=== PATIENT | female | born 1990 | race Caucasian/White ===

== ENCOUNTER 2020-12-14 08:45 | Outpatient (RCR) | payer OTHER, SELFPAY ==
--- NOTE | 2020-11-30 13:14 | PC.NURSE ---
Left 2 messages for patient to call me back as she missed her 1245 Telehealth Nursing Assessment appointment.
--- NOTE | 2020-11-30 17:03 | HO.PS.ADMBH ---
HPI Chief Complaint: depression Sources of Information: patient interviewed, chart reviewed and crisis/core team assessment reviewed HPI Narrative: 29 yo female, hx of alcohol use disorder, depression, anxiety, trauma. She reports I have been through the ringer. Reports life has never really worked for her, thought process does not work, jobs don't work out, I race around and never get anything done. States she has a modern prescriber but hopes to begin to address some of the issues that interfere with life not working for her. She believes she had ADHD, wants to be treated, but not with anything that is addictive or would place her sobriety at risk. Reports sobriety since May 2020, recently transitioning to her own room in transitional housing and attempting to manage depressive sx with more healthy coping skills, self care and reaching out to others for feed back and assistance. Denies hx of claudia or hypomania, OCD. Reports hx of eating issues, current sleep latency sx and worry about pending surgery on 12/12 for abnormal cervical cells post Leap. Reports current med regime to be working as she is not as intensely suicidal as she had been and she is able to get out of bed and be productive daily. Past Psychiatric History: IP: One for SI, alcohol use OP: Jose Melendez-psychotherapy; Dr. Christensen-psychopharm [facility] Medical History (Updated 12/01/20 @ 08:45 by Patt Lozano APRN) Alcohol use disorder, severe, dependence Headache History of traumatic brain injury Migraine PTSD (post-traumatic stress disorder) TMJ (temporomandibular joint syndrome) Family History: Anxiety, Depression. Father's - ?Accidential OD or suicide Social History: Lives in residential housing. Currently not working. 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 Substance History: Alcohol since seventh grade has been an issue Trauma History: yes Meds/Allergies Meds Narrative: Lexapro 40 mg daily Buspirone 15 mg bid Clonidine 0.1 mg bid prn Hydroxyzine 25 mg tid prn Trazodone 25 mg hs Gabapentin 100 mg HS Folate Vitamin D Trials: Seroquel-adverse response-increase anxiety; Remeron, Prazosin. Allergies Allergies Allergy/AdvReac Type Severity Reaction Status Date / Time No Known Allergies Allergy Verified 11/30/20 08:16 Mental Status Exam Mental Status Exam Patient Appearance: Appropriate Patient Orientation: Person, Place, Time and Situation Level of Consciousness: Awake and Alert Patient Behavior: Appropriate Mood Description: Anxious Affect Description: Flat Patient Cognition Impaired: No Ability to Follow Directions: Good Speech Pattern: Spontaneous Speech Memory Description: Intact Hallucinations: None Delusions: Not Present Thought Process: Intact Thought Content: positive for Intact Depressive Symptoms: Increased Anxiety, Insomnia, Diff. Making Decisions, Difficulty Sleeping, Hopelessness, Unhappiness, Low Self Esteem and Difficulty Concentrating Judgement: Good Assessment & Plan Assessment & Plan (1) PTSD (post-traumatic stress disorder): Status: Acute Code(s): F43.10 - Post-traumatic stress disorder, unspecified Assessment and Plan: -Continue current regime -Discussed with pt her concerns about ADHD. Referred her to Dr. Pierce Campbell's work to review. -For sleep, will trial an increase of Clonidine to 0.2 mg hs (2) Alcohol use disorder, severe, dependence: Status: Acute Code(s): F10.20 - Alcohol dependence, uncomplicated Certification I certify that partial hospital treatment is medically necessary due to the symptoms and problems resulting from the patient's mental illness and the failure to treat the patient at the partial hospital level of care would likely result in the patient requiring inpatient psychiatric care which could not be prevented at a less intensive level of care. Telehealth Telehealth Location of provider rendering services: practice address Location of patient: address on file Patient Identification confirmed using: Name, : Yes Telehealth method: video Patient verbally consented to treatment: Yes Patient verbally consented to billing insurance company: Yes Patient informed of any privacy concerns related to visit: Yes Time spent with patient (mins): 30
[2020-12-01 08:23] VITALS: BMI 24.0
--- NOTE | 2020-12-01 09:31 | PC.NURSE ---
Patient is a 29 year old female who was referred by [address] [place] [address] d/t patient's depressive symptoms, anxiety, and PTSD sxs. Patient recently moved into transitional housing last week and this is the first time patient is living on her own. She is living in her own room with other residents who reside there. Patient has a long hx of substance use with multiple detox and rehab admissions. Her father at age 55 from substance use complications when Rajwinder was 23 years old. 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 Patient presents with depressed mood and affect. Denied current SI or Hi. She gave verbal permission to email her a copy of her safety plan and has the crisis number if needed. She reports significant hx of heavy ETOH use including hx of detox seizure. Reports last drink on May 04, 2020. She stated she is here for relapse prevention support and that she has anxiety, depression, and PTSD. Medications reconciled with medication list from [address] [place] [address] and with patient. Patient reports taking medications as prescribed. Patient states she has a hx of TBI in 2008 from a snow boarding accident and suffers from Headaches, Migraines, and STM issues as a result. Stated she has not been to a neurologist and would like staff assistance with making a referral. Patient also reports suffering from TMJ and her PCP suggested she see a dentist. Patient reports that she has not seen a dentist in 20 years and is afraid to go. I suggested she call [facility] as they may take her insurance. Patient also reports hx of cervical leep procedure. She has additional cervical surgery scheduled for December 12, 2020 at 0730.
--- NOTE | 2020-12-06 09:38 | PC.NURSE ---
Patient reports hx of snowboarding accident in 2008 and stated she suffered a TBI as a result. Reports she did not receive f/u treatment afterwards however it was recommended that she f/u with a neurologist. She reports some short term memory issues, migraine and headaches. Spoke to nurse Clayton from PCP Dr Whitney office who stated she reviewed the information with Dr Whitney and patient has a f/u appointment in a few weeks and will discuss the need for a referral at that time.
--- NOTE | 2020-12-07 11:24 | PC.NURSE ---
Patient was scheduled to see the prescriber Oliva Bentley NP on 12/07/20 however patient did not show up to the program, she told staff that she felt tired as she did not sleep well last night.
--- NOTE | 2020-12-07 15:23 | PC.NURSE ---
When client did not attend the community meeting I called and woke her up. She states that she had difficulty sleeping last night and will be in tomorrow
--- NOTE | 2020-12-08 10:45 | PC.NURSE ---
Patient complained of TMJ pain and her PCP suggested that she see a dentist. Patient asked for assistance finding a dentist who takes her insurance. Notified patient that I found a dentist in [place] that takes her insurance called [facility] located on [address] [place] [address] in [place] and gave patient the number to call #[phone]. Patient was thankful and stated she would call them.
--- NOTE | 2020-12-11 10:58 | PC.NURSE ---
the client did not come in and did not call. I called her and she reports that she overslept and is not feeling well. She will be out tomorrow for a minor procedure and will be back Friday. She is safe.
--- NOTE | 2020-12-13 14:10 | PC.NURSE ---
I called client to talk about her discharge plans and last scheduled day of treatment. I left a message and requested she return my call.
--- NOTE | 2020-12-13 14:19 | PC.NURSE ---
I spoke with the client about discharge. Her last day will be Dec 19 and she would like a referral for a substance IOP program which I will make for her.
--- NOTE | 2020-12-13 16:18 | HO.PHPPROGNO ---
Subjective Subjective Date of Service: 12/13/20 Reason For Visit: depression Interim History: 29 yo with hx of PTSD, alcohol use disorder, depression, anxiety, ?ADD Pt reports she is experiencing anxiety, sleep disturbance, poor concentration and memory and worries about this when returning to work. Her goal is to function and have less worry about relapse. Reports increase in triggering and is still testing the safety of PHP. Reports no change in sleep, no latency sx, but restless quality at times. Appetite is unchanged, pt prefers to eat at night. SI/SIBS-denies SI plan or intent. Discussed increase of clonidine in our last meeting however pt has not made that change yet. Reports previous gabapentin increases have not worked. Looking to trial a stimulant. Discussed this being done with OP team as extended time would be needed to evaluate. Medication Compliance: Yes Side effects from medications: No Attending Groups: Yes Review of Systems Psychiatric: Reports anxiety and Reports depression Mental Status Exam Mental Status Exam Patient Appearance: Appropriate Patient Orientation: Person, Place, Time and Situation Level of Consciousness: Awake and Alert Patient Behavior: Appropriate Mood Description: Anxious Affect Description: Flat Patient Cognition Impaired: No Ability to Follow Directions: Good Speech Pattern: Spontaneous Speech Memory Description: Intact Hallucinations: None Delusions: Not Present Thought Process: Intact Thought Content: positive for Intact Depressive Symptoms: Increased Anxiety, Diff. Making Decisions, Thoughts of /Suicide (Denies SI plan or intent) and Difficulty Concentrating Judgement: Good Diagnostics Vital Signs (24Hr): Body Mass Index 24.0 Assessment & Plan Assessment & Plan (1) PTSD (post-traumatic stress disorder): Status: Acute Code(s): F43.10 - Post-traumatic stress disorder, unspecified Assessment and Plan: -Continue current regime (2) Alcohol use disorder, severe, dependence: Status: Acute Code(s): F10.20 - Alcohol dependence, uncomplicated Certification I certify that partial hospital treatment is medically necessary due to the symptoms and problems resulting from the patient's mental illness and the failure to treat the patient at the partial hospital level of care would likely result in the patient requiring inpatient psychiatric care which could not be prevented at a less intensive level of care. Greater than 50% of the session was spent on counseling and/or coordination of care Discharge Plan Discharge Attending provider: Luisito Guzman Medications: No Action clonidine HCl 0.1 mg Tablet 0.1 mg PO BEDTIME RF: 0 clonidine HCl 0.1 mg Tablet See Rx Instructions .ROUTE .COMPLEX RF: 0 citalopram 40 mg tablet 1 tab PO DAILY RF: 0 trazodone 50 mg Tablet 25 mg PO BEDTIME RF: 0 ibuprofen [Advil Liqui-Gel] 200 mg Capsule 200 mg PO Q4-6H PRN (Reason: Pain) RF: 0 thiamine HCl (vitamin B1) 100 mg Tablet 100 mg PO DAILY RF: 0 melatonin 3 mg Tablet 3 mg PO BEDTIME PRN (Reason: Insomnia) RF: 0 folic acid 1 mg Tablet 1 mg PO DAILY RF: 0 hydroxyzine HCl 25 mg Tablet 25 mg PO TID PRN (Reason: Anxiety) RF: 0 buspirone 15 mg tablet 1 tab PO BID RF: 0 topiramate 50 mg Tablet 50 mg PO BEDTIME RF: 0 gabapentin 100 mg Tablet 100 mg PO BEDTIME RF: 0 diclofenac sodium 1 % gel See Rx Instructions .ROUTE .COMPLEX RF: 0 Telehealth Telehealth Location of provider rendering services: practice address Location of patient: address on file Patient Identification confirmed using: Name, : Yes Telehealth method: video Patient verbally consented to treatment: Yes Patient verbally consented to billing insurance company: Yes Patient informed of any privacy concerns related to visit: Yes Time spent with patient (mins): 20
--- NOTE | 2020-12-15 09:27 | PC.NURSE ---
When the client did not come in this morning I phoned her and we discussed her needs. She states that she would prefer a program that was addiction recovery focused. She has appointments with her therapist and prescriber. I told her that I will call [facility] and make a referral for their IOP. She will be discharged from [facility] today.
--- NOTE | 2020-12-15 09:54 | PC.NURSE ---
I made an intake appointment for the client at [facility] for dec 25 @ 2:30 pm. I called client and infoemed her of the appointment.
== END 2020-12-14 23:55 | disposition home or self-care (01) ==
LOC: HO.PHPA 08:45
PROVIDERS: Visit Provider Psychiatry & Neurology Psychiatry
DX: F43.10 Post-traumatic stress disorder, unspecified (principal); F10.20 Alcohol dependence, uncomplicated; Z79.899 Other long term (current) drug therapy
CPT/HCPCS: 90791; 90853

== ENCOUNTER 2024-02-07 06:50 | Inpatient (IN) | payer OTHER, SELFPAY ==
[2024-02-07 07:21] VITALS: BP 115/77; PULSE 75; RESP 16; TEMP 37.4; O2SAT 100
[2024-02-07 07:22] VITALS: BMI 44.4
--- NOTE | 2024-02-07 07:25 | PC.NURSE ---
Rajwinder was admitted to unit at 0700 via stretcher from [facility], CV signed, skin check done by 2 female staff. Has healing scratches to right hand fingers from punching wall. She reported HX of SIB a long time ago. (years), skin otherwise is intact. Nicotine Vape pen taken from [facility] and placed with belongings along with her jewelry and 2 cell phones. She was shown her room. Denies SI/AVH, feels safe on the unit. Rajwinder is A/O x 3, ambulatory with steady gait.
[2024-02-07] MEDS: hydrOXYzine HCL 25 MG TABLET PO (09:10)
--- NOTE | 2024-02-07 10:49 | PC.NURSE ---
Pt already recieved immunization for the Flu this season.
--- NOTE | 2024-02-07 11:34 | HO.PSYADMNOT ---
HPI Date of Service: 02/07/24 Chief Complaint: Bipolar disorder: Alcohol, opiate use disorder Sources of Information: patient interviewed and chart reviewed HPI Subjective Notes: Conditional Voluntary Narrative: Patient presents as a direct admission from [facility]. Reports that she was a in a very unsafe living situation, needs help and does not have resources. Was very tearful when mentioning same and also stated she did not feel in the space ready to talk about things. Validated same and patient agreed to talk about past treatment except aura and may discuss living situation more tomorrow or with primary team after the weekend. Did endorse feeling depressed, hopeless, understand she will likely return to her prior situation and with that depression potential suicidal thoughts. No hallucinations. Does endorse disturbed sleep. No claudia hypomania. Reports sometimes having what might be considered paranoid thoughts, but also reports that it is hard to know if these are more related to complex PTSD versus delusions. Again reluctant to go into detail. 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 Current treatment includes doxepin 75 mg at bedtime, gabapentin 400 mg twice daily, clonidine 0.1 mg 3 times per day, Sublocade monthly injection 300 mg, suboxone 4mg prn altdays/daily for cravings, next due on 02/13/2024, melatonin 10 mg, senna and Colace. He is gets medications through [facility] in [place] for the last 2 years. Has been sober from all substances for 2 years, which includes heroin and alcohol. Has a therapist through [facility]. Was also seen by addiction medicine services today. Past Psychiatric History: Complex PTSD diagnosis. Opioid use disorder alcohol use disorder, sober for the last 2 years. Meds through [facility]: doxepin 75 mg at bedtime, gabapentin 400 mg twice daily, clonidine 0.1 mg 3 times per day, Sublocade monthly injection 300 mg, suboxone 4mg prn altdays/daily for cravings, next due on 02/13/2024, melatonin 10 mg, senna and Colace. Therapits with [facility]. Last inpatient episode was around 2-3 years ago which was actually a rehab setting and before that may have had inpatient episode. Last suicide attempt was around 3 years ago. Reports a number of suicide attempts and they usually involve drinking and taking excess medications. Reports being on many medications in the years past including lithium, mood stabilizers and multiple antipsychotics and them never being affective or having side effects. Medical Evaluation Reviewed: Hospitalist Pamelaal Pending [facility] Medical History (Updated 02/07/24 @ 16:13 by Celestino Horan MD) Alcohol use disorder, severe, dependence PTSD (post-traumatic stress disorder) TMJ (temporomandibular joint syndrome) History of traumatic brain injury Headache Migraine Family History: Anxiety, Depression. Father's - ?Accidential OD or suicide Social History: Patient reports an unsafe living situation but very reluctant to elaborate. Single. No children. No legal issues. 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 Trauma History: yes Diagnostics Vital Signs (24Hr): Vital Signs - 24 hr 02/07/24 07:21 Temperature 99.4 F Pulse Rate 75 Respiratory Rate 16 Blood Pressure 115/77 Pulse Oximetry 100 Oxygen Delivery Method Room Air BMI result Body Mass Index 44.4 Meds/Allergies Meds Home Medications ?Medication ?Instructions ?Recorded ?Confirmed ?Type buspirone 15 mg tablet 1 tab PO BID 11/30/20 11/30/20 History citalopram 40 mg tablet 1 tab PO DAILY 11/30/20 11/30/20 History clonidine HCl 0.1 mg tablet 0.1 mg PO BEDTIME 11/30/20 11/30/20 History clonidine HCl 0.1 mg tablet See Rx Instructions .Route .COMPLEX 11/30/20 11/30/20 History diclofenac sodium 1 % topical gel See Rx Instructions .Route .COMPLEX 11/30/20 11/30/20 History folic acid 1 mg tablet 1 mg PO DAILY 11/30/20 11/30/20 History gabapentin 100 mg tablet 100 mg PO BEDTIME 11/30/20 11/30/20 History hydroxyzine HCl 25 mg tablet 25 mg PO TID PRN Anxiety 11/30/20 11/30/20 History ibuprofen 200 mg capsule (Advil 200 mg PO Q4-6H PRN Pain 11/30/20 11/30/20 History Liqui-Gel) melatonin 3 mg tablet 3 mg PO BEDTIME PRN Insomnia 11/30/20 11/30/20 History thiamine HCl (vitamin B1) 100 mg 100 mg PO DAILY 11/30/20 11/30/20 History tablet topiramate 50 mg tablet 50 mg PO BEDTIME 11/30/20 11/30/20 History trazodone 50 mg tablet 25 mg PO BEDTIME 11/30/20 11/30/20 History Allergies Allergies Allergy/AdvReac Type Severity Reaction Status Date / Time No Known Allergies Allergy Verified 11/30/20 08:16 Mental Status Exam Mental Status Exam Narrative: Pleasant. Engaged. Organized. Depressed and anxious. Denies current SI. No HI. No agitation or psychosis. Insight and judgment fair Assessment & Plan Assessment & Plan (1) PTSD (post-traumatic stress disorder): Status: Acute Code(s): F43.10 - Post-traumatic stress disorder, unspecified (2) Opioid use disorder, severe, in sustained remission: Status: Acute Code(s): F11.21 - Opioid dependence, in remission (3) Alcohol use disorder, severe, in sustained remission: Status: Acute Code(s): F10.21 - Alcohol dependence, in remission Plan Presents with history of complex PTSD, alcohol and opioid use disorder, with sobriety for at least 2 years, currently engaged in outpatient services. Patient describes unsafe living situation, needing help and resources, but also reluctant to discuss details currently. Maintain current treatment includes doxepin 75 mg at bedtime, gabapentin 400 mg twice daily, clonidine 0.1 mg 3 times per day, Sublocade monthly injection 300 mg and suboxone 4mg prn /daily for cravings, next due on 02/13/2024, melatonin 10 mg (will be 9mg), senna and Colace. Also seen by addiction medicine services today. Patient educated on: diagnosis and medication risk/benefits Informed Consent: understands Reason for continued inpatient stay Substantial Risk for: harm to self Statement Statement: I have reviewed the history and physical and performed a pertinent examination on my patient. No changes have occurred unless specified. If the History and Physical was not performed prior to admission, the Hospitalist's service will be consulted for completing the admission physical. Time Spent With Patient Time: Total time managing care of this patient today ____ minutes.
--- NOTE | 2024-02-07 13:56 | HO.PM.IMCN ---
History of Present Illness Data of Consult Service Date: 02/07/24 Primary Care Provider: Unknown Physician HPI Reason for consult: Admission H&P Pt is a 33-year-old female with a PMH significant for?polysubstance use on Suboxone, anxiety, and depression who is admitted to M3 psychiatry unit for increased anxiety and paranoid behavior. Patient apparently believes one of her neighbors is stalking her, though increasingly has worried her perceptions are not accurate. Neighbor's report hearing screaming, yelling, and talking to herself while she is alone in her apartment. Medical consult for admission H&P. ?Patient is seen and approached at bed where she is resting comfortably. Pt declines interview and examination at this time, saying she would like to be left alone to rest. Denies any acute medical complaints at this time. Review of Systems Review of Systems: Denies any acute medical complaints at this time [facility] Medical History Alcohol use disorder, severe, dependence PTSD (post-traumatic stress disorder) TMJ (temporomandibular joint syndrome) History of traumatic brain injury Headache Migraine Social History Household Members: None Household Members Other:: residents Housing: Apartment Housing Other:: sober living Do you presently have visiting nurse or other home services: No Patient Tobacco Use Status: Current everyday Tobacco user Smoked in Last 30 Days: Yes e-Cigarette/Vaping Use: Currently Using Frequency of e-Cigarette/Vaping Use: througout the day Patient Interested in Nicotine Replacement: Yes Patient Given Instructions on How to Stop Smoking: Yes Date Education Initiated: 02/07/24 Second Hand Smoke Exposure: No Use of substances other than those prescribed or required for medical reasons: No Currently Displaying Signs/Symptoms of Drug Intoxication Withdrawal: No Have you been hit, kicked, punched, or otherwise hurt by someone within the past year? If so, by whom?: No Do you feel safe in your current relationship?: No Current Relationship Is there a partner from a previous relationship who is making you feel unsafe now?: No Are you made to feel afraid or neglected: No Advance Directives: No Advance Directives Information Provided: Yes Do you have thoughts of harming others: None Do you have a plan to hurt others: No Plan Recently lost weight without trying: Yes How much weight loss: 2-13 pounds Eating poorly because of decreased appetite: No Nutrition screen score: 3 Nutrition Risks: No Nutritional Risk Patient : No : No Poor oral hygiene: No Meds Allergies Allergy/AdvReac Type Severity Reaction Status Date / Time No Known Allergies Allergy Verified 11/30/20 08:16 Active Medications: Current Medications Acetaminophen (Acetaminophen 325 Mg Tablet) 650 mg PO Q6H PRN PRN Reason: Headache/Pain Mild Scale (1-3) Al Hydroxide/Mg Hydroxide (Magnesium Hydrox/Alum Hydrox 30 Ml Oral.Susp) 30 ml PO Q6H PRN PRN Reason: Heartburn/Nausea Hydroxyzine HCl (Hydroxyzine Hcl 25 Mg Tablet) 25 mg PO Q6H PRN PRN Reason: Anxiety Last Admin: 02/07/24 09:10 Dose: 25 mg Magnesium Hydroxide (Milk Of Magnesia 30 Ml Oral.Susp) 30 ml PO DAILY PRN PRN Reason: Constipation Nicotine Polacrilex (Nicotine Polacrilex 2 Mg Gum) 2 mg BUCCAL Q2H PRN PRN Reason: Nicotine Cravings Trazodone HCl (Trazodone Hcl 50 Mg Tablet) 50 mg PO BEDTIME MRX1 PRN PRN Reason: Insomnia Home Medications ?Medication ?Instructions ?Recorded ?Confirmed ?Last Taken ?Type buspirone 15 mg tablet 1 tab PO BID 11/30/20 11/30/20 11/30/20 09:30 History citalopram 40 mg tablet 1 tab PO DAILY 11/30/20 11/30/20 11/30/20 09:30 History clonidine HCl 0.1 mg tablet 0.1 mg PO BEDTIME 11/30/20 11/30/20 11/29/20 21:00 History clonidine HCl 0.1 mg tablet See Rx Instructions .Route .COMPLEX 11/30/20 02/07/24 11/30/20 09:30 History diclofenac sodium 1 % topical gel See Rx Instructions .Route .COMPLEX 11/30/20 11/30/20 Unknown History folic acid 1 mg tablet 1 mg PO DAILY 11/30/20 11/30/20 Unknown History gabapentin 100 mg tablet 100 mg PO BEDTIME 11/30/20 02/07/24 11/29/20 21:00 History hydroxyzine HCl 25 mg tablet 25 mg PO TID PRN Anxiety 11/30/20 02/07/24 11/29/20 21:00 History ibuprofen 200 mg capsule (Advil 200 mg PO Q4-6H PRN Pain 11/30/20 11/30/20 Unknown History Liqui-Gel) melatonin 3 mg tablet 3 mg PO BEDTIME PRN Insomnia 11/30/20 11/30/20 11/29/20 21:00 History thiamine HCl (vitamin B1) 100 mg 100 mg PO DAILY 11/30/20 11/30/20 11/30/20 09:30 History tablet topiramate 50 mg tablet 50 mg PO BEDTIME 11/30/20 11/30/20 11/29/20 21:00 History trazodone 50 mg tablet 25 mg PO BEDTIME 11/30/20 11/30/20 11/29/20 21:00 History Physical Exam Vital Signs and Narrative: Vital Signs: Last Vital Signs Temp 99.4 F 02/07/24 07:21 Pulse 75 02/07/24 07:21 Resp 16 02/07/24 07:21 BP 115/77 02/07/24 07:21 Pulse Ox 100 02/07/24 07:21 O2 Del Method Room Air 02/07/24 07:21 BMI result Body Mass Index 44.4 Patient declines physical examination Assessment and Plan (1) Medical clearance for psychiatric admission: Status: Acute Plan Pt is a 33-year-old female with a PMH significant for?polysubstance use on Suboxone, anxiety, and depression who is admitted to M3 psychiatry unit for increased anxiety and paranoid behavior. Patient apparently believes one of her neighbors is stalking her, though increasingly has worried her perceptions are not accurate. Neighbor's report hearing screaming, yelling, and talking to herself while she is alone in her apartment. Medical consult for admission H&P. ?Patient is seen and approached at bed where she is resting comfortably. Pt declines interview and examination at this time. Mood disorder Plan as per Psychiatry Polysubstance use disorder Continue Suboxone Plan as per Psychiatry Thank you for allowing us to participate in the care of this patient. Signing off at this time. Please re-consult if any acute complaints or issues arise.
--- NOTE | 2024-02-07 14:13 | MHC.RECOVRN ---
Met with pt in 323-3 after consult placed to Addiction Medicine for Suboxone consult.? Chart review completed and received report from floor nurse Jordyn. Pt was transferred from [facility] [place] inpt. Psych treatment.? She had just arrived at 7AM so although chart review was completed, information was minimal.? [facility] was contacted due to pt. reporting she is on a ?suboxone taper? and staff requesting further guidance re:? this.? Upon assessment pt is in common area awake and alert eating breakfast.? Pt reports she has been sober for 3 years from heroin and that she has been getting sublocade and suboxone for several months.? Upon review of HVAC CONTROLS TECHNICIAN pt is receiving sublocade 300mg Q 28 days and suboxone 8-2mg -1/2 strip QD PRN.? Last fill for suboxone 8-2mg was on 01/14 x 18 days and sublocade 300mg was on 12/31.? Pt reports she is due for her next injection of sublocade this coming Fri.? ?? Pt is requesting an order for her PO suboxone for W/D, cravings.? She reports she has been slowly tapering off the PO form since on injection and HVAC CONTROLS TECHNICIAN reflects this.? T/W consulted with Flakita Roche NP and recommendations made to ordering provider Dr. Horan for suboxone 4-1mg BID PRN for breakthrough W/D or cravings.? Pt will be due for sublocade per her report this Fri.? Unable to verify this with current clinic [facility] in [place] as they are closed today.? Pt also with h/o AUD and t/w will f/u with her re:? POC r/t this at next visit. [facility] will follow pt. while admitted and provide any further support/assistance needed. Report to [facility] team and pt?s nurse Cobb.
[2024-02-07] MEDS: Nicotine Polacrilex 2 MG GUM BUCCAL ×3 (14:27→21:31)
--- NOTE | 2024-02-07 14:40 | PC.ADMIT ---
Rajwinder is a 33 year old female admitted to M3 at 0700 from [facility] and signed a CV upon entering the unit. Pt self presented to the ER d/t increased anxiety and paranoia. Dx of Bipolar 1, CHILO, Alcohol use d/o in remission and Opioid use d/o in remission. Pt is A&O x4. Pt was calm, pleasant and cooperative with admission process. Mood is anxious. Affect is variable. She denied AH or VH. Pt denied SI or VH at this time. Pt reported hx of past suicide attempt and SI. No overt psychosis or expressed delusions at this time. Pt was compliant with the skin check. Pt is on a suboxone taper and was seen by the clinical research specialist this AM. She reported lack of sleep for and taking extra prescribed meds to help her. Pt reported a 10lb unintentional weight loss in the past month. Pt reported I have been under a lot of stress and could no longer deal with it. She reported not feeling safe in her apartment and I feel like I was in fight or flight mode , pt smashed her laptop and punched wall before calling respite. Pt reports that before presenting to the ER I was trying to get a bed with respite and they had no room so they referred me to the ER. Pt tox screen was negative. Pt COVID test was negative. Pt had a TBI at 18 y/o. High fall risk d/t 2 episodes of fainting last week. Pt was placed on 15 minute safety checks.
[2024-02-07] MEDS: Gabapentin 400 MG CAPSULE PO ×2 (15:33→20:34)
[2024-02-07 15:35] VITALS: BP 109/67; PULSE 79; O2SAT 98
[2024-02-07] MEDS: cloNIDine HCL 0.1 MG TABLET PO ×2 (15:39→20:34)
[2024-02-07] MEDS: Doxepin HCl 25 MG CAPSULE 75 MG PO (20:34)
[2024-02-07] MEDS: Docusate Sodium 100 MG CAPSULE PO (20:34)
[2024-02-07] MEDS: Buprenorphine/Naloxone 4/1 mg FILM 1 FILM SUBLINGUAL (20:37)
[2024-02-07 20:40] VITALS: BP 106/69; PULSE 80; RESP 16; TEMP 36.3; O2SAT 97
[2024-02-07] MEDS: Melatonin 3 MG TABLET 9 MG PO (21:31)
[2024-02-08 08:10] VITALS: BP 87/52; PULSE 62; RESP 14; TEMP 37.3; O2SAT 96
[2024-02-08] MEDS: Docusate Sodium 100 MG CAPSULE PO ×2 (09:05→21:06)
[2024-02-08] MEDS: Gabapentin 400 MG CAPSULE PO ×2 (09:05→21:06)
[2024-02-08] MEDS: cloNIDine HCL 0.1 MG TABLET PO ×3 (09:37→21:06)
[2024-02-08] MEDS: hydrOXYzine HCL 25 MG TABLET PO (09:37)
[2024-02-08] MEDS: Nicotine Polacrilex 2 MG GUM BUCCAL ×4 (09:41→21:17)
--- NOTE | 2024-02-08 11:34 | MHC.RECOVRN ---
Met with pt in 323-3 to follow up and provide support.? Pt sleeping at time of visit. Nurse reports that pt. was up for a good portion of the night due to disruption from room mate therefore I did not awaken pt. Pt's nurse Jordyn, pt did receive PRN suboxone order and accessed it last evening with good effects. I requested staff initiate COWS assessment prior to administering suboxone strips (going forward). Jordyn denies other concerns with pt. at this time.? T/w available as needed.
--- NOTE | 2024-02-08 12:07 | P.PNPSI_ITS ---
Subjective Subjective Date of Service: 02/08/24 Reason For Visit: Bipolar disorder: Alcohol, opiate use disorder Subjective Notes: Conditional Voluntary Interim History: met with patient. Discussed with Nursing. Patient Discussed trying be used to the environment, trauma history and difficulty with trust. Sleep was poor last night in the context of roommate being awake and disturbing. Describes clear PTSD symptoms, with fear, hyper vigilance etc. We did separate that out from paranoia. We discussed diagnosis of PTSD and treatments and would like to discuss medication options with her primary team tomorrow such as antipsychotics. Also wants to explore applying for [facility] services. Medication Compliance: Yes Side effects from medications: No Attending Groups: No Review of Systems Acute medical concerns: No Review of Systems Review of Systems Yes all other systems are reviewed and are negative Mental Status Exam Mental Status Exam Narrative: Pleasant. Engaged. Organized. Depressed and anxious. Denies current SI. No HI. No agitation or psychosis. Insight and judgment fair Diagnostics Vital Signs (24Hr): Vital Signs - 24 hr 02/07/24 15:35 02/07/24 20:40 02/08/24 08:10 Temperature 97.4 F 99.1 F Pulse Rate 79 80 62 Respiratory Rate 16 14 Blood Pressure 109/67 106/69 87/52 L Pulse Oximetry 98 97 96 Oxygen Delivery Method Room Air Room Air Room Air BMI result Body Mass Index 44.4 Medications Medications Current Medications Acetaminophen (Acetaminophen 325 Mg Tablet) 650 mg PO Q6H PRN PRN Reason: Headache/Pain Mild Scale (1-3) Al Hydroxide/Mg Hydroxide (Magnesium Hydrox/Alum Hydrox 30 Ml Oral.Susp) 30 ml PO Q6H PRN PRN Reason: Heartburn/Nausea Buprenorphine/Naloxone (Buprenorphine/Naloxone 4/1 Mg Film) 1 film SUBLINGUAL DAILY PRN PRN Reason: opioid cravings Clonidine HCl (Clonidine Hcl 0.1 Mg Tablet) 0.1 mg PO TID [facility]; Protocol Last Admin: 02/08/24 09:37 Dose: 0.1 mg Docusate Sodium (Docusate Sodium 100 Mg Capsule) 100 mg PO BID [facility] Last Admin: 02/08/24 09:05 Dose: 100 mg Doxepin HCl (Doxepin Hcl 25 Mg Capsule) 75 mg PO BEDTIME [facility] Last Admin: 02/07/24 20:34 Dose: 75 mg Gabapentin (Gabapentin 400 Mg Capsule) 400 mg PO BID [facility] Last Admin: 02/08/24 09:05 Dose: 400 mg Hydroxyzine HCl (Hydroxyzine Hcl 25 Mg Tablet) 25 mg PO Q6H PRN PRN Reason: Anxiety Last Admin: 02/08/24 09:37 Dose: 25 mg Magnesium Hydroxide (Milk Of Magnesia 30 Ml Oral.Susp) 30 ml PO DAILY PRN PRN Reason: Constipation Melatonin (Melatonin 3 Mg Tablet) 9 mg PO BEDTIME ARNEL Last Admin: 02/07/24 21:31 Dose: 9 mg Nicotine Polacrilex (Nicotine Polacrilex 2 Mg Gum) 2 mg BUCCAL Q2H PRN PRN Reason: Nicotine Cravings Last Admin: 02/08/24 09:41 Dose: 2 mg Non-Formulary Medication (Sublocade) 300 mg SUBCUT ONCE ONE Stop: 02/13/24 08:01 Senna (Senna [place] Extract Oral Syrup 15 Ml Syrup) 15 ml PO BEDTIME PRN PRN Reason: Constipation Trazodone HCl (Trazodone Hcl 50 Mg Tablet) 50 mg PO BEDTIME MRX1 PRN PRN Reason: Insomnia Allergies Allergies Allergy/AdvReac Type Severity Reaction Status Date / Time No Known Allergies Allergy Verified 11/30/20 08:16 Assessment & Plan Assessment & Plan (1) PTSD (post-traumatic stress disorder): Status: Acute Code(s): F43.10 - Post-traumatic stress disorder, unspecified (2) Opioid use disorder, severe, in sustained remission: Status: Acute Code(s): F11.21 - Opioid dependence, in remission (3) Alcohol use disorder, severe, in sustained remission: Status: Acute Code(s): F10.21 - Alcohol dependence, in remission Plan Presents with history of complex PTSD, alcohol and opioid use disorder, with sobriety for at least 2 years, currently engaged in outpatient services. Patient describes unsafe living situation, needing help and resources, but also reluctant to discuss details currently. Maintain current treatment includes doxepin 75 mg at bedtime, gabapentin 400 mg twice daily, clonidine 0.1 mg 3 times per day, Sublocade monthly injection 300 mg (next due on 02/13/2024) and suboxone 4mg prn /daily for cravings, melatonin 10 mg (will be 9mg), senna and Colace. Also seen by addiction medicine services today. 02/07: discussed diagnosis of PTSD and treatments and would like to discuss medication options with her primary team tomorrow such as antipsychotics. Also wants to explore applying for DM services. Reason for continued inpatient stay Substantial Risk for: inability to function and rapid decompensation Time Spent With Patient Time: Total time managing care of this patient today ____ minutes.
[2024-02-08 15:00] VITALS: BP 114/75; PULSE 82
[2024-02-08] MEDS: Gabapentin 100 MG CAPSULE PO (15:20)
[2024-02-08 18:00] VITALS: BP 92/55; PULSE 72; RESP 18; TEMP 37.3; O2SAT 98
[2024-02-08] MEDS: Melatonin 3 MG TABLET 9 MG PO (21:06)
[2024-02-08] MEDS: Doxepin HCl 25 MG CAPSULE 75 MG PO (21:06)
[2024-02-09 06:00] VITALS: BP 81/47; PULSE 68; RESP 12; TEMP 37; O2SAT 96
--- NOTE | 2024-02-09 09:01 | P.PNPSI_ITS ---
Subjective Subjective Date of Service: 02/09/24 Reason For Visit: Bipolar disorder: Alcohol, opiate use disorder Subjective Notes: Conditional Voluntary Interim History: Reviewed with Dr. Guzman. Active on unit, keeping to self. pt reports feeling anxious and depressed today; Pt stated, I don't feel safe in my current living situation. This georgina who lives in the sober living building with me is always making comments about me and lingers around my door. [facility] . Pt reports she plans [facility] today to determine if she can move to a different location or utilizing her [employer] voucher. Pt reports suicidal ideation when she thinks about going back to the same sitation and knowing that georgina is there . pt denies HI/VH/AH. Discussed starting on mood stabilizer; reviewed risks/benefits of lamictal; pt agreed to trial. Start: lamictal 25mg PO daily Medication Compliance: Yes Side effects from medications: No Attending Groups: Yes Review of Systems Constitutional: Reports as per HPI Eyes: Reports as per HPI Reports as per HPI Cardiovascular: Reports as per HPI Respiratory: Reports as per HPI Gastrointestinal: Reports as per HPI Genitourinary: Reports as per HPI Musculoskeletal: Reports as per HPI Skin/Breast: Reports as per HPI Reports as per HPI Psychiatric: Reports as per HPI Endocrine: Reports as per HPI Hematologic/Lymphatic: Reports as per HPI Allergic/Immunologic: Reports as per HPI Mental Status Exam Mental Status Exam Narrative: Pt is alert and oriented; behavior is cooperative and calm; dressed in casual attire; mood is described as anxious and depressed ; eye contact appropriate; Speech is normal rate, volume and prosody and not pressured; thought process is organized and goal directed; Thought content is on tx; denies HI/VH/AH. Pt reports suicidal ideation d/t fear of returning to current apartment. Diagnostics Vital Signs (24Hr): Vital Signs - 24 hr 02/08/24 15:00 02/08/24 18:00 02/09/24 06:00 Temperature 99.1 F 98.6 F Pulse Rate 82 72 68 Respiratory Rate 18 12 Blood Pressure 114/75 92/55 L 81/47 L Pulse Oximetry 98 96 Oxygen Delivery Method Room Air Room Air BMI result Body Mass Index 44.4 Medications Medications Current Medications Acetaminophen (Acetaminophen 325 Mg Tablet) 650 mg PO Q6H PRN PRN Reason: Headache/Pain Mild Scale (1-3) Al Hydroxide/Mg Hydroxide (Magnesium Hydrox/Alum Hydrox 30 Ml Oral.Susp) 30 ml PO Q6H PRN PRN Reason: Heartburn/Nausea Buprenorphine/Naloxone (Buprenorphine/Naloxone 4/1 Mg Film) 1 film SUBLINGUAL DAILY PRN PRN Reason: opioid cravings Clonidine HCl (Clonidine Hcl 0.1 Mg Tablet) 0.1 mg PO TID [facility]; Protocol Last Admin: 02/08/24 21:06 Dose: 0.1 mg Docusate Sodium (Docusate Sodium 100 Mg Capsule) 100 mg PO BID [facility] Last Admin: 02/08/24 21:06 Dose: 100 mg Doxepin HCl (Doxepin Hcl 25 Mg Capsule) 75 mg PO BEDTIME [facility] Last Admin: 02/08/24 21:06 Dose: 75 mg Gabapentin (Gabapentin 400 Mg Capsule) 400 mg PO BID [facility] Last Admin: 02/08/24 21:06 Dose: 400 mg Gabapentin (Gabapentin 100 Mg Capsule) 100 mg PO TID PRN PRN Reason: anxiety not relieved by hydroxyzine Last Admin: 02/08/24 15:20 Dose: 100 mg Hydroxyzine HCl (Hydroxyzine Hcl 25 Mg Tablet) 25 mg PO Q6H PRN PRN Reason: Anxiety Last Admin: 02/08/24 09:37 Dose: 25 mg Magnesium Hydroxide (Milk Of Magnesia 30 Ml Oral.Susp) 30 ml PO DAILY PRN PRN Reason: Constipation Melatonin (Melatonin 3 Mg Tablet) 9 mg PO BEDTIME [facility] Last Admin: 02/08/24 21:06 Dose: 9 mg Nicotine Polacrilex (Nicotine Polacrilex 2 Mg Gum) 2 mg BUCCAL Q2H PRN PRN Reason: Nicotine Cravings Last Admin: 02/08/24 21:17 Dose: 2 mg Non-Formulary Medication (Sublocade) 300 mg SUBCUT ONCE ONE Stop: 02/13/24 08:01 Senna (Senna [place] Extract Oral Syrup 15 Ml Syrup) 15 ml PO BEDTIME PRN PRN Reason: Constipation Trazodone HCl (Trazodone Hcl 50 Mg Tablet) 50 mg PO BEDTIME MRX1 PRN PRN Reason: Insomnia Allergies Allergies Allergy/AdvReac Type Severity Reaction Status Date / Time No Known Allergies Allergy Verified 11/30/20 08:16 Assessment & Plan Assessment & Plan (1) PTSD (post-traumatic stress disorder): Status: Acute Code(s): F43.10 - Post-traumatic stress disorder, unspecified (2) Opioid use disorder, severe, in sustained remission: Status: Acute Code(s): F11.21 - Opioid dependence, in remission (3) Alcohol use disorder, severe, in sustained remission: Status: Acute Code(s): F10.21 - Alcohol dependence, in remission Plan Presents with history of complex PTSD, alcohol and opioid use disorder, with sobriety for at least 2 years, currently engaged in outpatient services. Patient describes unsafe living situation, needing help and resources, but also reluctant to discuss details currently. Maintain current treatment includes doxepin 75 mg at bedtime, gabapentin 400 mg twice daily, clonidine 0.1 mg 3 times per day, Sublocade monthly injection 300 mg (next due on 02/13/2024) and suboxone 4mg prn alt/daily for cravings, melatonin 10 mg (will be 9mg), senna and Colace. Also seen by addiction medicine services today. 02/07: discussed diagnosis of PTSD and treatments and would like to discuss medication options with her primary team tomorrow such as antipsychotics. Also wants to explore applying for [facility] services. 02/08: Active on unit, keeping to self. pt reports feeling anxious and depressed today; Pt stated, I don't feel safe in my current living situation. This georgina who lives in the sober living building with me is always making comments about me and lingers around my door. [facility] . Pt reports she plans on contacting the [facility] today to determine if she can move to a different location or utilizing her [employer] 8 voucher. Pt reports suicidal ideation when she thinks about going back to the same sitation and knowing that georgina is there . pt denies HI/VH/AH. Discussed starting on mood stabilizer; reviewed risks/benefits of lamictal; pt agreed to trial. Start: lamictal 25mg PO daily Patient educated on: diagnosis, medication risk/benefits and therapeutic strategies Informed Consent: understands Reason for continued inpatient stay Substantial Risk for: harm to self and med/psych decompensation Time Spent With Patient Time: Total time managing care of this patient today _20___ minutes.
[2024-02-09 09:20] VITALS: BP 97/59; PULSE 73
[2024-02-09] MEDS: Gabapentin 400 MG CAPSULE PO ×2 (09:22→22:15)
[2024-02-09] MEDS: Docusate Sodium 100 MG CAPSULE PO ×2 (09:22→22:14)
[2024-02-09] MEDS: cloNIDine HCL 0.1 MG TABLET PO ×2 (09:23→22:14)
[2024-02-09] MEDS: Nicotine Polacrilex 2 MG GUM BUCCAL ×4 (09:27→23:03)
[2024-02-09] MEDS: lamoTRIgine 25 MG TABLET PO (11:07)
--- NOTE | 2024-02-09 12:29 | MHC.CLN ---
NUTRITION CONSULT FOR PATIENT REPORTED 10# WEIGHT LOSS X ONE MONTH. WEIGHT LOSS NOT SIGNIFICANT. EMR REVIEWED. WEIGHT LOSS SECONDARY TO STRESS. ANTICIPATE IMPROVED INTAKE IN CONTROLLED ENVIRONMENT. DIET=REGULAR. NO NEW NUTRITION INTERVENTIONS AT THIS TIME.
[2024-02-09 20:05] VITALS: BP 114/61; PULSE 76; RESP 16; TEMP 37.8; O2SAT 100
[2024-02-09] MEDS: Acetaminophen 325 MG TABLET 650 MG PO (20:48)
[2024-02-09 22:00] VITALS: PULSE 65
[2024-02-09 22:10] VITALS: BP 112/75; PULSE 65; RESP 18; TEMP 37.3; O2SAT 100
[2024-02-09] MEDS: Buprenorphine/Naloxone 4/1 mg FILM 1 FILM SUBLINGUAL (22:14)
[2024-02-09] MEDS: Doxepin HCl 25 MG CAPSULE 75 MG PO (22:15)
[2024-02-09] MEDS: Melatonin 3 MG TABLET 9 MG PO (22:15)
[2024-02-09 22:25] LABS: Influenza A PCR NEGATIVE (Negative); Influenza B PCR NEGATIVE (Negative); Resp Syncy Virus RNA Qual PCR NEGATIVE (Negative); SARS COV2 PCR INHOUSE NEGATIVE (Negative)
[2024-02-10 06:00] VITALS: BP 94/54; PULSE 58; RESP 14; TEMP 36.9; O2SAT 99
--- NOTE | 2024-02-10 06:53 | PC.NURSE ---
Rajwinder c/o feeling really gross temp. 100.1 covid, RSV and flu panel obtained all swabs negative. PRN Suboxone for COWs given at 2215. positive effect
--- NOTE | 2024-02-10 09:17 | HO.PSYCHPN ---
Subjective Subjective Date of Service: 02/10/24 Reason For Visit: Bipolar disorder: Alcohol, opiate use disorder Subjective Notes: Conditional Voluntary Interim History: Reviewed with Dr. Guzman. social with peers. pt reports feeling alright today; pt stated, I called my electrician helper powerhouse. I just have to apply for housing. If I go home and don't feel safe while I'm waiting for the voucher then I'll just go to respite . Pt denies SI/HI/VH/AH. Medication Compliance: Yes Side effects from medications: No Attending Groups: Yes Review of Systems Constitutional: Reports as per HPI Eyes: Reports as per HPI Reports as per HPI Cardiovascular: Reports as per HPI Respiratory: Reports as per HPI Gastrointestinal: Reports as per HPI Genitourinary: Reports as per HPI Musculoskeletal: Reports as per HPI Skin/Breast: Reports as per HPI Reports as per HPI Psychiatric: Reports as per HPI Endocrine: Reports as per HPI Hematologic/Lymphatic: Reports as per HPI Allergic/Immunologic: Reports as per HPI Mental Status Exam Mental Status Exam Narrative: Pt is alert and oriented; behavior is cooperative and calm; dressed in casual attire; mood is described as okay ; eye contact appropriate; Speech is normal rate, volume and prosody and not pressured; thought process is organized and goal directed; Thought content is on discharge; denies SI/HI/VH/AH. Diagnostics Vital Signs (24Hr): Vital Signs - 24 hr 02/09/24 09:20 02/09/24 20:05 02/09/24 22:10 Temperature 100.1 F 99.1 F Pulse Rate 73 76 65 Respiratory Rate 16 18 Blood Pressure 97/59 L 114/61 112/75 Pulse Oximetry 100 100 Oxygen Delivery Method Room Air Room Air 02/10/24 06:00 Temperature 98.4 F Pulse Rate 58 Respiratory Rate 14 Blood Pressure 94/54 L Pulse Oximetry 99 Oxygen Delivery Method Room Air BMI result Body Mass Index 44.4 Labs Labs: Laboratory Results - last 48 hr 02/09/24 21:40 Influenza Type A (PCR) NEGATIVE Influenza Type B (PCR) NEGATIVE RSV RNA Qual (PCR) NEGATIVE SARS-CoV-2 RNA (RT-PCR) NEGATIVE Medications Medications Current Medications Acetaminophen (Acetaminophen 325 Mg Tablet) 650 mg PO Q6H PRN PRN Reason: Headache/Pain Mild Scale (1-3) Last Admin: 02/09/24 20:48 Dose: 650 mg Al Hydroxide/Mg Hydroxide (Magnesium Hydrox/Alum Hydrox 30 Ml Oral.Susp) 30 ml PO Q6H PRN PRN Reason: Heartburn/Nausea Buprenorphine/Naloxone (Buprenorphine/Naloxone 4/1 Mg Film) 1 film SUBLINGUAL DAILY PRN PRN Reason: opioid cravings Last Admin: 02/09/24 22:14 Dose: 1 film Clonidine HCl (Clonidine Hcl 0.1 Mg Tablet) 0.1 mg PO TID [facility]; Protocol Last Admin: 02/09/24 22:14 Dose: 0.1 mg Docusate Sodium (Docusate Sodium 100 Mg Capsule) 100 mg PO BID [facility] Last Admin: 02/09/24 22:14 Dose: 100 mg Doxepin HCl (Doxepin Hcl 25 Mg Capsule) 75 mg PO BEDTIME [facility] Last Admin: 02/09/24 22:15 Dose: 75 mg Gabapentin (Gabapentin 400 Mg Capsule) 400 mg PO BID [facility] Last Admin: 02/09/24 22:15 Dose: 400 mg Gabapentin (Gabapentin 100 Mg Capsule) 100 mg PO TID PRN PRN Reason: anxiety not relieved by hydroxyzine Last Admin: 02/08/24 15:20 Dose: 100 mg Hydroxyzine HCl (Hydroxyzine Hcl 25 Mg Tablet) 25 mg PO Q6H PRN PRN Reason: Anxiety Last Admin: 02/08/24 09:37 Dose: 25 mg Lamotrigine (Lamotrigine 25 Mg Tablet) 25 mg PO DAILY [facility] Last Admin: 02/09/24 11:07 Dose: 25 mg Magnesium Hydroxide (Milk Of Magnesia 30 Ml Oral.Susp) 30 ml PO DAILY PRN PRN Reason: Constipation Melatonin (Melatonin 3 Mg Tablet) 9 mg PO BEDTIME [facility] Last Admin: 02/09/24 22:15 Dose: 9 mg Nicotine Polacrilex (Nicotine Polacrilex 2 Mg Gum) 2 mg BUCCAL Q2H PRN PRN Reason: Nicotine Cravings Last Admin: 02/09/24 23:03 Dose: 2 mg Non-Formulary Medication (Sublocade) 300 mg SUBCUT ONCE ONE Stop: 02/13/24 08:01 Senna (Senna [place] Extract Oral Syrup 15 Ml Syrup) 15 ml PO BEDTIME PRN PRN Reason: Constipation Trazodone HCl (Trazodone Hcl 50 Mg Tablet) 50 mg PO BEDTIME MRX1 PRN PRN Reason: Insomnia Allergies Allergies Allergy/AdvReac Type Severity Reaction Status Date / Time No Known Allergies Allergy Verified 11/30/20 08:16 Assessment & Plan Assessment & Plan (1) PTSD (post-traumatic stress disorder): Status: Acute Code(s): F43.10 - Post-traumatic stress disorder, unspecified (2) Opioid use disorder, severe, in sustained remission: Status: Acute Code(s): F11.21 - Opioid dependence, in remission (3) Alcohol use disorder, severe, in sustained remission: Status: Acute Code(s): F10.21 - Alcohol dependence, in remission Plan Presents with history of complex PTSD, alcohol and opioid use disorder, with sobriety for at least 2 years, currently engaged in outpatient services. Patient describes unsafe living situation, needing help and resources, but also reluctant to discuss details currently. Maintain current treatment includes doxepin 75 mg at bedtime, gabapentin 400 mg twice daily, clonidine 0.1 mg 3 times per day, Sublocade monthly injection 300 mg (next due on 02/13/2024) and suboxone 4mg prn altdays/daily for cravings, melatonin 10 mg (will be 9mg), senna and Colace. Also seen by addiction medicine services today. 02/07: discussed diagnosis of PTSD and treatments and would like to discuss medication options with her primary team tomorrow such as antipsychotics. Also wants to explore applying for [facility] services. 02/08: Active on unit, keeping to self. pt reports feeling anxious and depressed today; Pt stated, I don't feel safe in my current living situation. This georgina who lives in the sober living building with me is always making comments about me and lingers around my door. I've told the electrician helper powerhouse about it . Pt reports she plans on contacting the electrician helper powerhouse today to determine if she can move to a different location or utilizing her Section 8 voucher. Pt reports suicidal ideation when she thinks about going back to the same sitation and knowing that georgina is there . pt denies HI/VH/AH. Discussed starting on mood stabilizer; reviewed risks/benefits of lamictal; pt agreed to trial. Start: lamictal 25mg PO daily 02/09: social with peers. pt reports feeling alright today; pt stated, I called my electrician helper powerhouse. I just have to apply for housing. If I go home and don't feel safe while I'm waiting for the voucher then I'll just go to respite . Pt denies SI/HI/VH/AH. continue current tx plan. pt denies any side effects from starting lamictal. Patient educated on: diagnosis, medication risk/benefits and therapeutic strategies Informed Consent: understands Reason for continued inpatient stay Substantial Risk for: med/psych decompensation Time Spent With Patient Time: Total time managing care of this patient today _20___ minutes.
[2024-02-10] MEDS: Docusate Sodium 100 MG CAPSULE PO ×2 (10:19→21:38)
[2024-02-10] MEDS: lamoTRIgine 25 MG TABLET PO (10:19)
[2024-02-10] MEDS: Gabapentin 400 MG CAPSULE PO ×2 (10:19→21:38)
[2024-02-10 10:21] VITALS: BP 114/75; PULSE 77
[2024-02-10] MEDS: cloNIDine HCL 0.1 MG TABLET PO ×3 (10:21→21:39)
[2024-02-10] MEDS: Nicotine Polacrilex 2 MG GUM BUCCAL ×4 (10:24→21:41)
[2024-02-10 15:18] VITALS: BP 107/55; PULSE 67
[2024-02-10 21:30] VITALS: BP 101/62; PULSE 70; RESP 16; TEMP 36.9; O2SAT 97
[2024-02-10] MEDS: Melatonin 3 MG TABLET 9 MG PO (21:38)
[2024-02-10] MEDS: Doxepin HCl 25 MG CAPSULE 75 MG PO (21:39)
--- NOTE | 2024-02-11 07:54 | HO.PSYCHPN ---
Subjective Subjective Date of Service: 02/11/24 Reason For Visit: Bipolar disorder: Alcohol, opiate use disorder Subjective Notes: Conditional Voluntary Interim History: Reviewed with Dr. Guzman. pt reports feeling okay today; pt reports feeling some stress about her housing situation. Focused on discharge. Pt denies SI/HI/VH/AH. Medication Compliance: Yes Side effects from medications: No Attending Groups: Yes Review of Systems Constitutional: Reports as per HPI Eyes: Reports as per HPI Reports as per HPI Cardiovascular: Reports as per HPI Respiratory: Reports as per HPI Gastrointestinal: Reports as per HPI Musculoskeletal: Reports as per HPI Skin/Breast: Reports as per HPI Reports as per HPI Psychiatric: Reports as per HPI Endocrine: Reports as per HPI Hematologic/Lymphatic: Reports as per HPI Allergic/Immunologic: Reports as per HPI Mental Status Exam Mental Status Exam Narrative: Pt is alert and oriented; behavior is cooperative and calm; dressed in casual attire; mood is described as okay ; eye contact appropriate; Speech is normal rate, volume and prosody and not pressured; thought process is organized and goal directed; Thought content is on discharge; denies SI/HI/VH/AH. Diagnostics Vital Signs (24Hr): Vital Signs - 24 hr 02/10/24 10:21 02/10/24 15:18 02/10/24 21:30 Temperature 98.4 F Pulse Rate 77 67 70 Respiratory Rate 16 Blood Pressure 114/75 107/55 L 101/62 Pulse Oximetry 97 Oxygen Delivery Method Room Air BMI result Body Mass Index 44.4 Labs Labs: Laboratory Results - last 48 hr 02/09/24 21:40 Influenza Type A (PCR) NEGATIVE Influenza Type B (PCR) NEGATIVE RSV RNA Qual (PCR) NEGATIVE SARS-CoV-2 RNA (RT-PCR) NEGATIVE Medications Medications Current Medications Acetaminophen (Acetaminophen 325 Mg Tablet) 650 mg PO Q6H PRN PRN Reason: Headache/Pain Mild Scale (1-3) Last Admin: 02/09/24 20:48 Dose: 650 mg Al Hydroxide/Mg Hydroxide (Magnesium Hydrox/Alum Hydrox 30 Ml Oral.Susp) 30 ml PO Q6H PRN PRN Reason: Heartburn/Nausea Buprenorphine/Naloxone (Buprenorphine/Naloxone 4/1 Mg Film) 1 film SUBLINGUAL DAILY PRN PRN Reason: opioid cravings Last Admin: 02/09/24 22:14 Dose: 1 film Clonidine HCl (Clonidine Hcl 0.1 Mg Tablet) 0.1 mg PO TID [facility]; Protocol Last Admin: 02/10/24 21:39 Dose: 0.1 mg Docusate Sodium (Docusate Sodium 100 Mg Capsule) 100 mg PO BID [facility] Last Admin: 02/10/24 21:38 Dose: 100 mg Doxepin HCl (Doxepin Hcl 25 Mg Capsule) 75 mg PO BEDTIME [facility] Last Admin: 02/10/24 21:39 Dose: 75 mg Gabapentin (Gabapentin 400 Mg Capsule) 400 mg PO BID [facility] Last Admin: 02/10/24 21:38 Dose: 400 mg Gabapentin (Gabapentin 100 Mg Capsule) 100 mg PO TID PRN PRN Reason: anxiety not relieved by hydroxyzine Last Admin: 02/08/24 15:20 Dose: 100 mg Hydroxyzine HCl (Hydroxyzine Hcl 25 Mg Tablet) 25 mg PO Q6H PRN PRN Reason: Anxiety Last Admin: 02/08/24 09:37 Dose: 25 mg Lamotrigine (Lamotrigine 25 Mg Tablet) 25 mg PO DAILY [facility] Last Admin: 02/10/24 10:19 Dose: 25 mg Magnesium Hydroxide (Milk Of Magnesia 30 Ml Oral.Susp) 30 ml PO DAILY PRN PRN Reason: Constipation Melatonin (Melatonin 3 Mg Tablet) 9 mg PO BEDTIME [facility] Last Admin: 02/10/24 21:38 Dose: 9 mg Nicotine Polacrilex (Nicotine Polacrilex 2 Mg Gum) 2 mg BUCCAL Q2H PRN PRN Reason: Nicotine Cravings Last Admin: 02/10/24 21:41 Dose: 2 mg Senna (Senna [place] Extract Oral Syrup 15 Ml Syrup) 15 ml PO BEDTIME PRN PRN Reason: Constipation Trazodone HCl (Trazodone Hcl 50 Mg Tablet) 50 mg PO BEDTIME MRX1 PRN PRN Reason: Insomnia Allergies Allergies Allergy/AdvReac Type Severity Reaction Status Date / Time No Known Allergies Allergy Verified 11/30/20 08:16 Assessment & Plan Assessment & Plan (1) PTSD (post-traumatic stress disorder): Status: Acute Code(s): F43.10 - Post-traumatic stress disorder, unspecified (2) Opioid use disorder, severe, in sustained remission: Status: Acute Code(s): F11.21 - Opioid dependence, in remission (3) Alcohol use disorder, severe, in sustained remission: Status: Acute Code(s): F10.21 - Alcohol dependence, in remission Plan Presents with history of complex PTSD, alcohol and opioid use disorder, with sobriety for at least 2 years, currently engaged in outpatient services. Patient describes unsafe living situation, needing help and resources, but also reluctant to discuss details currently. Maintain current treatment includes doxepin 75 mg at bedtime, gabapentin 400 mg twice daily, clonidine 0.1 mg 3 times per day, Sublocade monthly injection 300 mg (next due on 02/13/2024) and suboxone 4mg prn alt/daily for cravings, melatonin 10 mg (will be 9mg), senna and Colace. Also seen by addiction medicine services today. 02/07: discussed diagnosis of PTSD and treatments and would like to discuss medication options with her primary team tomorrow such as antipsychotics. Also wants to explore applying for [facility] services. 02/08: Active on unit, keeping to self. pt reports feeling anxious and depressed today; Pt stated, I don't feel safe in my current living situation. This georgina who lives in the sober living building with me is always making comments about me and lingers around my door. I've told the house steward/stewardess about it . Pt reports she plans on contacting the house steward/stewardess today to determine if she can move to a different location or utilizing her [employer] 8 voucher. Pt reports suicidal ideation when she thinks about going back to the same sitation and knowing that georgina is there . pt denies HI/VH/AH. Discussed starting on mood stabilizer; reviewed risks/benefits of lamictal; pt agreed to trial. Start: lamictal 25mg PO daily 02/09: social with peers. pt reports feeling alright today; pt stated, I called my house steward/stewardess. I just have to apply for housing. If I go home and don't feel safe while I'm waiting for the voucher then I'll just go to respite . Pt denies SI/HI/VH/AH. continue current tx plan. pt denies any side effects from starting lamictal. 02/10: pt reports feeling okay today; pt reports feeling some stress about her housing situation. Focused on discharge. Pt denies SI/HI/VH/AH continue current tx plan. Patient educated on: diagnosis, medication risk/benefits and therapeutic strategies Informed Consent: understands Reason for continued inpatient stay Substantial Risk for: med/psych decompensation Time Spent With Patient Time: Total time managing care of this patient today _20___ minutes.
[2024-02-11] MEDS: Nicotine Polacrilex 2 MG GUM BUCCAL ×5 (09:22→22:09)
[2024-02-11] MEDS: Gabapentin 400 MG CAPSULE PO ×2 (09:22→21:12)
[2024-02-11] MEDS: lamoTRIgine 25 MG TABLET PO (09:22)
[2024-02-11] MEDS: Docusate Sodium 100 MG CAPSULE PO ×2 (09:22→21:12)
[2024-02-11] MEDS: hydrOXYzine HCL 25 MG TABLET PO ×2 (12:08→21:12)
[2024-02-11 14:26] VITALS: BP 110/62; PULSE 82; O2SAT 97
[2024-02-11] MEDS: Gabapentin 100 MG CAPSULE PO (14:29)
[2024-02-11] MEDS: cloNIDine HCL 0.1 MG TABLET PO ×2 (14:29→21:12)
[2024-02-11] MEDS: Acetaminophen 325 MG TABLET 650 MG PO (17:34)
[2024-02-11] MEDS: Doxepin HCl 25 MG CAPSULE 75 MG PO (21:12)
[2024-02-11] MEDS: Melatonin 3 MG TABLET 9 MG PO (21:12)
[2024-02-11] MEDS: Buprenorphine/Naloxone 4/1 mg FILM 1 FILM SUBLINGUAL (21:15)
[2024-02-11 22:38] VITALS: BP 97/61; PULSE 74; RESP 16; TEMP 37.2; O2SAT 96
[2024-02-12 08:41] VITALS: BP 97/56; PULSE 81; RESP 16; TEMP 36.8; O2SAT 96
[2024-02-12] MEDS: Gabapentin 400 MG CAPSULE PO ×2 (09:07→22:29)
[2024-02-12] MEDS: Docusate Sodium 100 MG CAPSULE PO ×2 (09:07→22:27)
[2024-02-12] MEDS: cloNIDine HCL 0.1 MG TABLET PO ×3 (09:07→22:26)
[2024-02-12] MEDS: Nicotine Polacrilex 2 MG GUM BUCCAL ×2 (09:32→12:42)
--- NOTE | 2024-02-12 09:32 | P.PNPSI_ITS ---
Subjective Subjective Date of Service: 02/12/24 Reason For Visit: Bipolar disorder: Alcohol, opiate use disorder Subjective Notes: Conditional Voluntary Interim History: Reviewed with Dr. Guzman. pt reports feeling anxious today; pt stated, I feel ready to go home. I'm just perla anxious about it . Pt reports she plans on following up with her outpatient providers. Pt denies SI/HI/VH/AH. Medication Compliance: Yes Side effects from medications: No Attending Groups: Yes Review of Systems Constitutional: Reports as per HPI Eyes: Reports as per HPI Reports as per HPI Cardiovascular: Reports as per HPI Respiratory: Reports as per HPI Gastrointestinal: Reports as per HPI Genitourinary: Reports as per HPI Musculoskeletal: Reports as per HPI Skin/Breast: Reports as per HPI Reports as per HPI Psychiatric: Reports as per HPI Endocrine: Reports as per HPI Hematologic/Lymphatic: Reports as per HPI Allergic/Immunologic: Reports as per HPI Mental Status Exam Mental Status Exam Narrative: Pt is alert and oriented; behavior is cooperative and calm; dressed in casual attire; mood is described as okay ; eye contact appropriate; Speech is normal rate, volume and prosody and not pressured; thought process is organized and goal directed; Thought content is on discharge; denies SI/HI/VH/AH. Diagnostics Vital Signs (24Hr): Vital Signs - 24 hr 02/11/24 14:26 02/11/24 22:38 02/12/24 08:41 Temperature 98.9 F 98.3 F Pulse Rate 82 74 81 Respiratory Rate 16 16 Blood Pressure 110/62 97/61 97/56 L Pulse Oximetry 97 96 96 Oxygen Delivery Method Room Air Room Air Room Air BMI result Body Mass Index 44.4 Medications Medications Current Medications Acetaminophen (Acetaminophen 325 Mg Tablet) 650 mg PO Q6H PRN PRN Reason: Headache/Pain Mild Scale (1-3) Last Admin: 02/11/24 17:34 Dose: 650 mg Al Hydroxide/Mg Hydroxide (Magnesium Hydrox/Alum Hydrox 30 Ml Oral.Susp) 30 ml PO Q6H PRN PRN Reason: Heartburn/Nausea Buprenorphine/Naloxone (Buprenorphine/Naloxone 4/1 Mg Film) 1 film SUBLINGUAL DAILY PRN PRN Reason: opioid cravings Last Admin: 02/11/24 21:15 Dose: 1 film Clonidine HCl (Clonidine Hcl 0.1 Mg Tablet) 0.1 mg PO TID [facility]; Protocol Last Admin: 02/12/24 09:07 Dose: 0.1 mg Docusate Sodium (Docusate Sodium 100 Mg Capsule) 100 mg PO BID [facility] Last Admin: 02/12/24 09:07 Dose: 100 mg Doxepin HCl (Doxepin Hcl 25 Mg Capsule) 75 mg PO BEDTIME [facility] Last Admin: 02/11/24 21:12 Dose: 75 mg Gabapentin (Gabapentin 400 Mg Capsule) 400 mg PO BID [facility] Last Admin: 02/12/24 09:07 Dose: 400 mg Gabapentin (Gabapentin 100 Mg Capsule) 100 mg PO TID PRN PRN Reason: anxiety not relieved by hydroxyzine Last Admin: 02/11/24 14:29 Dose: 100 mg Hydroxyzine HCl (Hydroxyzine Hcl 25 Mg Tablet) 25 mg PO Q6H PRN PRN Reason: Anxiety Last Admin: 02/11/24 21:12 Dose: 25 mg Lamotrigine (Lamotrigine 25 Mg Tablet) 25 mg PO DAILY [facility] Last Admin: 02/11/24 09:22 Dose: 25 mg Magnesium Hydroxide (Milk Of Magnesia 30 Ml Oral.Susp) 30 ml PO DAILY PRN PRN Reason: Constipation Melatonin (Melatonin 3 Mg Tablet) 9 mg PO BEDTIME [facility] Last Admin: 02/11/24 21:12 Dose: 9 mg Nicotine Polacrilex (Nicotine Polacrilex 2 Mg Gum) 2 mg BUCCAL Q2H PRN PRN Reason: Nicotine Cravings Last Admin: 02/11/24 22:09 Dose: 2 mg Senna (Senna [place] Extract Oral Syrup 15 Ml Syrup) 15 ml PO BEDTIME PRN PRN Reason: Constipation Trazodone HCl (Trazodone Hcl 50 Mg Tablet) 50 mg PO BEDTIME MRX1 PRN PRN Reason: Insomnia Allergies Allergies Allergy/AdvReac Type Severity Reaction Status Date / Time No Known Allergies Allergy Verified 11/30/20 08:16 Assessment & Plan Assessment & Plan (1) PTSD (post-traumatic stress disorder): Status: Acute Code(s): F43.10 - Post-traumatic stress disorder, unspecified (2) Opioid use disorder, severe, in sustained remission: Status: Acute Code(s): F11.21 - Opioid dependence, in remission (3) Alcohol use disorder, severe, in sustained remission: Status: Acute Code(s): F10.21 - Alcohol dependence, in remission Plan Presents with history of complex PTSD, alcohol and opioid use disorder, with sobriety for at least 2 years, currently engaged in outpatient services. Patient describes unsafe living situation, needing help and resources, but also reluctant to discuss details currently. Maintain current treatment includes doxepin 75 mg at bedtime, gabapentin 400 mg twice daily, clonidine 0.1 mg 3 times per day, Sublocade monthly injection 300 mg (next due on 02/13/2024) and suboxone 4mg prn alt/daily for cravings, melatonin 10 mg (will be 9mg), senna and Colace. Also seen by addiction medicine services today. 02/07: discussed diagnosis of PTSD and treatments and would like to discuss medication options with her primary team tomorrow such as antipsychotics. Also wants to explore applying for [facility] services. 02/08: Active on unit, keeping to self. pt reports feeling anxious and depressed today; Pt stated, I don't feel safe in my current living situation. This georgina who lives in the sober living building with me is always making comments about me and lingers around my door. I've told the salesperson household appliances about it . Pt reports she plans on contacting the salesperson household appliances today to determine if she can move to a different location or utilizing her [employer] 8 voucher. Pt reports suicidal ideation when she thinks about going back to the same sitation and knowing that georgina is there . pt denies HI/VH/AH. Discussed starting on mood stabilizer; reviewed risks/benefits of lamictal; pt agreed to trial. Start: lamictal 25mg PO daily 02/09: social with peers. pt reports feeling alright today; pt stated, I called my salesperson household appliances. I just have to apply for housing. If I go home and don't feel safe while I'm waiting for the voucher then I'll just go to respite . Pt denies SI/HI/VH/AH. continue current tx plan. pt denies any side effects from starting lamictal. 02/10: pt reports feeling okay today; pt reports feeling some stress about her housing situation. Focused on discharge. Pt denies SI/HI/VH/AH continue current tx plan. 02/11: pt reports feeling anxious today; pt stated, I feel ready to go home. I'm just perla anxious about it . Pt reports she plans on following up with her outpatient providers. Pt denies SI/HI/VH/AH. pt to be discharged home tomorrow. Patient educated on: diagnosis, medication risk/benefits, substance abuse and therapeutic strategies Informed Consent: understands Reason for continued inpatient stay Substantial Risk for: stable for discharge Time Spent With Patient Time: Total time managing care of this patient today _20___ minutes.
[2024-02-12] MEDS: lamoTRIgine 25 MG TABLET PO (10:34)
[2024-02-12] MEDS: hydrOXYzine HCL 25 MG TABLET PO ×2 (12:42→22:31)
[2024-02-12 14:31] VITALS: BP 98/57; PULSE 80; TEMP 37; O2SAT 97
[2024-02-12] MEDS: Gabapentin 100 MG CAPSULE PO (14:33)
[2024-02-12] MEDS: Nicotine Polacrilex 2 MG GUM 4 MG BUCCAL ×2 (18:28→22:33)
[2024-02-12 22:25] VITALS: BP 108/66; PULSE 87; RESP 16; TEMP 37.3; O2SAT 97
[2024-02-12] MEDS: Melatonin 3 MG TABLET 9 MG PO (22:27)
[2024-02-12] MEDS: Doxepin HCl 25 MG CAPSULE 75 MG PO (22:28)
--- NOTE | 2024-02-12 22:35 | PC.NURSE ---
Shona was given Atarax PO prn for anxiety 03/12 and Nicotine gum Po prn for cravings
[2024-02-13 07:35] VITALS: BP 96/61; PULSE 76; RESP 14; TEMP 36.7; O2SAT 98
[2024-02-13] MEDS: cloNIDine HCL 0.1 MG TABLET PO (09:05)
[2024-02-13] MEDS: lamoTRIgine 25 MG TABLET PO (09:05)
[2024-02-13] MEDS: Gabapentin 400 MG CAPSULE PO (09:05)
[2024-02-13] MEDS: Docusate Sodium 100 MG CAPSULE PO (09:05)
--- NOTE | 2024-02-13 09:30 | P.DS_ITS ---
DS: Providers Provider Date of Service: 02/13/24 Date of admission: 02/07/24 06:50 Date of discharge: 02/13/24 Primary care physician: Unknown Physician Attending physician on admission: Celestino Horan Consults: 02/07/24 07:19 Consult to Hospitalist Routine Comment: Consulting Provider: Hospitalist Reason For Exam: Transfer pt Attending physician on discharge: Luisito Guzman Discharging clinician: Rosina Smith DS: Diagnosis Discharge Diagnosis (1) PTSD (post-traumatic stress disorder): Status: Acute (2) Opioid use disorder, severe, in sustained remission: Status: Acute (3) Alcohol use disorder, severe, in sustained remission: Status: Acute DS: Medications Discharge Medications Home Medications: Previous Rx's ?Medication ?Instructions ?Recorded buprenorphine 4 mg-naloxone 1 mg 1 film sublingual DAILY PRN opioid 02/12/24 sublingual film (Suboxone) cravings #0 ea clonidine HCl 0.1 mg tablet 0.1 mg PO TID 30 days #90 tabs 02/12/24 docusate sodium 100 mg capsule 100 mg PO BID 30 days #60 caps 02/12/24 doxepin 75 mg capsule 75 mg PO BEDTIME 30 days #30 caps 02/12/24 gabapentin 400 mg capsule 400 mg PO BID 30 days #60 caps 02/12/24 hydroxyzine HCl 25 mg tablet 25 mg PO TID PRN Anxiety 30 days 02/12/24 #90 tabs lamotrigine 25 mg tablet 25 mg PO DAILY 14 days #14 tabs 02/12/24 melatonin 3 mg tablet 9 mg (3 x 3 mg) PO BEDTIME 30 days 02/12/24 #90 tabs Mental Status Exam Mental Status Exam Narrative: Pt is alert and oriented; behavior is cooperative and calm; dressed in casual attire; mood is described as good ; eye contact appropriate; Speech is normal rate, volume and prosody and not pressured; thought process is organized and goal directed; Thought content is on discharge; denies SI/HI/VH/AH. Data Data Completed and Pending Completed studies during hospitalization [Text1]: 02/09/24 21:40 Influenza Type A (PCR) NEGATIVE Influenza Type B (PCR) NEGATIVE RSV RNA Qual (PCR) NEGATIVE SARS-CoV-2 RNA (RT-PCR) NEGATIVE DS: Summary Hospital Course Hospital Course: Patient presents as a direct admission from [facility] Emergency Room. Reports that she was a in a very unsafe living situation, needs help and does not have resources. Was very tearful when mentioning same and also stated she did not feel in the space ready to talk about things. Validated same and patient agreed to talk about past treatment except aura and may discuss living situation more tomorrow or with primary team after the weekend. Did endorse feeling depressed, hopeless, understand she will likely return to her prior situation and with that depression potential suicidal thoughts. No hallucinations. Does endorse disturbed sleep. No claudia hypomania. Reports sometimes having what might be considered paranoid thoughts, but also reports that it is hard to know if these are more related to complex PTSD versus delusions. Again reluctant to go into detail. Last worked in October consistently at [facility] in [place] doing intakes. Current treatment includes doxepin 75 mg at bedtime, gabapentin 400 mg twice daily, clonidine 0.1 mg 3 times per day, Sublocade monthly injection 300 mg, suboxone 4mg prn altdays/daily for cravings, next due on 02/13/2024, melatonin 10 mg, senna and Colace. He is gets medications through [facility] in [place] for the last 2 years. Has been sober from all substances for 2 years, which includes heroin and alcohol. Has a therapist through [facility]. Was also seen by addiction medicine services today. During hospital course, Presents with history of complex PTSD, alcohol and opioid use disorder, with sobriety for at least 2 years, currently engaged in outpatient services. Patient describes unsafe living situation, needing help and resources, but also reluctant to discuss details currently. Maintain current treatment includes doxepin 75 mg at bedtime, gabapentin 400 mg twice daily, clonidine 0.1 mg 3 times per day, Sublocade monthly injection 300 mg (next due on 02/13/2024) and suboxone 4mg prn altdays/daily for cravings, melatonin 10 mg (will be 9mg), senna and Colace. Also seen by addiction medicine services today. discussed diagnosis of PTSD and treatments and would like to discuss medication options with her primary team tomorrow such as antipsychotics. Also wants to explore applying for [facility] services. Active on unit, keeping to self. pt reports feeling anxious and depressed today; Pt stated, I don't feel safe in my current living situation. This georgina who lives in the sober living building with me is always making comments about me and lingers around my door. 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 Pt reports she plans on contacting the warehouse shift supervisor today to determine if she can move to a different location or utilizing her [employer] voucher. Pt reports suicidal ideation when she thinks about going back to the same sitation and knowing that georgina is there . pt denies HI/VH/AH. Discussed starting on mood stabilizer; reviewed risks/benefits of lamictal; pt agreed to trial. Start: lamictal 25mg PO daily social with peers. pt reports feeling alright today; pt stated, I called my warehouse shift supervisor. I just have to apply for housing. If I go home and don't feel safe while I'm waiting for the voucher then I'll just go to respite . Pt denies SI/HI/VH/AH. continue current tx plan. pt denies any side effects from starting lamictal. pt reports feeling okay today; pt reports feeling some stress about her housing situation. Focused on discharge. Pt denies SI/HI/VH/AH continue current tx plan. pt reports feeling anxious today; pt stated, I feel ready to go home. I'm just perla anxious about it . Pt reports she plans on following up with her outpatient providers. Pt denies SI/HI/VH/AH. pt to be discharged home. Time spent discussing smoking cessation with patient: 3 to 10 minutes Status at Discharge Cognitive/behavioral status at discharge: Patient was interviewed prior to discharge and found to be fully oriented and without any SI or HI. Patient has insight and demonstrates good judgment in terms of wanting to pursue treatment. Patient has a safety plan that includes presenting to the closest ER or calling 911 if feeling unsafe. Functional status at discharge: independent ambulation Overall status at discharge: patient is back to baseline Time Spent with Patient Time attestation: Total time managing care of this patient today _30___ minutes. Time spent: Less than 30 minutes Discharge Plan Discharge Anticipated Discharge Date/Time: 02/13/24 10:00 Patient Disposition: Home, Self-Care Discharge Diagnosis: MDD, PTSD, ETOH use d/o, in remission, opioid use d/o, in remission. Referrals: [facility] [Other] - 02/13/24 11:30 am (IN OFFICE APPOINTMENT -This appointment is for the Sublocade shot. This provider, Janice Briones, will also prescribe your psychiatric medications until they can set you up with a new prescriber through [facility].) Michelle Sams (Therapy) [Other] - 1 Week (*Please reach out to your therapist to obtain your follow up appointment. ) Department of Mental Health ([facility]) [Other] - 1 Week (*Please call [facility] to follow up on the application for services that was filed on your behalf.*) [facility] [Provider Group] - 1 Week Discharge Medications: New melatonin 3 mg Tablet 9 mg PO BEDTIME 30 Days Qty: 90 0RF docusate sodium 100 mg Capsule 100 mg PO BID 30 Days Qty: 60 0RF lamotrigine 25 mg Tablet 25 mg PO DAILY 14 Days Qty: 14 0RF clonidine HCl 0.1 mg Tablet 0.1 mg PO TID 30 Days Qty: 90 0RF Protocol: Hold for SBP< HOLD for SBP < : 90 gabapentin 400 mg Capsule 400 mg PO BID 30 Days Qty: 60 0RF doxepin 75 mg capsule 75 mg PO BEDTIME 30 Days Qty: 30 0RF buprenorphine-naloxone [Suboxone] 4-1 mg Film 1 film sublingual DAILY PRN (Reason: opioid cravings) Qty: 0 0RF Continued hydroxyzine HCl 25 mg Tablet 25 mg PO TID PRN (Reason: Anxiety) 30 Days Qty: 90 0RF Discontinued clonidine HCl 0.1 mg Tablet 0.1 mg PO BEDTIME clonidine HCl 0.1 mg Tablet See Rx Instructions .ROUTE .COMPLEX Rx Instructions: Take 1/2 tablet twice a day and 1 tab at HS citalopram 40 mg tablet 1 tab PO DAILY trazodone 50 mg Tablet 25 mg PO BEDTIME ibuprofen [Advil Liqui-Gel] 200 mg Capsule 200 mg PO Q4-6H PRN (Reason: Pain) thiamine HCl (vitamin B1) 100 mg Tablet 100 mg PO DAILY melatonin 3 mg Tablet 3 mg PO BEDTIME PRN (Reason: Insomnia) folic acid 1 mg Tablet 1 mg PO DAILY buspirone 15 mg tablet 1 tab PO BID topiramate 50 mg Tablet 50 mg PO BEDTIME Patient Comments: Patient stated the dose was decreased to 50 mg daily 4 months ago gabapentin 100 mg Tablet 100 mg PO BEDTIME diclofenac sodium 1 % gel See Rx Instructions .ROUTE .COMPLEX Rx Instructions: Apply 2 grams externally to the affected area 4 x a daily. Discharge Orders: Discharge Order (Routine); Ordered 02/13/24 Ordered By: Rosina Smith Diet: Regular diet Activity on Discharge: As tolerated Stand Alone Forms: Patient Portal Discharge page Print Language: Bahraini Care Plan Goals: Maintain mood and safe behaviors Take medications as prescribed Continue to pursue sobriety Practice coping skills Continue with outpatient providers and reach out to them as needed Health Concerns: Mood stability and behaviors Sobriety Plan of Treatment: Follow up with your PCP, psychiatric provider and other outpatient providers regarding above concerns Take medications as prescribed Assessment: Patient was interviewed prior to discharge and found to be fully oriented and without any SI or HI. Patient has insight and demonstrates good judgment in terms of wanting to pursue treatment. Patient has a safety plan that includes presenting to the closest ER or calling 911 if feeling unsafe. Discharge Date/Time: 02/13/24 10:45
[2024-02-13] MEDS: Naloxone HCl Nasal TAKE HOME 4 MG SPRAY 8 MG NOSTRILALT (10:31)
== END 2024-02-13 10:45 | disposition home or self-care (01) | DRG 881 ==
PROVIDERS: Psychiatry & Neurology Psychiatry; Admitting Provider Psychiatry & Neurology Psychiatry; Responsible Provider Registered Nurse; Visit Provider Psychiatry & Neurology Psychiatry
DX: F32.9 Major depressive disorder, single episode, unspecified (principal); R45.851 Suicidal ideations; F11.20 Opioid dependence, uncomplicated; F43.10 Post-traumatic stress disorder, unspecified; F17.210 Nicotine dependence, cigarettes, uncomplicated; Z20.822 Contact with and (suspected) exposure to COVID-19; Z71.6 Tobacco abuse counseling; F10.21 Alcohol dependence, in remission; Z87.820 Personal history of traumatic brain injury; Z79.899 Other long term (current) drug therapy
CPT/HCPCS: 0241U

== ENCOUNTER → 2024-02-07 06:50 | Outpatient (BNV) | payer MEDICAID, SELFPAY | PROVIDERS: Admitting Provider Psychiatry & Neurology Psychiatry; Visit Provider Student in an Organized Health Care Education/Training Program | DX: Z00.8 Encounter for other general examination (principal) | CPT/HCPCS: 99222 ==

== ENCOUNTER → 2024-02-07 06:50 | Outpatient (BNV) | payer OTHER, SELFPAY | PROVIDERS: Admitting Provider Psychiatry & Neurology Psychiatry; Visit Provider Psychiatry & Neurology Psychiatry | DX: F11.21 Opioid dependence, in remission (principal); F10.21 Alcohol dependence, in remission; F43.11 Post-traumatic stress disorder, acute | CPT/HCPCS: 99231; 99232 ==

== ENCOUNTER 2024-09-29 14:21 | Inpatient (IN) | payer OTHER, SELFPAY ==
--- OUTSIDE RECORDS SUMMARY | 2024-09-29 14:25 | XMS_ITS | Continuity of Care Document ---
Author Organization [facility] Address [address] [place] [address]- Care Team Providers Care Research Interviewer Name Role Phone Not on Staff, PCP Primary Care Physician Unavail able Encounter [facility] Date(s): 07/18/21 - 08/17/21 [facility] [address], [place] [address] Attending Physician: Hubert Baez Admitting Physician: Hubert Baez Referring Physician: Admtr, Ar8 Allergies, Adverse Reactions, Alerts No Known Medication Allergies Immunizations Given and Recorded Vaccine Date Status Refusal Reason SARS-CoV-2 (COVID-19) Ad26 vaccine 02/08/21 Record ed Medications citalopram 40 mg oral tablet 1 tablet = 40 mg, By Mouth, Daily, # 30 tablet, 1 Refills, Maintenance, 07/10/21 10:29:00 EDT, Tablet, [facility] #[id number], Partial fill upon patient request if the prescription is for a schedule II opioid drug., 148, cm, 07/10/21 9:08:00 EDT,... Start Date: 07/10/21 Status: Ordered cloNIDine 0.1 mg oral tablet 0.1 mg, 1, tablet, By Mouth, 3 times a day, # 90 tablet, Refills 1, Tot. Refills 1, Maintenance, 07/10/21 10:30:00 EDT, Route to Pharmacy Electronically, [facility] #[id number], Partial fill upon patient request if the prescription is for a sched... Start Date: 07/10/21 Status: Ordered cyclobenzaprine 5 mg oral tablet 1 tablet = 5 mg, By Mouth, Daily at bedtime, # 30 tablet, 1 Refills, Maintenance, 07/10/21 10:30:00EDT, Tablet, [facility] #[id number], Partial fill upon patient request if the prescription is for a schedule II opioid drug., tiffany Bills, 07/10/21 9:... Start Date: 07/10/21 Status: Ordered gabapentin 100 mg oral capsule 200 mg, By Mouth, Daily at bedtime, # 60 capsule, Refills 1, Tot. Refills 1, Maintenance, 07/10/21 10:31:00 EDT, Route to Pharmacy Electronically, [facility] #[id number], Partial fill upon patient request if the prescription is for a schedule II... Start Date: 07/10/21 Status: Ordered hydrOXYzine pamoate 25 mg oral capsule 1 capsule = 25 mg, By Mouth, Daily at bedtime, # 30 capsule, 1 Refills, Maintenance, 07/10/21 10:31:00 EDT, Capsule, [facility] #[id number], Partial fill upon patient request if the prescriptionis for a schedule II opioid drug., tiffany Bills, ... Start Date: 07/10/21 Status: Ordered lithium 150 mg oral capsule 1 capsule = 150 mg, By Mouth, 2 times a day, # 60 capsule, 1 Refills, Maintenance, 07/10/21 10:31:00 EDT, Capsule, [facility] #[id number], Partial fill upon patient request if the prescription is for a schedule II opioid drug., tiffany Bills, 07/10/21... Start Date: 07/10/21 Status: Ordered melatonin 10 mg oral tablet 1 tablet = 10 mg, By Mouth, Daily at bedtime, # 30 tablet, 1 Refills, Maintenance, 07/10/21 10:31:00 EDT, Tablet, [facility] #[id number], Partial fill upon patient request if the prescription isfor a schedule II opioid drug., tiffany Bills, 07/10/21 9... Start Date: 07/10/21 Status: Ordered ondansetron 8 mg oral tablet, disintegrating 1 tablet = 8 mg, By Mouth, 3 times a day, PRN Nausea & Vomiting, # 15 tablet, 1 Refills, Maintenance, 07/10/21 10:32:00 EDT, DIS Tablet, [facility] #[id number], Partial fill upon patient request if the prescription is for a schedule II opioid makayla... Start Date: 07/10/21 Status: Ordered propranolol 10 mg oral tablet 10 mg, 1, tablet, By Mouth, Daily in AM, # 30 tablet, Refills 1, Tot. Refills 1, Maintenance, 07/10/21 10:33:00 EDT, Route to Pharmacy Electronically, [facility] #[id number], Partial fill upon patient request if the prescription is for a schedule... Start Date: 07/10/21 Status: Ordered Social History Social History Type Response Smoking Status Smoker, current stat us unknown entered on: 06/23/21 Sex
--- OUTSIDE RECORDS SUMMARY | 2024-09-29 14:25 | XMS_ITS | Continuity of Care Document ---
Author Organization [facility] Address [address] [place] [address]- Care Team Providers Care Pretzel Twister Name Role Phone Not on Staff, PCP Primary Care Physician Unavail able Encounter [facility] Date(s): 05/28/21 - 06/27/21 [facility] [address] [place] [address]- Allergies, Adverse Reactions, Alerts No Known Medication Allergies Immunizations Given and Recorded Vaccine Date Status Refusal Reason SARS-CoV-2 (COVID-19) Ad26 vaccine 02/08/21 Record ed Medications BuPROPion (Eqv-Wellbutrin SR) 150 mg/12 hours oral tablet, extended release TAKE 1 TABLET BY MOUTH TWICE DAILY Start Date: 06/26/21 Status: Ordered citalopram 20 mg oral tablet 1 tablet = 20 mg, By Mouth, Daily, # 30 tablet, 0 Refills, Maintenance, 08/22/20 11:23:00 EDT, Tablet Start Date: 08/22/20 Status: Ordered citalopram 40 mg oral tablet 1 tablet = 40 mg, By Mouth, Daily Start Date: 06/23/21 Status: Ordered cloNIDine 0.1 mg oral tablet 0.1 mg, 1, tablet, By Mouth, 3 times a day Start Date: 06/23/21 Status: Ordered cyclobenzaprine 5 mg oral tablet 1 tablet = 5 mg, By Mouth, Daily at bedtime Start Date: 06/23/21 Status: Ordered Gabapentin = 200 mg, By Mouth, Daily at bedtime, 0 Refills, Maintenance, 06/23/21 15:34:00 EDT, Partial fill upon patient request if the prescription is for a schedule II opioid drug. Start Date: 06/23/21 Status: Ordered gabapentin 100 mg oral capsule TAKE 2 CAPSULES BY MOUTH EVERY DAY Start Date: 06/26/21 Status: Ordered hydrOXYzine pamoate 25 mg oral capsule 1 capsule = 25 mg, By Mouth, Daily at bedtime Start Date: 06/23/21 Status: Ordered lithium 150 mg oral capsule 1 capsule = 150 mg, By Mouth, 2 times a day Start Date: 06/23/21 Status: Ordered Melatonin 3 mg oral tablet TAKE 1 TABLET BY MOUTH EVERY DAY AT BEDTIME NEEDED FOR INSOMNIA Start Date: 06/26/21 Status: Ordered Nicotine 2 mg gum 1 each = 2 mg, Chew, Every 2 hours, PRN as needed for smoking cessation, # 160 each, 0 Refills, Maintenance, 06/23/21 23:22:00 EDT, Gum, Partial fill upon patient request if the prescription is for aschedule II opioid drug. Start Date: 06/23/21 Status: Ordered ondansetron 8 mg oral tablet, disintegrating 1 tablet = 8 mg, By Mouth, 3 times a day, PRN Nausea & Vomiting, # 15 tablet, 0 Refills, Maintenance, 06/03/21 19:40:00 EDT, DIS Tablet, [facility] #[id number], Partial fill upon patient request if the prescription is for a schedule II opioid makayla... Start Date: 06/03/21 Status: Ordered propranolol 10 mg oral tablet 10 mg, 1, tablet, By Mouth, Daily in AM Start Date: 06/23/21 Status: Ordered traZODone 50 mg oral tablet TAKE 1 TABLET BY MOUTH AT BEDTIME Start Date: 06/26/21 Status: Ordered Vivitrol 380 mg intramuscular injection, extended release = 380 mg, Intramuscular, Every 28 days, INJECT 380MG IN THE MUSCLE A SINGLE DOSE ONCE A MONTH Start Date: 06/23/21 Status: Ordered Social History Social History Type Response Smoking Status Smoker, current stat us unknown entered on: 06/23/21 Sex
--- OUTSIDE RECORDS SUMMARY | 2024-09-29 14:25 | XMS_ITS | Continuity of Care Document ---
Author Organization [facility] Address [address] [place] [address]- Care Team Providers Care Straight Knife Machine Cutter Name Role Phone Not on Staff, PCP Primary Care Physician Unavail able [place] [facility] [place] - 06/03/[address] [address]- Discharge Disposition: A-D/C Home Attending Physician: Abdoul Justice MD Admitting Physician: Abdoul Justice MD Referring Physician: Not on Staff, Referring MD Allergies, Adverse Reactions, Alerts No Known Medication Allergies Medications B Complex 100 By Mouth, Daily, 0 Refills, Maintenance, 08/22/20 11:24:00 EDT Start Date: 08/22/20 Status: Ordered busPIRone 15 mg oral tablet 1 tablet = 15 mg, By Mouth, 2 times a day, # 270 tablet, 0 Refills, Maintenance, 08/22/20 11:24:00 EDT, Tablet Start Date: 08/22/20 Status: Ordered citalopram 20 mg oral tablet 1 tablet = 20 mg, By Mouth, Daily, # 30 tablet, 0 Refills, Maintenance, 08/22/20 11:23:00 EDT, Tablet Start Date: 08/22/20 Status: Ordered Folic Acid By Mouth, Daily, 0 Refills, Maintenance, 08/22/20 11:25:00 EDT Start Date: 08/22/20 Status: Ordered ondansetron 8 mg oral tablet, disintegrating 1 tablet = 8 mg, By Mouth, 3 times a day, PRN Nausea & Vomiting, # 15 tablet, 0 Refills, Maintenance, 06/03/21 19:40:00 EDT, DIS Tablet, [facility] #[id number], Partial fill upon patient request if the prescription is for a schedule II opioid makayla... Start Date: 06/03/21 Status: Ordered Trazodone = 25 mg, By Mouth, Daily at bedtime, 0 Refills, Maintenance, 08/22/20 11:25:00 EDT Start Date: 08/22/20 Status: Ordered Vital Signs Most recent to oldest [Reference Range]: 1 2 3 Height 147 cm (06/03/21 5:49 PM) 147 cm (06/03/21 4:31 PM) Weight 50 kg (06/03/21 5:49 PM) 50 kg (06/03/21 4:31 PM) Oxygen Saturation [94-100 %] 100 % (06/03/21 5:50 PM) 99 % (06/03/21 5:49 PM) 97 % (06/03/21 4:31 PM) Pulse Rate [55-90 bpm] 72 bpm (06/03/21 5:50 PM) 122 bpm *H* (06/03/21 5:49 PM) 103 bpm *H* (06/03/21 4:31 PM) Body Mass Index [18.5-24.99] 23.14 (06/03/21 5:49 PM) Blood Pressure [90-138/55-84 mm Hg] 106/72mm Hg (06/03/21 5:50 PM) 138/97mm Hg (06/03/21 5:49 PM) 123/91mm Hg (06/03/21 4:31 PM) Respiratory Rate [16-30 br/min] 16 br/min (06/03/21 5:50 PM) 20 br/min (06/03/21 5:49 PM) 18 br/min (06/03/21 4:31 PM) Temperature [96.8-100.4 DegF] 99.9 DegF (06/03/21 5:49 PM) 97.1 DegF (06/03/21 4:31 PM) Mode of Delivery (Oxygen) Room air (06/03/21 5:50 PM) Room air (06/03/21 5:49 PM) Room air (06/03/21 4:31 PM) Blood pressure sites Arm, left (06/03/21 5:50 PM) Arm, left (06/03/21 4:31 PM) Temperature Route Oral (06/03/21 5:49 PM) Oral (06/03/21 4:31 PM) Dry Weight 50 kg (06/03/21 5:49 PM) 50 kg (06/03/21 4:31 PM)
--- OUTSIDE RECORDS SUMMARY | 2024-09-29 14:25 | XMS_ITS | Continuity of Care Document ---
Author Organization [facility] Address [address] [place] [address]- Care Team Providers Care Escrow Closer Name Role Phone Clubb SLOT FLOORMAN, Jayla Primary Care Physician Encounter [facility] Date(s): 03/20/24 - 03/21/24 [facility] [address] [place] [address]- Discharge Disposition: Transferred to short-term general hospit Attending Physician: Michelle Gao MD Admitting Physician: Michelle Gao MD Referring Physician: Michelle Gao MD Allergies, Adverse Reactions, Alerts No Known Medication Allergies Immunizations Given and Recorded Vaccine Date Status Refusal Reason SARS-CoV-2 (COVID-19) Ad26 vaccine 02/08/21 Record ed Medications buprenorphine-naloxone 4 mg-1 mg sublingual film 1 film, Sublingual, Daily, dissolve under the tongue, 0 Refills, Maintenance, 03/17/24 10:01:00 EDT, Film, Partial fill upon patient request if the prescription is for a schedule II opioid drug. Start Date: 03/17/24 Status: Ordered cloNIDine 0.1 mg oral tablet 0.1 mg, 1, tablet, By Mouth, 3 times a day, # 90 tablet, Refills 1, Tot. Refills 1, Maintenance, 07/10/21 10:30:00 EDT, Route to Pharmacy Electronically, [facility] #[id number], Partial fill upon patient request if the prescription is for a sched... Start Date: 07/10/21 Status: Ordered Docusate = 100 mg, 2 times a day, 0 Refills, Maintenance, 06/11/22 9:34:00 EDT, Partial fill upon patient request if the prescription is for a schedule II opioid drug. Start Date: 06/11/22 Status: Ordered doxepin 75 mg oral capsule 1 capsule = 75 mg, By Mouth, Daily at bedtime, # 90 capsule, 0 Refills, Maintenance, 03/17/24 10:06:00 EDT, Capsule, Partial fill upon patient request if the prescription is for a schedule II opioid drug. Start Date: 03/17/24 Status: Ordered gabapentin 400 mg oral capsule 400 mg, 1, capsule, By Mouth, 2 times a day, Refills 0, Maintenance, 03/17/24 10:03:00 EDT, Partialfill upon patient request if the prescription is for a schedule II opioid drug. Start Date: 03/17/24 Status: Ordered hydrOXYzine pamoate 25 mg oral capsule 1 capsule = 25 mg, By Mouth, Daily at bedtime, # 30 capsule, 1 Refills, Maintenance, 07/10/21 10:31:00 EDT, Capsule, [facility] #[id number], Partial fill upon patient request if the prescriptionis for a schedule II opioid drug., 148, cm, ... Start Date: 07/10/21 Status: Ordered lamotrigine 25 mg oral tablet, extended release 1 tablet = 25 mg, By Mouth, Daily, # 14 tablet, 0 Refills, Maintenance, 03/17/24 10:02:00 EDT, ER Tablet, Partial fill upon patient request if the prescription is for a schedule II opioid drug. Start Date: 03/17/24 Status: Ordered lithium 150 mg oral capsule 1 capsule = 150 mg, By Mouth, 2 times a day, # 60 capsule, 1 Refills, Maintenance, 07/10/21 10:31:00 EDT, Capsule, [facility] #[id number], Partial fill upon patient request if the prescription is for a schedule II opioid drug., 148, cm, 07/10/21... Start Date: 07/10/21 Status: Ordered melatonin 3 mg oral tablet 3 tablet = 9 mg, By Mouth, Daily at bedtime, 0 Refills, Maintenance, 03/17/24 10:05:00 EDT, Partialfill upon patient request if the prescription is for a schedule II opioid drug. Start Date: 03/17/24 Status: Ordered ondansetron 4 mg oral tablet, disintegrating 1 tablet = 4 mg, By Mouth, 3 times a day, PRN Nausea & Vomiting, # 10 tablet, 0 Refills, Maintenance, 01/29/24 4:47:00 EDT, Tablet, [facility] [id number], Partial fill upon patient request if the prescription is for a schedule II opioid... Start Date: 01/29/24 Status: Ordered Pepcid AC Maximum Strength 20 mg oral tablet 20 mg, 1, tablet, By Mouth, 2 times a day, # 60 tablet, Refills 0, Tot. Refills 0, Maintenance, 11/13/22 13:20:00 EST, [id number], Partial fill upon patient request if the prescription is for a schedule II opi... Start Date: 11/13/22 Status: Ordered propranolol 10 mg oral tablet 10 mg, 1, tablet, By Mouth, Daily in AM, # 30 tablet, Refills 1, Tot. Refills 1, Maintenance, 07/10/21 10:33:00 EDT, Route to Pharmacy Electronically, [facility] #[id number], Partial fill upon patient request if the prescription is for a schedule... Start Date: 07/10/21 Status: Ordered Senna = 8.6 mg, By Mouth, 2 times a day, 0 Refills, Maintenance, 06/11/22 9:35:00 EDT, Partial fill upon patient request if the prescription is for a schedule II opioid drug. Start Date: 06/11/22 Status: Ordered Problem List Condition Confirmation Course Effective Dates Status Health St atus Informant Depression Confirmed Active Eating disorder Confirmed Active History of alcohol dependence Confirmed Active Vital Signs Most recent to oldest [Reference Range]: 1 2 3 Height 147 cm (03/21/24 9:00 AM) 147 cm (03/20/24 8:03 PM) Weight 43.67 kg (03/20/24 8:03 PM) Oxygen Saturation [94-100 %] 98 % (03/21/24 9:00 AM) 100 % (03/20/24 8:03 PM) Pulse Rate [55-90 bpm] 113 bpm *H* (03/21/24 9:13 AM) 113 bpm *H* (03/21/24 9:00 AM) 111 bpm *H* (03/21/24 6:38 AM) Body Mass Index [18.5-24.99 kg/m2] 20.21 kg/m2 (03/20/24 8:03 PM) Blood Pressure [90-138/55-84 mm Hg] 116/88mm Hg (03/21/24 9:13 AM) 116/88mm Hg (03/21/24 9:00 AM) 120/90mm Hg (03/21/24 6:38 AM) Respiratory Rate [16-30 br/min] 16 br/min (03/21/24 9:13 AM) 16 br/min (03/21/24 9:00 AM) 18 br/min (03/21/24 6:38 AM) Temperature [96.8-100.4 DegF] 98.1 DegF (03/21/24 9:13 AM) 98.1 DegF (03/21/24 9:00 AM) 98.5 DegF (03/20/24 8:03 PM) Mode of Delivery (Oxygen) Room air (03/21/24 9:00 AM) Blood pressure sites Arm, left (03/21/24 9:00 AM) Arm, left (03/20/24 8:03 PM) Temperature Route Temporal (03/21/24 9:13 AM) Temporal (03/21/24 9:00 AM) Temporal (03/20/24 8:03 PM) Dry Weight 43.67 kg (03/20/24 8:03 PM) Social History Social History Type Response Smoking Status Smoker, current stat us unknown entered on: 06/23/21 Sex Hospital Progress note * Janice Olmedo RN: PERFORM, MODIFY, SIGN, VERIFY Event Display: Progress Note Hospital Authored Date: Patient: RAJWINDER DOAN Age: 33 years Sex: Female : 1990 Associated Diagnoses: None Author: Janice Olmedo RN Findings Problems Problem 1 : Problem - 1 03/20/2024 19:00 EDT Problem 1 Danger/self - suicidal ideation Goals, Problem 1 Rajwinder will notify staff before acting on thoughtsof SH Problem 1, Patient agrees to Attend groups, Demonstrate ability to care for self, Eat 3 meals daily, Identify 2 goals for treatment, Identify 2 strengths, Take scheduled medication, Work with Psychiatrist to find acceptable medication plan, Collaborate with staff to develop a safety first plan, Other: Notify staff if feeling unsafe Problem 1, Nursing Interventions Assess/observe regularly for signs of increasing agitation, Explain unit rules clearly & honestly to pt, Maintain low level of stimulation . Narrative/Incidental Rajwinder is on Constant Observation d/t High Fall Risk while detoxing, somnolent and unsteady on her feet. She is on the CIWA Protocol with precautions in place. Rajwinder presented for medication and assessment with 1:1 tick inspector. Her eyes were closed w/eyelids fluttering and she seemed to require great effort to formulate and respond to assessment questions. VS: T.98.1, P. 113, B/P: 116/88, O2: 98%. Rajwinder occasionally arose abruptly and started to walk away, requiring redirection. Her CIWA score was 17. web content producer was notified and Hospitalist contacted. Per Dr. Vicente Rajwinder's scheduled 0900 medications were held and Lorazepam 3mg was given. Rajwinder appeared to be hallucinating, reaching for unse en objects and occasionally trying to talk with them, picking up and drinking items. At one pointshe grabbed at her 1:1's vocera and put it to her lips as if it were a vape pen. Dr Vicente came to the MHU to assess Rajwinder and advised transfer to medical. Dr. Davis was informed, and discharge to the medical floor was arranged. Rajwinder was agitated on transfer and Security was called for assistance. Rajwinder was Discharged to [place] [id number], room 1406 at 12:45. . Discharge Information Case Management Discharge Plan : Case Management Discharge Plan Data 03/20/2024 19:02 EDT Discharge Level of Care at Discharge Psychiatric Facility/Unit 03/17/2024 16:26 EDT Discharge Level of Care at Discharge Short-term Acute Inpatient * Ryan BOJORQUEZ, Jaret Campos: PERFORM Event Display: Progress Note Hospital Authored Date: Patient: ??RAJWINDER DOAN ? Age:??33 Years?Sex:??Female?:??1990?? Pt??continuing to be confused and agitated, despite receiving haldol 10mg PO. RN's description of the pt is most consistent with Delirium Tremens; she is going through psychotic-like symptoms with tachycardia, all withing 96hrs of EtOH Wtihdrawal. I strongly recommend returning pt to ICU for observation and prevent . Discharge order placed. * Ryan BOJORQUEZ, Jaret Campos: PERFORM Event Display: Progress Note Hospital Authored Date: Patient: ??RAJWINDER DOAN ? Age:??33 Years?Sex:??Female?:??1990?? Called and was informed by med nurse that pt woke up in the middle of the night, started to wake upher roommate and puling the leg of the roommate. Charge nurse went to talk to her and she seemed disoriented and confused. Redirectable. Her BP is 110/80 but tachy at HR 105. Suspecting Delirium Tremens. Asked the nurse to call medical physician to admit pt for DT management (arrythmia and respirato ry depression). Recommended 2mg of Ativan per CIWA in the meanwhile. Note * Janice Olmedo RN: PERFORM Event Display: Patient Education/Instruction Authored Date: Inpatient Adult Discharge Instructions. [facility] [address] [place] [address] Name: RAJWINDER DOAN : 1990?? Visit: 03/20/2024 19:14?? Current Date: 03/21/2024 11:04 ?? Account: [id number]?? Inpatient Adult Discharge Instructions We would like to thank you for allowing us to assist you with your healthcare needs. The following includes patient education materials and information regarding your injury/illness. Our entire staffstrives to provide an excellent experience for our patients and their families. PLEASE ENSURE YOU FOLLOW-UP PER THE INSTRUCTIONS BELOW! ?? YOUR OPINION IS IMPORTANT TO US! Please complete the survey you may receive by mail or email. Your feedback will be used to make improvements to the healthcare experiences of our patients and their families. Surveys are administered by [employer] ?? If further treatment with your primary care physician or another doctor is recommended, it is important for you to keep the appointment. Call your primary care physician or return to the Emergency Department immediately if your condition worsens, fails to improve, or new symptoms develop. If you need to find a doctor, you can call [facility] Link for a referral at [phone] or toll free at [phone] ([phone]) or log in to [email or web address].. ?? [facility], in keeping with [facility] guidance, no longer requires face masks for staff, patientsor visitors in most situations. Similiar to time spent indoors at other locations, there is the chance that you were exposed to repiratory viruses during your time with us (such as flu or COVID-19). If you develop symptoms concerning for a viral respiratory infection, please seek testing (and treatment if indicated) from your medical provider or home test kit. ?? You can view and manage your care through the patient portal or by using a health care alison of your choosing. [employer] is a website that allows you to securely view your medical information including your hospital discharge summary, office visit summaries, medications and follow-up visits. You can also request appointments, renew medications, and request access to your medical information using a health care alison of your choosing, or just ask a question. You can enroll at [email or web address] or register during your next office visit. You have been discharged from [facility], Patient Care Unit: MHU??. If you have any questions regarding these instructions, including results of studies pending, afteryou leave, please call us and we will be happy to assist you 26/05. [facility] Nursing Unit Direct Phone Number, for 26/05 contact and results of studies pending Your Care Team Attending Physician Michelle Gao MD?? Consulting Providers Michelle Gao MD?? Discharging Providers Ryan BOJORQUEZ, Jaret Campos Reason for Your Visit I really don't need to be hear ?? Tests Performed Below is a partial list of the tests performed during your hospitalization. You may have had other tests and procedures not included in this list. Please discuss all test results with your provider. Ammonia Venous BUN CBC w/ Differential Creatinine Electrolytes Lipid Panel TSH COVID-19 (2019 Novel Coronavirus) PCR?? Primary Care Provider Jayla Cho NP? Advance Directive Health Care Proxy on File No Discharge Vitals Temperature: 98.1 DegF Height: 147 cm Pulse Rate:??113 bpm??High Weight: 43.67 kg Respiratory Rate: 16 br/min Body Mass Index: 20.21 kg/m2 Systolic Blood Pressure: 116 mm Hg Body surface area: 1.34 Diastolic Blood Pressure:??88 mm Hg??High ?? Oxygen Saturation: 98 % ?? Studies Pending All studies ordered during this hospital stay have been completed unless listed below. Please discuss all pending results with your provider listed above in these instructions. ?? COVID-19 (2019 Novel Coronavirus) PCR?? What to do next Instructions From Your Doctor ?? Orders? 03/21/24 10:55:00 EDT?? Prescriptions??, ??03/21/24 10:55:00 EDT?? Discharge Medications RAJWINDER DOAN :1990 Visit Date:03/20/2024 Medications: Please continue your medications until treatment is completed or stopped by your provider. Medications not listed below should be discontinued. Discuss any questions related to medications with your provider. What How Much When Instructions Next Dose Unchanged Buprenorphine-Naloxone (buprenorphine-naloxone 4 mg-1 mg sublingual film) 1 Film Sublingual Daily dissolve under the tongue ?? 03/22*?? All scheduled medications held this 9am? morning per Dr. Vicente Unchanged Clonidine (cloNIDine 0.1 mg oral tablet) 1 tab(s) Oral 3 times a day 03/21 3pm & 9pm Unchanged Docusate 100 Milligram Twice a day 03/21 9pm Unchanged Doxepin (doxepin 75 mg oral capsule) 1 capsule Oral Daily at Bedtime Daily at Bedtime Unchanged Famotidine (Pepcid AC Maximum Strength 20 mg oral tablet) 1 tab(s) Oral Twice a day 03/21 9pm Unchanged Gabapentin (gabapentin 400 mg oral capsule) 1 capsule Oral Twice a day 03/21 9pm Unchanged HydrOXYzine (hydrOXYzine pamoate 25 mg oral capsule) 1 capsule Oral Daily at Bedtime Daily at Bedtime *Given PRN every 4hrs PRN for Anxiety on MHU Unchanged Lamotrigine (lamotrigine 25 mg oral tablet, extended release) 1 tab(s) Oral Daily Not given on MHU Unchanged Freedom (lithium 150 mg oral capsule) 1 capsule Oral Twice a day Not given on MHU Unchanged Melatonin (melatonin 3 mg oral tablet) 3 tab(s) Oral Daily at Bedtime Daily at Bedtime Unchanged Ondansetron (ondansetron 4 mg oral tablet, disintegrating) 1 tab(s) Oral 3 times a day as needed for Nausea & Vomiting 3 times a day as needed for Nausea & Vomiting Unchanged Propranolol (propranolol 10 mg oral tablet) 1 tab(s) Oral Daily in the morning Daily in the morning Unchanged Senna 8.6 Milligram Oral Twice a day Not given on MHU Prescription Given During Visit No new medications prescribed at time of discharge.?? Laboratory Results Below is a partial list of the most recent Laboratory test results done prior to this discharge. You may have had other tests and procedures not included in this list. Please discuss all test resultswith your provider. Est Creatinine Clearance - 80.15 mL/min (03/21/2024) Ammonia Venous (03/21/2024) ???Ammonia, Venous - 29 ??mole/L BUN (03/21/2024) ???BUN - 9 mg/dL CBC w/ Differential (03/21/2024) ???WBC - 4.3 k/mm3???RBC - 3.97 m/mm3???Hgb - 11.7 Gm/dL???Hct - 36.1 %???MCV - 90.9 femtoliters???MCH - 29.5 pg???MCHC - 32.4 g/dL???Platelet Count - 124 k/mm3???RDW-SD - 54.6 femtoliters???MPV - 10.5 femtoliters???Nucleated RBC (Automated) - 0.0 #/100 WBC'S???Abs. NRBC - 0.0 k/mm3???Abs. Neut - 2.1 k/mm3???Abs. Lymph - 1.4 k/mm3???Abs. Hoke - 0.6 k/mm3???Abs. Eo - 0.1 k/mm3???Abs. Baso - 0.0 k/mm3???Neut % - 49.8 %???Lymph % - 32.9 %???Hoke % - 12.9 %???Eos % - 3.3 %???Baso % - 0.9 %???Imm Gran - 0.2 %???Abs. Imm Gran - 0.0 k/mm3 Creatinine (03/21/2024) ???Creatinine-Blood - 0.64 mg/dL???Estimated GFR Creatinine - 117 ML/MIN/1.73 M2 Electrolytes (03/21/2024) ???Sodium - 138 mmol/L???Potassium - 4.1 mmol/L???Chloride - 102 mmol/L???Bicarbonate Level - 26 mmol/L???Anion Gap - 10 Lipid Panel (03/21/2024) ???Cholesterol - 234 mg/dL???Triglycerides - 54 mg/dL???HDL Cholesterol - 119 mg/dL???LDL Cholesterol - 104 mg/dL???Non HDL Cholesterol - 115 mg/dL TSH (03/21/2024) ???TSH - 5.37 uIU/mL Allergies (NKA means No Known Allergies) No Known Medication Allergies Problems Active Problems??(3) Depression?? Eating disorder?? History of alcohol dependence?? Education Materials Below is the list of Educational Leaflet Providered with your Discharge Instructions. Valuables and Belongings I fully understand and agree that [facility] accepts no responsibility for all my personal property including clothing, toilet articles, radios, jewelry, dentures, hearing aids, rings, money, or any other property that is in my possession or is brought to me after admission. I understand certain valuables may be placed in a hospital safe for a short period of time. I understand that the hospital is not liable for loss or damage due to accident, fire, or other natural occurrence while said property is in the safe. I accept full responsibility for any personal property that I keep with me, and will not hold the hospital responsible in case of loss or disappearance. I acknowledge that i have been encouraged to send valuables and belongings home. ?? Review of Valuable and Belonging List: With patient Date for Pt to Sign Valuables/Belongings: 03/21/24 11:00:00 ?? Other Discharge Information ? Pulmonary Rehab Status?? Pulmonary Rehab Discharge Status?? Respiratory Rate: 16 br/min ? Common Emergency Awareness Tips IS IT A STROKE? Act FAST and Check for these signs: FACE Does the face look uneven? ARM Does one arm drift down? SPEECH Does their speech sound strange? TIME Call at any sign of stroke ?? Heart Attack Signs Chest discomfort: Most heart attacks involve discomfort in the center of the chest and lasts more than a few minutes, or goes away and comes back. It can feel like uncomfortable pressure, squeezing, fullness or pain. Discomfort in upper body: Symptoms can include pain or discomfort in one or both arms, back, neck, jaw or stomach. Shortness of breath: With or without discomfort. Other signs: Breaking out in a cold sweat, nausea, or lightheaded. Remember, MINUTES DO MATTER. If you experience any of these heart attack warning signs, call to get immediate medical attention! ?? Smoking can increase your chances of developing chronic health problems and can cause harmful effects to other family members in your house. If you smoke, you are strongly encouraged to quit. Please call [facility] Link at [phone] or [phone] ([phone]) or log in to [email or web address] for referrals to smoking cessation programs. ?? 597 Suicide & Crisis Lifeline is available 26/05 if you or someone you know needs to find a reason to keep living. By calling 921 you'll be connected to a skilled, trained counselor at a crisis center in your area. INPATIENT DISCHARGE INSTRUCTIONS SIGNATURE RAJWINDER SULLIVAN Location:[facility] Registration Date and Time:03/20/2024 19:14 EDT Primary Care Physician: Jayla Cho NP, Attending Physician: Michelle Gao MD, I RAJWINDER DOAN, have received the above patient education materials/instructions and have verbalized understanding. If ambulance or transport services are being used I further acknowledge being givena choice of service. ?? If you need to contact me, please call me at this number: . Patient/Surgery Center Administrator Name: Patient/Surgery Center Administrator Signature: Relationship to Patient: Witness Name/Signature: Date: Patient Care team information Care Team Personnel Name: Jayla Cho NP Position: [facility] Physician - Hospital Medicine Member Role: PCP Address: Address: [address] [place] [address] Care SIL[place]INA Mathur [address]- Name: Edmond Hi RN Position: [facility] RN Member Role: Primary Care Nurse Name: Diamond Schreiber RN Position: [facility] RN Member Role: Primary Care Nurse Care Team Related Persons Name: NONE, PT STATES
--- OUTSIDE RECORDS SUMMARY | 2024-09-29 14:25 | XMS_ITS | Continuity of Care Document ---
Author Organization [facility] Address [address] [place] [address]- Care Team Providers Care Run Lead Name Role Phone Not on Staff, PCP Primary Care Physician Unavail able Encounter [facility] Date(s): 05/04/21 - 06/03/[address] [address]- Allergies, Adverse Reactions, Alerts No Known Medication [...] Refills, Maintenance, 06/03/21 19:40:00 EDT, DIS Tablet, [facility] #[id number], Partial fill upon patient request if the prescription is for a schedule II opioid makayla... Start Date: 06/03/21 Status: Ordered Trazodone = 25 mg, By Mouth, Daily at bedtime, 0 Refills, Maintenance, 08/22/20 11:25:00 EDT Start Date: 08/22/20 Status: Ordered
--- OUTSIDE RECORDS SUMMARY | 2024-09-29 14:25 | XMS_ITS | Continuity of Care Document ---
Author Organization [facility] Address [address] [place] [address]- Care Team Providers Care Environmental Services Manager Name Role Phone Not on Staff, PCP Primary Care Physician Unavail able Encounter [facility] [place] Date(s): 06/25/21 - 06/25/[address] [address]- Encounter Diagnosis Evaluation by medical service required(Final) - 06/25/21 Discharge Disposition: A-D/C Home Attending Physician: Lalit Chen MD Admitting Physician: Lalit Chen MD Referring Physician: Not on Staff, Referring MD Allergies, Adverse Reactions, Alerts No Known Medication Allergies Immunizations Given and Recorded Vaccine Date Status Refusal Reason SARS-CoV-2 (COVID-19) Ad26 vaccine 02/08/21 Record ed Medications citalopram 20 mg oral tablet 1 tablet [...] a day Start Date: 06/23/21 Status: Ordered ClonIDINE Tablet 0.2 mg, Tablet, By Mouth, Once, Hold for: HR less than 60 or SYSTOLIC BP less than 100, STAT, 06/25/21 5:28:00 EDT, Stop date 06/25/21 5:28:00 EDT Start Date: 06/25/21 Stop Date: 06/25/21 Status: Completed cyclobenzaprine 5 mg oral tablet 1 tablet = 5 mg, By Mouth, Daily at bedtime Start Date: 06/23/21 Status: Ordered Gabapentin = 200 mg, By Mouth, Daily at bedtime, 0 Refills, Maintenance, 06/23/21 15:34:00 EDT, Partial fill upon patient request if the prescription is for a schedule II opioid drug. Start Date: 06/23/21 Status: Ordered hydrOXYzine pamoate 25 mg oral capsule 1 capsule = 25 mg, By Mouth, Daily at bedtime Start Date: 06/23/21 Status: Ordered lithium 150 mg oral capsule 1 capsule = 150 mg, By Mouth, 2 times a day Start Date: 06/23/21 Status: Ordered Melatonin 3 mg oral tablet 1 tablet = 3 mg, By Mouth, Daily at bedtime, PRN Sleep Start Date: 06/23/21 Status: Ordered Nicotine 2 mg gum 1 [...] Refills, Maintenance, 06/03/21 19:40:00 EDT, DIS Tablet, [id number], Partial fill upon patient request if the prescription is for a schedule II opioid makayla... Start Date: 06/03/21 Status: Ordered propranolol 10 mg oral tablet 10 mg, 1, tablet, By Mouth, Daily in AM Start Date: 06/23/21 Status: Ordered Vivitrol 380 mg intramuscular injection, extended release = 380 mg, Intramuscular, Every 28 days, INJECT 380MG IN THE MUSCLE A SINGLE DOSE ONCE A MONTH Start Date: 06/23/21 Status: Ordered Vital Signs Most recent to oldest [Reference Range]: 1 2 3 Height 148 cm (06/25/21 9:11 AM) 148 cm (06/25/21 2:53 AM) Weight 50 kg (06/25/21 9:11 AM) 50 kg (06/25/21 2:53 AM) Oxygen Saturation [94-100 %] 97 % (06/25/21 9:11 AM) 99 % (06/25/21 5:00 AM) 99 % (06/25/21 2:53 AM) Pulse Rate [55-90 bpm] 116 bpm *H* (06/25/21 9:11 AM) 100 bpm *H* (06/25/21 5:00 AM) 112 bpm *H* (06/25/21 2:53 AM) Body Mass Index [18.5-24.99] 22.83 (06/25/21 9:11 AM) Blood Pressure [90-138/55-84 mm Hg] 124/93mm Hg (06/25/21 9:11 AM) 132/100mm Hg (06/25/21 5:36 AM) 126/87mm Hg (06/25/21 2:53 AM) Respiratory Rate [16-30 br/min] 18 br/min (06/25/21 9:11 AM) 16 br/min (06/25/21 7:06 AM) 16 br/min (06/25/21 5:00 AM) Temperature [96.8-100.4 DegF] 97.9 DegF (06/25/21 2:53 AM) Mode of Delivery (Oxygen) Room air (06/25/21 9:11 AM) Blood pressure sites Arm, left (06/25/21 9:11 AM) Temperature Route Oral (06/25/21 2:53 AM) Dry Weight 50 kg (06/25/21 9:11 AM) 50 kg (06/25/21 2:53 AM) Social History Social History Type Response Smoking Status Smoker, current stat us unknown entered on: 06/23/21 Sex
--- OUTSIDE RECORDS SUMMARY | 2024-09-29 14:25 | XMS_ITS | Continuity of Care Document ---
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 Psychosocial and Contextual factors -- No patient assets and stressors documented during this encounter ?? Justification for Hospitalization No Justification for Hospitalization documented. ?? I certify that this patient requires hospitalization, there is a likelihood of a positive outcome, and that their placement is age appropriate. ??I have reviewed the Nursing Assessment, Admission Home Medication Assessment, and the Initial Evaluation of Risk to Self/Others. ? Histories Allergies Allergies ?(Active and Proposed Allergies Only) No Known Medication Allergies? (Severity: Unknown severity, Onset: Unknown) ? Past Medical History/Problem List Active Problems(3) Depression Eating disorder History of alcohol dependence ? Past Surgical History No surgery history documented. ? Social History Alcohol Details:??Use: Past. ??Other: hx of alcohol use. in recovery. Home/Environment Details:??Living situation: Home/Independent. Nutrition/Health Details:??Diet: Regular. Sexual Details:??Gender identity: Identifies as female. ??Preferred pronoun: She/her. Substance Abuse Details:??Use: Past. ??Type: Cocaine. ??Other: none. Tobacco Details:??Use: Smoker, current status unknown. Electronic Cigarette/Vaping Details:??Electronic Cigarette Use: Use, within last 90 days. ? Psychosocial History ? Family History Father: Alcohol abuse; Depression ? Medications Home Medications Buprenorphine-Naloxone (buprenorphine-naloxone 4 mg-1 mg sublingual film)?1?Film?Sublingual?Daily?dissolve under the tongue Clonidine (cloNIDine 0.1 mg oral tablet)?0.1?Milligram?1?tablet?By Mouth?3 times a day Docusate?100?Milligram?2 times a day Doxepin (doxepin 75 mg oral capsule)?1?capsule?75?Milligram?By Mouth?Daily at bedtime Famotidine (Pepcid AC Maximum Strength 20 mg oral tablet)?20?Milligram?1?tablet?By Mouth?2 times a day Gabapentin (gabapentin 400 mg oral capsule)?400?Milligram?1?capsule?By Mouth?2 times a day HydrOXYzine (hydrOXYzine pamoate 25 mg oral capsule)?1?capsule?25?Milligram?By Mouth?Daily at bedtime Lamotrigine (lamotrigine 25 mg oral tablet, extended release)?1?tab(s)?25?Milligram?By Mouth?Daily [place] (lithium 150 mg oral capsule)?1?capsule?150?Milligram?By Mouth?2 times a day Melatonin (melatonin 3 mg oral tablet)?3?tab(s)?9?Milligram?By Mouth?Daily at bedtime Ondansetron (ondansetron 4 mg oral tablet, disintegrating)?1?tab(s)?4?Milligram?By Mouth?3 times a day?as needed?Nausea & Vomiting Propranolol (propranolol 10 mg oral tablet)?10?Milligram?1?tablet?By Mouth?Daily in AM Senna?8.6?Milligram?By Mouth?2 times a day ? Inpatient Medications Medications (23) Active SCHEDULED: (12) buprenorphine-naloxone 4 mg-1 mg Film (Suboxone 4 mg-1 mg Sublingual Film) ??1 film, Sublingual, Daily Clonidine 0.1 mg Tablet (cloNIDine 0.1 mg oral tablet) ??0.1 mg, By Mouth, 3 times a day Docusate Sodium 100 mg Capsule (Colace sodium 100 mg oral capsule) ??100 mg 1 capsule, By Mouth, 2 times a day Doxepin 25 mg Capsule (Doxepin Capsule) ??75 mg, By Mouth, Daily at bedtime Famotidine 20 mg Tablet (famotidine 20 mg oral tablet) ??20 mg, By Mouth, 2 times a day Gabapentin 400 mg Capsule (gabapentin 400 mg oral capsule) ??400 mg, By Mouth, 2 times a day HydrOXYzine Pamoate 25mg Capsule (hydrOXYzine pamoate 25 mg oral capsule) ??25 mg, By Mouth, Daily at bedtime LamoTRIGINE 25 mg Tablet (LaMICtal 25 mg oral tablet) ??25 mg, By Mouth, Daily [place] 300 mg Tablet (LITHium Tablet) ??150 mg, By Mouth, 2 times a day Melatonin 3 mg Tablet (melatonin 3 mg oral tablet) ??9 mg, By Mouth, Daily at bedtime Propranolol 10 mg Tablet (propranolol 10 mg oral tablet) ??10 mg, By Mouth, 3 times a day Senna Tablet (Senna 8.6 mg oral tablet) ??17.2 mg 2 tablet, By Mouth, Daily CONTINUOUS: (0) PRN: (11) Acetaminophen 325 mg Tablet (Acetaminophen Tablet) ??650 mg, By Mouth, Every 4 hours Al hydroxide/Mg hydroxide/simethicone 200 mg-200 mg-20 mg/5 mL Susp UD (Maalox Plus Liquid) ??30 mL, By Mouth, Every 4 hours Bisacodyl 5 mg EC Tablet (Dulcolax Tablet) ??5 mg, By Mouth, 2 times a day Chloraseptic Lozenge ??1 lozenge, By Mouth, Every 3 hours Guaifenesin 200mg/10mL Syrup UD (GuaiFENEsin Liquid) ??200 mg 10 mL, By Mouth, Every 4 hours HydrOXYzine Pamoate 25mg Capsule (Vistaril Capsule) ??25 mg, By Mouth, Every 4 hours Ibuprofen 400 mg Tablet (Ibuprofen Tablet) ??400 mg, By Mouth, Every 6 hours Magnesium Hydroxide 8% Susp UD (Milk of Magnesia Liquid) ??30 mL, By Mouth, 2 times a day Nicotine 2 mg Lozenge (Nicotine Lozenge) ??2 mg, By Mouth, Every hour Ondansetron 4 mg ODT (Zofran ODT 4 mg oral tablet, disintegrating) ??4 mg, By Mouth, Every 6 hours Quetiapine 25 mg Tablet (SEROquel 25 mg oral tablet) ??25 mg, By Mouth, Every 6 hours ? Results Recent Labs BLOOD COUNT & DIFF WBC 4.0 k/mm3 ()?? 03/22/2024 08:20 RBC 3.79 m/mm3 (Low)?? 03/22/2024 08:20 Hgb 11.5 Gm/dL (Low)?? 03/22/2024 08:20 Hct 34.6 % (Low)?? 03/22/2024 08:20 MCV 91.3 femtoliters ()?? 03/22/2024 08:20 MCH 30.3 pg ()?? 03/22/2024 08:20 MCHC 33.2 g/dL ()?? 03/22/2024 08:20 Platelet Count 159 k/mm3 ()?? 03/22/2024 08:20 RDW-SD 55.3 femtoliters (High)?? 03/22/2024 08:20 MPV 9.8 femtoliters ()?? 03/22/2024 08:20 Nucleated RBC (Automated) 0.0 #/100 WBC'S ()?? 03/22/2024 08:20 Abs. NRBC 0.0 k/mm3 ()?? 03/22/2024 08:20 ?? CHEM GENERAL Sodium 137 mmol/L ()?? 03/22/2024 08:20 Potassium 4.0 mmol/L ()?? 03/22/2024 08:20 Chloride 102 mmol/L ()?? 03/22/2024 08:20 Bicarbonate Level 26 mmol/L ()?? 03/22/2024 08:20 Anion Gap 9 ()?? 03/22/2024 08:20 BUN 10 mg/dL ()?? 03/22/2024 08:20 Creatinine-Blood 0.71 mg/dL ()?? 03/22/2024 08:20 Estimated GFR Creatinine 112 ML/MIN/1.73 M2 ()?? 03/22/2024 08:20 Alkaline Phosphatase 71 units/L ()?? 03/22/2024 08:20 AST (SGOT) 30 units/L ()?? 03/22/2024 08:20 ALT (SGPT) 60 units/L (High)?? 03/22/2024 08:20 ?? URINE OTHER Est Creatinine Clearance 72.25 mL/min ()?? 03/22/2024 11:41 ? Abnormal Labs No lab data available. ? CBC, CBC w/Diff?? No qualifying data available. ?? BMP, Mg, and Phos?? No qualifying data available. ? EKG study * Event Display: ECG 12-Lead Authored Date: Please click on pdf link to open report * Event Display: ECG 12-Lead Authored Date: Ventricular Rate: 75 BPM Atrial Rate: 75 BPM P-R Interval: 136 ms QRS Duration: 86 ms Q-T Interval: 388 ms QTC Calculation(Bazett): 433 ms P [place]: 55 degrees R [place]: 59 degrees T [place]: 49 degrees Normal sinus rhythm Poor R wave progression V1 to V3 Borderline ECG When compared with ECG of 29-JAN-2024 00:55, Poor R wave progression now present, likely related to lead placement Confirmed by Brown Olson ([id number]) on 03/24/2024 5:19:25 PM Jackson: Brown Olson [facility] Progress note * Unruly Cabrera RN: PERFORM, SIGN, VERIFY Event Display: [facility] Authored Date: Patient: ANJANA DOAN Age: 33 years Sex: Female : 1990 Associated Diagnoses: None Author: Rick LITTLE, Unruly Pineda Findings Problems Problem 1 : Problem - 1 03/25/2024 11:00 EDT Problem 1 Unable to care for self - anxiety Goals, Problem 1 Anjana bonilla safe and attend group. Problem 1, Patient agrees to Attend groups, Demonstrate ability to care for self, Take PRN medication as needed, Take scheduled medication, Work with Psychiatrist to find acceptable medication plan, Develop a safety plan for outpatient treatment, Other: Notify staff if feeling unsafe Problem 1, Nursing Interventions Help him/her identify feelings prior to onset of anxiety, Assist patient to identify strengths, Teach alternative ways of dealing with stress Problem 1, Psychiatrist Interventions Evaluate medication, Order medication as appropriate, Supervise treatment Problem 1, Counselor Interventions Close observation, Monitor hygiene, Monitor nutrition, Monitor sleep Problem 1, Social Work Interventions Review discharge plans, Review safety plan with family members Procurement Forester Comment: Problem 1 Procurement Forester Comment: Dispo Flavia & Sindhu Problem 1, Start Date and Time 03/22/2024 17:05 Patient Progression, Problem 1 Progressing . Narrative/Incidental Anjana was resting in bed at the beginning of the shift, breathing evident. She appeared to have slept for 6+ hours out of the recorded hours of sleep for the shift. She remained safe on unit standard safety checks. Discharge Information Case Management Discharge Plan : Case Management Discharge Plan Data 03/22/2024 13:40 EDT Discharge Level of Care at Discharge Psychiatric Facility/Unit 03/21/2024 13:00 EDT Discharge Level of Care at Discharge Psychiatric Facility/Unit 03/20/2024 19:02 EDT Discharge Level of Care at Discharge Psychiatric Facility/Unit * Hanane Hopkins RN: PERFORM, SIGN, VERIFY Event Display: Progress Note Hospital Authored Date: Patient: ANJANA DOAN Age: 33 years Sex: Female : 1990 Associated Diagnoses: None Author: Hanane Hopkins RN Findings Problems Problem 1 : Problem - 1 03/25/2024 11:00 EDT Problem 1 Unable to care for self - anxiety Goals, Problem 1 Anjana bonilla safe and attend group. Problem 1, Patient agrees to Attend groups, Demonstrate ability to care for self, Take PRN medication as needed, Take scheduled medication, Work with Psychiatrist to find acceptable medication plan, Develop a safety plan for outpatient treatment, Other: Notify staff if feeling unsafe Problem 1, Nursing Interventions Help him/her identify feelings prior to onset of anxiety, Assist patient to identify strengths, Teach alternative ways of dealing with stress Problem 1, Psychiatrist Interventions Evaluate medication, Order medication as appropriate, Supervise treatment Problem 1, Counselor Interventions Close observation, Monitor hygiene, Monitor nutrition, Monitor sleep Problem 1, Social Work Interventions Review discharge plans, Review safety plan with family members Procurement Forester Comment: Problem 1 Procurement Forester Comment: Dispo Flavia & Sindhu Problem 1, Start Date and Time 03/22/2024 17:05 Patient Progression, Problem 1 Progressing . Narrative/Incidental Anjana is on unit standard safety checks. She was out of her room more this evening for short periods of time. She continues to have periods of irritability and was observed on the phone often with family which she states They don't understand what I'm going through. She reports that she is feeling A little better but my stomach is still not right so she has chosen not to eat her dinner (she was observed eating snacks later in the shift). When asked how her mood is tonight she stated Better than it has been . She rates her current level of anxiety a 7/10 and her depression a 1/10. She denies any suicidal or self harming thoughts. Anjana states she is being discharged to respite tomorrow and she feels safe and ready to go. Anjana's mother called earlier (release of information signed for mother) and expressed concerns over Anjana leaving tomorrow stating - She has been psychotic for8 months to a year. She isolated herself and started drinking recently. She requested a call back from the elementary school social worker, message left for Flavia Trevino. VS WNL. Patient maintaining her safety. . * Lucius Gardner RN, Sindhu: PERFORM, MODIFY, MODIFY, SIGN, VERIFY Event Display: Progress Note Hospital Authored Date: [id number] Patient: ANJANA DOAN Age: 33 years Sex: Female : 1990 Associated Diagnoses: None Author: Sindhu Pollock RN Findings Problems Problem 1 : Problem - 1 03/25/2024 11:00 EDT Problem 1 Unable to care for self - anxiety Goals, Problem 1 Anjana sharpans safe and attend group. Problem 1, Patient agrees to Attend groups, Demonstrate ability to care for self, Take PRN medication as needed, Take scheduled medication, Work with Psychiatrist to find acceptable medication plan, Develop a safety plan for outpatient treatment, Other: Notify staff if feeling unsafe Problem 1, Nursing Interventions Help him/her identify feelings prior to onset of anxiety, Assist patient to identify strengths, Teach alternative ways of dealing with stress Problem 1, Psychiatrist Interventions Evaluate medication, Order medication as appropriate, Supervise treatment Problem 1, Counselor Interventions Close observation, Monitor hygiene, Monitor nutrition, Monitor sleep Problem 1, Social Work Interventions Review discharge plans, Review safety plan with family members Procurement Forester Comment: Problem 1 Procurement Forester Comment: Dispo Flavia & Sindhu Problem 1, Start Date and Time 03/22/2024 17:05 Patient Progression, Problem 1 Progressing . Narrative/Incidental Nursing notes from 9 am to 3 pm . Anjana remains safe on unit standard safety checks . She's alert,oriented and pleasant . She reports anxiety 8 and depression 1. She denied any safety concerns , SI/HI/and AVH .She reports better sleep and no more abdominal discomforts or loose stools. She has attended one group today . She also verbalized better appetite and ate lunch (100 %) . Her condition , progress and requests were discussed with Flavia & Dr. Morrow during telehealth .Overall she feelsbetter and reports I feel more myself now . Encouraged to attend more groups Self presented forMeds and assessment . She also took afternoon scheduled med, Suboxone , Propranolol and clonidine .. Discharge Information Case Management Discharge Plan : Case Management Discharge Plan Data 03/22/2024 13:40 EDT Discharge Level of Care at Discharge Psychiatric Facility/Unit 03/21/2024 13:00 EDT Discharge Level of Care at Discharge Psychiatric Facility/Unit 03/20/2024 19:02 EDT Discharge Level of Care at Discharge Psychiatric Facility/Unit Note * Soumya Morrow MD Y: PERFORM, MODIFY Event Display: Discharge/Transfer Note Hospital Authored Date: [id number] Patient: ??ANJANA DOAN ? Age:??33 Years?Sex:??Female?:??1990?? Patient Information Discharge Location: [facility] Primary Care Physician: Jayla Cho NP Admit Date/Time: 03/22/24 13:11 Discharge Disposition Discharge Disposition: Home: No Services Discharge Diagnosis Alcohol withdrawal with inpatient treatment ??(F10.939) Alcohol Use Disorder Opioid Use Disorder, dependence and??on maintenance therapy Anxiety Disorder with panic sxs Bipolar Disorder, Depressed Constipation by outlet dysfunction (K59.02) _ Discharge Medications Buprenorphine-Naloxone (buprenorphine-naloxone 4 mg-1 mg sublingual film)?1?Film?Sublingual?2 times a day?for 7?Days?take morning and midday Buprenorphine-Naloxone (buprenorphine-naloxone 8 mg-2 mg sublingual film)?1?Film?Sublingual?Daily at bedtime?for 7?Days Clonidine (cloNIDine 0.1 mg oral tablet)?0.1?Milligram?By Mouth?3 times a day?for 14?Days Docusate (Colace sodium 100 mg oral capsule)?100?Milligram?1?capsule?By Mouth?2 times a day?as needed?for 14?Days?Constipation Doxepin (doxepin 75 mg oral capsule)?75?Milligram?By Mouth?Daily at bedtime?for 14?Days Famotidine (famotidine 20 mg oral tablet)?20?Milligram?By Mouth?2 times a day?for 14?Days Gabapentin (gabapentin 400 mg oral capsule)?400?Milligram?By Mouth?2 times a day?for14?Days HydrOXYzine (hydrOXYzine pamoate 25 mg oral capsule)?25?Milligram?By Mouth?Daily at bedtime?for 14?Days HydrOXYzine (hydrOXYzine pamoate 25 mg oral capsule)?25?Milligram?By Mouth?Every 4 hours?as needed?Anxiety?for 14?Days Lamotrigine (LaMICtal 25 mg oral tablet)?50?Milligram?By Mouth?Daily?for 14?Days Melatonin (melatonin 3 mg oral tablet)?9?Milligram?By Mouth?Daily at bedtime?for 14?Days Nicotine (nicotine 2 mg oral transmucosal lozenge)?2?Milligram?By Mouth?Every hour?as needed?Smoking Cessation?for 2?week(s) Ondansetron (ondansetron 4 mg oral tablet, disintegrating)?4?Milligram?By Mouth?Every 6hours?as needed?Nausea & Vomiting?for 7?Days Propranolol (propranolol 10 mg oral tablet)?10?Milligram?By Mouth?3 times a day?for 14?Days Senna (Senna 8.6 mg oral tablet)?17.2?Milligram?2?tab(s)?By Mouth?Daily?as needed?for 14?Days?Constipation ? Quality Measures Screening for Metabolic Disorders:?Lipid Panel:??Has Results for Lipid Panel within the last 12 months ? Medications Started Suboxone Medications Discontinued [place] as she reports that she was no longer taking the medication at home. Doses Changed Lamictal was titrated to 50 mg daily for mood stabilization. Allergies Allergies ?(Active and Proposed Allergies Only) No Known Medication Allergies? (Severity: Unknown severity, Onset: Unknown) ? Hospital Course REASON FOR ADMISSION Anjana initially??presented to the emergency department on 03/16 under the influence??of alcohol, she reported having been sober for over 2 years??then relapsed??approximately??4 weeks ago.??Shewas then admitted to [facility] ut had to be transferred to medicine due to severe alcohol withdrawal sxs with worsening/unstable CIWA scores. She went back and forth between the ICU and Med/Surge units units until she was stabilized and has subsequently transferred back to [facility]. Patient reported??symptomsof depression??and anxiety??with anxiety??worse.?? She reports having been on medication for many ye ars??including??gabapentin??which she reports taking??for 12 years and??doxepin??taken for sleep.??Patient reported having been??given gabapentin for her anxiety since she was 12 years old.?? She??has been taking doxepin??at bedtime for sleep??which has had good results.?? Patient had a hard time?? discussing her current situation that led to??her suicidal thoughts,??she nodded off several times??then would stare forward??without looking and lose track of what she was trying to speak??or answer.?? She was tired and became frustrated when she was unable to organize her thoughts,??reported wanting to take a nap.?? Before leaving she??was able to report getting medication from[facility]??saw a psych provider and therapist??who she has not seen in some time??and gets Suboxone at [facility]. ??She reported lack of consistency with medication, reported taking it when home??at times is away from the home and??does not??follow through??with taking medication. ??Verbalized taking??doxepin,??gabapentin, clonidine??for??symptoms of depression and anxiety while at home.?? Misses doses when staying at friend's house,??she??verbalized not taking other medication??including lithium, lamotrigine??or fluoxetine, she??reported not wanting to be on medication??that could change how she feels??or feel overse dated.?? Due to current symptoms??of withdrawal and??treating medication to manage symptoms;??patient is lethargic,??having difficulty organizing thoughts and forgetful. ??Since current medication??taken prior to admission??also causes??sedation??including gabapentin??and??doxepin??this provider recommends holding??psychiatric medication??for an additional 1 to 2 days until patient is more awake and alert. ??She reports passive suicidal thoughts with no plan and reported feeling safe on??the critical care unit.?? No homicidal ideations and no??visual or auditory hallucinations, no delusions. ?? HOSPITAL COURSE: COURSE: Patient admitted on voluntary status for safety and stabilization. Patient received a comprehensiveevaluation by the treatment team to include a psychiatric evaluation and a physical exam review. Routine labs were ordered and reviewed. Diagnosis formulated using DSM 5 criteria. Patient consented to all medicines after the risk-benefit side effects and alternatives were explained. She was initially started on all her home medications and home dose of her Suboxone at 4 mg daily. It was determined that as Anjana had missed her Suboclade STEPHEN medication dose, she was also acutely withdrawing fromOpioid which explained why??her acute withdrawal sxs from ETOH seem very protracted.??Dose of Suboxone was subsequently titrated upwards to 4 mg??morning and midday and 8 mg at bedtime with good response.??Patient tolerated medicine well. Through serial interview staff report and observation patient showed continued improvement. Patient was encouraged to participate in various milieu activities. Patient received individual and group therapy. At discharge patient had increased insight on factorsthat led to hospitalization. Patient verbalized an understanding of the importance of strict medication compliance. Patient was strongly encouraged to abstain from alcohol nicotine or any illicit substance. A safety plan had been developed during the course of hospitalization was repeatedly reviewed with the patient. Patient denied suicidality homicidality or psychosis at discharge. Patient was deemed safe for discharge not considered an imminent danger to self or others and patient had a soliddischarge plan. Suicide risk low. ?? During stay in the hospital suicidal intervention was provided, discussed different coping mechanism to distract mind from negative thoughts and make them more positive. Patient's suicidal thoughts faded off over the time. At the time of discharge patient was kept on medications as listed in the medication section. Tolerating medications well, denies any side effect from it. Follow up appointments were discussed. The patient responded well to individual and group psychotherapy, milieu therapy and medication management.? For coordination of care with outpatient clinical team and interaction with the patient's family please refer to the case technician notes which was reviewed by this provider. ? On the day of discharge Pt reported that pt is feeling much better compared to preadmission status.Pt denied any worsening of mood and anxiety issues. Pt denies any suicidal thoughts, feels safe to be discharged. Mood has improved, affect is broad range. Pt denies SI/HI/AH/VH. Safety plan was discussed in detail, importance of compliance with medications and follow up appointment were discussed,encouraged to stay away from mood altering substances, pt verbalized understanding.? On the day of discharge Patient was interviewed, review medication charts and lab discussed with nursing staff , Pharmacist, case technician during the morning case report, based on our team meeting we concluded as a team that there is significant improvement in patient psychopathology will discharge to outpatient level of care. Coal discharge screen was performed by the nursing staff and reviewed by this fiction and nonfiction writer prose, it was negative.? Objective Assessment and Plan ? PLAN: 1. Discharge to Respite today. 2. F/U with Suboxone clinic to restart STEPHEN Suboclade medication. She was given 1 week of Oral Suboxone at 4 mg bid and 8 mg q bedtime and clinic will determine how to taper her dose. 3. Continue all other medications and was given #14 days with 1 refill. 4. Follow up with outpatient team for medication management and counseling. ? Vital Signs?? Temperature: 98.4 DegF (03/26/24 08:09:00) Temperature Route: Temporal (03/26/24 08:09:00) Pulse Rate: 89 bpm (03/26/24 08:09:00) Respiratory Rate: 16 br/min (03/26/24 08:16:00) Systolic Blood Pressure: 110 mm Hg (03/26/24 08:09:00) Diastolic Blood Pressure: 76 mm Hg (03/26/24 08:09:00) Blood pressure sites: Arm, left (03/26/24 08:09:00) Mean Arterial Pressure: 87 mm Hg (03/26/24 08:09:00) Pulse Pressure: 34 mm Hg (03/26/24 08:09:00) Oxygen Saturation: 100 % (03/26/24 08:09:00) Mode of Delivery (Oxygen): Room air (03/26/24 08:09:00) ? Pain Scores?? No qualifying data available. ? . Physical Exam Mental Status Examination prior to discharge: Alert and oriented to time, place, person and situation. Affect is euthymic. Thought is lucid. Denied suicidal or homicidal thoughts or intent and denies auditory or visual hallucinations or delusions. No SI/HI/AVH/Delusions noted. No medications side effects noted. No new medical complaints.?? Pending Results No Pending Results Follow-Up Appointments See SW note. Patient Instructions See nursing discharge instructions Post Discharge Care Discharge ?Today, 03/26/24 10:16:00 EDT Home Health Face to Face ^HomeHealthFTF Results Discharge Labs No labs resulted during this visit.? 35 ??minutes spent on discharge * Jacquie Millard RN: PERFORM Event Display: Patient Education/Instruction Authored Date: Inpatient Adult Discharge Instructions. [facility] Inpatient Psychiatry [address] [place] [address] Name: ANJANA DOAN : 1990?? Visit: 03/22/2024 13:11?? Current Date: 03/26/2024 11:12 ?? Account: [id number]?? Inpatient Adult Discharge Instructions We would like [...] and their families. Surveys are administered by [employer] ?? If further treatment with your primary care physician or another doctor is recommended, it is important for you to keep the appointment. Call your primary care physician or return to the Emergency Department immediately if your condition worsens, fails to improve, or new symptoms develop. If you need to find a doctor, you can call [facility] Link for a referral at [phone] or toll free at [phone]) or log in to [email or web address].. ?? [facility], in keeping with [facility] guidance, no longer requires face masks for [...] a health care alison of your choosing. Pay-Me is a website that allows you to securely view your medical information including your hospital discharge summary, office visit summaries, medications and follow-up visits. You can also request appointments, renew medications, and request access to your medical information using a health care alison of your choosing, or just ask a question. You can enroll at [email or web address] or register during your next office [...] Consulting Providers Michelle Gao MD?? Discharging Providers Soumya Morrow MD Reason for Your Visit Depression, Etoh use d/o?? Your Diagnosis Constipation by outlet dysfunction Tests Performed Below is a partial list of the tests performed during your hospitalization. You may have had other tests and procedures not included in this list. Please discuss all test results with your provider. No tests performed during this visit.?? Primary Care Provider Jayla Cho NP? Advance Directive Health Care Proxy on File No Patient refuses to discuss Discharge Vitals Temperature: 98.4 DegF Height: 148 cm Pulse Rate: 89 bpm Weight: 44.7 kg Respiratory Rate: 18 br/min Body Mass Index: 20.41 kg/m2 Systolic Blood Pressure: 110 mm Hg Body surface area: 1.36 Diastolic Blood Pressure: 76 mm Hg ?? Oxygen Saturation: 100 % ?? Studies Pending All studies ordered during this hospital stay have been completed unless listed below. Please discuss all pending results with your provider listed above in these instructions. ?? No incomplete studies found?? What to do next Instructions From Your Doctor ?? Orders?? , ??03/26/24 10:16:00 EDT?? Discharge Medications ANJANA DOAN :1990 Visit Date:03/22/2024 Medications: Please continue your medications until treatment is completed or stopped by your provider. Medications not listed below should be discontinued. Discuss any questions related to medications with your provider. What How Much When Instructions Next Dose New Nicotine (nicotine 2 mg oral transmucosal lozenge) 2 Milligram Oral Every hour as needed for Smoking Cessation Duration: 2 week(s) Pickup at [facility] as needed Changed Buprenorphine-Naloxone (buprenorphine-naloxone 4 mg-1 mg sublingual film) 1 Film Sublingual Twice a day Duration: 7 Days take morning and midday ?? Pickup at [facility] this afternoon Changed Buprenorphine-Naloxone (buprenorphine-naloxone 8 mg-2 mg sublingual film) 1 Film Sublingual Daily at Bedtime Duration: 7 Days Pickup at [facility] tonight Changed Clonidine (cloNIDine 0.1 mg oral tablet) 0.1 Milligram Oral 3 times a day Duration: 14 Days Pickup at [facility] this afternoon Changed Docusate (Colace sodium 100 mg oral capsule) 1 capsule Oral Twice a day as needed for Constipation Duration: 14 Days Pickup at [facility] as needed Changed Doxepin (doxepin 75 mg oral capsule) 75 Milligram Oral Daily at Bedtime Duration: 14 Days Pickup at [facility] tonight Changed Famotidine (famotidine 20 mg oral tablet) 20 Milligram Oral Twice a day Duration: 14 Days Pickup at [facility] tonight Changed Gabapentin (gabapentin 400 mg oral capsule) 400 Milligram Oral Twice a day Duration: 14 Days Pickup at [facility] tonight Changed HydrOXYzine (hydrOXYzine pamoate 25 mg oral capsule) 25 Milligram Oral Daily at Bedtime Duration: 14 Days Pickup at [facility] tonight Changed HydrOXYzine (hydrOXYzine pamoate 25 mg oral capsule) 25 Milligram Oral Every 4 hours as needed for Anxiety Duration: 14 Days Pickup at [facility] as needed Changed Lamotrigine (LaMICtal 25 mg oral tablet) 50 Milligram Oral Daily Duration: 14 Days Pickup at [facility] tomorrow Changed Melatonin (melatonin 3 mg oral tablet) 9 Milligram Oral Daily at Bedtime Duration: 14 Days Pickup at [facility] tonight Changed Ondansetron (ondansetron 4 mg oral tablet, disintegrating) 4 Milligram Oral Every 6 hours as needed for Nausea & Vomiting Duration: 7 Days Pickup at [facility] as needed Changed Propranolol (propranolol 10 mg oral tablet) 10 Milligram Oral 3 times a day Duration: 14 Days Pickup at [facility] this afternoon Changed Senna (Senna 8.6 mg oral tablet) 2 tab(s) Oral Daily as needed for Constipation Duration: 14 Days Pickup at [facility] as needed Pharmacy Information [facility]: [address] [place] [id number] [phone] ?? What How Much When Comments Stop Taking [place] (lithium 150 mg oral capsule) 1 capsule Oral Twice a day Prescription Given During Visit Buprenorphine-Naloxone (buprenorphine-naloxone 8 mg-2 mg sublingual film) - 1 film, Sublingual, Daily at bedtime, # 7 film, 0 Refills, [facility], [place] [address] [id number]?? Buprenorphine-Naloxone (buprenorphine-naloxone 4 mg-1 mg sublingual film) - 1 film, Sublingual, 2 times a day, # 14 film, 0 Refills, take morning and midday, [facility], [place] [address] [id number]?? Clonidine (cloNIDine 0.1 mg oral tablet) - 0.1 mg, By Mouth, 3 times a day, # 42 tablet, 1 Refills,[facility], [place] [address] [id number]?? Docusate (Colace sodium 100 mg oral capsule) - 1 capsule = 100 mg, By Mouth, 2 times a day, # 60 capsule, 0 Refills, [facility], [place] [address] [id number]?? Doxepin (doxepin 75 mg oral capsule) - 75 mg, By Mouth, Daily at bedtime, # 14 tablet, 1 Refills, [facility], [place] [address] [id number]?? Famotidine (famotidine 20 mg oral tablet) - 20 mg, By Mouth, 2 times a day, # 28 tablet, 1 Refills,[facility], [place] [address] [id number]?? Gabapentin (gabapentin 400 mg oral capsule) - 400 mg, By Mouth, 2 times a day, # 28 tablet, 1 Refills, [facility], [place] [address] [id number]?? HydrOXYzine (hydrOXYzine pamoate 25 mg oral capsule) - 25 mg, By Mouth, Every 4 hours, # 14 tablet,0 Refills, [facility], [place] [address] [id number]?? HydrOXYzine (hydrOXYzine pamoate 25 mg oral capsule) - 25 mg, By Mouth, Daily at bedtime, # 14 tablet, 1 Refills, [facility], [place] [address] [id number]?? Lamotrigine (LaMICtal 25 mg oral tablet) - 50 mg, By Mouth, Daily, # 28 tablet, 1 Refills, [facility], [place] [address] [id number]?? Melatonin (melatonin 3 mg oral tablet) - 9 mg, By Mouth, Daily at bedtime, # 60 tablet, 0 Refills, [facility], [place] [address] [id number]?? Nicotine (nicotine 2 mg oral transmucosal lozenge) - 2 mg, By Mouth, Every hour, # 108 lozenge, 0 Refills, [facility], [place] [address] [id number]?? Ondansetron (ondansetron 4 mg oral tablet, disintegrating) - 4 mg, By Mouth, Every 6 hours, # 30 tablet, 0 Refills, [facility], [place] [address] [id number]?? Propranolol (propranolol 10 mg oral tablet) - 10 mg, By Mouth, 3 times a day, # 42 tablet, 1 Refills, [facility], [place] [address] [id number]?? Senna (Senna 8.6 mg oral tablet) - 2 tablet = 17.2 mg, By Mouth, Daily, # 20 tablet, 0 Refills, [facility], [place] [address] [id number]?? Laboratory Results Below is a partial list of the most recent Laboratory test results done prior to this discharge. You may have had other tests and procedures not included in this list. Please discuss all test resultswith your provider. Education Materials Below is the list of Educational Leaflet Providered with your Discharge Instructions. [employer] Patient Education - Quit-Smoking Tools: Help for Kicking Your Habit?? Valuables and Belongings I fully understand and agree that [facility] accepts no responsibility for all my personal [...] to send valuables and belongings home. ?? Date for Pt to Sign Valuables/Belongings: 03/22/24 13:42:00 ?? Other Discharge Information ? Pulmonary Rehab Status?? Pulmonary Rehab Discharge Status?? Respiratory Rate: 18 br/min ?? Psychiatric Discharge Plan?? Discharge Plan Psych?? Clinics?? Recovery Homes/Shelters?? Other Agency?? Crisis Services?? Level of Care at Discharge: Home/Family/SelfCare/RestHome/Alf/Sub AbuseTx (AHR) Clinic Contact: [facility] [employer] [place], [place] [phone]: [phone] Respite Contact: [facility]- [address] [phone]: [phone] Physician/PCP: Jayla Cho [facility], [facility] [place] [address], [address] Floor, [place], [place] [phone]: [phone] Psychiatric Crisis Services: For your area are available 24 hours every day, by calling: Discharge Plan Additional Information: You are discharging today with a step- down to [facility]. You will resume working with your outpatient providers in the community. Clinic Comments: You are stepping down to Respite today. ?? Instructions: Please schedule a follow-up appointment with your PCP when you have an established discharge date from Respite.l Crisis Services: [facility] [phone] Mode of Transportation: [facility] Clinic Date/Time: Friday03/26/2024 @ ? AM ? [facility] Contact: [place] [phone]: [phone] ? [facility] Comment: You have an appointment today with Regis for a Sublocade injection. ? [facility] Date/Time: Friday03/26/2024 @ 1:30 PM ? Common Emergency Awareness Tips IS IT [...] are strongly encouraged to quit. Please call [facility] Link at [phone] or [phone]) or log in to [email or web address] for referrals to smoking cessation programs. ?? 555 Suicide & Crisis Lifeline is available 26/05 if you or someone you know needs to find a reason to keep living. By calling 147 you'll be connected to a skilled, trained counselor at a crisis center in your area. INPATIENT DISCHARGE INSTRUCTIONS SIGNATURE ANJANA SULLIVAN Location:[facility] Inpatient Psychiatry Registration Date and Time:03/22/2024 13:11 EDT Primary Care Physician: Jayla Cho NP, Attending Physician: Jose Roberto Hernandez MD, Michelle Avina, ANJANA RESENDEZ, have received the above patient education materials/instructions and have verbalized understanding. If ambulance or transport services are being used I further acknowledge being givena choice of service. ?? If you need to contact me, please call me at this number: . Patient/Repair Tech Name: Patient/Repair Tech Signature: Relationship to Patient: Witness Name/Signature: Date: * Jacquie Millard RN: PERFORM Event Display: Patient Education Leaflets Authored Date: [id number] Quit-Smoking Tools: Help for Kicking Your Habit ?? 2843 Quit-Smoking Tools: Help for Kicking Your Habit If you're a smoker and you need some more reasons to quit, look at what the U.S. Surgeon General has to say: If you stop now, you'll have a better quality of life and more years to live it. As you likely already know, quitting smoking isn't easy. But millions of other people have done it.And you can, too. Quit-smoking aids, such as those listed here, can increase your chance of success: ??? Quit lines. When you call a quit line, you can talk with someone who's trained to help people quit smoking. It's free. And you can call almost any time. Find a quit line by calling the [employer] [employer]. ??? Nicotine patches. They give you a measured dose of nicotine through your skin to fight cravings. And you can buy patches without a prescription. Several types and strengths are available. The 1 you choose depends on your body size. And it also depends on how much you smoked. Try to slowly decrease your dose. These patches have been known to cause trouble sleeping. If this happens to you, remove the patch before going to bed. Replace it when you wake up. ??? Nicotine gum. This f ast-acting form of nicotine replacement doesn't need a prescription. And it comes in 2 strengths: 2mg and 4 mg. Chew the gum slowly until it tastes peppery. Then place the gum against your cheek. Switch between chewing it and placing it next to your cheek. Do this for about 20 to 30 minutes. But don't eat or drink anything when using the gum. This reduces nicotine absorption. Scheduling your doses throughout the day may work better to calm your cravings. ??? Nicotine nasal spray. A prescription nasal spray sends nicotine quickly to the bloodstream. So, it eases withdrawal symptoms right away. The spray offers a sense of control over your cravings. Most smokers using it report great results. But it can cause sneezing and watery eyes because it tastes peppery. The FDA advises using it for up to 6 months only. ??? Nicotine inhalers. Using this prescription device is like smoking a cigarette. When you puff on the inhaler, a cartridge inside the plastic tube gives off nicotine. But the medicine doesn't go into your lungs. It's delivered to your mouth for quick absorption. ??? Nicotine lozenges. These rqog-xpb-yerwsjb lozenges also are available in 2-mg and 4-mg strengths. You decide which dose to take. This is based on when you often had your first cigarette of the day. You'll absorb less nicotine if you eat or drink while using a lozenge. ??? Bupropion. This non-nicotine prescript ion medicine affects chemicals that are responsible for cravings. So, it reduces withdrawal symptoms. It has the active ingredient bupropion. This is used as an antidepressant. You can use it alone or with nicotine-replacement therapy. ??? Varenicline. This oral prescription medicine reduces nicotine withdrawal symptoms. It also decreases the pleasure you get from smoking. Side effects can include changes in mood or behavior. It's important to use this medicine under medical supervision. Quit-smoking aids can help you have a smoke-free future. But it's also smart to develop a plan to change your personal habits. And to set up a network of emotional support. Turn to family and friends, and your healthcare provider. They can give you valuable information on quitting. Also go to www.smokefree.gov for support and tips. Last Reviewed Date: 2022 ?? [id number] [employer]. All rights reserved. This information is not intended as a substitute for professional medical care. Always follow your healthcare professional's instructions. ?? * Marybel Bacon: PERFORM Event Display: Discharge/Transfer Note Hospital Authored Date: [id number] Psychiatric Discharge Plan Entered On: 03/25/2024 15:35 EDT Performed On: 03/25/2024 15:30 EDT by Marybel Bacon Discharge Plan Level of Care at Discharge : Home/Family/SelfCare/RestHome/Alf/Sub AbuseTx (AHR) Discharge Plan Additional Information : You are discharging today with a step- down to [facility]. You will resume working with your outpatient providers in the community. Mode of Transportation : [facility] Staff Marybel Bacon - 03/25/2024 15:30 EDT Clinics Clinic Comments : You are stepping down to Respite today. Clinic Date/Time : Friday03/26/2024 @ ? AM Marybel Bacon - 03/25/2024 15:36 EDT Clinic Contact : [facility] [employer] [address] [place] [address] FAX: [phone] [facility] Clinic Contact : [place] [address] FAX: [phone] Meth Clinic Comment : You have an appointment today with Reg[facility] for a Sublocade injection. [facility] Date/Time : Friday03/26/2024 @ 1:30 PM Mraybel Bacon 03/25/2024 15:30 EDT Recovery [facility]Shelters [facility]pite [facility]pite [address], [address] [place] [address] FAX: [phone] Marybel Bacon 03/26/2024 10:05 EDT Other Instructions : Please schedule a follow-up appointment with your PCP when you have an established discharge date from Respite.l Marybel Bacon 03/25/2024 15:36 EDT Physician/PCP : Jayla Cho NP [facility] [address] [facility], [address]nd Floor, [place] [address] FAX: [phone] Marybel Bacon 03/25/2024 15:30 EDT Crisis Services Psychiatric Crisis Services : For your area are available 24 hours every day, by calling: Crisis Services : [facility] [phone] Marybel Bacon 03/25/2024 15:36 EDT Patient Care team information Care Team Personnel Name: Jayla Cho NP Position: [facility] Physician - Hospital Medicine Member Role: PCP Address: Address: [address] [place] [address]- Name: Edmond Hi RN Position: [facility] RN Member Role: Primary Care Nurse Name: Diamond Schreiber RN Position: S RN Member Role: Primary Care Nurse Name: Shola Martinez RN Position: [facility] RN Member Role: Primary Care Nurse Care Team Related Persons Name: NONE, PT STATES
--- OUTSIDE RECORDS SUMMARY | 2024-09-29 14:25 | XMS_ITS | Continuity of Care Document ---
Author Organization [facility] Address [address] [place] [address]- Care Team Providers Care Weave Room Supervisor Name Role Phone Not on Staff, PCP Primary Care Physician Unavail able Encounter [facility] Date(s): 05/28/21 - 08/17/21 [facility] [address] [place], [place] [address] Attending Physician: Addison Rodriguez MD Admitting Physician: Addison Rodriguez MD Allergies, Adverse Reactions, Alerts No Known Medication Allergies Immunizations Given and Recorded Vaccine Date Status Refusal Reason SARS-CoV-2 (COVID-19) Ad26 vaccine 02/08/21 Record ed Medications citalopram 40 mg oral tablet 1 tablet = 40 mg, By Mouth, Daily, # 30 tablet, 1 Refills, Maintenance, 07/10/21 10:29:00 EDT, Tablet, [facility] #[id number], Partial fill upon patient request if the prescription is for a schedule II opioid drug., 148, cm, 07/10/21 9:08:00 EDT,... Start Date: 07/10/21 Status: Ordered cloNIDine 0.1 mg oral tablet 0.1 mg, 1, tablet, By Mouth, 3 times a day, # 90 tablet, Refills 1, Tot. Refills 1, Maintenance, 07/10/21 10:30:00 EDT, Route to Pharmacy Electronically, [facility] #[id number], Partial fill upon patient request if the prescription is for a sched... Start Date: 07/10/21 Status: Ordered cyclobenzaprine 5 mg oral tablet 1 tablet = 5 mg, By Mouth, Daily at bedtime, # 30 tablet, 1 Refills, Maintenance, 07/10/21 10:30:00EDT, Tablet, [facility] #[id number], Partial fill upon patient request if the prescription is for a schedule II opioid drug., tiffany Bills, 07/10/21 9:... Start Date: 07/10/21 Status: Ordered gabapentin 100 mg oral capsule 200 mg, By Mouth, Daily at bedtime, # 60 capsule, Refills 1, Tot. Refills 1, Maintenance, 07/10/21 10:31:00 EDT, Route to Pharmacy Electronically, [facility] #[id number], Partial fill upon patient request if the prescription is for a schedule II... Start Date: 07/10/21 Status: Ordered hydrOXYzine pamoate 25 mg oral capsule 1 capsule = 25 mg, By Mouth, Daily at bedtime, # 30 capsule, 1 Refills, Maintenance, 07/10/21 10:31:00 EDT, Capsule, [facility] #[id number], Partial fill upon patient request if the prescriptionis for a schedule II opioid drug., tiffany Bills, ... Start Date: 07/10/21 Status: Ordered lithium 150 mg oral capsule 1 capsule = 150 mg, By Mouth, 2 times a day, # 60 capsule, 1 Refills, Maintenance, 07/10/21 10:31:00 EDT, Capsule, [facility] #[id number], Partial fill upon patient request if the prescription is for a schedule II opioid drug., tiffany Bills, 07/10/21... Start Date: 07/10/21 Status: Ordered melatonin 10 mg oral tablet 1 tablet = 10 mg, By Mouth, Daily at bedtime, # 30 tablet, 1 Refills, Maintenance, 07/10/21 10:31:00 EDT, Tablet, [facility] #[id number], Partial fill upon patient request if the prescription isfor a schedule II opioid drug., tiffany Bills, 07/10/21 9... Start Date: 07/10/21 Status: Ordered ondansetron 8 mg oral tablet, disintegrating 1 tablet = 8 mg, By Mouth, 3 times a day, PRN Nausea & Vomiting, # 15 tablet, 1 Refills, Maintenance, 07/10/21 10:32:00 EDT, DIS Tablet, [facility] #[id number], Partial fill upon patient request if the prescription is for a schedule II opioid makayla... Start Date: 07/10/21 Status: Ordered propranolol 10 mg oral tablet 10 mg, 1, tablet, By Mouth, Daily in AM, # 30 tablet, Refills 1, Tot. Refills 1, Maintenance, 07/10/21 10:33:00 EDT, Route to Pharmacy Electronically, [facility] #[id number], Partial fill upon patient request if the prescription is for a schedule... Start Date: 07/10/21 Status: Ordered Social History Social History Type Response Smoking Status Smoker, current stat us unknown entered on: 06/23/21 Sex
--- OUTSIDE RECORDS SUMMARY | 2024-09-29 14:25 | XMS_ITS | Continuity of Care Document ---
Author Organization [facility] Address [address] [place] [address]- Care Team Providers Care Piano Sounding Board Matcher Name Role Phone Chelsy JOSHUA, Lori Jerry Primary Care Physician [phone] Encounter [facility] Date(s): 09/24/22 - 09/24/[address] [address]- Encounter Diagnosis Right sided abdominal pain(Final) - 09/24/22 Discharge Disposition: A-D/C Home Attending Physician: Alfonso Alcala MD Admitting Physician: Alfonso Alcala MD Referring Physician: Not on Staff, Referring MD Allergies, Adverse Reactions, Alerts No Known Medication Allergies Immunizations Given and Recorded Vaccine Date Status Refusal Reason SARS-CoV-2 (COVID-19) Ad26 vaccine 02/08/21 Record ed Medications citalopram 40 mg oral tablet 1 tablet = 40 mg, By Mouth, Daily, # 30 tablet, 1 Refills, Maintenance, 07/10/21 10:29:00 EDT, Tablet, [facility] #[id number], Partial fill upon patient request if the prescription is for a schedule II opioid drug., 148, cm, 07/10/21 9:08:00 EDT,... Start Date: 07/10/21 Status: Ordered cloNIDine 0.1 mg oral tablet 0.1 mg, 1, tablet, By Mouth, 3 times a day, # 90 tablet, Refills 1, Tot. Refills 1, Maintenance, 07/10/21 10:30:00 EDT, Route to Pharmacy Electronically, [facility] #[id number], Partial fill upon patient request if the prescription is for a sched... Start Date: 07/10/21 Status: Ordered cyclobenzaprine 5 mg oral tablet 1 tablet = 5 mg, By Mouth, Daily at bedtime, # 30 tablet, 1 Refills, Maintenance, 07/10/21 10:30:00EDT, Tablet, [facility] #[id number], Partial fill upon patient request if the prescription is for a schedule II opioid drug., tiffany Bills, 07/10/21 9:... Start Date: 07/10/21 Status: Ordered Docusate 0 Refills, Maintenance, 06/11/22 9:34:00 EDT, Partial fill upon patient request if the prescriptionis for a schedule II opioid drug. Start Date: 06/11/22 Status: Ordered gabapentin 100 mg oral capsule 200 mg, By Mouth, Daily at bedtime, # 60 capsule, Refills 1, Tot. Refills 1, Maintenance, 07/10/21 10:31:00 EDT, Route to Pharmacy Electronically, [facility] #[id number], Partial fill upon patient request if the prescription is for a schedule II... Start Date: 07/10/21 Status: Ordered hydrOXYzine pamoate 25 mg oral capsule 1 capsule = 25 mg, By Mouth, Daily at bedtime, # 30 capsule, 1 Refills, Maintenance, 07/10/21 10:31:00 EDT, Capsule, [facility] #[id number], Partial fill upon patient request if the prescriptionis for a schedule II opioid drug., tiffany Bills, ... Start Date: 07/10/21 Status: Ordered lithium 150 mg oral capsule 1 capsule = 150 mg, By Mouth, 2 times a day, # 60 capsule, 1 Refills, Maintenance, 07/10/21 10:31:00 EDT, Capsule, [facility] #[id number], Partial fill upon patient request if the prescription is for a schedule II opioid drug., tiffany Bills, 07/10/21... Start Date: 07/10/21 Status: Ordered Melatonin Daily at bedtime, 0 Refills, Maintenance, 06/11/22 9:35:00 EDT, Partial fill upon patient request if the prescription is for a schedule II opioid drug. Start Date: 06/11/22 Status: Ordered melatonin 10 mg oral tablet 1 tablet = 10 mg, By Mouth, Daily at bedtime, # 30 tablet, 1 Refills, Maintenance, 07/10/21 10:31:00 EDT, Tablet, [facility] #[id number], Partial fill upon patient request if the prescription isfor a schedule II opioid drug., 148, cm, 07/10/21 9... Start Date: 07/10/21 Status: Ordered ondansetron 8 mg oral tablet, disintegrating 1 tablet = 8 mg, By Mouth, 3 times a day, PRN Nausea & Vomiting, # 15 tablet, 1 Refills, Maintenance, 07/10/21 10:32:00 EDT, DIS Tablet, [facility] #[id number], Partial fill upon patient request if the prescription is for a schedule II opioid makayla... Start Date: 07/10/21 Status: Ordered propranolol 10 mg oral tablet 10 mg, 1, tablet, By Mouth, Daily in AM, # 30 tablet, Refills 1, Tot. Refills 1, Maintenance, 07/10/21 10:33:00 EDT, Route to Pharmacy Electronically, [facility] #[id number], Partial fill upon patient request if the prescription is for a schedule... Start Date: 07/10/21 Status: Ordered Senna By Mouth, 0 Refills, Maintenance, 06/11/22 9:35:00 EDT, Partial fill upon patient request if the prescription is for a schedule II opioid drug. Start Date: 06/11/22 Status: Ordered Suboxone 8 mg-2 mg sublingual film 2 film, Sublingual, Daily, 0 Refills, Maintenance, 06/11/22 9:34:00 EDT, Partial fill upon patient request if the prescription is for a schedule II opioid drug. Start Date: 06/11/22 Status: Ordered Problem List Condition Confirmation Course Effective Dates Status [facility] Informant Depression Confirmed Active Eating disorder Confirmed Active History of alcohol dependence Confirmed Active Results Radiology Reports * Exam Date Time Procedure Performing Provider Status 09/24/22 2:[address] Abd/Pelvis W/ IV Contrast Only Linda Medina; Auth (Verified) Notes: (CT Abd/Pelvis W/ IV Contrast Only) Reason For Exam: RLQ abdominal pain;Other: RESULT: CT Abd/Pelvis W/ IV Contrast Only CT Abd/Pelvis W/ IV Contrast Only HX OF PRESENT ILLNESS: abd pain which started this am. Pt denies any n v; Reason: RLQ abdominal pain; Clinical Question(s): Appendicitis; Order Comment: Patient unable to tolerate PO contrast. TECHNIQUE: Spiral CT through the abdomen and pelvis with IV contrast formatted in 3 planes. 100 cc of Omnipaque 300 was administered intravenously. This study was performed without oral contrast. Weight-based protocol using automatic tube modulation was used to optimize exposure parameters. CTDIvol Body: 8.85 mGy, DLP Body: 391 mGy*cm. COMPARISON: 07/11/2021 FINDINGS: Correctional Medicine Physician View Findings, Lines and Tubes: None. Visualized Chest: Lung bases are clear. No pleural effusion. The heart is normal in size. No pericardial effusion. Diaphragm: Normal. Liver: Normal. Gallbladder: No CT evidence of gallbladder pathology. Bile ducts: No biliary ductal dilation. Spleen: Normal. Pancreas: Normal. Adrenal glands: Normal. Kidneys and ureters: Nonobstructing 3 mm left upper pole calculus. No hydronephrosis. No renal mass. Bladder: Normal. Reproductive organs: Unremarkable. Stomach, small bowel, and large bowel: Normal. Appendix: Upper limits of normal for diameter at 6 mm, but unchanged from 07/11/2021. There is some intraluminal fluid but also some intraluminal gas. No appendicolith. Mild haziness of the fat adjacent to the appendix is unchanged from the prior study and favored to represent small vessels rather than inflammation. Peritoneum and retroperitoneum: There is a small amount of free fluid in the cul-de-sac, (image 122of the axial series and 75 of the coronal series), that is likely physiologic. No pneumoperitoneum.No omental or mesenteric lesions. Lymph nodes: No enlarged lymph nodes. Blood vessels: Normal. No aneurysm. No evidence of venous thrombosis. Abdominal and pelvic wall: Unremarkable. Bones: No acute abnormality. IMPRESSION: No convincing evidence of acute appendicitis or other acute abnormality in the abdomen/pelvis. Freefluid in the pelvis is likely physiologic. Small nonobstructing left upper pole renal calculus. I have personally reviewed the images and I agree with this report. WSN: [id number] Ordering Physician: Alfonso Alcala Dictated By: Courtney Crane MD Dictated Date/Time: 09/24/22 2:45 pm Reviewed By: Sudhir Best MD Signed By: Sudhir Best MD Signed Date/Time: 09/24/22 2:50 pm Transcribed By: CHAY Transcribed Date/Time: 09/24/22 2:18 pm * Exam Date Time Procedure Performing Provider Status 09/24/22 11:39 AM US Pelvic Doppler Comp Cristhian Ruelas; Auth (Verified) Notes: (US Pelvic Doppler Comp) Reason For Exam: Pelvic Pain;Other: RESULT: US Pelvic Doppler Comp US Pelvic Transabdominal, US Pelvic Transvaginal, US Pelvic Doppler Comp Hx of Present Illness: abd pain which started this am. pt denies any n v; Reason: Other:; Pelvic Pain; Clinical Question(s): Torsion; Order Comment: US Pelvic Non-Ob Comp Prep COMPARISON: CT abdomen and pelvis 07/11/2021 TECHNIQUE: Transabdominal and transvaginal pelvic ultrasound with grayscale, color Doppler, and spectral Doppler analysis. FINDINGS: UTERUS: Size: 7.1 x 3.1 x 4.2 cm, volume 47.9 cc. Endometrial thickness: 0.5 cm. Morphology: Normal uterine configuration and echotexture. Small hyperechoic nonshadowing foci in the cervix likely representing calcifications. RIGHT OVARY: Size: 1.6 x 2.6 x 0.9 cm, volume 2.0 cc. Morphology: Normal echotexture. No pathologic cysts or mass. Normal arterial and venous waveforms. LEFT OVARY: Size: 1.3 x 2.9 x 1.7 cm, volume 3.3 cc. Morphology: Normal echotexture. No pathologic cysts or mass. Normal arterial and venous waveforms. ADNEXA: Normal. No adnexal masses or fluid collections. IMPRESSION: No acute abnormality. Several small calcifications in the cervix, unlikely to be of any clinical significance. Otherwise unremarkable examination. WSN: [id number] Ordering Physician: Alfonso Alcala Dictated By: Zane Sauceda MD Dictated Date/Time: 09/24/22 12:36 p Reviewed By: Zane Sauceda MD Signed By: Zane Sauceda MD Signed Date/Time: 09/24/22 12:36 pm Transcribed By: CHAY Transcribed Date/Time: 09/24/22 12:32 pm * Exam Date Time Procedure Performing Provider Status 09/24/22 11:39 AM US Pelvic Transvaginal Cristhian Ruelas; Auth (Verified) Notes: (US Pelvic Transvaginal) Reason For Exam: Pelvic Pain;Other: RESULT: US Pelvic Transvaginal US Pelvic Transabdominal, US Pelvic Transvaginal, US Pelvic Doppler Comp Hx of Present Illness: abd pain which started this am. pt denies any n v; Reason: Other:; Pelvic Pain; Clinical Question(s): Torsion; Order Comment: US Pelvic Non-Ob Comp Prep COMPARISON: CT abdomen and pelvis 07/11/2021 TECHNIQUE: Transabdominal and transvaginal pelvic ultrasound with grayscale, color Doppler, and spectral Doppler analysis. FINDINGS: UTERUS: Size: 7.1 x 3.1 x 4.2 cm, volume 47.9 cc. Endometrial thickness: 0.5 cm. Morphology: Normal uterine configuration and echotexture. Small hyperechoic nonshadowing foci in the cervix likely representing calcifications. RIGHT OVARY: Size: 1.6 x 2.6 x 0.9 cm, volume 2.0 cc. Morphology: Normal echotexture. No pathologic cysts or mass. Normal arterial and venous waveforms. LEFT OVARY: Size: 1.3 x 2.9 x 1.7 cm, volume 3.3 cc. Morphology: Normal echotexture. No pathologic cysts or mass. Normal arterial and venous waveforms. ADNEXA: Normal. No adnexal masses or fluid collections. IMPRESSION: No acute abnormality. Several small calcifications in the cervix, unlikely to be of any clinical significance. Otherwise unremarkable examination. WSN: [id number] Ordering Physician: Alfonso Alcala Dictated By: Zane Sauceda MD Dictated Date/Time: 09/24/22 12:36 p Reviewed By: Zane Sauceda MD Signed By: Zane Sauceda MD Signed Date/Time: 09/24/22 12:36 pm Transcribed By: CHAY Transcribed Date/Time: 09/24/22 12:32 pm * Exam Date Time Procedure Performing Provider Status 09/24/22 11:39 AM US Pelvic Transabdominal Last Ruelas; Auth (Verified) Notes: (US Pelvic Transabdominal) Reason For Exam: Pelvic Pain;Other: RESULT: US Pelvic Transabdominal US Pelvic Transabdominal, US Pelvic Transvaginal, US Pelvic Doppler Comp Hx of Present Illness: abd pain which started this am. pt denies any n v; Reason: Other:; Pelvic Pain; Clinical Question(s): Torsion; Order Comment: US Pelvic Non-Ob Comp Prep COMPARISON: CT abdomen and pelvis 07/11/2021 TECHNIQUE: Transabdominal and transvaginal pelvic ultrasound with grayscale, color Doppler, and spectral Doppler analysis. FINDINGS: UTERUS: Size: 7.1 x 3.1 x 4.2 cm, volume 47.9 cc. Endometrial thickness: 0.5 cm. Morphology: Normal uterine configuration and echotexture. Small hyperechoic nonshadowing foci in the cervix likely representing calcifications. RIGHT OVARY: Size: 1.6 x 2.6 x 0.9 cm, volume 2.0 cc. Morphology: Normal echotexture. No pathologic cysts or mass. Normal arterial and venous waveforms. LEFT OVARY: Size: 1.3 x 2.9 x 1.7 cm, volume 3.3 cc. Morphology: Normal echotexture. No pathologic cysts or mass. Normal arterial and venous waveforms. ADNEXA: Normal. No adnexal masses or fluid collections. IMPRESSION: No acute abnormality. Several small calcifications in the cervix, unlikely to be of any clinical significance. Otherwise unremarkable examination. WSN: [id number] Ordering Physician: Alfonso Alcala Dictated By: Zane Sauceda MD Dictated Date/Time: 09/24/22 12:36 p Reviewed By: Zane Sauceda MD Signed By: Zane Sauceda MD Signed Date/Time: 09/24/22 12:36 pm Transcribed By: CHAY Transcribed Date/Time: 09/24/22 12:32 pm Vital Signs Most recent to oldest [Reference Range]: 1 2 Height 148 cm (09/24/22 9:17 AM) Weight 59.2 kg (09/24/22 9:17 AM) Oxygen Saturation [94-100 %] 100 % (09/24/22 3:10 PM) 100 % (09/24/22 9:17 AM) Pulse Rate [55-90 bpm] 69 bpm (09/24/22 3:10 PM) 87 bpm (09/24/22 9:17 AM) Blood Pressure [90-138/55-84 mm Hg] 112/ 79mm Hg (09/24/22 3:10 PM) 120/85mm Hg (09/24/22 9:17 AM) Respiratory Rate [16-30 br/min] 17 br/mi n (09/24/22 3:10 PM) 18 br/min (09/24/22 9:17 AM) Temperature [96.8-100.4 DegF] 99.1 DegF (09/24/22 9:17 AM) Mode of Delivery (Oxygen) Room air (09/24/22 3:10 PM) Room air (09/24/22 9:17 AM) Temperature Route Temporal (09/24/22 9:17 AM) Dry Weight 59.2 kg (09/24/22 9:17 AM) Weight Obtained Via Standing scale (09/24/22 9:17 AM) Dry Weight Obtained Via Standing scale (09/24/22 9:17 AM) Social History Social History Type Response Smoking Status Smoker, current stat us unknown entered on: 06/23/21 Sex Note * [facility] , CIS S: TRANSCRIBE Zane Sauceda MD: VERIFY Event Display: Result: Authored Date: [id number] US Pelvic Transabdominal, US Pelvic Transvaginal, US Pelvic Doppler Comp Hx of Present Illness: abd pain which started this am. pt denies any n v; Reason: Other:; Pelvic Pain; Clinical Question(s): Torsion; Order Comment: US Pelvic Non-Ob Comp Prep COMPARISON: CT abdomen and pelvis 07/11/2021 TECHNIQUE: Transabdominal and transvaginal pelvic ultrasound with grayscale, color Doppler, and spectral Doppler analysis. FINDINGS: UTERUS: Size: 7.1 x 3.1 x 4.2 cm, volume 47.9 cc. Endometrial thickness: 0.5 cm. Morphology: Normal uterine configuration and echotexture. Small hyperechoic nonshadowing foci in the cervix likely representing calcifications. RIGHT OVARY: Size: 1.6 x 2.6 x 0.9 cm, volume 2.0 cc. Morphology: Normal echotexture. No pathologic cysts or mass. Normal arterial and venous waveforms. LEFT OVARY: Size: 1.3 x 2.9 x 1.7 cm, volume 3.3 cc. Morphology: Normal echotexture. No pathologic cysts or mass. Normal arterial and venous waveforms. ADNEXA: Normal. No adnexal masses or fluid collections. IMPRESSION: No acute abnormality. Several small calcifications in the cervix, unlikely to be of any clinical significance. Otherwise unremarkable examination. WSN: [id number] Ordering Physician: Alfonso Alcala Dictated By: Zane Sauceda MD Dictated Date/Time: 09/24/22 12:36 p Reviewed By: Zane Sauceda MD Signed By: Zane Sauceda MD Signed Date/Time: 09/24/22 12:36 pm Transcribed By: CHAY Transcribed Date/Time: 09/24/22 12:32 pm US Pelvis transvaginal * [facility] , CIS S: TRANSCRIBE Zane Sauceda MD: VERIFY Event Display: Result: Authored Date: [id number] US Pelvic Transabdominal, US Pelvic Transvaginal, US Pelvic Doppler Comp Hx of Present Illness: abd pain which started this am. pt denies any n v; Reason: Other:; Pelvic Pain; Clinical Question(s): Torsion; Order Comment: US Pelvic Non-Ob Comp Prep COMPARISON: CT abdomen and pelvis 07/11/2021 TECHNIQUE: Transabdominal and transvaginal pelvic ultrasound with grayscale, color Doppler, and spectral Doppler analysis. FINDINGS: UTERUS: Size: 7.1 x 3.1 x 4.2 cm, volume 47.9 cc. Endometrial thickness: 0.5 cm. Morphology: Normal uterine configuration and echotexture. Small hyperechoic nonshadowing foci in the cervix likely representing calcifications. RIGHT OVARY: Size: 1.6 x 2.6 x 0.9 cm, volume 2.0 cc. Morphology: Normal echotexture. No pathologic cysts or mass. Normal arterial and venous waveforms. LEFT OVARY: Size: 1.3 x 2.9 x 1.7 cm, volume 3.3 cc. Morphology: Normal echotexture. No pathologic cysts or mass. Normal arterial and venous waveforms. ADNEXA: Normal. No adnexal masses or fluid collections. IMPRESSION: No acute abnormality. Several small calcifications in the cervix, unlikely to be of any clinical significance. Otherwise unremarkable examination. WSN: [id number] Ordering Physician: Alfonso Alcala Dictated By: Zane Sauceda MD Dictated Date/Time: 09/24/22 12:36 p Reviewed By: Zane Sauceda MD Signed By: Zane Sauceda MD Signed Date/Time: 09/24/22 12:36 pm Transcribed By: CHAY Transcribed Date/Time: 09/24/22 12:32 pm US Pelvis * [facility] , CIS S: TRANSCZane Chacon MD: VERIFY Event Display: Result: Authored Date: [id number] US Pelvic Transabdominal, US Pelvic Transvaginal, US Pelvic Doppler Comp Hx of Present Illness: abd pain which started this am. pt denies any n v; Reason: Other:; Pelvic Pain; Clinical Question(s): Torsion; Order Comment: US Pelvic Non-Ob Comp Prep COMPARISON: CT abdomen and pelvis 07/11/2021 TECHNIQUE: Transabdominal and transvaginal pelvic ultrasound with grayscale, color Doppler, and spectral Doppler analysis. FINDINGS: UTERUS: Size: 7.1 x 3.1 x 4.2 cm, volume 47.9 cc. Endometrial thickness: 0.5 cm. Morphology: Normal uterine configuration and echotexture. Small hyperechoic nonshadowing foci in the cervix likely representing calcifications. RIGHT OVARY: Size: 1.6 x 2.6 x 0.9 cm, volume 2.0 cc. Morphology: Normal echotexture. No pathologic cysts or mass. Normal arterial and venous waveforms. LEFT OVARY: Size: 1.3 x 2.9 x 1.7 cm, volume 3.3 cc. Morphology: Normal echotexture. No pathologic cysts or mass. Normal arterial and venous waveforms. ADNEXA: Normal. No adnexal masses or fluid collections. IMPRESSION: No acute abnormality. Several small calcifications in the cervix, unlikely to be of any clinical significance. Otherwise unremarkable examination. WSN: [id number] Ordering Physician: Alfonso Alcala Dictated By: Zane Sauceda MD Dictated Date/Time: 09/24/22 12:36 p Reviewed By: Zane Sauceda MD Signed By: Zane Sauceda MD Signed Date/Time: 09/24/22 12:36 pm Transcribed By: CHAY Transcribed Date/Time: 09/24/22 12:[address] Abdomen and Pelvis W contrast IV * BATOOL Victor S: Sudhir Oleary MD S: VERIFY Courtney Crane MD: SIGN Event Display: Result: Authored Date: [id number] CT Abd/Pelvis W/ IV Contrast Only HX OF PRESENT ILLNESS: abd pain which started this am. Pt denies any n v; Reason: RLQ abdominal pain; Clinical Question(s): Appendicitis; Order Comment: Patient unable to tolerate PO contrast. TECHNIQUE: Spiral CT through the abdomen and pelvis with IV contrast formatted in 3 planes. 100 cc of Omnipaque 300 was administered intravenously. This study was performed without oral contrast. Weight-based protocol using automatic tube modulation was used to optimize exposure parameters. CTDIvol Body: 8.85 mGy, DLP Body: 391 mGy*cm. COMPARISON: 07/11/2021 FINDINGS: Correctional Medicine Physician View Findings, Lines and Tubes: None. Visualized Chest: Lung bases are clear. No pleural effusion. The heart is normal in size. No pericardial effusion. Diaphragm: Normal. Liver: Normal. Gallbladder: No CT evidence of gallbladder pathology. Bile ducts: No biliary ductal dilation. Spleen: Normal. Pancreas: Normal. Adrenal glands: Normal. Kidneys and ureters: Nonobstructing 3 mm left upper pole calculus. No hydronephrosis. No renal mass. Bladder: Normal. Reproductive organs: Unremarkable. Stomach, small bowel, and large bowel: Normal. Appendix: Upper limits of normal for diameter at 6 mm, but unchanged from 07/11/2021. There is some intraluminal fluid but also some intraluminal gas. No appendicolith. Mild haziness of the fat adjacent to the appendix is unchanged from the prior study and favored to represent small vessels rather than inflammation. Peritoneum and retroperitoneum: There is a small amount of free fluid in the cul-de-sac, (image 122of the axial series and 75 of the coronal series), that is likely physiologic. No pneumoperitoneum.No omental or mesenteric lesions. Lymph nodes: No enlarged lymph nodes. Blood vessels: Normal. No aneurysm. No evidence of venous thrombosis. Abdominal and pelvic wall: Unremarkable. Bones: No acute abnormality. IMPRESSION: No convincing evidence of acute appendicitis or other acute abnormality in the abdomen/pelvis. Freefluid in the pelvis is likely physiologic. Small nonobstructing left upper pole renal calculus. I have personally reviewed the images and I agree with this report. WSN: [id number] Ordering Physician: Alfonso Alcala Dictated By: Courtney Crane MD Dictated Date/Time: 09/24/22 2:45 pm Reviewed By: Sudhir Best MD Signed By: Sudhir Best MD Signed Date/Time: 09/24/22 2:50 pm Transcribed By: CHAY Transcribed Date/Time: 09/24/22 2:18 pm Patient Care team information Care Team Personnel Name: Lori Valentino NP Position: [facility] Physician (General Medicine) Member Role: PCP Address: Address: [address] [place] [address]- Name: Sanjay Felix Position: [facility] ED RN W/OE and Tasks Member Role: Patient Care Provider Name: Alfonso Alcala MD Position: [facility] ED Medicine MD Member Role: Admitting Physician Address: Address: [address] [place] [address] [place] [address]- Care Team Related Persons Name: NONE, PT STATES
--- OUTSIDE RECORDS SUMMARY | 2024-09-29 14:25 | XMS_ITS | Continuity of Care Document ---
Author Organization [facility] Address [address] [place] [address]- Care Team Providers Care Alumina Plant Supervisor Name Role Phone Not on Staff, PCP Primary Care Physician Unavail able Encounter [facility] [place] Date(s): 10/29/22 - 11/28/22 [facility] [address] [place] [address]- Allergies, Adverse Reactions, Alerts No Known Medication Allergies Immunizations Given and Recorded Vaccine Date Status Refusal Reason SARS-CoV-2 (COVID-19) Ad26 vaccine 02/08/21 Record ed Medications citalopram 40 mg oral tablet 1 tablet = 40 mg, By Mouth, Daily, # 30 tablet, 1 Refills, Maintenance, 07/10/21 10:29:00 EDT, Tablet, [facility] #[id number], Partial fill upon patient request if the prescription is for a schedule II opioid drug., 148, cm, 07/10/21 9:08:00 EDT,... Start Date: 07/10/21 Status: Ordered cloNIDine 0.1 mg oral tablet 0.1 mg, 1, tablet, By Mouth, 3 times a day, # 90 tablet, Refills 1, Tot. Refills 1, Maintenance, 07/10/21 10:30:00 EDT, Route to Pharmacy Electronically, [facility] #[id number], Partial fill upon patient request if the prescription is for a sched... Start Date: 07/10/21 Status: Ordered cyclobenzaprine 5 mg oral tablet 1 tablet = 5 mg, By Mouth, Daily at bedtime, # 30 tablet, 1 Refills, Maintenance, 07/10/21 10:30:00EDT, Tablet, [facility] #[id number], Partial fill upon patient request if the prescription is for a schedule II opioid drug., 148, cm, 07/10/21 9:... Start Date: 07/10/21 Status: Ordered Docusate 0 Refills, Maintenance, 06/11/22 9:34:00 EDT, Partial fill upon patient request if the prescriptionis for a schedule II opioid drug. Start Date: 06/11/22 Status: Ordered gabapentin 100 mg oral capsule 200 mg, By Mouth, Daily at bedtime, # 60 capsule, Refills 1, Tot. Refills 1, Maintenance, 07/10/21 10:31:00 EDT, Route to Pharmacy Electronically, [facility] #[id number], Partial fill upon patient request if the prescription is for a schedule II... Start Date: 07/10/21 Status: Ordered hydrOXYzine pamoate 25 mg oral capsule 1 capsule = 25 mg, By Mouth, Daily at bedtime, # 30 capsule, 1 Refills, Maintenance, 07/10/21 10:31:00 EDT, Capsule, [facility] #[id number], Partial fill upon patient request if the prescriptionis for a schedule II opioid drug., tiffany Bills, ... Start Date: 07/10/21 Status: Ordered lithium 150 mg oral capsule 1 capsule = 150 mg, By Mouth, 2 times a day, # 60 capsule, 1 Refills, Maintenance, 07/10/21 10:31:00 EDT, Capsule, [facility] #[id number], Partial fill upon patient request if the [...] 1 Refills, Maintenance, 07/10/21 10:31:00 EDT, Tablet, [facility] #[id number], Partial fill upon patient request if the prescription isfor a schedule II opioid drug., 148tiffany, 07/10/21 9... Start Date: 07/10/21 Status: Ordered ondansetron 8 mg oral tablet, disintegrating 1 tablet = 8 mg, By Mouth, 3 times a day, PRN Nausea & Vomiting, # 15 tablet, 1 Refills, Maintenance, 07/10/21 10:32:00 EDT, DIS Tablet, [facility] #[id number], Partial fill upon patient request if the prescription is for a schedule II opioid makayla... Start Date: 07/10/21 Status: Ordered Pepcid AC Maximum Strength 20 mg oral tablet 20 mg, 1, tablet, By Mouth, 2 times a day, # 60 tablet, Refills 0, Tot. Refills 0, Maintenance, 11/13/22 13:20:00 EST, Route to Pharmacy Electronically, [facility]/pharmacy #[id number], Partial fill upon patient request if the prescription is for a schedule II opi... Start Date: 11/13/22 Status: Ordered propranolol 10 mg oral tablet 10 mg, 1, tablet, By Mouth, Daily in AM, # 30 tablet, Refills 1, Tot. Refills 1, Maintenance, 07/10/21 10:33:00 EDT, Route to Pharmacy Electronically, [facility] #[id number], Partial fill upon patient request if the [...] Active History of alcohol dependence Confirmed Active Social History Social History Type Response Smoking Status Smoker, current stat us unknown entered on: 06/23/21 Sex Patient Care team information Care Team Personnel Name: Not on Staff, PCP Position: [facility] Physician (General Medicine) Member Role: PCP Care Team Related Persons Name: NONE, PT STATES
--- OUTSIDE RECORDS SUMMARY | 2024-09-29 14:25 | XMS_ITS | Continuity of Care Document ---
Author Organization [facility] Address [address] [place] [address]- Care Team Providers Care Machine Pack Assembler Name Role Phone Not on Staff, PCP Primary Care Physician Unavail able Encounter [facility] [place] Date(s): 05/29/21 - 06/28/21 [facility] [address] [place] [address]- Allergies, Adverse Reactions, Alerts No Known Medication [...] Refills, Maintenance, 06/03/21 19:40:00 EDT, DIS Tablet, [facility] #[id number], Partial fill upon patient request if the [...]
--- OUTSIDE RECORDS SUMMARY | 2024-09-29 14:25 | XMS_ITS | Continuity of Care Document ---
Author Organization [facility] Address [address] [place] [address]- Care Team Providers Care Proof Tester Name Role Phone Clubb COMPUTER SPECIALISTJayla Primary Care Physician [place] [facility] [place]): 06/29/24 - 07/29/24 [facility] [address], [place] [address] Allergies, Adverse Reactions, Alerts No Known Medication Allergies Immunizations Given and Recorded Vaccine Date Status Refusal Reason SARS-CoV-2 (COVID-19) Ad26 vaccine 02/08/21 Record ed Medications amitriptyline 50 mg oral tablet 1 tablet = 50 mg, By Mouth, Daily at bedtime, 0 Refills, Maintenance, 07/27/24 13:07:00 EDT, Partial fill upon patient request if the prescription is for a schedule II opioid drug. Start Date: 07/27/24 Status: Ordered cloNIDine 0.1 mg oral tablet 0.1 mg, 1, tablet, By Mouth, 2 times a day, PRN, Refills 0, Maintenance, Anxiety, 07/27/24 13:08:00EDT, Partial fill upon patient request if the prescription is for a schedule II opioid drug. Start Date: 07/27/24 Status: Ordered gabapentin 400 mg oral capsule 400 mg, By Mouth, 2 times a day, # 28 tablet, Refills 1, Tot. Refills 1, Maintenance, 03/26/24 10:08:00 EDT, Route to Pharmacy Electronically, [facility]-, Partial fill upon patient request if the prescription is for a schedule... Start Date: 03/26/24 Stop Date: 04/23/24 Status: Ordered hydrOXYzine hydrochloride 25 mg oral tablet 1 tablet = 25 mg, By Mouth, 2 times a day, 0 Refills, Maintenance, 07/27/24 13:06:00 EDT, Partial fill upon patient request if the prescription is for a schedule II opioid drug. Start Date: 07/27/24 Status: Ordered prazosin 2 mg oral capsule 1 capsule = 2 mg, By Mouth, Daily at bedtime, 0 Refills, Maintenance, 07/27/24 13:05:00 EDT, Partial fill upon patient request if the prescription is for a schedule II opioid drug. Start Date: 07/27/24 Status: Ordered propranolol 10 mg oral tablet 10 mg, 1, tablet, By Mouth, 2 times a day, # 60 tablet, Refills 0, Maintenance, 07/27/24 13:07:00 EDT, Partial fill upon patient request if the prescription is for a schedule II opioid drug. Start Date: 07/27/24 Status: Ordered Sublocade 300 mg/1.5 mL subcutaneous solution, extended release = 300 mg, Subcutaneous Infusion, Every 28 days, 0 Refills, Maintenance, 07/27/24 13:22:00 EDT, Partial fill upon patient request if the prescription is for a schedule II opioid drug. Start Date: 07/27/24 Status: Ordered Problem List Condition Confirmation Course Effective Dates Status Health St atus Informant Depression Confirmed Active Eating disorder Confirmed Active History of alcohol dependence Confirmed Active Social History Social History Type Response Smoking Status Smoker, current stat us unknown entered on: 06/23/21 Sex Patient Care team information Care Team Personnel Name: Jayla Cho NP Position: [facility] Physician - Hospital Medicine Member Role: PCP Address: Address: [address] [place] [id number]- [place] Name: Edmond Hi RN Position: [facility] RN Member Role: Primary Care Nurse Name: Diamond Schreiber RN Position: S RN Member Role: Primary Care Nurse Name: Shola Martinez RN Position: [facility] RN Member Role: Primary Care Nurse Care Team Related Persons Name: MARCUS CALL Address: [place] [address] Name: NONE, PT STATES
--- OUTSIDE RECORDS SUMMARY | 2024-09-29 14:25 | XMS_ITS | Continuity of Care Document ---
Author Organization [facility] Address [address] [place] [address]- Care Team Providers Care Barrel And Receiver Aligner Name Role Phone Clubb CARAMEL CUTTER HELPERJayla Primary Care Physician [phone] [place] [facility] [place] [facility] [address], [place] [address] Attending Physician: Hubert Baez Admitting Physician: Hubert Baez Referring Physician: AdmtrHubert Allergies, Adverse Reactions, Alerts No Known Medication Allergies Immunizations Given and Recorded Vaccine Date Status Refusal Reason SARS-CoV-2 (COVID-19) Ad26 vaccine 02/08/21 Record ed Medications cloNIDine 0.1 mg oral tablet 0.1 mg, [...] 03/26/24 10:08:00 EDT, Route to Pharmacy Electronically, [facility]-, Partial fill upon patient request if [...] Team Personnel Name: Jayla Cho NP Position: [facility] Physician - Hospital Medicine Member Role: PCP Address: Address: [address] [place] [phone]- [place] Name: Edmond Hi RN Position: [facility] RN Member Role: Primary Care Nurse Name: Diamond Schreiber RN Position: S RN Member Role: Primary Care Nurse Name: Shola Martinez RN Position: S RN Member Role: Primary Care Nurse Care Team Related Persons Name: MARCUS CALL Address: [place] [address] Name: NONE, PT STATES
--- OUTSIDE RECORDS SUMMARY | 2024-09-29 14:26 | XMS_ITS | Continuity of Care Document ---
Author Organization [facility] Address [address] [place] [address]- Care Team Providers Care Information Technology Consultant Name Role Phone Not on Staff, PCP Primary Care Physician Unavail able Encounter [facility] [place] Date(s): 06/27/21 - 07/10/21 [facility] [address] [place] [address]- Discharge Disposition: A-D/C Home Attending Physician: Orlin De Paz MD Admitting Physician: Tammie BOJORQUEZ, Lev Carlos Referring Physician: Not on Staff, Referring MD Allergies, Adverse Reactions, Alerts No Known Medication Allergies Immunizations Given and Recorded Vaccine Date Status Refusal Reason SARS-CoV-2 (COVID-19) Ad26 vaccine 02/08/21 Record ed Medications citalopram 40 mg oral tablet 1 tablet = 40 mg, By Mouth, Daily, # 30 tablet, 1 Refills, Maintenance, 07/10/21 10:29:00 EDT, Tablet, [facility] #[id number], Partial fill upon patient request if the prescription is for a schedule II opioid drug., 148, cm, 07/10/21 9:08:00 EDT,... Start Date: 07/10/21 Status: Ordered cloNIDine 0.1 mg oral tablet 0.1 mg, 1, tablet, By Mouth, 3 times a day, # 90 tablet, Refills 1, Tot. Refills 1, Maintenance, 07/10/21 10:30:00 EDT, Route to Pharmacy Electronically, [facility] #[id number], Partial fill upon patient request if the prescription is for a sched... Start Date: 07/10/21 Status: Ordered cloNIDine 0.1 mg oral tablet 0.1 mg, Tablet, By Mouth, 07/09/21 13:00:00 EDT Start Date: 07/09/21 Stop Date: 07/09/21 Status: Completed cyclobenzaprine 10 mg oral tablet 5 mg, Tablet, By Mouth, 07/09/21 21:00:00 EDT Start Date: 07/09/21 Stop Date: 07/09/21 Status: Completed cyclobenzaprine 5 mg oral tablet 1 tablet = 5 mg, By Mouth, Daily at bedtime, # 30 tablet, 1 Refills, Maintenance, 07/10/21 10:30:00EDT, Tablet, [facility] #[id number], Partial fill upon patient request if the prescription is for a schedule II opioid drug., 148tiffany, 07/10/21 9:... Start Date: 07/10/21 Status: Ordered gabapentin 100 mg oral capsule 200 mg, By Mouth, Daily at bedtime, # 60 capsule, Refills 1, Tot. Refills 1, Maintenance, 07/10/21 10:31:00 EDT, Route to Pharmacy Electronically, [facility] #[id number], Partial fill upon patient request if the prescription is for a schedule II... Start Date: 07/10/21 Status: Ordered gabapentin 100 mg oral capsule 200 mg, Capsule, By Mouth, 07/09/21 21:00:00 EDT Start Date: 07/09/21 Stop Date: 07/09/21 Status: Completed hydrOXYzine pamoate 25 mg oral capsule 1 capsule = 25 mg, By Mouth, Daily at bedtime, # 30 capsule, 1 Refills, Maintenance, 07/10/21 10:31:00 EDT, Capsule, [facility] #[id number], Partial fill upon patient request if the prescriptionis for a schedule II opioid drug., 148tiffany, ... Start Date: 07/10/21 Status: Ordered lithium 150 mg oral capsule 1 capsule = 150 mg, By Mouth, 2 times a day, # 60 capsule, 1 Refills, Maintenance, 07/10/21 10:31:00 EDT, Capsule, [facility] #[id number], Partial fill upon patient request if the prescription is for a schedule II opioid drug., 148tiffany, 07/10/21... Start Date: 07/10/21 Status: Ordered melatonin 10 mg oral tablet 1 tablet = 10 mg, By Mouth, Daily at bedtime, # 30 tablet, 1 Refills, Maintenance, 07/10/21 10:31:00 EDT, Tablet, [facility] #[id number], Partial fill upon patient request if the prescription isfor a schedule II opioid drug., 148, cm, 07/10/21 9... Start Date: 07/10/21 Status: Ordered ondansetron 8 mg oral tablet, disintegrating 1 tablet = 8 mg, By Mouth, 3 times a day, PRN Nausea & Vomiting, # 15 tablet, 1 Refills, Maintenance, 07/10/21 10:32:00 EDT, DIS Tablet, [facility] #[id number], Partial fill upon patient request if the prescription is for a schedule II opioid makayla... Start Date: 07/10/21 Status: Ordered propranolol 10 mg oral tablet 10 mg, 1, tablet, By Mouth, Daily in AM, # 30 tablet, Refills 1, Tot. Refills 1, Maintenance, 07/10/21 10:33:00 EDT, Route to Pharmacy Electronically, [facility] #[id number], Partial fill upon patient request if the prescription is for a schedule... Start Date: 07/10/21 Status: Ordered propranolol 10 mg oral tablet 10 mg, Tablet, By Mouth, 07/09/21 9:00:00 EDT Start Date: 07/09/21 Stop Date: 07/09/21 Status: Completed Results Radiology Reports * Exam Date Time Procedure Performing Provider Status 06/26/21 2:04 AM Pelvis 1 or 2 Views José Douglas; Auth (Verified) Notes: (Pelvis 1 or 2 Views) Reason For Exam: Foreign Body RESULT: Pelvis 1 or 2 Views Pelvis 1 or 2 Views HX OF PRESENT ILLNESS: Foreign Body COMPARISON: None. FINDINGS: There is no fracture or dislocation. Normal hips and sacroiliac joints. Unremarkable soft tissues. IMPRESSION: No acute abnormality. I have personally reviewed the images and I agree with this report. WSN: [id number] Ordering Physician: Darinel Maciel Dictated By: Keith[Radiology] Tomasa BOJORQUEZ Dictated Date/Time: 06/26/21 9:00 am Reviewed By: Sudhir Best MD Signed By: Sudhir Best MD Signed Date/Time: 06/26/21 9:05 am Transcribed By: CHAY Transcribed Date/Time: 06/26/21 8:12 am Vital Signs Most recent to oldest [Reference Range]: 1 2 3 4 Height 148 cm (07/10/21 9:08 AM) 148 cm (07/09/21 7:51 PM) 148 cm (07/09/21 8:10 AM) Weight 48.6 kg (06/27/21 12:05 PM) 50 kg (06/27/21 6:45 AM) 50 kg (06/27/21 5:14 AM) Oxygen Saturation [94-100 %] 100 % (07/10/21 9:08 AM) 100 % (07/09/21 7:51 PM) 98 % (07/09/21 8:10 AM) Pulse Rate [55-90 bpm] 75 bpm (07/10/21 9:08 AM) 84 bpm (07/09/21 7:51 PM) 91 bpm *H* (07/09/21 8:14 AM) Body Mass Index [18.5-24.99] 22.19 (06/27/21 12:05 PM) 22.83 (06/27/21 6:45 AM) 22.83 (06/27/21 5:14 AM) Blood Pressure [90-138/55-84 mm Hg] 115/81mm Hg (07/10/21 9:08 AM) 107/69mm Hg (07/09/21 7:51 PM) 105/82mm Hg (07/09/21 1:16 PM) Respiratory Rate [16-30 br/min] 18 br/min (07/10/21 11:58 AM) 18 br/min (07/10/21 9:08 AM) 18 br/min (07/09/21 10:12 PM) 18 br/min (07/09/21 10:12 PM) Temperature [96.8-100.4 DegF] 97.8 DegF (07/10/21 9:08 AM) 98.0 DegF (07/09/21 7:51 PM) 98.2 DegF (07/09/21 8:10 AM) Mode of Delivery (Oxygen) Room air (07/10/21 9:08 AM) Room air (07/09/21 8:10 AM) Room air (07/08/21 8:38 PM) Blood pressure sites Arm, left (07/09/21 7:51 PM) Arm, left (07/08/21 8:38 PM) Arm, left (07/08/21 8:49 AM) Temperature Route Temporal (07/10/21 9:08 AM) Temporal (07/09/21 7:51 PM) Temporal (07/09/21 8:10 AM) Dry Weight 48.6 kg (06/27/21 12:05 PM) 50 kg (06/27/21 6:45 AM) 50 kg (06/27/21 5:14 AM) Sensory deficits None (06/27/21 12:05 PM) Social History Social History Type Response Smoking Status Smoker, current stat us unknown entered on: 06/23/21 Sex
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
--- OUTSIDE RECORDS SUMMARY | 2024-09-29 14:26 | XMS_ITS | Continuity of Care Document ---
Author Organization [facility] Address [address] [place] [address]- Care Team Providers Care Tail End Rider Name Role Phone Not on Staff, PCP Primary Care Physician Unavail able Encounter [facility] [place](s): 06/03/22 - 07/03/22 [facility] [address], [place] [address] Allergies, Adverse Reactions, Alerts No Known Medication Allergies Immunizations Given and Recorded Vaccine Date Status Refusal Reason SARS-CoV-2 (COVID-19) Ad26 vaccine 02/08/21 Record ed Medications citalopram 40 mg oral tablet 1 tablet = 40 mg, By Mouth, Daily, # 30 tablet, 1 Refills, Maintenance, 07/10/21 10:29:00 EDT, Tablet, [facility] #[id number], Partial fill upon patient request if the prescription is for a schedule II opioid drug., 148, cm, 07/10/21 9:08:00 EDT,... Start Date: 07/10/21 Status: Ordered cloNIDine 0.1 mg oral tablet 0.1 mg, 1, tablet, By Mouth, 3 times a day, # 90 tablet, Refills 1, Tot. Refills 1, Maintenance, 07/10/21 10:30:00 EDT, Route to Pharmacy Electronically, [facility] #[id number], Partial fill upon patient request if the prescription is for a sched... Start Date: 07/10/21 Status: Ordered cyclobenzaprine 5 mg oral tablet 1 tablet = 5 mg, By Mouth, Daily at bedtime, # 30 tablet, 1 Refills, Maintenance, 07/10/21 10:30:00EDT, Tablet, [facility] #[id number], Partial fill upon patient request if the [...] 07/10/21 10:31:00 EDT, Route to Pharmacy Electronically, [facility] #[id number], Partial fill upon patient request if the prescription is for a schedule II... Start Date: 07/10/21 Status: Ordered hydrOXYzine pamoate 25 mg oral capsule 1 capsule = 25 mg, By Mouth, Daily at bedtime, # 30 capsule, 1 Refills, Maintenance, 07/10/21 10:31:00 EDT, Capsule, [facility] #[id number], Partial fill upon patient request if the prescriptionis for a schedule II opioid drug., tiffany Bills, 2... Start Date: 07/10/21 Status: Ordered lithium 150 mg oral capsule 1 capsule = 150 mg, By Mouth, 2 times a day, # 60 capsule, 1 Refills, Maintenance, 07/10/21 10:31:00 EDT, Capsule, [facility] #[id number], Partial fill upon patient request if the prescription is for a schedule II opioid drug.Sanju cm, 07/10/21... Start Date: 07/10/21 Status: Ordered Melatonin Daily at bedtime, 0 Refills, Maintenance, 06/11/22 9:35:00 EDT, Partial fill upon patient request if the prescription is for a schedule II opioid drug. Start Date: 06/11/22 Status: Ordered melatonin 10 mg oral tablet 1 tablet = 10 mg, By Mouth, Daily at bedtime, # 30 tablet, 1 Refills, Maintenance, 07/10/21 10:31:00 EDT, Tablet, [facility] #[id number], Partial fill upon patient request if the prescription isfor a schedule II opioid drug., tiffany Bills, 07/10/21 9... Start Date: 07/10/21 Status: Ordered ondansetron 8 mg oral tablet, disintegrating 1 tablet = 8 mg, By Mouth, 3 times a day, PRN Nausea & Vomiting, # 15 tablet, 1 Refills, Maintenance, 07/10/21 10:32:00 EDT, DIS Tablet, [facility] #[id number], Partial fill upon patient request if the prescription is for a schedule II opioid makayla... Start Date: 07/10/21 Status: Ordered propranolol 10 mg oral tablet 10 mg, 1, tablet, By Mouth, Daily in AM, # 30 tablet, Refills 1, Tot. Refills 1, Maintenance, 07/10/21 10:33:00 EDT, Route to Pharmacy Electronically, [facility] #[id number], Partial fill upon patient request if the [...] Date: 06/11/22 Status: Ordered Problem List Condition Effective Dates Status Health Status Inform ant Depression(Confirmed) Active Eating disorder(Confirmed) Active History of alcohol dependence(Confirmed) Active Social History Social History Type Response Smoking Status Smoker, current stat us unknown entered on: 06/23/21 Sex Care Team Personnel Name: Not on Staff, PCP
--- OUTSIDE RECORDS SUMMARY | 2024-09-29 14:26 | XMS_ITS | Continuity of Care Document ---
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 Role Phone Not on Staff, PCP Primary Care Physician Unavail able Encounter [facility] [place] Date(s): 10/03/21 - 10/03/[address] [address]- Allergies, Adverse Reactions, Alerts No Known Medication Allergies Immunizations Given and Recorded Vaccine Date Status Refusal Reason SARS-CoV-2 (COVID-19) Ad26 vaccine 02/08/21 Record ed Medications citalopram 40 mg oral tablet 1 tablet = 40 mg, By Mouth, Daily, # 30 tablet, 1 Refills, Maintenance, 07/10/21 10:29:00 EDT, Tablet, [facility] #[id number], Partial fill upon patient request if the prescription is for a schedule II opioid drug., 148, cm, 07/10/21 9:08:00 EDT,... Start Date: 07/10/21 Status: Ordered cloNIDine 0.1 mg oral tablet 0.1 mg, 1, tablet, By Mouth, 3 times a day, # 90 tablet, Refills 1, Tot. Refills 1, Maintenance, 07/10/21 10:30:00 EDT, Route to Pharmacy Electronically, [facility] #[id number], Partial fill upon patient request if the prescription is for a sched... Start Date: 07/10/21 Status: Ordered cyclobenzaprine 5 mg oral tablet 1 tablet = 5 mg, By Mouth, Daily at bedtime, # 30 tablet, 1 Refills, Maintenance, 07/10/21 10:30:00EDT, Tablet, [facility] #[id number], Partial fill upon patient request if the prescription is for a schedule II opioid drug., 148, cm, 07/10/21 9:... Start Date: 07/10/21 Status: Ordered gabapentin 100 mg oral capsule 200 mg, By Mouth, Daily at bedtime, # 60 capsule, Refills 1, Tot. Refills 1, Maintenance, 07/10/21 10:31:00 EDT, Route to Pharmacy Electronically, [facility] #[id number], Partial fill upon patient request if the prescription is for a schedule II... Start Date: 07/10/21 Status: Ordered hydrOXYzine pamoate 25 mg oral capsule 1 capsule = 25 mg, By Mouth, Daily at bedtime, # 30 capsule, 1 Refills, Maintenance, 07/10/21 10:31:00 EDT, Capsule, [facility] #[id number], Partial fill upon patient request if the prescriptionis for a schedule II opioid drug., tiffany Bills, ... Start Date: 07/10/21 Status: Ordered lithium 150 mg oral capsule 1 capsule = 150 mg, By Mouth, 2 times a day, # 60 capsule, 1 Refills, Maintenance, 07/10/21 10:31:00 EDT, Capsule, [facility] #[id number], Partial fill upon patient request if the prescription is for a schedule II opioid drug., tiffany Bills, 07/10/21... Start Date: 07/10/21 Status: Ordered melatonin 10 mg oral tablet 1 tablet = 10 mg, By Mouth, Daily at bedtime, # 30 tablet, 1 Refills, Maintenance, 07/10/21 10:31:00 EDT, Tablet, [facility] #[id number], Partial fill upon patient request if the prescription isfor a schedule II opioid drug., tiffany Bills, 07/10/21 9... Start Date: 07/10/21 Status: Ordered ondansetron 8 mg oral tablet, disintegrating 1 tablet = 8 mg, By Mouth, 3 times a day, PRN Nausea & Vomiting, # 15 tablet, 1 Refills, Maintenance, 07/10/21 10:32:00 EDT, DIS Tablet, [facility] #[id number], Partial fill upon patient request if the prescription is for a schedule II opioid makayla... Start Date: 07/10/21 Status: Ordered propranolol 10 mg oral tablet 10 mg, 1, tablet, By Mouth, Daily in AM, # 30 tablet, Refills 1, Tot. Refills 1, Maintenance, 07/10/21 10:33:00 EDT, Route to Pharmacy Electronically, [facility] #[id number], Partial fill upon patient request if the prescription is for a schedule... Start Date: 07/10/21 Status: Ordered Social History Social History Type Response Smoking Status Smoker, current stat us unknown entered on: 06/23/21 Sex
--- OUTSIDE RECORDS SUMMARY | 2024-09-29 14:26 | XMS_ITS | Continuity of Care Document ---
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 Phone Not on Staff, PCP Primary Care Physician Unavail able Encounter [facility] [place] Date(s): 03/25/22 - 04/24/22 [facility] [address] [place], [place] [address] Allergies, Adverse Reactions, Alerts No Known Medication Allergies Immunizations Given and Recorded Vaccine Date Status Refusal Reason SARS-CoV-2 (COVID-19) Ad26 vaccine 02/08/21 Record ed Medications citalopram 40 mg oral tablet 1 tablet = 40 mg, By Mouth, Daily, # 30 tablet, 1 Refills, Maintenance, 07/10/21 10:29:00 EDT, Tablet, [facility] #[id number], Partial fill upon patient request if the prescription is for a schedule II opioid drug., 148, cm, 07/10/21 9:08:00 EDT,... Start Date: 07/10/21 Status: Ordered cloNIDine 0.1 mg oral tablet 0.1 mg, 1, tablet, By Mouth, 3 times a day, # 90 tablet, Refills 1, Tot. Refills 1, Maintenance, 07/10/21 10:30:00 EDT, Route to Pharmacy Electronically, [facility] #[id number], Partial fill upon patient request if the prescription is for a sched... Start Date: 07/10/21 Status: Ordered cyclobenzaprine 5 mg oral tablet 1 tablet = 5 mg, By Mouth, Daily at bedtime, # 30 tablet, 1 Refills, Maintenance, 07/10/21 10:30:00EDT, Tablet, [facility] #[id number], Partial fill upon patient request if the prescription is for a schedule II opioid drug., 148, cm, 07/10/21 9:... Start Date: 07/10/21 Status: Ordered gabapentin 100 mg oral capsule 200 mg, By Mouth, Daily at bedtime, # 60 capsule, Refills 1, Tot. Refills 1, Maintenance, 07/10/21 10:31:00 EDT, Route to Pharmacy Electronically, [facility] #[id number], Partial fill upon patient request if the prescription is for a schedule II... Start Date: 07/10/21 Status: Ordered hydrOXYzine pamoate 25 mg oral capsule 1 capsule = 25 mg, By Mouth, Daily at bedtime, # 30 capsule, 1 Refills, Maintenance, 07/10/21 10:31:00 EDT, Capsule, [facility] #[id number], Partial fill upon patient request if the prescriptionis for a schedule II opioid drug., tiffany Bills, ... Start Date: 07/10/21 Status: Ordered lithium 150 mg oral capsule 1 capsule = 150 mg, By Mouth, 2 times a day, # 60 capsule, 1 Refills, Maintenance, 07/10/21 10:31:00 EDT, Capsule, [facility] #[id number], Partial fill upon patient request if the prescription is for a schedule II opioid drug., tiffany Bills, 07/10/21... Start Date: 07/10/21 Status: Ordered melatonin 10 mg oral tablet 1 tablet = 10 mg, By Mouth, Daily at bedtime, # 30 tablet, 1 Refills, Maintenance, 07/10/21 10:31:00 EDT, Tablet, [facility] #[id number], Partial fill upon patient request if the prescription isfor a schedule II opioid drug., tiffany Bills, 07/10/21 9... Start Date: 07/10/21 Status: Ordered ondansetron 8 mg oral tablet, disintegrating 1 tablet = 8 mg, By Mouth, 3 times a day, PRN Nausea & Vomiting, # 15 tablet, 1 Refills, Maintenance, 07/10/21 10:32:00 EDT, DIS Tablet, [facility] #[id number], Partial fill upon patient request if the prescription is for a schedule II opioid makayla... Start Date: 07/10/21 Status: Ordered propranolol 10 mg oral tablet 10 mg, 1, tablet, By Mouth, Daily in AM, # 30 tablet, Refills 1, Tot. Refills 1, Maintenance, 07/10/21 10:33:00 EDT, Route to Pharmacy Electronically, [facility] #[id number], Partial fill upon patient request if the prescription is for a schedule... Start Date: 07/10/21 Status: Ordered Social History Social History Type Response Smoking Status Smoker, current stat us unknown entered on: 06/23/21 Sex
--- OUTSIDE RECORDS SUMMARY | 2024-09-29 14:26 | XMS_ITS | Continuity of Care Document ---
Author Organization [facility] Address [address] [place] [address]- Care Team Providers Care Setter Cold Rolling Machine Name Role Phone Clubb GLASS ENAMEL MIXER, Jayla Primary Care Physician Encounter [facility] Date(s): 03/17/24 - 03/20/[address] [address] [[email or web address]] Discharge Disposition: Transferred to short-term general hospit Attending Physician: Dwain Allen DO Admitting Physician: George Ortiz DO Referring Physician: George Ortiz DO Allergies, Adverse Reactions, Alerts No Known Medication [...] 07/10/21 10:30:00 EDT, Route to Pharmacy Electronically, [facility] #[id number], Partial fill upon patient request if the [...] 1 Refills, Maintenance, 07/10/21 10:31:00 EDT, Capsule, [facility] #[id number], Partial fill upon patient request if the [...] 1 Refills, Maintenance, 07/10/21 10:31:00 EDT, Capsule, [facility] #[id number], Partial fill upon patient request if the [...] 0 Refills, Maintenance, 01/29/24 4:47:00 EDT, Tablet, [facility]-, Partial fill upon patient request if the prescription is for a schedule II opioid... Start Date: 01/29/24 Status: Ordered Pepcid AC Maximum Strength 20 mg oral tablet 20 mg, 1, tablet, By Mouth, 2 times a day, # 60 tablet, Refills 0, Tot. Refills 0, Maintenance, 11/13/22 13:20:00 EST, Route to Pharmacy Electronically, [facility] #[id number], Partial fill upon patient request if the prescription is for a schedule II opi... Start Date: 11/13/22 Status: Ordered propranolol 10 mg oral tablet 10 mg, 1, tablet, By Mouth, Daily in AM, # 30 tablet, Refills 1, Tot. Refills 1, Maintenance, 07/10/21 10:33:00 EDT, Route to Pharmacy Electronically, [facility] #[id number], Partial fill upon patient request if the prescription is for a schedule... Start Date: 07/10/21 Status: Ordered propranolol 10 mg oral tablet 10 mg, Tablet, By Mouth, Hold for: SBP below 100, and/or HR below 60, 03/20/24 9:00:00 EDT Start Date: 03/20/24 Stop Date: 03/20/24 Status: Completed Senna = 8.6 mg, By Mouth, 2 times a day, 0 Refills, Maintenance, 06/11/22 9:35:00 EDT, Partial fill upon patient request if the prescription is for a schedule II opioid drug. Start Date: 06/11/22 Status: Ordered Problem List Condition Confirmation Course Effective Dates Status [facility] Depression Confirmed Active Eating disorder Confirmed Active History of alcohol dependence Confirmed Active Results Radiology Reports * Exam Date Time Procedure Performing Provider Status 03/18/24 6:04 PM Chest Portable Sasha Nicolas; Aut h (Verified) Notes: (Chest Portable) Reason For Exam: Fever RESULT: Chest Portable Chest Portable Reason: Fever; Clinical Question(s): Other: COMPARISON: 11/13/2022. FINDINGS: LINES AND TUBES: None. LUNGS AND PLEURA: Low lung volumes with no consolidation. No pleural effusion. No pneumothorax. HEART, MEDIASTINUM AND KALA: Heart is normal in size. Normal mediastinal and hilar contour. BONES AND SOFT TISSUES: No acute abnormality. IMPRESSION: No acute abnormality. WSN: [id number] Ordering Physician: George Ortiz Dictated By: Sudhir Neumann MD Dictated Date/Time: 03/18/24 6:59 pm Reviewed By: Sudhir Neumann MD Signed By: Sudhir Neumann MD Signed Date/Time: 03/18/24 6:59 pm Transcribed By: CHAY Transcribed Date/Time: 03/18/24 6:58 pm Vital Signs Most recent to oldest [Reference Range]: 1 2 3 Height 147 cm (03/17/24 5:05 PM) Weight 43.6 kg (03/17/24 5:05 PM) Oxygen Saturation [94-100 %] 98 % (03/20/24 6:00 PM) 96 % (03/20/24 2:00 PM) 100 % (03/20/24 9:00 AM) Pulse Rate [55-90 bpm] 115 bpm *H* (03/20/24 11:17 AM) 83 bpm (03/19/24 6:31 PM) 87 bpm (03/19/24 5:31 PM) Body Mass Index [18.5-24.99 kg/m2] 20.18 kg/m2 (03/17/24 5:05 PM) Blood Pressure [90-138/55-84 mm Hg] 119/97mm Hg (03/20/24 6:00 PM) 139/100mm Hg *H* (03/20/24 2:30 PM) 124/103mm Hg (03/20/24 2:00 PM) Respiratory Rate [16-30 br/min] 14 br/min *L* (03/20/24 7:00 PM) 14 br/min *L* (03/20/24 6:00 PM) 18 br/min (03/20/24 5:00 PM) Temperature [96.8-100.4 DegF] 97.8 DegF (03/20/24 6:00 PM) 97.0 DegF (03/20/24 2:00 PM) 96.4 DegF *L* (03/20/24 9:00 AM) Mode of Delivery (Oxygen) Room air (03/20/24 6:00 PM) Room air (03/20/24 2:00 PM) Room air (03/20/24 9:00 AM) Blood pressure sites Arm, right (03/20/24 6:00 PM) Arm, right (03/20/24 2:00 PM) Arm, right (03/20/24 11:00 AM) Temperature Route Oral (03/20/24 6:00 PM) Axillary (03/20/24 2:00 PM) Axillary (03/20/24 9:00 AM) Dry Weight 43.6 kg (03/17/24 5:05 PM) Social History Social History Type Response Smoking Status Smoker, current stat us unknown entered on: 06/23/21 Sex Admission evaluation note * George Ortiz DO: MODIFY, PERFORM, MODIFY Event Display: Admission Note Authored Date: [id number] Patient: ??ANJANA DOAN ? Age:??33 Years?Sex:??Female?:??1990?? History of Present Illness 33-year-old female??with history of depression and alcohol use disorder??was admitted earlier todayto the mental health unit??for depression and suicidal ideation and alcohol withdrawal ?? Her alcohol withdrawal symptoms seem to be well-controlled this morning However she started to develop symptoms??despite an alcohol level??in the 300 range She has a history of alcohol withdrawal seizures??and she is not sure of the details but she thinksshe may have been in the ICU as well Her last drink was yesterday ?? In the MHU she had several CIWA of 20??and around She received about 6 mg of oral Ativan She developed some visual disturbances ?? I went back into the second examination on her??and she thought she was in??[place]??get help When asked what??year it was she said 6 She is becoming??delirious ?? She remains tachycardic with a heart rate up to 133??after the multiple doses of Ativan I spoke with the psychiatrist Dr Morrow??by phone.?? She recommended transfer??for worsening alcohol withdrawal and I agree We reviewed her medicines together??and she asked that we focus the first 24 hours on alcohol withdrawal??treatment??And then reach out to the psychiatry team tomorrow to see about getting back on some of the outpatient meds. ??She asked that we continue the Suboxone 4 mg film once a day for now??and give a dose tomorrow. ?? plan of care reviewed with ANABEL Bryan the ICU nurse Objective Vital Signs?? Temperature: 98.3 DegF (03/17/24 16:08:00) Temperature Route: Temporal (03/17/24 16:08:00) Pulse Rate:??133 bpm??High (03/17/24 16:08:00) Respiratory Rate: 20 br/min (03/17/24 16:08:00) Systolic Blood Pressure: 137 mm Hg (03/17/24 16:08:00) Diastolic Blood Pressure:??101 mm Hg??High (03/17/24 16:08:00) Blood pressure sites: Arm, left (03/17/24 11:20:00) Mean Arterial Pressure: 92 mm Hg (03/17/24 11:20:00) Pulse Pressure: 37 mm Hg (03/17/24 11:20:00) Oxygen Saturation: 96 % (03/17/24 11:20:00) Mode of Delivery (Oxygen): Room air (03/17/24 07:51:00) Early Warning Score: 0 (03/17/24 16:28:40) ? Physical Exam Patient is alert and oriented to self but not place or time. She is anxious and tremulous She is tachycardic but regular with no JVD Lungs are clear Abdomen soft nontender nondistended Lower extremities warm globally perfused Good capillary refill distally Cranial nerves II through XII are intact 5 out of 5 power in the upper and lower extremities bilateral She has resting tremor in both hands outstretched Assessment/Plan Delirium tremens She began to have escalating alcohol withdrawal symptoms despite a very high blood alcohol level last night. ??She has a history of alcohol withdrawal seizures She is very high risk for worsening. ??She is starting to develop delirium as well And hyperadrenergic symptoms with significant tachycardia She will go to the ICU and start a phenobarbital based CIWA protocol with first dose 130 mg IV phenobarbital now. ??She has a low body weight. I will order a phenobarbital level for tomorrow Would try to keep her initial phenobarbital dose??in the first 24 hours??no more than around??700 mg. She should have adjuvant treatment??with clonidine?? sHe has] red flag??indicators of progression to severe alcohol withdrawal syndrome including development of symptoms at high alcohol level,??prior history of alcohol withdrawal seizures??and escalation of symptoms despite Ativan She will stay in the ICU tonight She might be able to be downgraded tomorrow depending on her clinical course ?? Depression with suicidal ideation (F32.A):?? She needs a constant budder and suicide precautions At the time of transfer I spoke with Dr Morrow??by phone ([phone]). ??Asked if we should continue the Suboxone and she said yes at a 4 mg tab once a day She did not want to continue with lithium or give any of the other listed psych meds??over the first 24 hours She wanted to focus on alcohol withdrawal treatment and to ask the psychiatry team to see her again??tomorrow ?? Tachycardia (R00.0):??She does not have any signs of pain or hypovolemia.?? I think this is secondary to the alcohol withdrawal and developing delirium tremens Follow-up electrolytes Clonidine Alcohol withdrawal treatment and follow-up ?? Hypokalemia (E87.6):?? I have ordered a couple of doses of oral potassium??and her blood work can be checked tomorrow Follow-up of magnesium as well ?? Anemia, normocytic normochromic (D64.9):??She denies any overt bleeding.?? could be EtOH related Consider further workup??with B12 folate levels if persistent Check CBC tomorrow ?? OPiod use disorder Patient is confused and cannot confirm her Suboxone dosing??but psychiatry team believes that she has opioid use disorder??and should be on Suboxone I did review [facility] and saw several prescriptions I spoke with the psychiatrist as above and she suggested 4 mg tab daily??and to give next dose tomorrow-I have ordered that with hold parameters for sedation ?? VTE Prophylaxis:??PAD UA less than 4 Pneumatic boots while??in bed ?? I spent 52 minutes of critical care time in direct patient care, excluding procedures and solelydevoted to the care of this patient during that time.?? She has escalating alcohol withdrawal??and developing delirium tremens despite??CIWA based lorazepam treatment.This process is??both organ and life threatening ? Histories Allergies Allergies ?(Active and Proposed Allergies Only) No Known Medication Allergies? (Severity: Unknown severity, Onset: Unknown) ? Past Medical History/Problem List Active Problems(3) Depression Eating disorder History of alcohol dependence ? Social History Alcohol Details:??Use: Past. ??Other: [...] 25 mg oral tablet, extended release)?1?tab(s)?25?Milligram?By Mouth?Daily [place] (lithium 150 mg oral capsule)?1?capsule?150?Milligram?By Mouth?2 times a day Melatonin (melatonin 3 mg oral tablet)?3?tab(s)?9?Milligram?By Mouth?Daily at bedtime Ondansetron (ondansetron 4 mg oral tablet, disintegrating)?1?tab(s)?4?Milligram?By Mouth?3 times a day?as needed?Nausea & Vomiting Propranolol (propranolol 10 mg oral tablet)?10?Milligram?1?tablet?By Mouth?Daily in AM Senna?8.6?Milligram?By Mouth?2 times a day ? Results Recent Labs BLOOD COUNT & DIFF WBC 7.3 k/mm3 ()?? 03/17/2024 00:32 RBC 3.73 m/mm3 (Low)?? 03/17/2024 00:32 Hgb 10.8 Gm/dL (Low)?? 03/17/2024 00:32 Hct 33.0 % (Low)?? 03/17/2024 00:32 MCV 88.5 femtoliters ()?? 03/17/2024 00:32 MCH 29.0 pg ()?? 03/17/2024 00:32 MCHC 32.7 g/dL (Low)?? 03/17/2024 00:32 Platelet Count 215 k/mm3 ()?? 03/17/2024 00:32 RDW-SD 53.7 femtoliters (High)?? 03/17/2024 00:32 MPV 9.4 femtoliters ()?? 03/17/2024 00:32 Nucleated RBC (Automated) 0.0 #/100 WBC'S ()?? 03/17/2024 00:32 Abs. NRBC 0.0 k/mm3 ()?? 03/17/2024 00:32 Abs. Neut 5.7 k/mm3 ()?? 03/17/2024 00:32 Abs. Lymph 1.1 k/mm3 ()?? 03/17/2024 00:32 Abs. Bibb 0.4 k/mm3 ()?? 03/17/2024 00:32 Abs. Eo 0.0 k/mm3 ()?? 03/17/2024 00:32 Abs. Baso 0.0 k/mm3 ()?? 03/17/2024 00:32 Neut % 78.5 % (High)?? 03/17/2024 00:32 Lymph % 15.3 % ()?? 03/17/2024 00:32 Bibb % 5.2 % ()?? 03/17/2024 00:32 Eos % 0.1 % ()?? 03/17/2024 00:32 Baso % 0.5 % ()?? 03/17/2024 00:32 Imm Gran 0.4 % ()?? 03/17/2024 00:32 Abs. Imm Gran 0.0 k/mm3 ()?? 03/17/2024 00:32 ?? CHEM GENERAL Sodium 138 mmol/L ()?? 03/17/2024 00:32 Potassium 3.4 mmol/L (Low)?? 03/17/2024 00:32 Chloride 96 mmol/L (Low)?? 03/17/2024 00:32 Bicarbonate Level 26 mmol/L ()?? 03/17/2024 00:32 Anion Gap 16 ()?? 03/17/2024 00:32 Glucose Level 146 mg/dL (High)?? 03/17/2024 00:32 BUN 20 mg/dL ()?? 03/17/2024 00:32 Creatinine-Blood 0.59 mg/dL ()?? 03/17/2024 00:32 Estimated GFR Creatinine 120 ML/MIN/1.73 M2 ()?? 03/17/2024 00:32 Calcium 8.0 mg/dL (Low)?? 03/17/2024 00:32 ?? ENDOCRINE/TUMOR MARKER Blood <1 mIU/mL ()?? 03/17/2024 00:32 ?? HEME OTHER Hold Blue Top SPECIMEN DISCARDED AFTER 4 HOURS. ()?? 03/17/2024 00:32 ?? TOXICOLOGY/TDM Ethanol, Serum or Plasma 355 mg/dL (Abnormal)?? 03/17/2024 00:32 Barbiturate Screen, Urine NONE DETECTED ()?? 03/17/2024 00:00 Cannabinoid Screen, Urine NONE DETECTED ()?? 03/17/2024 00:00 Cocaine Metabolite Screen, Urine NONE DETECTED ()?? 03/17/2024 00:00 Benzodiazepine Screen, Urine NONE DETECTED ()?? 03/17/2024 00:00 Amphetamine Screen, Urine NONE DETECTED ()?? 03/17/2024 00:00 Opiate Screen, Urine NONE DETECTED ()?? 03/17/2024 00:00 ?? URINE OTHER Est Creatinine Clearance 86.95 mL/min ()?? 03/17/2024 01:37 ?? VIROLOGY COVID-19 by RT-PCR NEGATIVE ()?? 03/17/2024 07:45 ? Urinalysis?? No qualifying data available. ? Blood Gases?? No qualifying data available. ? Hospital Progress note * Nikki Hanley RN: MODIFY, SIGN, PERFORM, SIGN, VERIFY Event Display: Progress Note Hospital Authored Date: Patient: ANJANA DOAN Age: 33 years Sex: Female : 1990 Associated Diagnoses: None Author: Nikki Hanley RN Findings Problem Related to Alteration in Psychosocial : Alteration in Psychosocial Function/new 03/20/2024 9:00 EDT Alteration in Psychosocial Related to Acute Alcohol Withdrawal Goals & Outcomes, Psychosocial Psychosocial support will be provided to Pt/S.O. as needed, Pt will state importance of adhering to medication regime, Pt/caregiver will be offered appropriate resources & support, Pt/caregiver will express feelings/needs/fears /concerns, Pt/caregiver will maintain/obtain psychological stability Interventions, Psychosocial Assess psychosocial needs, Assess readiness to learn needed lifestyle changes, Assess/monitor level of consciousness, Collaborate with provider for psychiatric consult, Evaluate resources & support system available to pt, Offer support; discuss coping strategies, Provide a calm, supportive environment, Provide chances to express concerns/emotions/expectations, Provide info on community resources for education, support, Provide information about illness and recovery, Provide verbal limits if pt's behavior escalates, Identify complications of chronic alcohol use,Assess for complications related to acute alcohol withdrawal, Determine pt's stage of withdrawal asper CIWA scale, Encourage pt to continue to detox, Initiate & maintain Seizure Precautions, Minimize stimulation, Minimize stressors, Offer clergy, AA sponsor, counselor support Goals/Interventions, Psychosocial Yes Psychosocial, Problem Start 03/17/2024 16:30 Reviewed Plan with, Psychosocial Patient Patient Progression, Psychosocial Pt progressing according to plan . Alteration in Safety : Alteration in Safety/new 03/20/2024 9:00 EDT Alteration in Safety Related to Suicidal ideation Goals & Outcomes, Safety Pt/caregiver will state understanding of plan/goals of care, Pt will remain safe & injury free, Pt/caregiver will be offered appropriate resources & support Interventions, Safety Provide info on community resources for education, support, Provide teaching as needed Goals/Interventions, Safety Yes Safety, Problem Start 03/17/2024 16:30 Reviewed plan with, Safety Patient Patient Progression, Safety Pt progressing according to plan . Nursing Data Neurological Data. : Neurological Data. 03/20/2024 9:00 EDT Tongue Disposition Midline Visual Assessment Other: denies vision changes, identifies 3 fingers when 2 fingers held up Level of Consciousness Confusion Orientated to person, place, time Person Hallucinations None Facial Symmetry Symmetric Characteristics of Speech Clear and normal Swallowing Difficulty None PERRLA Yes Pupil description, left Regular Pupil description, right Regular Pupil reaction, left Brisk Pupil reaction, right Brisk Pupil Size, Left 4 mm Pupil Size, Right 4 mm Strength LUE 5-Active movement against gravity & full resistance Strength RUE 5-Active movement against gravity & full resistance Strength LLE 5-Active movement against gravity & full resistance Strength RLE 5-Active movement against gravity & full resistance Tone LUE Normal Tone RUE Normal Tone LLE Normal Tone RLE Normal Sensation LUE Intact, Diminished Sensation RUE Intact, Diminished Sensation LLE Intact Sensation RLE Intact Movement LUE Spontaneous, To command Movement RUE Spontaneous, To command Movement LLE Spontaneous, To command Movement RLE Spontaneous, To command Gait Unsteady Tremors Physiologic Seizures Seizure precautions per protocol Response Eye Opening Spontaneously Motor Response-Adult Obeys commands Verbal Response-Adult Disoriented and converses Sonali Coma Score 14 Hooker Agitation Sedation Scale (RASS) 0 Alert and calm Pain Intensity 0 Eyes and Movements Conjugate gaze: Move in same direction at same speed Headache None . Vital Signs : VITAL SIGNS SECTION 03/20/2024 11:00 EDT Heart Rate Monitored 114 bpm H Respiratory Rate 16 br/min Vented No Systolic Blood Pressure 129 mm Hg Diastolic Blood Pressure 97 mm Hg H Pulse Pressure 32 mm Hg 03/20/2024 9:00 EDT Temperature 96.4 DegF L Temperature Route Axillary Heart Rate Monitored 106 bpm H Respiratory Rate 21 br/min Respiratory Rate 18 br/min Vented No Systolic Blood Pressure 151 mm Hg H Diastolic Blood Pressure 111 mm Hg H Pulse Pressure 40 mm Hg Oxygen Saturation 100 % Mode of Delivery (Oxygen) Room air . Evaluation P: Alt in Psychosocial I: As per nursing care plan E: pt appears to have intermittent confusion, initially stated she is in a detox facility, also recognizes she is in hospital at times, states January 2004 but corrects herself to 2023, occasional nonsensicle conversations regarding family and previous events, emotionally labile, CIWAs 6, 14, 7 today, continues on phenobarb and clonidine PO scheduled, given ativan 2mg po for CIWA 14 per protocol with good effect. pt able to discuss plan of care and medical history. HR 100s this am, SBP 150s, trended down to HR 70s-80s at rest and SBP 130s after propranolol and AM meds. HR up to 105 max with ambulation this afternoon. reports intermittent chest tightness with episodes of anxiety, reports this o ccurs at home, resolved after ativan prn administration, no changes to telemetry rhythm noted (other than rate). initially refused labs this am but accepted later today after discussion of plan of care with Dr. Allen. H/H improved to 12.9/39.6. AST trended down from 141 to 67, ALT trended down from 112 to 98. intermittently refusing temetry monitoring, Dr. Allen aware. occasionally drowsy, easily aroused to verbal stimuli and able to maintain alertness for assessment and meals. P: Alt in Safety I: As per nursing care plan E: has 1:1 constant budder for safety r/t SI, evaled by crisis today, see note in [facility] for details. plan for discharge to MHU today when bed available. re- orientation, education and emotional support provided as needed, anti delirium precautions provided, pt sitting by window for sunshine. has nicotine patch to left arm, received nicotine lozenge as well per request. ambulated with standby assist with constant budder, able to demonstrate steady movements. pt self T+R, supported with pillows for increased comfort and skin protection, bed alarm on, call fong within reach, bed in lowest position, safety maintained. See IView for all assessment details and MAR for medications administered, plan of care ongoing, no further concerns as of present. evening update: CIWA up to 11, given ativan 1mg po per protocol. emotional support provided. MHU RN Nik garcia to assess pt, continue with plan for transfer to MHU when bed available. . * Irma Garcia RN: PERFORM, SIGN, VERIFY Event Display: Progress Note Hospital Authored Date: [id number] Patient: ANJANA DOAN Age: 33 years Sex: Female : 1990 Associated Diagnoses: None Author: Irma Garcia RN Findings Assumed care for patient at approximately 1900 from ANABEL Mercado. Patient is alert and oriented x3. Patient is alert and oriented x3 with intermittent confusion. Patient does not exhibit signs of lethargy overnight. Patient is able to move all extremities equally, spontaneously and to command. Pupils are 3 mm equal, round and reactive to light. Denies any headache, dizziness, lightheadedness or vision changes. Sinus Rhythm to Sinus Tach on telemetry. Heart Rate: 80-90's at rest and 110 with exertion. Denies any chest pain, pressure or palpations. Lung sounds are diminished throughout. Remains onroom air. Oxygen saturation sustaining 93-98%. Patient remains on alcohol withdrawal protocols. Seizure pads remain in place. CIWA scores of 13 at 1903 for anxiety, agitation, the sensation of pins and needles and a headache. Patient medicated with PRN PO Ativan and GLASS ENAMEL MIXER Mell made aware and a onetime order of 130 mg of IV Phenobarbital given per order with mild effect. Patient cooperative withcare at this time. Following CIWA score of 5, no intervention needed at this time. Patient out of bed frequently to the bathroom, voiding without difficulty however complaint of feeling as if is not fully emptying her bladder. Patient bladder scanned for 1 mL. Patient medicated with Tylenol per patient request for ureter pain. Abdomen remains soft, non-tender with no bladder distention noted. Patient ambulating with a stand by assist to the bathroom. Remains unsteady during ambulation. Patient had a bowel movement overnight. As the night progressed patient became increasingly more restless,agitated, anxious and exit seeking. Patient requesting at home medications of doxepin, gabapentin and clonidine. MD Puente to the unit. Doxepin, gabapentin and clonidine given per order with a one time order for 1 mg of Ativan given with good effect. Patient resting comfortable after Ativan administration. One to One supervision remains in place for patient safety. All needs within reach, patient is able to make her needs known. Bed is alarmed, locked and in the lowest position. Safety maintained overnight. * Jess De Los Santos RN: PERFORM, MODIFY, VERIFY, MODIFY, SIGN Event Display: Progress Note Hospital Authored Date: [id number] Patient: ANJANA DOAN Age: 33 years Sex: Female : 1990 Associated Diagnoses: None Author: Jess De Los Santos RN Findings Narrative/Incidental Pt is alert oriented to location, she has been inconsistent with dates, sometimes stating that it is February, or March but has consistently been unsure of dates or more than 2 calender dates off. Tele has been NSR to ST. She becomes tachycardic with activity at times. Pt has been overall anxious and restless, often tearful and appears distressed(pinched affect, restless physical movement, crying) CIWA scores this shift have been 9 through 16. MD Wallis notified of increasing trend of scores and pt increase in tremors, 8/10 headache and anxiety. Ativan given per CIWA protocol. MD Wallis alsonotified of increased HR and BP(121 and 139/105.) STAT propranolol given, and additional dose of phenobarb given per order. Pt HR/BP and CIWA symptoms were improved upon reassessment. After dinner, pt reported nausea and feeling hot. Temp 98.7, and BP noted to be increased again at 141/106. CIWA at this time was 10, PRN Ativan given per protocol. GLASS ENAMEL MIXER Placinta updated to pts CIWA/symptom trend and VS. Peripheral pulses present and normal, cap refill <3 Urine is clear and yellow, pt is able to walk to BR with one assist. LSC, pt tolerating activity well. She does c/o nausea intermittently, but has tolerated breakfast and lunch well, however did have nausea after dinner. Fall alarm activated, call fong within reach and pt able to use appropriately. Hourly safety roundsperformed. Safety measures in place. Please see MAR/CIS/Kimmy for full assessment findings and caregiven. . Note * Nikki Hanley RN: PERFORM Event Display: Discharge/Transfer Note Hospital Authored Date: [id number] Nursing Discharge Note Entered On: 03/20/2024 19:04 EDT Performed On: 03/20/2024 19:02 EDT by Nikki Hanley RN Nursing Discharge Note 2 Discharge Time : 03/20/2024 19:02 EDT Discharge Level of Care at Discharge : Psychiatric Facility/Unit Patient Left Unit Via : Wheelchair Patient Accompanied Off Unit with : Responsible adult DC Instructions Provided & Signed by Pt : No Patient Understands D/C Instructions : No Verbalization of Discharge Plan Comments : discharged to MHU with MHU RN Patient Instructions Discharge Signed : No Instructions for Discharge Comments : discharged to MHU with MHU RN Did Pt have Specialty Bed or Wound Vac : Yes Nikki Hanley RN - 03/20/2024 19:04 EDT * Dwain Allen DO: PERFORM Event Display: Discharge/Transfer Note Hospital Authored Date: [id number] Patient: ??ANJANA DOAN ? Age:??33 Years?Sex:??Female?:??1990?? Patient Information [facility] Primary Care Physician: Jayla Cho NP Admit Date/Time: 03/17/24 16:28 Discharge Disposition Discharge Disposition: ?MHU at [facility] Discharge Diagnosis Polysubstance abuse (F19.10) Bipolar disorder (F31.9) Pancytopenia (D61.818) Abnormal LFTs (R79.89) _ Discharge Medications Buprenorphine-Naloxone (buprenorphine-naloxone 4 mg-1 [...] 25 mg oral tablet, extended release)?1?tab(s)?25?Milligram?By Mouth?Daily [place] (lithium 150 mg oral capsule)?1?capsule?150?Milligram?By Mouth?2 times a day Melatonin (melatonin 3 mg oral tablet)?3?tab(s)?9?Milligram?By Mouth?Daily at bedtime Ondansetron (ondansetron 4 mg oral tablet, disintegrating)?1?tab(s)?4?Milligram?By Mouth?3 times a day?as needed?Nausea & Vomiting Propranolol (propranolol 10 mg oral tablet)?10?Milligram?1?tablet?By Mouth?Daily in AM Senna?8.6?Milligram?By Mouth?2 times a day ? Vaccinations and Immunoprophylaxis SARS-CoV-2 (COVID-19) Ad26 vaccine: 0.5 Unknown (02/08/21 08:00:00) ?? Allergies Allergies ?(Active and Proposed Allergies Only) No Known Medication Allergies? (Severity: Unknown severity, Onset: Unknown) ? Hospital Course 33-year-old female with history of depression and alcohol use disorder??who was admitted to??[facility] mental?health unit??(MHU) for depression and suicidal ideation??as well as alcohol withdrawal.??During her hospitalization in the MHU??she started to develop??alcohol withdrawal??symptoms despite having alcohol level in the range of 300.?She reported that she has a history of alcohol withdrawal seizures??and reported that she had been in the ICU for them in the past.??She reported that her last drink was the day before admission at that time.??In the MHU she had a severe CIWA score of around 20.??She received multiple??milligrams of Ativan??and subsequently deve loped??visual disturbances.??While in the MHU unit she became more delirious??and was unaware of her location along with being tachycardic??and was subsequently transferred??to the??hospitalist service??to be managed in the intensive care unit.?The patient??was managed with phenobarbital??along w ith?oral Ativan??and was given the appropriate??electrolyte and mineral replacement.??On the dayof discharge from the medical unit the patient was??able to articulate??that she was in the intensive care unit??and??to discuss her??liver function test based on her history of having??issues with jaundice in the past.??Patient was noted to have elevated??liver functions in regards to AST and ALT??that was most likely secondary to her alcoholic hepatitis.?Her liver function tests continued totrend down??patient was agreeable to having those labs repeated on the day of discharge from MICU .She was medically cleared however since she was?Section 12??INFORMATION SECURITY MANAGER evaluation was requested for follow- up??and patient was??admitted back to the??MHU for additional??management of her??bipolar disorder??and history of suicidal ideations. ? Objective Measurements?? Height: 147 cm (03/17/24) Weight: 43.6 kg (03/17/24) Dry Weight: 43.6 kg (03/17/24) Body Mass Index: 20.18 kg/m2 (03/17/24) ? Vital Signs?? Temperature:??96.4 DegF??Low (03/20/24 09:00:00) Temperature Route: Axillary (03/20/24 09:00:00) Pulse Rate:??115 bpm??High (03/20/24 11:17:00) Heart Rate Monitored:??114 bpm??High (03/20/24 11:00:00) Respiratory Rate: 18 br/min (03/20/24 12:08:00) Vented: No (03/20/24 11:00:00) Systolic Blood Pressure: 129 mm Hg (03/20/24 11:00:00) Diastolic Blood Pressure:??97 mm Hg??High (03/20/24 11:00:00) Blood pressure sites: Arm, right (03/19/24 20:00:00) Pulse Pressure: 32 mm Hg (03/20/24 11:00:00) Oxygen Saturation: 100 % (03/20/24 09:00:00) Mode of Delivery (Oxygen): Room air (03/20/24 09:00:00) Early Warning Score:??10??Critical (03/20/24 12:47:37) ? Intake/Output? 03/17 16:28 03/20 07:00 03/19 07:00 03/18 07:00 03/17 07:00 ?? 03/20 14:25 03/20 14:25 03/20 06:59 03/19 06:59 03/18 06:59 Intake ? 5318 ?0 ? 1218 ? 3000 ? 1100 Output ? 2450 ?0 ?0 ? 1850 ?600 Net Total ? 2868 ?0 ? 1218 ? 1150 ?500 ? Urine Count ? 18 ?1 ? 12 ?5 ?0 ? . Physical Exam General:??No acute distress. HEENT:??Normocephalic atraumatic,??no scleral icterus. Respiratory:??No accessory muscle use?? Extremities: No clubbing, no cyanosis. Neurological: No focal deficits Pending Results Add On Lab Order ordered on 03/19/2024 Blood Culture ordered on 03/18/2024 Blood Culture #2 ordered on 03/18/2024 CBC ordered on 03/21/2024 Comprehensive Metabolic Panel ordered on 03/21/2024 Patient Education Titles WebMD Ignite Patient Education - Alcohol Abuse?? WebMD Ignite Patient Education - Alcohol Withdrawal?? Follow-Up Appointments Added Follow Up ?Time Frame ?Comments Tammie JOSHUA, Jayla?2 to 3 weeks Post Discharge Care Diet: ??Regular Diet ?? Activity: ??As tolerated ?? Code Status: ??Full Resuscitation ?? Condition: ??Stable ?? Prognosis: ??Fair ?? Home Health Face to Face ^HomeHealthFTF _ 38 minutes spent on discharge * Nikki Hanley RN: PERFORM Event Display: Patient Education/Instruction Authored Date: [id number] Inpatient Adult Discharge Instructions. [address] [address] Name: ANJANA DOAN : 1990?? Visit: 03/17/2024 16:28?? Current Date: 03/20/2024 14:31 ?? Account: [id number]?? Inpatient Adult Discharge Instructions We would like [...] and their families. Surveys are administered by [employer] ?? If further treatment with your primary care physician or another doctor is recommended, it is important for you to keep the appointment. Call your primary care physician or return to the Emergency Department immediately if your condition worsens, fails to improve, or new symptoms develop. If you need to find a doctor, you can call [facility] [employer] for a referral at [phone] or toll free at [phone] or log in to [email or web address].. ?? [facility], in keeping with [facility] guidance, no longer requires face masks for [...] a health care alison of your choosing. [employer] is a website that allows you to securely view your medical information including your hospital discharge summary, office visit summaries, medications and follow-up visits. You can also request appointments, renew medications, and request access to your medical information using a health care alison of your choosing, or just ask a question. You can enroll at [email or web address] or register during your next office visit. You have been discharged from [facility], Patient Care Unit: [facility]U??. If you have any questions regarding these instructions, including results of studies pending, afteryou leave, please call us and we will be happy to assist you 26/05. [facility] Your Care Team Attending Physician Dwain Allen DO?? Consulting Providers Dwain Allen DO?? Discharging Providers Dwain Allen DO Your Diagnosis Abnormal LFTs Bipolar disorder Delirium tremens Pancytopenia Polysubstance abuse Tests Performed Below is a partial list of the tests performed during your hospitalization. You may have had other tests and procedures not included in this list. Please discuss all test results with your provider. ALT AST Basic Metabolic Panel Bilirubin Total + Direct [facility] UA W/HOLD FOR CULTURE Creatinine Electrolytes HOLD GEL TUBE HOLD GREEN TUBE HOLD OTHER TUBE INR LFT's Lytes Magnesium Level Phenobarbital Level Phosphorus Level CXR Portable Add On Lab Order?? Blood Culture?? Blood Culture #2?? CBC?? Comprehensive Metabolic Panel?? Primary Care Provider Tammie GLASS ENAMEL MIXER, Jayla? Advance Directive Health Care Proxy on File No Patient refuses to discuss Patient has a Designated Caregiver: No Discharge Vitals Temperature: 97 DegF Height: 147 cm Pulse Rate:??115 bpm??High Weight: 43.6 kg Respiratory Rate: 22 br/min Body Mass Index: 20.18 kg/m2 Systolic Blood Pressure: 124 mm Hg Body surface area: 1.33 Diastolic Blood Pressure:??103 mm Hg??High ?? Oxygen Saturation: 96 % ?? Studies Pending All studies ordered during this hospital stay have been completed unless listed below. Please discuss all pending results with your provider listed above in these instructions. ?? Add On Lab Order?? Blood Culture?? Blood Culture #2?? CBC?? Comprehensive Metabolic Panel?? What to do next Instructions From Your Doctor ?? Orders??:Regular Diet :As tolerated Status: ??Full Resuscitation :Stable :Fair?? back to MHU when bed available ., ??03/20/24 14:28:00 EDT?? Prescriptions??, ??03/20/24 14:28:00 EDT?? You Need to Schedule the Following Appointments Follow Up with??Tammie GLASS ENAMEL MIXER, Jayla When:??Within 2 to 3 weeks Where: [address] [place] [facility] [place] [address]- Discharge Medications ANJANA DOAN :1990 Visit Date:03/17/2024 Medications: Please continue your medications until treatment is completed or stopped by your provider. Medications not listed below should be discontinued. Discuss any questions related to medications with your provider. What How Much When Instructions Next Dose Unchanged Buprenorphine-Naloxone (buprenorphine-naloxone 4 mg-1 mg sublingual film) 1 Film Sublingual Daily dissolve under the tongue ?? tomorrow 03/21 at 0900 Unchanged Clonidine (cloNIDine 0.1 mg oral tablet) 1 tab(s) Oral 3 times a day tonight 03/20 at 2100 Unchanged Docusate 100 Milligram Twice a day resume usual schedule Unchanged Doxepin (doxepin 75 mg oral capsule) 1 capsule Oral Daily at Bedtime tonight 03/20 at 2100 Unchanged Famotidine (Pepcid AC Maximum Strength 20 mg oral tablet) 1 tab(s) Oral Twice a day tonight 03/20 at 2100 Unchanged Gabapentin (gabapentin 400 mg oral capsule) 1 capsule Oral Twice a day tonight 03/20 at 2100 Unchanged HydrOXYzine (hydrOXYzine pamoate 25 mg oral capsule) 1 capsule Oral Daily at Bedtime tonight 03/20 at 2100 Unchanged Lamotrigine (lamotrigine 25 mg oral tablet, extended release) 1 tab(s) Oral Daily resume usual schedule Unchanged [place] (lithium 150 mg oral capsule) 1 capsule Oral Twice a day resume usual schedule Unchanged Melatonin (melatonin 3 mg oral tablet) 3 tab(s) Oral Daily at Bedtime resume usual schedule Unchanged Ondansetron (ondansetron 4 mg oral tablet, disintegrating) 1 tab(s) Oral 3 times a day as needed for Nausea & Vomiting take at needed Unchanged Propranolol (propranolol 10 mg oral tablet) 1 tab(s) Oral Daily in the morning tomorrow 03/21 at 0900 Unchanged Senna 8.6 Milligram Oral Twice a day resume usual schedule Prescription Given During Visit No new medications prescribed at time of discharge.?? Laboratory Results Below is a partial list of the most recent Laboratory test results done prior to this discharge. You may have had other tests and procedures not included in this list. Please discuss all test resultswith your provider. Est Creatinine Clearance - 91.60 mL/min (03/20/2024) ALT (03/20/2024) ???ALT (SGPT) - 98 units/L AST (03/20/2024) ???AST (SGOT) - 67 units/L Basic Metabolic Panel (03/17/2024) ???Sodium - 134 mmol/L???Potassium - 4.2 mmol/L???Chloride - 97 mmol/L???Bicarbonate Level - 27 mmol/L???Anion Gap - 10???Glucose Level - 76 mg/dL???BUN - 19 mg/dL???Creatinine-Blood - 0.55 mg/dL???Estimated GFR Creatinine - 123 ML/MIN/1.73 M2???Calcium - 8.1 mg/dL Bilirubin Total + Direct (03/20/2024) ???Bilirubin, Total - 0.4 mg/dL???Bilirubin, Direct - 0.1 mg/dL???Bilirubin, Indirect - 0.3 mg/dL [facility] UA W/HOLD FOR CULTURE (03/18/2024) ???Appear/Color, Urine - COLORLESS???Clarity - CLEAR???Specific [place], Urine - 1.010???pH, Urine - 7.0???Albumin, Urine - NEGATIVE???Glucose, Urine - NEGATIVE???Ketones, Urine - NEGATIVE???Bilirubin, Urine - NEGATIVE???Hemoglobin, Urine - NEGATIVE???Nitrite, Urine - NEGATIVE???Leukocyte, Urine - N EGATIVE???Urobilinogen - NORMAL???Hold Urine Culture - Testing available 48 hours from time of collection. Creatinine (03/20/2024) ???Creatinine-Blood - 0.56 mg/dL???Estimated GFR Creatinine - 123 ML/MIN/1.73 M2 Electrolytes (03/20/2024) ???Sodium - 137 mmol/L???Potassium - 3.6 mmol/L???Chloride - 100 mmol/L???Bicarbonate Level - 25 mmol/L???Anion Gap - 12 HOLD GEL TUBE (03/19/2024) ???Hold Gel Top - SPECIMEN DISCARDED AFTER 1 WEEK HOLD GREEN TUBE (03/18/2024) ???Hold Green Top - SPECIMEN DISCARDED AFTER 1 WEEK HOLD OTHER TUBE (03/18/2024) ???Hold Other - SPECIMEN DISCARDED AFTER 1 WEEK INR (03/20/2024) ???INR - 1.0???Protime (PT) - 10.5 seconds LFT's (03/17/2024) ???Protein, Total - 6.4 Gm/dL???Albumin - 3.6 Gm/dL???Alkaline Phosphatase - 65 units/L???AST (SGOT) - 155 units/L???ALT (SGPT) - 86 units/L???Bilirubin, Total - 1.2 mg/dL???Bilirubin, Direct - 0.3 mg/dL???Bilirubin, Indirect - 0.9 mg/dL Lytes (03/19/2024) ???Sodium - 136 mmol/L???Potassium - 4.2 mmol/L???Chloride - 102 mmol/L???Bicarbonate Level - 26 mmol/L???Anion Gap - 8 Magnesium Level (03/20/2024) ???Magnesium - 2.1 mg/dL Phenobarbital Level (03/19/2024) ???Phenobarb Level - 10.1 mg/L Phosphorus Level (03/17/2024) ???Phosphorus - 3.0 mg/dL Allergies (NKA means No Known Allergies) No Known Medication Allergies Problems Active Problems??(3) Depression?? Eating disorder?? History of alcohol dependence?? Education Materials Below is the list of Educational Leaflet Providered with your Discharge Instructions. WebMD Ignite Patient Education - Alcohol Abuse?? WebMD Ignite Patient Education - Alcohol Withdrawal?? Valuables and Belongings I fully understand and agree that [facility] accepts no responsibility for all my personal [...] Review of Valuable and Belonging List: With witness Disposition of Belongings: Other: 2 vapes locked in ICU med room Date for Pt to Sign Valuables/Belongings: 03/17/24 16:47:00 ?? Other Discharge Information ? Pulmonary Rehab Status?? Pulmonary Rehab Discharge Status?? Respiratory Rate: 22 br/min ? Common Emergency Awareness Tips IS [...] are strongly encouraged to quit. Please call [facility] [employer] [employer] [facility] at [phone] or [phone] or log in to [email or web address] for referrals to smoking cessation programs. ?? 761 Suicide & Crisis Lifeline is available 26/05 if you or someone you know needs to find a reason to keep living. By calling 614 you'll be connected to a skilled, trained counselor at a crisis center in your area. INPATIENT DISCHARGE INSTRUCTIONS SIGNATURE PAGE ANJANA DOAN Location:[facility] Registration Date and Time:03/17/2024 16:28 EDT Primary Care Physician: Jayla Cho NP, Attending Physician: Dwain Allen DO, I ANJANA DOAN, have received the above patient education materials/instructions and have verbalized understanding. If ambulance or transport services are being used I further acknowledge being givena choice of service. ?? If you need to contact me, please call me at this number: . Patient/Tenoner Operator Name: Patient/Tenoner Operator Signature: Relationship to Patient: Witness Name/Signature: Date: * Nikki Hanley RN: PERFORM Event Display: Patient Education Leaflets Authored Date: [id number] Alcohol Abuse ?? [id number] Alcohol Abuse Alcoholic drinks harm you when you have too many of them. No set number of drinks means too much. Drinking that affects your life or your health is called alcohol abuse. Alcohol abuse can hurt your relationships with others. You may lose friends, a spouse, or even your job. You may be abusing alcohol if any of the following are true for you: ??? Duties at home or with childcare center administrator suffer because of drinking. ??? Duties at work or in school suffer because of drinking. ??? You have missed work or school because of drinking. ??? You use alcohol while driving or using machinery. ??? You have legal problems such as arrests because of drinking. ??? You keep drinking even though it causes serious problems in your life. Health problems Alcohol abuse causes many health problems.??Sometimes this can happen after only drinking a ???little. ??The effects depend on how much you drink at one time and how often you drink. The effects also depend on how long you drink. For example, months, years, or decades.??Alcohol affects all parts of your body Brain Alcohol affects the central nervous system. It can damage parts of the brain that control your balance and gait, memory, thinking, and emotions. It can cause: ??? Memory loss ??? Blackouts ??? Depression ??? Agitation ??? Sleep problems ??? Seizures These changes may be [facility] (permanent). Heart and blood vessels Alcohol can damage heart muscle (cardiomyopathy). This can lead to: ??? Trouble breathing ??? Irregular heartbeat ??? Atrial fibrillation ??? Leg swelling ??? Heart failure Alcohol also makes the blood vessels stiff. This causes high blood pressure. All of these problems raise your risk of having a heart attack or stroke. Liver Alcohol causes fat to build up in the liver. This affects how the liver works. Alcohol also raises the risk for hepatitis. It can cause: ??? Belly (abdominal) pain ??? Belly swelling ??? Loss of appetite ??? Yellowed eyes or skin (jaundice) ??? Bleeding problems ??? Cirrhosis This can make it harder for you to fight off infections. The liver changes keep it from removing toxins in your blood that can cause brain disease (encephalopathy). This condition cause: ??? Confusion ??? Changed level of consciousness ??? Personality changes ??? Memory loss ??? Seizures, coma, and The liver changes can also cause the veins in your esophagus and stomach to become thin and swollenwith blood (varices). This can cause bleeding and vomiting of blood. Pancreas Alcohol can cause swelling (inflammation) of the pancreas (pancreatitis). This can cause belly pain, fever, and diabetes. Immune system Alcohol weakens your immune system. This makes it harder for you to fight infections and colds. It also makes it more likely for you to get pneumonia and tuberculosis. Cancer Alcohol raises the risk for several types of cancer. These include cancer of the mouth, esophagus, pharynx, larynx, liver, and breast. Sexual function Alcohol can lead to sexual problems. ?? Home care These guidelines will help you deal with alcohol abuse: ??? Admit you have a problem with alcohol. ??? Ask for help from your healthcare provider. Also ask for help from trusted family members or close friends. ??? Get help from people trained in dealing with alcohol abuse. This may be one-on-one counseling or group therapy. Or it may be an alcohol treatment program. ??? Join a self-help group for alcohol abuse such as Alcoholics Anonymous. ??? Stay away from people who abuse alcohol or tempt you to drink. ?? Follow-up care Follow up with your healthcare provider, or as advised. Contact these groups to get help: ??? Alcoholics Anonymous (AA) at www.aa.org. Or check the phone book for meetings near you. ??? National Alcohol and Substance Abuse Information Center (NASAIC) at www.addictioncareSparks.com or 976-767-3756 ??? National [place] on Alcoholism and Drug Dependence (NCADD) at www.ncadd.org or 362-FNX-KSPZ (042-381-4928) ?? Call 911 Call 911 if any of these occur: ??? Trouble breathing or slow, irregular breathing ??? Chest pain ??? Sudden weakness on one side of your body or sudden trouble speaking ??? Heavy bleeding or vomiting blood ??? Very drowsy or trouble awakening ??? Fainting or loss of consciousness ??? Rapid heart rate ??? Seizure ?? When to seek medical care Call your healthcare provider right away if any of these occur:? Confusion ??? Seeing, hearing, or feeling things that aren???t there (hallucinations) ??? Pain in your upper belly that gets worse ??? Vomiting that continues, vomiting with blood, or black or tarry stools ??? Severe shakiness ?? Last Reviewed Date: 2021 ?? 3918-4972 [employer]. All rights reserved. This information is not intended as a substitute for professional medical care. Always follow your healthcare professional's instructions. ?? * Nikki Hanley RN: PERFORM Event Display: Patient Education Leaflets Authored Date: [id number] Alcohol Withdrawal ?? [id number] Alcohol Withdrawal Alcohol withdrawal often starts after prolonged heavy drinking, and then you suddenly stop drinking. Or you cut down on your alcohol use. It is not one thing. It is a complex combination of signs andsymptoms that often occur together and define a certain problem or condition. ??? Alcohol withdrawal is potentially life-threatening. It is a medical emergency. ??? It can startas early as a couple of hours after your last drink. Or it may take 1 to 3 days to develop. ??? It can last from days to a week or more. ??? It can worsen very quickly. Signs and symptoms There are??several stages of alcohol withdrawal. But they overlap, as do their signs and symptoms. In the earlier stages, it most often includes: ??? Anxiety ??? Shakiness ??? Nausea and vomiting ???Sweating ??? Insomnia ??? Headaches ??? Fever ??? Mood swings, irritability, agitation, restlessness ?? Delirium tremens (DTs) DTs are a severe and life-threatening complication. If??DTs happen, they often start about 3 to 5 days after your last drink. They are potentially life threatening, so medical care should be sought. Symptoms of DTs include: ??? Sudden and severe mental or nervous system changes ??? Uncontrollable tremors ??? Severe disorientation, confusion, hallucinations ??? Heart racing, or irregular heartbeat??? High blood pressure ??? Seizures ??? Possible coma and ?? Home care ??? You'll need plenty of rest and fluids over the next several days. Eat regular meals and drink plenty of fluids to prevent dehydration. Don't drink any more alcohol. During this time, itis best that you're not alone. Stay with family or friends who can help and support you. You can also admit yourself to a residential detox program. ??? Don't drive until all symptoms are gone and you are feeling better. If you've had a seizure, don't drive until you've been examined by a healthcare provider. ??? If you were given sedative medicine to reduce your symptoms, don't take it more often than prescribed. Never take it with alcohol. ?? Follow-up care Once you've gone through the withdrawal symptoms, you've fought half of the link. To avoid the risk of going back to your past drinking pattern, it's vital that you get follow-up support and treatment. ??? Alcoholics Anonymous (AA) offers support through a self-help fellowship. There are no dues or fees. Search the internet or go to the AA website at www.aa.org to find a local meeting place. ??? Al-[place] offers support to families of alcohol users. Go to the Al-Anon website at www.al-anon.org . ??? Residential alcohol detox programs are available. Search the internet for treatment centers [facility]. ?? Call 911 Call 911 if any of these occur: ??? Seizure ??? Trouble breathing or slow, irregular breathing ??? Chest pain ??? Sudden weakness on a side of the body or sudden trouble speaking ??? Heavy bleeding or vomiting blood ??? Very drowsy or trouble awakening ??? Fainting or loss of consciousness ??? Rapid heart rate ?? When to get medical advice Call your healthcare provider right away??if any of these occur: ??? Severe shakiness ??? Hallucinations ??? Fever over 100.4?? F (38.0?? C) ??? Headache, confusion, extreme drowsiness, inability to awaken ??? Increasing upper abdominal pain ??? Repeated vomiting ?? Last Reviewed Date: 2021 ?? [id number] [employer]. All rights reserved. This information is not intended as a substitute for professional medical care. Always follow your healthcare professional's instructions. ?? Patient Care team information Care Team Personnel Name: Jayla Cho NP Position: [facility] Physician - Hospital Medicine Member Role: PCP Address: Address: [address] [place] [address]- Name: Edmond Hi RN Position: [facility] RN Member Role: Primary Care Nurse Care Team Related Persons Name: NONE, PT STATES
--- OUTSIDE RECORDS SUMMARY | 2024-09-29 14:26 | XMS_ITS | Continuity of Care Document ---
Author Organization [facility] Address [address] [place] [address]- Care Team Providers Care Apparatus Operator Name Role Phone Not on Staff, PCP Primary Care Physician Unavail able Encounter [facility] [place] Date(s): 06/11/22 - 07/11/22 [facility] [address], [place] [address] Attending Physician: Hubert Baez Admitting Physician: Admtr, Hubert Referring Physician: Admtr, Ar8 Allergies, Adverse Reactions, Alerts No Known Medication Allergies Immunizations Given and Recorded Vaccine Date Status Refusal Reason SARS-CoV-2 (COVID-19) Ad26 vaccine 02/08/21 Record ed Medications citalopram 40 mg oral tablet 1 tablet = 40 mg, By Mouth, Daily, # 30 tablet, 1 Refills, Maintenance, 07/10/21 10:29:00 EDT, Tablet, [facility] #[id number], Partial fill upon patient request if the prescription is for a schedule II opioid drug., 148, cm, 07/10/21 9:08:00 EDT,... Start Date: 07/10/21 Status: Ordered cloNIDine 0.1 mg oral tablet 0.1 mg, 1, tablet, By Mouth, 3 times a day, # 90 tablet, Refills 1, Tot. Refills 1, Maintenance, 07/10/21 10:30:00 EDT, Route to Pharmacy Electronically, [facility] #[id number], Partial fill upon patient request if the prescription is for a sched... Start Date: 07/10/21 Status: Ordered cyclobenzaprine 5 mg oral tablet 1 tablet = 5 mg, By Mouth, Daily at bedtime, # 30 tablet, 1 Refills, Maintenance, 07/10/21 10:30:00EDT, Tablet, [facility] #[id number], Partial fill upon patient request if the [...] 07/10/21 10:31:00 EDT, Route to Pharmacy Electronically, [facility] #[id number], Partial fill upon patient request if the prescription is for a schedule II... Start Date: 07/10/21 Status: Ordered hydrOXYzine pamoate 25 mg oral capsule 1 capsule = 25 mg, By Mouth, Daily at bedtime, # 30 capsule, 1 Refills, Maintenance, 07/10/21 10:31:00 EDT, Capsule, [facility] #[id number], Partial fill upon patient request if the prescriptionis for a schedule II opioid drug., 148tiffany, ... Start Date: 07/10/21 Status: Ordered lithium 150 mg oral capsule 1 capsule = 150 mg, By Mouth, 2 times a day, # 60 capsule, 1 Refills, Maintenance, 07/10/21 10:31:00 EDT, Capsule, [facility] #[id number], Partial fill upon patient request if the [...] 1 Refills, Maintenance, 07/10/21 10:31:00 EDT, Tablet, [facility] #[id number], Partial fill upon patient request if the prescription isfor a schedule II opioid drug., 148, cm, 07/10/21 9... Start Date: 07/10/21 Status: Ordered ondansetron 8 mg oral tablet, disintegrating 1 tablet = 8 mg, By Mouth, 3 times a day, PRN Nausea & Vomiting, # 15 tablet, 1 Refills, Maintenance, 07/10/21 10:32:00 EDT, DIS Tablet, [facility] #[id number], Partial fill upon patient request if the prescription is for a schedule II opioid makayla... Start Date: 07/10/21 Status: Ordered propranolol 10 mg oral tablet 10 mg, 1, tablet, By Mouth, Daily in AM, # 30 tablet, Refills 1, Tot. Refills 1, Maintenance, 07/10/21 10:33:00 EDT, Route to Pharmacy Electronically, [facility] #[id number], Partial fill upon patient request if the [...]
--- OUTSIDE RECORDS SUMMARY | 2024-09-29 14:26 | XMS_ITS | Continuity of Care Document ---
Author Organization [facility] Address [address] [place] [address]- Care Team Providers Care Project Superintendent Name Role Phone Not on Staff, PCP Primary Care Physician Unavail able [place] [facility] [place] - 06/25/[address] [address]- Discharge Disposition: A-D/C Home Attending Physician: Linda Tang MD Admitting Physician: Linda Tang MD Referring Physician: Not on Staff, Referring [...] Refills, Maintenance, 06/03/21 19:40:00 EDT, DIS Tablet, [facility] #[id number], Partial fill upon patient request if the [...] 1 2 3 4 Height 148 cm (06/25/21 3:35 PM) 148 cm (06/25/21 3:18 PM) 148 cm (06/25/21 12:50 PM) Weight 50 kg (06/25/21 3:35 PM) 50 kg (06/25/21 3:18 PM) 50 kg (06/25/21 12:50 PM) Oxygen Saturation [94-100 %] 98 % (06/25/21 3:35 PM) 100 % (06/25/21 3:18 PM) 100 % (06/25/21 2:07 PM) Pulse Rate [55-90 bpm] 116 bpm *H* (06/25/21 3:35 PM) 76 bpm (06/25/21 3:18 PM) 80 bpm (06/25/21 2:07 PM) Body Mass Index [18.5-24.99] 22.83 (06/25/21 3:35 PM) 22.83 (06/25/21 3:18 PM) Blood Pressure [90-138/55-84 mm Hg] 110/77mm Hg (06/25/21 3:35 PM) 118/88mm Hg (06/25/21 3:18 PM) 106/70mm Hg (06/25/21 2:07 PM) Respiratory Rate [16-30 br/min] 17 br/min (06/25/21 3:35 PM) 20 br/min (06/25/21 3:18 PM) 18 br/min (06/25/21 2:07 PM) Temperature [96.8-100.4 DegF] 97.2 DegF (06/25/21 3:35 PM) Liters per Minute 2 L/min (06/25/21 3:18 PM) 2 L/min (06/25/21 2:07 PM) 2 L/min (06/25/21 12:50 PM) 2 L/min (06/25/21 12:50 PM) Mode of Delivery (Oxygen) Room air (06/25/21 3:35 PM) Room air (06/25/21 3:18 PM) Nasal cannula (06/25/21 2:07 PM) Blood pressure sites Arm, left (06/25/21 3:35 PM) Arm, right (06/25/21 3:18 PM) Arm, right (06/25/21 12:50 PM) Temperature Route Oral (06/25/21 3:35 PM) Dry Weight 50 kg (06/25/21 3:35 PM) 50 kg (06/25/21 3:18 PM) 50 kg (06/25/21 12:50 PM) Weight Obtained Via Patient/family stated (06/25/21 12:50 PM) Dry Weight Obtained Via Patient/family stated (06/25/21 12:50 PM) Social History Social History Type Response Smoking Status Smoker, current stat us unknown entered on: 06/23/21 Sex
--- OUTSIDE RECORDS SUMMARY | 2024-09-29 14:26 | XMS_ITS | Continuity of Care Document ---
Author Organization [facility] Address [address] [place] [id number]- Care Team Providers Care Clay Press Operator Name Role Phone Not on Staff, PCP Primary Care Physician Unavail able [place] [facility] [place] - 01/20/[address] [address]- Encounter Diagnosis Altered mental state(Final) - 01/20/21 Alcohol intoxication(Final) - 01/20/21 Discharge Disposition: A-D/C Home Attending Physician: Nik Wilson MD Admitting Physician: Nik Wilson MD Referring Physician: Not on Staff, Referring [...] 11:25:00 EDT Start Date: 08/22/20 Status: Ordered Trazodone = 25 mg, By Mouth, Daily at bedtime, 0 Refills, Maintenance, 08/22/20 11:25:00 EDT Start Date: 08/22/20 Status: Ordered Vital Signs Most recent to oldest [Reference Range]: 1 2 3 Oxygen Saturation [94-100 %] 100 % (01/20/21 5:14 PM) 97 % (01/20/21 4:29 PM) 95 % (01/20/21 3:00 PM) Pulse Rate [55-90 bpm] 93 bpm *H* (01/20/21 5:14 PM) 116 bpm *H* (01/20/21 4:29 PM) 100 bpm *H* (01/20/21 3:00 PM) Blood Pressure [90-138/55-84 mm Hg] 110/73mm Hg (01/20/21 5:14 PM) 104/72mm Hg (01/20/21 4:29 PM) 96/59mm Hg (01/20/21 3:00 PM) Respiratory Rate [16-30 br/min] 19 br/min (01/20/21 5:14 PM) 18 br/min (01/20/21 4:29 PM) 18 br/min (01/20/21 3:00 PM) Temperature [96.8-100.4 DegF] 98.0 DegF (01/20/21 12:06 PM) Mode of Delivery (Oxygen) Room air (01/20/21 5:14 PM) Room air (01/20/21 4:29 PM) Room air (01/20/21 3:00 PM) Blood pressure sites Arm, right (01/20/21 5:14 PM) Arm, left (01/20/21 4:29 PM) Arm, left (01/20/21 3:00 PM) Temperature Route Oral (01/20/21 12:06 PM)
--- OUTSIDE RECORDS SUMMARY | 2024-09-29 14:26 | XMS_ITS | Continuity of Care Document ---
Author Organization [facility] Address [address] [place] [address]- Care Team Providers Care Emissions Testing And Repair Technician Name Role Phone Clubb DENTAL SALES REPRESENTATIVE, Jayla Primary Care Physician [phone] Encounter [facility] [place] Date(s): 04/22/24 - 07/18/[address] [address] Attending Physician: Courtney JOSHUA, Laquita Og Admitting Physician: Courtnye JOSHUA, Laquita Og Referring Physician: Courtney JOSHUA, Laquita Og Allergies, Adverse Reactions, Alerts No Known Medication Allergies Immunizations Given and Recorded Vaccine Date Status Refusal Reason SARS-CoV-2 (COVID-19) Ad26 vaccine 02/08/21 Record ed Medications Amphotericin B 50mg suppository Amphotericin B 50mg suppository, See Instructions, # 14 each, Refills 0, Tot. Refills 0, Maintenance, Intravaginally at night for 14 nights, 05/14/24 18:20:00 EDT, Supply Start Date: 05/14/24 Status: Ordered buprenorphine-naloxone 4 mg-1 mg sublingual film 1 film, Sublingual, 2 times a day, take morning and midday, # 14 film, 0 Refills, Maintenance, 03/26/24 10:07:00 EDT, [facility]-, Partial fill upon patient request if the prescription is for a schedule II opioid drug., 1... Start Date: 03/26/24 Stop Date: 04/02/24 Status: Ordered buprenorphine-naloxone 8 mg-2 mg sublingual film 1 film, Sublingual, Daily at bedtime, # 7 film, 0 Refills, Maintenance, 03/26/24 10:08:00 EDT, [facility]-, Partial fill upon patient request if the prescription is for a schedule II opioid drug., 1 film Sublingual Daily... Start Date: 03/26/24 Stop Date: 04/02/24 Status: Ordered cloNIDine 0.1 mg oral tablet 0.1 mg, By Mouth, 3 times a day, # 42 tablet, Refills 1, Tot. Refills 1, Maintenance, 03/26/24 10:08:00 EDT, Route to Pharmacy Electronically, [facility], Partial fill upon patient request if the prescription is for a schedule... Start Date: 03/26/24 Stop Date: 04/23/24 Status: Ordered Colace sodium 100 mg oral capsule 100 mg, 1, capsule, By Mouth, 2 times a day, PRN, # 60 capsule, Refills 0, Tot. Refills 0, Maintenance, Constipation, 03/26/24 10:08:00 EDT, Route to Pharmacy Electronically, [facility], Partial fill upon patient request if th... Start Date: 03/26/24 Stop Date: 04/09/24 Status: Ordered Diflucan 150 mg oral tablet 1 tablet = 150 mg, By Mouth, Every 72 hours, # 2 tablet, 0 Refills, Maintenance, 05/11/24 14:19:00 EDT, [facility], Partial fill upon patient request if the prescription is for a schedule II opioid drug., 148, cm, 05/11/24 13:... Start Date: 05/11/24 Status: Ordered doxepin 75 mg oral capsule = 75 mg, By Mouth, Daily at bedtime, # 14 tablet, 1 Refills, Maintenance, 03/26/24 10:08:00 EDT, Capsule, [facility], Partial fill upon patient request if the prescription isfor a schedule II opioid drug., 148, cm, 03/26/24 8... Start Date: 03/26/24 Stop Date: 04/23/24 Status: Ordered famotidine 20 mg oral tablet 20 mg, By Mouth, 2 times a day, # 28 tablet, Refills 1, Tot. Refills 1, Maintenance, 03/26/24 10:08:00 EDT, Route to Pharmacy Electronically, [facility], Partial fill upon patient request if the prescription is for a schedule... Start Date: 03/26/24 Stop Date: 04/23/24 Status: Ordered gabapentin 400 mg oral capsule 400 mg, By Mouth, 2 times a day, # 28 tablet, Refills 1, Tot. Refills 1, Maintenance, 03/26/24 10:08:00 EDT, Route to Pharmacy Electronically, [facility]-, Partial fill upon patient request if the prescription is for a schedule... Start Date: 03/26/24 Stop Date: 04/23/24 Status: Ordered LaMICtal 25 mg oral tablet 50 mg, By Mouth, Daily, # 28 tablet, Refills 1, Tot. Refills 1, Maintenance, 03/26/24 10:09:00 EDT,Route to Pharmacy Electronically, [facility]-, Partial fill upon patient request if the prescription is for a schedule II opioi... Start Date: 03/26/24 Stop Date: 04/23/24 Status: Ordered nystatin topical [id number] u/gm cream 1 application, Topically, Daily at bedtime, Apply topically for no greater than 30 nights, # 30 Gm,0 Refills, Maintenance, 05/14/24 21:56:00 EDT, Cream, [facility]/pharmacy #[id number], Partial fill upon patientrequest if the prescription is for a schedule II op... Start Date: 05/14/24 Status: Ordered propranolol 10 mg oral tablet 10 mg, By Mouth, 3 times a day, # 42 tablet, Refills 1, Tot. Refills 1, Maintenance, 03/26/24 10:09:00 EDT, Route to Pharmacy Electronically, [facility], Partial fill upon patient request if the prescription is for a schedule... Start Date: 03/26/24 Stop Date: 04/23/24 Status: Ordered Problem List Condition Confirmation Course Effective Dates Status Health St atus Informant Depression Confirmed Active Eating disorder Confirmed Active History of alcohol dependence Confirmed Active Social History Social History Type Response Smoking Status Smoker, current stat us unknown entered on: 06/23/21 Sex Patient Care team information Care Team Personnel Name: Jayla Cho NP Position: [facility] Physician - Hospital Medicine Member Role: PCP Address: Address: [address] [place] [address]- Name: NalwEdmond lai RN Position: [facility] RN Member Role: Primary Care Nurse Name: Diamond Schreiber RN Position: S RN Member Role: Primary Care Nurse Name: Shola Martinez RN Position: [facility] RN Member Role: Primary Care Nurse Care Team Related Persons Name: NAGIRAYMON MARCUS Address: [place] [address] Name: NONE, PT STATES
--- OUTSIDE RECORDS SUMMARY | 2024-09-29 14:26 | XMS_ITS | Continuity of Care Document ---
Author Organization [facility] Address [address] [place] [address]- Care Team Providers Care News Commentator Name Role Phone Clubb LENS BLOCK GAUGER, Jayla Primary Care Physician Encounter [facility] [place] Date(s): 02/06/24 - 02/07/[address] [address]- Discharge Disposition: Transfer to [facility] Attending Physician: Linda Tang MD Admitting Physician: [...] 1 Refills, Maintenance, 07/10/21 10:29:00 EDT, Tablet, [facility][id number], Partial fill upon patient request if the prescription is for a schedule II opioid drug., 148, cm, 07/10/21 9:08:00 EDT,... Start Date: 07/10/21 Status: Ordered cloNIDine 0.1 mg oral tablet 0.1 mg, 1, tablet, By Mouth, 3 times a day, # 90 tablet, Refills 1, Tot. Refills 1, Maintenance, 07/10/21 10:30:00 EDT, Route to Pharmacy Electronically, [facility] #[id number], Partial fill upon patient request if the prescription is for a sched... Start Date: 07/10/21 Status: Ordered cyclobenzaprine 5 mg oral tablet 1 tablet = 5 mg, By Mouth, Daily at bedtime, # 30 tablet, 1 Refills, Maintenance, 07/10/21 10:30:00EDT, Tablet, [facility] #[id number], Partial fill upon patient request if the [...] 07/10/21 10:31:00 EDT, Route to Pharmacy Electronically, [facility] #[id number], Partial fill upon patient request if the prescription is for a schedule II... Start Date: 07/10/21 Status: Ordered gabapentin 400 mg oral capsule 400 mg, Capsule, By Mouth, 02/06/24 21:00:00 EDT Start Date: 02/06/24 Stop Date: 02/06/24 Status: Completed hydrOXYzine pamoate 25 mg oral capsule 1 capsule = 25 mg, By Mouth, Daily at bedtime, # 30 capsule, 1 Refills, Maintenance, 07/10/21 10:31:00 EDT, Capsule, [facility] #[id number], Partial fill upon patient request if the prescriptionis for a schedule II opioid drug., tiffany Bills, ... Start Date: 07/10/21 Status: Ordered lithium 150 mg oral capsule 1 capsule = 150 mg, By Mouth, 2 times a day, # 60 capsule, 1 Refills, Maintenance, 07/10/21 10:31:00 EDT, Capsule, [facility] #[id number], Partial fill upon patient request if the [...] 1 Refills, Maintenance, 07/10/21 10:31:00 EDT, Tablet, [facility] #[id number], Partial fill upon patient request if the prescription isfor a schedule II opioid drug., 148, cm, 07/10/21 9... Start Date: 07/10/21 Status: Ordered ondansetron 4 mg oral tablet, disintegrating 1 tablet = 4 mg, By Mouth, 3 times a day, PRN Nausea & Vomiting, # 10 tablet, 0 Refills, Maintenance, 01/29/24 4:47:00 EDT, Tablet, [facility], Partial fill upon patient request if the prescription is for a schedule II opioid... Start Date: 01/29/24 Status: Ordered ondansetron 8 mg oral tablet, disintegrating 1 tablet = 8 mg, By Mouth, 3 times a day, PRN Nausea & Vomiting, # 15 tablet, 1 Refills, Maintenance, 07/10/21 10:32:00 EDT, DIS Tablet, [facility] #[id number], Partial fill upon patient request if the prescription is for a schedule II opioid makayla... Start Date: 07/10/21 Status: Ordered Pepcid AC Maximum Strength 20 mg oral tablet 20 mg, 1, tablet, By Mouth, 2 times a day, # 60 tablet, Refills 0, Tot. Refills 0, Maintenance, 11/13/22 13:20:00 EST, Route to Pharmacy Electronically, [facility]/pharmacy #[id number], Partial fill upon patient request if the prescription is for a schedule II opi... Start Date: 11/13/22 Status: Ordered propranolol 10 mg oral tablet 10 mg, 1, tablet, By Mouth, Daily in AM, # 30 tablet, Refills 1, Tot. Refills 1, Maintenance, 07/10/21 10:33:00 EDT, Route to Pharmacy Electronically, [facility][id number], Partial fill upon patient request if the [...] Range]: 1 2 3 Height 148 cm (02/06/24 7:39 PM) 148 cm (02/06/24 4:41 PM) 148 cm (02/06/24 4:39 PM) Weight 48 kg (02/06/24 7:39 PM) 48 kg (02/06/24 4:41 PM) 48 kg (02/06/24 4:39 PM) Oxygen Saturation [94-100 %] 98 % (02/06/24 7:39 PM) 97 % (02/06/24 4:39 PM) Pulse Rate [55-90 bpm] 87 bpm (02/06/24 7:39 PM) 94 bpm *H* (02/06/24 4:39 PM) Body Mass Index [18.5-24.99 kg/m2] 21.91 kg/m2 (02/06/24 7:39 PM) 21.91 kg/m2 (02/06/24 4:39 PM) Blood Pressure [90-138/55-84 mm Hg] 116/76mm Hg (02/06/24 7:39 PM) 123/85mm Hg (02/06/24 4:39 PM) Respiratory Rate [16-30 br/min] 18 br/min (02/06/24 8:02 PM) 16 br/min (02/06/24 7:39 PM) 16 br/min (02/06/24 4:39 PM) Temperature [96.8-100.4 DegF] 98.5 DegF (02/06/24 7:39 PM) 98.6 DegF (02/06/24 4:39 PM) Mode of Delivery (Oxygen) Room air (02/06/24 7:39 PM) Room air (02/06/24 4:39 PM) Blood pressure sites Arm, left (02/06/24 7:39 PM) Arm, right (02/06/24 4:39 PM) Temperature Route Temporal (02/06/24 7:39 PM) Temporal (02/06/24 4:39 PM) Dry Weight 48 kg (02/06/24 7:39 PM) 48 kg (02/06/24 4:41 PM) 48 kg (02/06/24 4:39 PM) Social History Social History Type Response Smoking Status Smoker, current stat us unknown entered on: 06/23/21 Sex Patient Care team information Care Team Personnel Name: Tammie JOSHUA, Jayla Position: [facility] Physician - Hospital Medicine Member Role: PCP Address: Address: [address] [place] [address]- Care Team Related Persons Name: NONE, PT STATES
--- OUTSIDE RECORDS SUMMARY | 2024-09-29 14:26 | XMS_ITS | Continuity of Care Document ---
Author Organization [facility] Address [address] [place] [address]- Care Team Providers Care Truck Greaser Name Role Phone Not on Staff, PCP Primary Care Physician Unavail able Encounter [facility] [place] Date(s): 06/24/21 - 06/24/[address] [address]- Discharge Disposition: A-D/C Home Attending Physician: Doc Guerrero DO Admitting Physician: Doc Guerrero DO Referring Physician: Not on Staff, Referring MD [...] Refills, Maintenance, 06/03/21 19:40:00 EDT, DIS Tablet, [facility] #[id number], Partial fill upon patient request if the [...] Range]: 1 2 3 Height 148 cm (06/24/21 2:17 PM) Weight 50 kg (06/24/21 2:17 PM) Oxygen Saturation [94-100 %] 100 % (06/24/21 8:05 PM) 100 % (06/24/21 4:00 PM) 100 % (06/24/21 3:00 PM) Pulse Rate [55-90 bpm] 85 bpm (06/24/21 8:05 PM) 87 bpm (06/24/21 4:00 PM) 78 bpm (06/24/21 3:00 PM) Blood Pressure [90-138/55-84 mm Hg] 107/72mm Hg (06/24/21 8:05 PM) 103/76mm Hg (06/24/21 3:00 PM) 120/94mm Hg (06/24/21 2:17 PM) Respiratory Rate [16-30 br/min] 18 br/min (06/24/21 8:05 PM) 16 br/min (06/24/21 4:00 PM) 20 br/min (06/24/21 3:00 PM) Temperature [96.8-100.4 DegF] 97.0 DegF (06/24/21 2:17 PM) Mode of Delivery (Oxygen) Room air (06/24/21 8:05 PM) Room air (06/24/21 4:00 PM) Room air (06/24/21 3:00 PM) Blood pressure sites Arm, left (06/24/21 3:00 PM) Arm, left (06/24/21 2:17 PM) Temperature Route Axillary (06/24/21 2:17 PM) Dry Weight 50 kg (06/24/21 2:17 PM) Social History Social History Type Response Smoking Status Smoker, current stat us unknown entered on: 06/23/21 Sex
--- OUTSIDE RECORDS SUMMARY | 2024-09-29 14:26 | XMS_ITS | Continuity of Care Document ---
Author Organization [facility] Address [address] [place] [address]- Care Team Providers Care Grounds And Nursery Specialist Name Role Phone Singer WINTERS, Jagdish W Primary Care Physician En[place] [facility] [place] Date(s): 05/19/24 - 06/20/24 [facility] [address] [place], [place] [address] Attending Physician: Maida Martínez MD Admitting Physician: Maida Martínez MD Allergies, Adverse Reactions, Alerts No Known [...] film, 0 Refills, Maintenance, 03/26/24 10:07:00 EDT, 27 [address] [facility]-, Partial fill upon patient request if the prescription is for a schedule II opioid drug., 1... Start Date: 03/26/24 Stop Date: 04/02/24 Status: Ordered buprenorphine-naloxone 8 mg-2 mg sublingual film 1 film, Sublingual, Daily at bedtime, # 7 film, 0 Refills, Maintenance, 03/26/24 10:08:00 EDT, [email or web address]-, Partial fill upon patient request if the prescription is for a schedule II opioid drug., 1 film Sublingual Daily... Start Date: 03/26/24 Stop Date: 04/02/24 Status: Ordered cloNIDine 0.1 mg oral tablet 0.1 mg, By Mouth, 3 times a day, # 42 tablet, Refills 1, Tot. Refills 1, Maintenance, 03/26/24 10:08:00 EDT, Route to Pharmacy Electronically, [facility], Partial fill upon patient request if the prescription is for a schedule... Start Date: 03/26/24 Stop Date: 04/23/24 Status: Ordered Colace sodium 100 mg oral capsule 100 mg, 1, capsule, By Mouth, 2 times a day, PRN, # 60 capsule, Refills 0, Tot. Refills 0, Maintenance, Constipation, 03/26/24 10:08:00 EDT, Route to Pharmacy Electronically, [facility], Partial fill upon patient request if th... Start Date: 03/26/24 Stop Date: 04/09/24 Status: Ordered Diflucan 150 mg oral tablet 1 tablet = 150 mg, By Mouth, Every 72 hours, # 2 tablet, 0 Refills, Maintenance, 05/11/24 14:19:00 EDT, [facility], Partial fill upon patient request if the prescription is for a schedule II opioid drug., 148, cm, 05/11/24 13:... Start Date: 05/11/24 Status: Ordered doxepin 75 mg oral capsule = 75 mg, By Mouth, Daily at bedtime, # 14 tablet, 1 Refills, Maintenance, 03/26/24 10:08:00 EDT, Capsule, [facility], Partial fill upon patient request if the prescription isfor a schedule II opioid drug., 148, cm, 03/26/24 8... Start Date: 03/26/24 Stop Date: 04/23/24 Status: Ordered famotidine 20 mg oral tablet 20 mg, By Mouth, 2 times a day, # 28 tablet, Refills 1, Tot. Refills 1, Maintenance, 03/26/24 10:08:00 EDT, Route to Pharmacy Electronically, [facility], Partial fill upon patient request if the prescription is for a schedule... Start Date: 03/26/24 Stop Date: 04/23/24 Status: Ordered gabapentin 400 mg oral capsule 400 mg, By Mouth, 2 times a day, # 28 tablet, Refills 1, Tot. Refills 1, Maintenance, 03/26/24 10:08:00 EDT, Route to Pharmacy Electronically, [facility]-, Partial fill upon patient request if the prescription is for a schedule... Start Date: 03/26/24 Stop Date: 04/23/24 Status: Ordered LaMICtal 25 mg oral tablet 50 mg, By Mouth, Daily, # 28 tablet, Refills 1, Tot. Refills 1, Maintenance, 03/26/24 10:09:00 EDT,Route to Pharmacy Electronically, [facility]-, Partial fill upon patient request if the prescription is for a schedule II opioi... Start Date: 03/26/24 Stop Date: 04/23/24 Status: Ordered nystatin topical 180485 u/gm cream 1 application, Topically, Daily at bedtime, Apply topically for no greater than 30 nights, # 30 Gm,0 Refills, Maintenance, 05/14/24 21:56:00 EDT, Cream, [facility]/pharmacy #[id number], Partial fill upon patientrequest if the prescription is for a schedule II op... Start Date: 05/14/24 Status: Ordered propranolol 10 mg oral tablet 10 mg, By Mouth, 3 times a day, # 42 tablet, Refills 1, Tot. Refills 1, Maintenance, 03/26/24 10:09:00 EDT, Route to Pharmacy Electronically, [facility], Partial fill upon patient request [...] Care team information Care Team Personnel Name: Edmond Hi RN Position: [facility] RN Member Role: Primary Care Nurse Name: Jagdish Guerrero DO Position: [facility] Physician - [facility] Medicine Member Role: PCP Address: Address: [address] [place] [address]- Name: Diamond Schreiber RN Position: [facility] RN Member Role: Primary Care Nurse Name: Shola Martinez RN Position: S RN Member Role: Primary Care Nurse Care Team Related Persons Name: MARCUS CALL Address: [place] [address] Name: NONE, PT STATES
--- OUTSIDE RECORDS SUMMARY | 2024-09-29 14:26 | XMS_ITS | Continuity of Care Document ---
Author Organization [facility] Address [address] [place] [address]- Care Team Providers Care Hanger Name Role Phone Jagdish Guerrero DO W Primary Care Physician Encounter [facility] [place] Date(s): 05/03/24 - 06/02/24 [facility] [address] [place], [place] [address] Allergies, Adverse Reactions, Alerts No Known [...] film, 0 Refills, Maintenance, 03/26/24 10:07:00 [facility]T, [facility] upon patient request if the prescription is for a schedule II opioid drug., 1... Start Date: 03/26/24 Stop Date: 04/02/24 Status: Ordered buprenorphine-naloxone 8 mg-2 mg sublingual film 1 film, Sublingual, Daily at bedtime, # 7 film, 0 Refills, Maintenance, 03/26/24 10:08:00 EDT, [employer] [facility]-, Partial fill upon patient request if the prescription is for a schedule II opioid drug., 1 film Sublingual Daily... Start Date: 03/26/24 Stop Date: 04/02/24 Status: Ordered cloNIDine 0.1 mg oral tablet 0.1 mg, By Mouth, 3 times a day, # 42 tablet, Refills 1, Tot. Refills 1, Maintenance, 03/26/24 10:08:00 EDT, Route to Pharmacy Electronically, [facility], Partial fill upon patient request if the prescription is for a schedule... Start Date: 03/26/24 Stop Date: 04/23/24 Status: Ordered Colace sodium 100 mg oral capsule 100 mg, 1, capsule, By Mouth, 2 times a day, PRN, # 60 capsule, Refills 0, Tot. Refills 0, Maintenance, Constipation, 03/26/24 10:08:00 EDT, Route to Pharmacy Electronically, [facility], Partial fill upon patient request if th... Start Date: 03/26/24 Stop Date: 04/09/24 Status: Ordered Diflucan 150 mg oral tablet 1 tablet = 150 mg, By Mouth, Every 72 hours, # 2 tablet, 0 Refills, Maintenance, 05/11/24 14:19:00 EDT, [facility], Partial fill upon patient request if the prescription is for a schedule II opioid drug., 148, cm, 05/11/24 13:... Start Date: 05/11/24 Status: Ordered doxepin 75 mg oral capsule = 75 mg, By Mouth, Daily at bedtime, # 14 tablet, 1 Refills, Maintenance, 03/26/24 10:08:00 EDT, Capsule, [facility], Partial fill upon patient request if the prescription isfor a schedule II opioid drug., 148, cm, 03/26/24 8... Start Date: 03/26/24 Stop Date: 04/23/24 Status: Ordered famotidine 20 mg oral tablet 20 mg, By Mouth, 2 times a day, # 28 tablet, Refills 1, Tot. Refills 1, Maintenance, 03/26/24 10:08:00 EDT, Route to Pharmacy Electronically, [facility], Partial fill upon patient request if the prescription is for a schedule... Start Date: 03/26/24 Stop Date: 04/23/24 Status: Ordered gabapentin 400 mg oral capsule 400 mg, By Mouth, 2 times a day, # 28 tablet, Refills 1, Tot. Refills 1, Maintenance, 03/26/24 10:08:00 EDT, Route to Pharmacy Electronically, [facility]-, Partial fill upon patient request if the prescription is for a schedule... Start Date: 03/26/24 Stop Date: 04/23/24 Status: Ordered LaMICtal 25 mg oral tablet 50 mg, By Mouth, Daily, # 28 tablet, Refills 1, Tot. Refills 1, Maintenance, 03/26/24 10:09:00 EDT,Route to Pharmacy Electronically, [facility]-, Partial fill upon patient request if the prescription is for a schedule II opioi... Start Date: 03/26/24 Stop Date: 04/23/24 Status: Ordered nystatin topical 211394 u/gm cream 1 application, Topically, Daily at bedtime, Apply topically for no greater than 30 nights, # 30 Gm,0 Refills, Maintenance, 05/14/24 21:56:00 EDT, Cream, [facility]/pharmacy #[id number], Partial fill upon patientrequest if the prescription is for a schedule II op... Start Date: 05/14/24 Status: Ordered propranolol 10 mg oral tablet 10 mg, By Mouth, 3 times a day, # 42 tablet, Refills 1, Tot. Refills 1, Maintenance, 03/26/24 10:09:00 EDT, Route to Pharmacy Electronically, [facility]-, Partial fill upon patient request if [...] Team Personnel Name: Edmond Hi RN Position: S RN Member Role: Primary Care Nurse Name: Jagdish Guerrero DO Position: [facility] Physician - [facility] Medicine Member Role: PCP Address: Address: [address] [place] [address]- Name: Diamond Schreiber RN Position: S RN Member Role: Primary Care Nurse Name: Shola Martinez RN Position: S RN Member Role: Primary Care Nurse Care Team Related Persons Name: MARCUS CALL Address: [place] [address] Name: NONE, PT STATES
--- OUTSIDE RECORDS SUMMARY | 2024-09-29 14:26 | XMS_ITS | Continuity of Care Document ---
Author Organization [facility] Address [address] [place] [address]- Care Team Providers Care Base Remover Name Role Phone Tammie ELECTRICIAN TELEPHONE, Jayla Primary Care Physician Encounter [facility] [place] Date(s): 04/16/23 - 04/16/[address] [address]- Encounter Diagnosis Needlestick injury due to hypodermic needle(Final) - 04/16/23 Discharge Disposition: A-D/C Home Attending Physician: Vivi Gonzalez MD Admitting Physician: Vivi Gonzalez MD Referring Physician: Not on Staff, Referring MD Allergies, Adverse Reactions, Alerts No Known Medication Allergies Immunizations Given and Recorded Vaccine Date Status Refusal Reason SARS-CoV-2 (COVID-19) Ad26 vaccine 02/08/21 Record ed Medications citalopram 40 mg oral tablet 1 tablet = 40 mg, By Mouth, Daily, # 30 tablet, 1 Refills, Maintenance, 07/10/21 10:29:00 EDT, Tablet, [facility] #[id number], Partial fill upon patient request if the prescription is for a schedule II opioid drug., 148, cm, 07/10/21 9:08:00 EDT,... Start Date: 07/10/21 Status: Ordered cloNIDine 0.1 mg oral tablet 0.1 mg, 1, tablet, By Mouth, 3 times a day, # 90 tablet, Refills 1, Tot. Refills 1, Maintenance, 07/10/21 10:30:00 EDT, Route to Pharmacy Electronically, [facility] #[id number], Partial fill upon patient request if the prescription is for a sched... Start Date: 07/10/21 Status: Ordered cyclobenzaprine 5 mg oral tablet 1 tablet = 5 mg, By Mouth, Daily at bedtime, # 30 tablet, 1 Refills, Maintenance, 07/10/21 10:30:00EDT, Tablet, [facility] #[id number], Partial fill upon patient request if the [...] 07/10/21 10:31:00 EDT, Route to Pharmacy Electronically, [facility] #[id number], Partial fill upon patient request if the prescription is for a schedule II... Start Date: 07/10/21 Status: Ordered hydrOXYzine pamoate 25 mg oral capsule 1 capsule = 25 mg, By Mouth, Daily at bedtime, # 30 capsule, 1 Refills, Maintenance, 07/10/21 10:31:00 EDT, Capsule, [facility] #[id number], Partial fill upon patient request if the prescriptionis for a schedule II opioid drug., tiffany Bills, ... Start Date: 07/10/21 Status: Ordered lithium 150 mg oral capsule 1 capsule = 150 mg, By Mouth, 2 times a day, # 60 capsule, 1 Refills, Maintenance, 07/10/21 10:31:00 EDT, Capsule, [facility] #[id number], Partial fill upon patient request if the [...] 1 Refills, Maintenance, 07/10/21 10:31:00 EDT, Tablet, [facility] #[id number], Partial fill upon patient request if the prescription isfor a schedule II opioid drug., 148, cm, 07/10/21 9... Start Date: 07/10/21 Status: Ordered ondansetron 8 mg oral tablet, disintegrating 1 tablet = 8 mg, By Mouth, 3 times a day, PRN Nausea & Vomiting, # 15 tablet, 1 Refills, Maintenance, 07/10/21 10:32:00 EDT, DIS Tablet, [facility] #[id number], Partial fill upon patient request if the prescription is for a schedule II opioid makayla... Start Date: 07/10/21 Status: Ordered Pepcid AC Maximum Strength 20 mg oral tablet 20 mg, 1, tablet, By Mouth, 2 times a day, # 60 tablet, Refills 0, Tot. Refills 0, Maintenance, 11/13/22 13:20:00 EST, Route to Pharmacy Electronically, [facility]/pharmacy #[id number], Partial fill upon patient request if the prescription is for a schedule II opi... Start Date: 11/13/22 Status: Ordered propranolol 10 mg oral tablet 10 mg, 1, tablet, By Mouth, Daily in AM, # 30 tablet, Refills 1, Tot. Refills 1, Maintenance, 07/10/21 10:33:00 EDT, Route to Pharmacy Electronically, [facility] #[id number], Partial fill upon patient request if the [...] [Reference Range]: 1 2 Height 148 cm (04/16/23 12:11 PM) Weight 43.8 kg (04/16/23 12:11 PM) 43.8 kg (04/16/23 11:20 AM) Oxygen Saturation [94-100 %] 100 % (04/16/23 11:20 AM) Pulse Rate [55-90 bpm] 78 bpm (04/16/23 11:20 AM) Blood Pressure [90-138/55-84 mm Hg] 124/ 92mm Hg (04/16/23 11:20 AM) Respiratory Rate [16-30 br/min] 17 br/mi n (04/16/23 11:20 AM) Temperature [96.8-100.4 DegF] 98.4 DegF (04/16/23:20 AM) Mode of Delivery (Oxygen) Room air (04/16/23:20 AM) Temperature Route Oral (04/16/23 11:20 AM) Dry Weight 43.8 kg (04/16/23 12:11 PM) 43.8 kg (04/16/23 11:20 AM) Weight Obtained Via Standing scale (04/16/23 12:11 PM) Standing scale (04/16/23 11:20 AM) Social History Social History Type Response Smoking Status Smoker, current stat us unknown entered on: 06/23/21 Sex Note * Lisa BOJORQUEZ, Vivi Avina: PERFORM Event Display: Patient Education Leaflets Authored Date: [id number] Puncture Wound ?? [id number] Puncture Wound A puncture wound occurs when a pointed object pushes into the skin. It may go into the tissues below the skin, including fat and muscle. This type of wound is narrow and deep and can be hard to clean. Because of this, puncture wounds are at high risk of becoming infected. X-rays may be done to check the wound for objects stuck under the skin. You may also need a tetanusshot. This is given if you are not up-to-date on this vaccine. You may also get this shot if it's been more than 5 years since your last tetanus shot and the object that caused the wound may lead to tetanus. Home care ??? Your healthcare provider may prescribe an antibiotic. This is to help prevent or treat an infection. Follow all instructions for taking this medicine. Take the medicine every day until it's gone or you are told to stop. You should not have any left over. ??? You can take acetaminophenor ibuprofen for pain, unless you were given a different pain medicine to use.??If your healthcare provider prescribes medicines for pain, follow the instructions for taking them. ??? Your healthcareprovider will likely give you instructions on how to care for the wound. Follow these instructions.??? Keep the wound clean and dry. Don't get the wound wet until you are told it is OK to do so. If the area gets wet, gently pat it dry with a clean cloth. Replace the wet bandage with a dry one. ???If a bandage was applied and it becomes wet or dirty, replace it. Otherwise, leave it in place for the first 24 hours. ??? You may shower as usual once your provider gives you the OK to get the woundwet. But don't soak the wound in water. This means no tub baths or swimming. ??? Even with correct t reatment, a puncture wound may become infected. Check the wound daily for signs of infection listedbelow. ?? Follow-up care Follow up with your healthcare provider as advised.? When to seek medical advice Call your healthcare provider right away if any of these occur: ??? Signs of infection. These include: o Redness or swelling around the wound gets worse o Warmth of the wound increases o Pain gets worse o Red streaking lines away from the wound o Draining pus ??? Fever of 100.4??F (38.??C) or higher, or as directed by your healthcare provider ??? Changes in color of the wound ??? Numbness around the wound ??? Decreased movement around the injured area ?? Last Reviewed Date: 2021 ?? [id number] [employer]. All rights reserved. This information is not intended as a substitute for professional medical care. Always follow your healthcare professional's instructions. ?? Patient Care team information Care Team Personnel Name: Jayla Cho NP Position: [facility] Physician - Primary Care Member Role: PCP Address: Address: [address] [place] [address]- Name: Elian Jensen RN Position: [facility] ED RN W/OE and Tasks Member Role: Patient Care Provider Name: Vivi Gonzalez MD Position: [facility] ED Medicine MD Member Role: Admitting Physician Address: Address: [address] [place] [address]- Care Team Related Persons Name: NONE, PT STATES
--- OUTSIDE RECORDS SUMMARY | 2024-09-29 14:26 | XMS_ITS | Continuity of Care Document ---
Author Organization [facility] Address [address] [place] [address]- Care Team Providers Care Pull Out Operator Name Role Phone Jagdish Guerrero DO W Primary Care Physician [phone] Encounter [facility] [place] Date(s): 05/14/24 - 06/13/24 [facility] [address] [place], [place] [address] Allergies, Adverse Reactions, Alerts No [...] film, 0 Refills, Maintenance, 03/26/24 10:07:00 EDT, [facility] Partial fill upon patient request if the prescription is for a schedule II opioid drug., 1... Start Date: 03/26/24 Stop Date: 04/02/24 Status: Ordered buprenorphine-naloxone 8 mg-2 mg sublingual film 1 film, Sublingual, Daily at bedtime, # 7 film, 0 Refills, Maintenance, 03/26/24 10:08:00 EDT, [facility]-, Partial fill upon patient request if the prescription is for a schedule II opioid drug., 1 film Sublingual Daily... Start Date: 03/26/24 Stop Date: 04/02/24 Status: Ordered cloNIDine 0.1 mg oral tablet 0.1 mg, By Mouth, 3 times a day, # 42 tablet, Refills 1, Tot. Refills 1, Maintenance, 03/26/24 10:08:00 EDT, Route to Pharmacy Electronically, [facility], Partial fill upon patient request if the prescription is for a schedule... Start Date: 03/26/24 Stop Date: 04/23/24 Status: Ordered Colace sodium 100 mg oral capsule 100 mg, 1, capsule, By Mouth, 2 times a day, PRN, # 60 capsule, Refills 0, Tot. Refills 0, Maintenance, Constipation, 03/26/24 10:08:00 EDT, Route to Pharmacy Electronically, [facility], Partial fill upon patient request if th... Start Date: 03/26/24 Stop Date: 04/09/24 Status: Ordered Diflucan 150 mg oral tablet 1 tablet = 150 mg, By Mouth, Every 72 hours, # 2 tablet, 0 Refills, Maintenance, 05/11/24 14:19:00 EDT, [facility], Partial fill upon patient request if the prescription is for a schedule II opioid drug., 148, cm, 05/11/24 13:... Start Date: 05/11/24 Status: Ordered doxepin 75 mg oral capsule = 75 mg, By Mouth, Daily at bedtime, # 14 tablet, 1 Refills, Maintenance, 03/26/24 10:08:00 EDT, Capsule, [facility], Partial fill upon patient request if the prescription isfor a schedule II opioid drug., 148, cm, 03/26/24 8... Start Date: 03/26/24 Stop Date: 04/23/24 Status: Ordered famotidine 20 mg oral tablet 20 mg, By Mouth, 2 times a day, # 28 tablet, Refills 1, Tot. Refills 1, Maintenance, 03/26/24 10:08:00 EDT, Route to Pharmacy Electronically, [facility], Partial fill upon patient request if the prescription is for a schedule... Start Date: 03/26/24 Stop Date: 04/23/24 Status: Ordered gabapentin 400 mg oral capsule 400 mg, By Mouth, 2 times a day, # 28 tablet, Refills 1, Tot. Refills 1, Maintenance, 03/26/24 10:08:00 EDT, Route to Pharmacy Electronically, [facility]-, Partial fill upon patient request if the prescription is for a schedule... Start Date: 03/26/24 Stop Date: 04/23/24 Status: Ordered LaMICtal 25 mg oral tablet 50 mg, By Mouth, Daily, # 28 tablet, Refills 1, Tot. Refills 1, Maintenance, 03/26/24 10:09:00 EDT,Route to Pharmacy Electronically, [facility]-, Partial fill upon patient request if the prescription is for a schedule II opioi... Start Date: 03/26/24 Stop Date: 04/23/24 Status: Ordered nystatin topical 711882 u/gm cream 1 application, Topically, Daily at bedtime, Apply topically for no greater than 30 nights, # 30 Gm,0 Refills, Maintenance, 05/14/24 21:56:00 EDT, Cream, [facility]/pharmacy #[id number], Partial fill upon patientrequest if the prescription is for a schedule II op... Start Date: 05/14/24 Status: Ordered propranolol 10 mg oral tablet 10 mg, By Mouth, 3 times a day, # 42 tablet, Refills 1, Tot. Refills 1, Maintenance, 03/26/24 10:09:00 EDT, Route to Pharmacy Electronically, [facility]-, Partial fill upon patient request if [...] Care Nurse Name: Jagdish Guerrero DO Position: [facility] Physician - [facility] Medicine Member Role: PCP Address: Address: [address] [place] [address]- Name: Diamond Schreiber RN Position: S RN Member Role: Primary Care Nurse Name: Shola Martinez RN Position: S RN Member Role: Primary Care Nurse Care Team Related Persons Name: MARCUS CALL Address: [place] [address] Name: NONE, PT STATES
--- OUTSIDE RECORDS SUMMARY | 2024-09-29 14:26 | XMS_ITS | Continuity of Care Document ---
Author Organization [facility] Address [address] [place] [address]- Care Team Providers Care Morning Babysitter Name Role Phone Not on Staff, PCP Primary Care Physician Unavail able [place] [facility] [place] 06/23/21 - 06/24/21 [facility] [address] [place] [address]- Discharge Disposition: A-D/C AMA Attending Physician: Shannon Wallis MD Admitting Physician: Jonny Keller MD Referring Physician: Not on Staff, Referring [...] Refills, Maintenance, 06/03/21 19:40:00 EDT, DIS Tablet, [facility] #[id number], Partial fill upon patient request if the [...] 1 2 3 4 Height 148 cm (06/24/21 8:47 AM) 148 cm (06/24/21 6:04 AM) 148 cm (06/24/21 3:55 AM) Weight 48.7 kg (06/24/21 4:49 AM) 53.7 kg (06/23/21 9:41 PM) 53.7 kg (06/23/21 9:41 PM) Oxygen Saturation [94-100 %] 99 % (06/24/21 8:47 AM) 97 % (06/24/21 6:04 AM) 97 % (06/24/21 3:55 AM) Pulse Rate [55-90 bpm] 93 bpm *H* (06/24/21 8:47 AM) 118 bpm *H* (06/24/21 8:03 AM) 98 bpm *H* (06/24/21 6:04 AM) Body Mass Index [18.5-24.99] 24.52 (06/23/21 9:41 PM) 24.52 (06/23/21 9:41 PM) Blood Pressure [90-138/55-84 mm Hg] 107/69mm Hg (06/24/21 8:47 AM) 105/76mm Hg (06/24/21 6:04 AM) 107/79mm Hg (06/24/21 3:55 AM) Respiratory Rate [16-30 br/min] 20 br/min (06/24/21 8:03 AM) 18 br/min (06/24/21 6:04 AM) 20 br/min (06/24/21 3:55 AM) Temperature [96.8-100.4 DegF] 97.7 DegF (06/24/21 8:47 AM) 97.9 DegF (06/24/21 6:04 AM) 98.5 DegF (06/24/21 3:55 AM) Liters per Minute 0 L/min (06/24/21 12:39 AM) Mode of Delivery (Oxygen) Room air (06/24/21 8:47 AM) Room air (06/24/21 6:04 AM) Room air (06/24/21 3:55 AM) Blood pressure sites Arm, left (06/24/21 8:47 AM) Arm, left (06/24/21 12:39 AM) Arm, left (06/23/21 9:41 PM) Arm, left (06/23/21 9:41 PM) Temperature Route Oral (06/24/21 8:47 AM) Oral (06/24/21 6:04 AM) Oral (06/24/21 3:55 AM) Dry Weight 50 kg (06/23/21 11:11 PM) 50 kg (06/23/21 3:17 PM) Weight Obtained Via Bed scale (06/24/21 4:49 AM) Social History Social History Type Response Smoking Status Smoker, current stat us unknown entered on: 06/23/21 Sex
--- OUTSIDE RECORDS SUMMARY | 2024-09-29 14:26 | XMS_ITS | Continuity of Care Document ---
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, Jayla Primary Care Physician [phone] [place] [facility] [place] Date(s[place] 07/08/24 - 07/08/[address] [address]- Discharge Disposition: A-D/C Home Attending Physician: Lisbeth BOJORQUEZ, Oliva Youngblood Admitting Physician: Oliva Bob MD Referring Physician: Not on Staff, Referring MD Allergies, Adverse Reactions, Alerts No Known Medication Allergies Immunizations Given and Recorded Vaccine Date Status Refusal Reason SARS-CoV-2 (COVID-19) Ad26 vaccine 02/08/21 Record ed Medications Acetaminophen Tablet 975 mg, Tablet, By Mouth, Once, STAT, 07/08/24 12:47:00 EDT, Stop date 07/08/24 12:47:00 EDT Start Date: 07/08/24 Stop Date: 07/08/24 Status: Completed Amphotericin B 50mg suppository Amphotericin B 50mg suppository, See Instructions, # 14 each, Refills 0, Tot. Refills 0, Maintenance, Intravaginally at night for 14 nights, 05/14/24 18:20:00 EDT, Supply Start Date: 05/14/24 Status: Ordered buprenorphine-naloxone 4 mg-1 mg sublingual film 1 film, Sublingual, 2 times a day, take morning and midday, # 14 film, 0 Refills, Maintenance, 03/26/24 10:07:00 EDT, Film, [facility]-, Partial fill upon patient request if the prescription is for a schedule II opioid drug., 1... Start Date: 03/26/24 Stop Date: 04/02/24 Status: Ordered buprenorphine-naloxone 8 mg-2 mg sublingual film 1 film, Sublingual, Daily at bedtime, # 7 film, 0 Refills, Maintenance, 03/26/24 10:08:00 EDT, Film, [facility]-, Partial fill upon patient request if the prescription is for a schedule II opioid drug., 1 film Sublingual Daily... Start Date: 03/26/24 Stop Date: 04/02/24 Status: Ordered cloNIDine 0.1 mg oral tablet 0.1 mg, By Mouth, 3 times a day, # 42 tablet, Refills 1, Tot. Refills 1, Maintenance, 03/26/24 10:08:00 EDT, Route to Pharmacy Electronically, [facility]-, Partial fill upon patient request if the prescription is for a schedule... Start Date: 03/26/24 Stop Date: 04/23/24 Status: Ordered Colace sodium 100 mg oral capsule 100 mg, 1, capsule, By Mouth, 2 times a day, PRN, # 60 capsule, Refills 0, Tot. Refills 0, Maintenance, Constipation, 03/26/24 10:08:00 EDT, Route to Pharmacy Electronically, [facility]-, Partial fill upon patient request if th... Start Date: 03/26/24 Stop Date: 04/09/24 Status: Ordered Diflucan 150 mg oral tablet 1 tablet = 150 mg, By Mouth, Every 72 hours, # 2 tablet, 0 Refills, Maintenance, 05/11/24 14:19:00 EDT, [facility]-, Partial fill upon patient request if the prescription is for a schedule II opioid drug., 148, cm, 05/11/24 13:... Start Date: 05/11/24 Status: Ordered doxepin 75 mg oral capsule = 75 mg, By Mouth, Daily at bedtime, # 14 tablet, 1 Refills, Maintenance, 03/26/24 10:08:00 EDT, Capsule, [facility], Partial fill upon patient request if the prescription isfor a schedule II opioid drug., 148, cm, 03/26/24 8... Start Date: 03/26/24 Stop Date: 04/23/24 Status: Ordered famotidine 20 mg oral tablet 20 mg, By Mouth, 2 times a day, # 28 tablet, Refills 1, Tot. Refills 1, Maintenance, 03/26/24 10:08:00 EDT, Route to Pharmacy Electronically, [facility]-, Partial fill upon patient request if the prescription is for a schedule... Start Date: 03/26/24 Stop Date: 04/23/24 Status: Ordered gabapentin 400 mg oral capsule 400 mg, By Mouth, 2 times a day, # 28 tablet, Refills 1, Tot. Refills 1, Maintenance, 03/26/24 10:08:00 EDT, Route to Pharmacy Electronically, [facility]-, Partial fill upon patient request if the prescription is for a schedule... Start Date: 03/26/24 Stop Date: 04/23/24 Status: Ordered LaMICtal 25 mg oral tablet 50 mg, By Mouth, Daily, # 28 tablet, Refills 1, Tot. Refills 1, Maintenance, 03/26/24 10:09:00 EDT,Route to Pharmacy Electronically, [facility]-, Partial fill upon patient request if the prescription is for a schedule II opioi... Start Date: 03/26/24 Stop Date: 04/23/24 Status: Ordered MiraLax oral powder for reconstitution = 17 Gm, By Mouth, Daily, for 7 days, dissolve in 4 to 8 oz of beverage, # 238 Gm, 0 Refills, Acute07/15/24 14:22:00 EDT, 07/08/24 14:22:00 EDT, REC Powder, [facility]/pharmacy #[id number], Partial fill upon patient request if the prescription is for a schedule I... Start Date: 07/08/24 Stop Date: 07/15/24 Status: Ordered Motrin Tablet 400 mg, Tablet, By Mouth, Once, STAT, 07/08/24 12:47:00 EDT, Stop date 07/08/24 12:47:00 EDT Start Date: 07/08/24 Stop Date: 07/08/24 Status: Completed nystatin topical 641467 u/gm cream 1 application, Topically, Daily at bedtime, Apply topically for no greater than 30 nights, # 30 Gm,0 Refills, Maintenance, 05/14/24 21:56:00 EDT, Cream, [facility]/pharmacy #[id number], Partial fill upon patientrequest if the prescription is for a schedule II op... Start Date: 05/14/24 Status: Ordered Preparation H Rapid Relief With Lidocaine topical cream 1 application, Topically, 4 times a day, PRN as needed to control symptoms, for 7 days, # 28 Gm, 0 Refills, Acute 07/15/24 14:20:00 EDT, 07/08/24 14:20:00 EDT, Cream, [facility]/pharmacy #[id number], Partial fillupon patient request if the prescription is for a s... Start Date: 07/08/24 Stop Date: 07/15/24 Status: Ordered propranolol 10 mg oral tablet 10 mg, By Mouth, 3 times a day, # 42 tablet, Refills 1, Tot. Refills 1, Maintenance, 03/26/24 10:09:00 EDT, Route to Pharmacy Electronically, [facility], Partial fill upon patient request if the prescription is for a schedule... Start Date: 03/26/24 Stop Date: 04/23/24 Status: Ordered Problem List Condition Confirmation Course Effective Dates Status Health St atus Informant Depression Confirmed Active Eating disorder Confirmed Active History of alcohol dependence Confirmed Active Results Orders for Microbiology Reports Name Date Wet Prep 07/08/24 Microbiology Reports TEST:Wet Prep STATUS:Auth (Verified) BODY SITE: SOURCE:VAGINA COLLECTED DATE/TIME:07/08/24 2:22 PM Wet Prep SPECIMEN DESCRIPTION : VAGINAL SPECIMEN SPECIAL REQUESTS : NONE DIRECT EXAM : 1+ WHITE BLOOD CELLS 1+ YEAST NO TRICHOMONAS OBSERVED NO CLUE CELLS OBSERVED REPORT STATUS : FINAL 07/08/2024 Vital Signs Most recent to oldest [Reference Range]: 1 2 3 Height 148 cm (07/08/24 11:39 AM) 148 cm (07/08/24 11:36 AM) Weight 41.4 kg (07/08/24 11:39 AM) 41.4 kg (07/08/24 11:36 AM) Oxygen Saturation [94-100 %] 100 % (07/08/24 2:34 PM) 100 % (07/08/24 1:08 PM) 100 % (07/08/24 11:36 AM) Pulse Rate [55-90 bpm] 60 bpm (07/08/24 2:34 PM) 67 bpm (07/08/24 1:08 PM) 73 bpm (07/08/24 11:36 AM) Body Mass Index [18.5-24.99 kg/m2] 18.9 kg/m2 (07/08/24 11:36 AM) Blood Pressure [90-138/55-84 mm Hg] 133/89mm Hg (07/08/24 2:34 PM) 118/85mm Hg (07/08/24 1:08 PM) 139/101mm Hg *H* (07/08/24 11:36 AM) Respiratory Rate [16-30 br/min] 17 br/min (07/08/24 2:34 PM) 16 br/min (07/08/24 2:03 PM) 16 br/min (07/08/24 2:03 PM) Temperature [96.8-100.4 DegF] 97.5 DegF (07/08/24 11:36 AM) Mode of Delivery (Oxygen) Room air (07/08/24 1:08 PM) Room air (07/08/24 11:36 AM) Blood pressure sites Arm, right (07/08/24 2:34 PM) Arm, left (07/08/24 1:08 PM) Arm, right (07/08/24 11:36 AM) Temperature Route Temporal (07/08/24 11:36 AM) Dry Weight 41.4 kg (07/08/24 11:39 AM) 41.4 kg (07/08/24 11:36 AM) Weight Obtained Via Standing scale (07/08/24 11:36 AM) Dry Weight Obtained Via Standing scale (07/08/24 11:36 AM) Social History Social History Type Response Smoking Status Smoker, current stat us unknown entered on: 06/23/21 Sex Note * Oliva Bob MD: PERFORM, SIGN, VERIFY Event Display: Patient Education Handout Authored Date: [id number] * Oliva Bob MD: PERFORM Event Display: Patient Education Leaflets Authored Date: [id number] Hemorrhoids Discharge Instructions ?? 672 ??Hemorrhoids Discharge Instructions ??You must carefully read the Consumer Information Use and Disclaimer below in order to understand and correctly use this information?? About this topic Hemorrhoids are swollen veins in the rectum. Your rectum is where stool leaves your body. You may be able to see or feel your hemorrhoids outside of your body, but some hemorrhoids are inside of yourrectum and cannot be seen. Hemorrhoids can cause itching, pain, and bleeding. Being constipated or having hard stools can make your hemorrhoids worse.?? What care is needed at home? Ask your doctor what you need to do when you go home. Make sure??you ask questions if you do not understand what the doctor says. This??way you will know what you need to do. ??? Soak your bottomin a few inches of warm water for 10 to 15 minutes??at a time. You can do this 2 to 3 times each day. Do not add soap,??bubble bath, or anything to the water. ??? Use imdf-nnw-azjkryf medicines to treat your hemorrhoids. These??include ointments and creams to help with pain and swelling. You can??also use a product like witch margy to help dry out the skin in the area. ??? To help with constipation: ??? Use stool softeners when needed. ??? Eat high-fiber foods. These include whole grains, fruits, and??vegetables. ??? Drink plenty of water and other fluids each day. This helps to??keep your stools soft. ??? Set a regular schedule to try and have a bowel movement. Do??not ignore the urge to go to the bathroom. Don???t hold it in. ??? Give yourself plenty of time to have a bowel movement, but do not linger on the toilet either, by sitting and reading for a long time. ??? Do mild exercise each day like taking a walk. ??? Avoid heavy lifting or straining while the hemorrhoid is healing. ?? What follow-up care is needed? If your problem does not get better, other care may be needed. Your doctor may ask you to make visits to the office to check on your progress. Be sure to keep these visits.?? What drugs may be needed? The doctor may order drugs to: ??? Help with pain and swelling ??? Ease itching ??? Soften stools ?? Will physical activity be limited? Working out can help with digestion. It might help keep you from having hard stools. Ask your doctor about the best kind of exercise for you. ?? What problems could happen? You may have very bad bleeding. ??? Sometimes, treatments do not work. Some hemorrhoids are very??large. You might need surgery for either of these. ?? When do I need to call the doctor? You have a lot of bleeding from your rectum. ??? Your bowel movement looks like tar. ??? You are not able to pass stool because of pain from your??hemorrhoids. ??? Your pain gets worse and is nothelped by ogsz-npp-uvkrqmh??medicines, warm water, or your home care. ??? You have a fever of 100.4??F (38??C) or higher. ?? Teach Back: Helping You Understand The Teach Back Method helps you understand the information we are giving you. After you talk with the staff, tell them in your own words what you learned. This helps to make sure the staff has described each thing clearly. It also helps to explain things that may have been confusing. Before going home, make sure you can do these: ??? I can tell you about my condition. ??? I can tell you what may help ease my pain. ??? I can tell you what I will do if I have blood in my rectum. Where can I learn more?[employer]https://familydoctor.or g/condition/hemorrhoids/National Digestive Disease Information Clearinghousehttps://www.niddk.nih.go v/health-information/digestive-diseases/hemorrhoids/definition-factsLast Reviewed Cygr5269-89-30Aazbpzcl Information Use and Disclaimer:This generalized information is a limited summary of diagnosis,treatment, and/or medication information. It is not meant to be comprehensive and should be used asa tool to help the user understand and/or assess potential diagnostic and treatment options. It does NOT include all information about conditions, treatments, medications, side effects, or risks thatmay apply to a specific patient. It is not intended to be medical advice or a substitute for the medical advice, diagnosis, or treatment of a health care provider based on the health care provider's examination and assessment of a patient???s specific and unique circumstances. Patients must speak with a health care provider for complete information about their health, medical questions, and treatment options, including any risks or benefits regarding use of medications. This information does not endorse any treatments or medications as safe, effective, or approved for treating a specific patient. [employer] and its affiliates disclaim any warranty or liability relating to this information or the use thereof. The use of this information is governed by the Terms of Use, available at??htt ps://www.Helpstream.Truffls/en/know/tqhdnexg-yulmlugwblthn-ghyflXduw Updated 12/26/21? Patient Care team information Care Team Personnel Name: Jayla Cho NP Position: [facility] Physician Hospital Medicine Member Role: PCP Address: Address: [address] [place] [id number] [place] Name: Edmond Hi RN Position: [facility] RN Member Role: Primary Care Nurse Name: Dimaond Schreiber RN Position: [facility] RN Member Role: Primary Care Nurse Name: Shola Martinez RN Position: [facility] RN Member Role: Primary Care Nurse Care Team Related Persons Name: MARCUS CALL Address: [place] [address] Name: NONE, PT STATES
--- OUTSIDE RECORDS SUMMARY | 2024-09-29 14:26 | XMS_ITS | Continuity of Care Document ---
Author Organization [facility] Address [address] [place] [address]- Care Team Providers Care Program Professional Name Role Phone Darielb TRES, Jayla Primary Care Physician [phone] Encounter [facility] [place] Date(s): 06/30/24 - 07/31/24 [facility] [address] [place], [place] [address] Attending Physician: Jackelin Figueroa MD Admitting Physician: Jackelin Figueroa MD Allergies, Adverse Reactions, Alerts No Known [...] 03/26/24 10:08:00 EDT, Route to Pharmacy Electronically, [facility]-, Partial fill upon patient request if [...] Team Personnel Name: Jayla Cho NP Position: [facility] Physician - Hospital Medicine Member Role: PCP Address: Address: [address] [place] [address]- Name: Edmond Hi RN Position: [facility] RN Member Role: Primary Care Nurse Name: Diamond Schreiber RN Position: S RN Member Role: Primary Care Nurse Name: hSola Martinez RN Position: [facility] RN Member Role: Primary Care Nurse Care Team Related Persons Name: MARCUS CALL Address: [place] [address] Name: NONE, PT STATES
--- OUTSIDE RECORDS SUMMARY | 2024-09-29 14:26 | XMS_ITS | Continuity of Care Document ---
Author Organization [facility] ter Address [address] [place] [address]- Care Team Providers Care Band Edger Name Role Phone Not on Staff, PCP Primary Care Physician Unavail able Encounter [facility] [place] Date(s): 01/18/21 - 01/19/[address] [address]- Discharge Disposition: A-D/C Home Attending Physician: Sylvia Ricks MD Admitting Physician: Sylvia Ricks MD Referring Physician: Not on Staff, Referring [...] EDT, Tablet Start Date: 08/22/20 Status: Ordered cloNIDine 0.1 mg oral tablet 0.1 mg, Tablet, By Mouth, Once, Routine, 01/19/21 7:00:00 EDT, Stop date 01/19/21 7:00:00 EDT Start Date: 01/19/21 Stop Date: 01/19/21 Status: Completed Folic Acid By Mouth, Daily, 0 Refills, Maintenance, 08/22/20 11:25:00 EDT Start Date: 08/22/20 Status: Ordered Trazodone = 25 mg, By Mouth, Daily at bedtime, 0 Refills, Maintenance, 08/22/20 11:25:00 EDT Start Date: 08/22/20 Status: Ordered Results Radiology Reports * Exam Date Time Procedure Performing Provider Status 01/19/21 7:14 AM Chest Portable Jaqueline Barclay; Auth (V erified) Notes: (Chest Portable) Reason For Exam: Shortness of Breath RESULT: Chest Portable Chest Portable Hx of Present Illness: Multiple suicidal statements made to sister, Intoxicated and sleeping in hallway. COVID like symptoms and recent quarantine. hx of alcohol abuse. Section 12, labile mood; Reason: Shortness of Breath; Clinical Question(s): Pneumonia COMPARISON: 01/18/2021 FINDINGS: LINES AND TUBES: None. LUNGS AND PLEURA: Clear lungs. Normal pulmonary vascularity. No pleural effusion. No pneumothorax. HEART, MEDIASTINUM AND KALA: Heart is normal in size. Normal upper mediastinal and hilar contour. BONES AND SOFT TISSUES: No acute abnormality. IMPRESSION: No acute abnormality. WSN: [id number] Ordering Physician: Yuniel Bueno Dictated By: Sudhir Murillo MD Dictated Date/Time: 01/19/21 7:59 am Reviewed By: Sudhir Murillo MD Signed By: Sudhir Murillo MD Signed Date/Time: 01/19/21 7:59 am Transcribed By: CHAY Transcribed Date/Time: 01/19/21 7:56 am Vital Signs Most recent to oldest [Reference Range]: 1 2 3 Oxygen Saturation [94-100 %] 96 % (01/19/21 2:38 PM) 96 % (01/19/21 12:22 PM) 96 % (01/19/21 7:12 AM) Pulse Rate [55-90 bpm] 97 bpm *H* (01/19/21 2:38 PM) 99 bpm *H* (01/19/21 12:22 PM) 109 bpm *H* (01/19/21 7:12 AM) Blood Pressure [90-138/55-84 mm Hg] 122/66mm Hg (01/19/21 2:38 PM) 120/74mm Hg (01/19/21 12:22 PM) 111/78mm Hg (01/19/21 7:12 AM) Respiratory Rate [16-30 br/min] 18 br/min (01/19/21 2:38 PM) 18 br/min (01/19/21 12:22 PM) 17 br/min (01/19/21 7:12 AM) Temperature [96.8-100.4 DegF] 98.7 DegF (01/19/21 6:29 AM) 98.2 DegF (01/19/21 3:30 AM) Mode of Delivery (Oxygen) Nasal cannula (01/19/21 2:38 PM) Room air (01/19/21 12:22 PM) Room air (01/19/21 7:12 AM) Blood pressure sites Arm, left (01/19/21 2:38 PM) Arm, left (01/19/21 12:22 PM) Arm, left (01/19/21 7:12 AM) Temperature Route Oral (01/19/21 6:29 AM) Oral (01/19/21 3:30 AM)
--- OUTSIDE RECORDS SUMMARY | 2024-09-29 14:26 | XMS_ITS | Continuity of Care Document ---
Author Organization [facility] Address [address] [place] [address]- Care Team Providers Care Commodity Supervisor Name Role Phone Not on Staff, PCP Primary Care Physician Unavail able Encounter [facility] [place] Date(s): 07/12/21 - 07/12/[address] [address]- Discharge Disposition: A-D/C AMA Attending Physician: Venkatesh Iniguez Admitting Physician: Venkatesh Iniguez Referring Physician: Not on Staff, Referring MD Allergies, Adverse Reactions, Alerts No Known Medication Allergies Immunizations Given and Recorded Vaccine Date Status Refusal Reason SARS-CoV-2 (COVID-19) Ad26 vaccine 02/08/21 Record ed Medications citalopram 40 mg oral tablet 1 tablet = 40 mg, By Mouth, Daily, # 30 tablet, 1 Refills, Maintenance, 07/10/21 10:29:00 EDT, Tablet, [facility] #[id number], Partial fill upon patient request if the prescription is for a schedule II opioid drug., 148, cm, 07/10/21 9:08:00 EDT,... Start Date: 07/10/21 Status: Ordered cloNIDine 0.1 mg oral tablet 0.1 mg, 1, tablet, By Mouth, 3 times a day, # 90 tablet, Refills 1, Tot. Refills 1, Maintenance, 07/10/21 10:30:00 EDT, Route to Pharmacy Electronically, [facility] #[id number], Partial fill upon patient request if the prescription is for a sched... Start Date: 07/10/21 Status: Ordered cyclobenzaprine 5 mg oral tablet 1 tablet = 5 mg, By Mouth, Daily at bedtime, # 30 tablet, 1 Refills, Maintenance, 07/10/21 10:30:00EDT, Tablet, [facility] #[id number], Partial fill upon patient request if the prescription is for a schedule II opioid drug., tiffany Bills, 07/10/21 9:... Start Date: 07/10/21 Status: Ordered gabapentin 100 mg oral capsule 200 mg, By Mouth, Daily at bedtime, # 60 capsule, Refills 1, Tot. Refills 1, Maintenance, 07/10/21 10:31:00 EDT, Route to Pharmacy Electronically, [facility] #[id number], Partial fill upon patient request if the prescription is for a schedule II... Start Date: 07/10/21 Status: Ordered hydrOXYzine pamoate 25 mg oral capsule 1 capsule = 25 mg, By Mouth, Daily at bedtime, # 30 capsule, 1 Refills, Maintenance, 07/10/21 10:31:00 EDT, Capsule, [facility] #[id number], Partial fill upon patient request if the prescriptionis for a schedule II opioid drug., tiffany Bills, ... Start Date: 07/10/21 Status: Ordered lithium 150 mg oral capsule 1 capsule = 150 mg, By Mouth, 2 times a day, # 60 capsule, 1 Refills, Maintenance, 07/10/21 10:31:00 EDT, Capsule, [facility] #[id number], Partial fill upon patient request if the prescription is for a schedule II opioid drug., tiffany Bills, 07/10/21... Start Date: 07/10/21 Status: Ordered melatonin 10 mg oral tablet 1 tablet = 10 mg, By Mouth, Daily at bedtime, # 30 tablet, 1 Refills, Maintenance, 07/10/21 10:31:00 EDT, Tablet, [facility] #[id number], Partial fill upon patient request if the prescription isfor a schedule II opioid drug., tiffany Bills, 07/10/21 9... Start Date: 07/10/21 Status: Ordered ondansetron 8 mg oral tablet, disintegrating 1 tablet = 8 mg, By Mouth, 3 times a day, PRN Nausea & Vomiting, # 15 tablet, 1 Refills, Maintenance, 07/10/21 10:32:00 EDT, DIS Tablet, [facility] #[id number], Partial fill upon patient request if the prescription is for a schedule II opioid makayla... Start Date: 07/10/21 Status: Ordered propranolol 10 mg oral tablet 10 mg, 1, tablet, By Mouth, Daily in AM, # 30 tablet, Refills 1, Tot. Refills 1, Maintenance, 07/10/21 10:33:00 EDT, Route to Pharmacy Electronically, [facility] #[id number], Partial fill upon patient request if the prescription is for a schedule... Start Date: 07/10/21 Status: Ordered Results Radiology Reports * Exam Date Time Procedure Performing Provider Status 07/11/21 8:38 PM Chest Portable Short , Janice; Auth (Gene ified) Notes: (Chest Portable) Reason For Exam: Cough RESULT: Chest Portable Chest Portable Hx of Present Illness: dehydrated, onset this am, vomiting, A O, WPD, ambulating with steady gait. ETOH, last drink this morning, general discomfort in upper body ; Reason: Cough; Clinical Question(s): Pneumonia COMPARISON: 01/19/2021 FINDINGS: LINES AND TUBES: None. LUNGS AND PLEURA: Clear lungs. Normal pulmonary vascularity. No pleural effusion. No pneumothorax. HEART, MEDIASTINUM AND KALA: Unchanged. BONES AND SOFT TISSUES: No acute abnormality. IMPRESSION: No acute abnormality. WSN: [id number] Ordering Physician: Jossue Klein Dictated By: Junito Still MD Dictated Date/Time: 07/11/21 8:43 pm Reviewed By: Junito Still MD Signed By: Junito Still MD Signed Date/Time: 07/11/21 8:43 pm Transcribed By: CHAY Transcribed Date/Time: 07/11/21 8:43 pm Vital Signs Most recent to oldest [Reference Range]: 1 2 3 Height 148 cm (07/11/21 3:06 PM) Weight 50 kg (07/11/21 3:06 PM) Oxygen Saturation [94-100 %] 98 % (07/12/21 9:09 AM) 97 % (07/12/21 7:00 AM) 97 % (07/12/21 5:37 AM) Pulse Rate [55-90 bpm] 120 bpm *H* (07/12/21 9:09 AM) 142 bpm *H* (07/12/21 7:27 AM) 122 bpm *H* (07/12/21 5:37 AM) Blood Pressure [90-138/55-84 mm Hg] 119/75mm Hg (07/12/21 9:09 AM) 127/70mm Hg (07/12/21 7:27 AM) 121/73mm Hg (07/12/21 5:37 AM) Respiratory Rate [16-30 br/min] 20 br/min (07/12/21 9:09 AM) 20 br/min (07/12/21 7:27 AM) 16 br/min (07/12/21 5:37 AM) Temperature [96.8-100.4 DegF] 99.1 DegF (07/12/21 5:37 AM) 97.3 DegF (07/12/21 1:51 AM) 99.7 DegF (07/11/21 9:54 PM) Mode of Delivery (Oxygen) Room air (07/12/21 9:09 AM) Room air (07/12/21 7:00 AM) Room air (07/12/21 5:37 AM) Blood pressure sites Arm, left (07/12/21 9:09 AM) Arm, left (07/12/21 7:00 AM) Arm, left (07/12/21 5:37 AM) Temperature Route Oral (07/12/21 5:37 AM) Oral (07/12/21 1:51 AM) Oral (07/11/21 9:54 PM) Dry Weight 50 kg (07/11/21 3:06 PM) Social History Social History Type Response Smoking Status Smoker, current stat us unknown entered on: 06/23/21 Sex
--- OUTSIDE RECORDS SUMMARY | 2024-09-29 14:26 | XMS_ITS | Continuity of Care Document ---
Author Organization [facility] Address [address] [place] [address]- Care Team Providers Care Hotel Guest Service Agent Name Role Phone Jagdish Guerrero DO W Primary Care Physician Encounter [facility] [place] Date(s): 05/19/24 - 06/18/24 [facility] [address], [place] [address] Allergies, Adverse Reactions, Alerts No Known Medication [...] film, 0 Refills, Maintenance, 03/26/24 10:07:00 [facility] [place] Partial fill upon patient request if the prescription is for a schedule II opioid drug., 1... Start Date: 03/26/24 Stop Date: 04/02/24 Status: Ordered buprenorphine-naloxone 8 mg-2 mg sublingual film 1 film, Sublingual, Daily at bedtime, # 7 film, 0 Refills, Maintenance, 03/26/24 10:08:00 EDT, [facility] Partial fill upon patient request if the prescription is for a schedule II opioid drug., 1 film Sublingual Daily... Start Date: 03/26/24 Stop Date: 04/02/24 Status: Ordered cloNIDine 0.1 mg oral tablet 0.1 mg, By Mouth, 3 times a day, # 42 tablet, Refills 1, Tot. Refills 1, Maintenance, 03/26/24 10:08:00 EDT, Route to Pharmacy Electronically, [facility], Partial fill upon patient request if the prescription is for a schedule... Start Date: 03/26/24 Stop Date: 04/23/24 Status: Ordered Colace sodium 100 mg oral capsule 100 mg, 1, capsule, By Mouth, 2 times a day, PRN, # 60 capsule, Refills 0, Tot. Refills 0, Maintenance, Constipation, 03/26/24 10:08:00 EDT, Route to Pharmacy Electronically, [facility], Partial fill upon patient request if th... Start Date: 03/26/24 Stop Date: 04/09/24 Status: Ordered Diflucan 150 mg oral tablet 1 tablet = 150 mg, By Mouth, Every 72 hours, # 2 tablet, 0 Refills, Maintenance, 05/11/24 14:19:00 EDT, [facility], Partial fill upon patient request if the prescription is for a schedule II opioid drug., 148, cm, 05/11/24 13:... Start Date: 05/11/24 Status: Ordered doxepin 75 mg oral capsule = 75 mg, By Mouth, Daily at bedtime, # 14 tablet, 1 Refills, Maintenance, 03/26/24 10:08:00 EDT, Capsule, [facility], Partial fill upon patient request if the prescription isfor a schedule II opioid drug., 148, cm, 03/26/24 8... Start Date: 03/26/24 Stop Date: 04/23/24 Status: Ordered famotidine 20 mg oral tablet 20 mg, By Mouth, 2 times a day, # 28 tablet, Refills 1, Tot. Refills 1, Maintenance, 03/26/24 10:08:00 EDT, Route to Pharmacy Electronically, [facility], Partial fill upon patient request if the prescription is for a schedule... Start Date: 03/26/24 Stop Date: 04/23/24 Status: Ordered gabapentin 400 mg oral capsule 400 mg, By Mouth, 2 times a day, # 28 tablet, Refills 1, Tot. Refills 1, Maintenance, 03/26/24 10:08:00 EDT, Route to Pharmacy Electronically, [facility]-, Partial fill upon patient request if the prescription is for a schedule... Start Date: 03/26/24 Stop Date: 04/23/24 Status: Ordered LaMICtal 25 mg oral tablet 50 mg, By Mouth, Daily, # 28 tablet, Refills 1, Tot. Refills 1, Maintenance, 03/26/24 10:09:00 EDT,Route to Pharmacy Electronically, [facility]-, Partial fill upon patient request if the prescription is for a schedule II opioi... Start Date: 03/26/24 Stop Date: 04/23/24 Status: Ordered nystatin topical 572415 u/gm cream 1 application, Topically, Daily at bedtime, Apply topically for no greater than 30 nights, # 30 Gm,0 Refills, Maintenance, 05/14/24 21:56:00 EDT, Cream, [facility] #[id number], Partial fill upon patientrequest if the prescription is for a schedule II op... Start Date: 05/14/24 Status: Ordered propranolol 10 mg oral tablet 10 mg, By Mouth, 3 times a day, # 42 tablet, Refills 1, Tot. Refills 1, Maintenance, 03/26/24 10:09:00 EDT, Route to Pharmacy Electronically, [facility]-, Partial fill upon patient request if the [...] Care Nurse Name: Jagdish Guerrero DO Position: [facility] Physician - [facility] Medicine Member Role: PCP Address: Address: [address] [place] [address]- Name: Diamond Schreiber RN Position: S RN Member Role: Primary Care Nurse Name: Shola Martinez RN Position: S RN Member Role: Primary Care Nurse Care Team Related Persons Name: MARCUS CALL Address: [place] [address] Name: NONE, PT STATES
--- OUTSIDE RECORDS SUMMARY | 2024-09-29 14:26 | XMS_ITS | Continuity of Care Document ---
Author Organization [facility] ter Address [address] [place] [address]- Care Team Providers Care Blind Hooker Name Role Phone Not on Staff, PCP Primary Care Physician Unavail able Encounter [facility] [place] Date(s): 01/17/21 - 01/18/[address] [address]- Discharge Disposition: A-D/C Home Attending Physician: Tano Whipple MD Admitting Physician: Tano Whipple MD Referring Physician: Not on Staff, Referring [...] Exam Date Time Procedure Performing Provider Status 01/18/21 2:38 AM Chest 2 Views Frontal and Lat Sydnie Murillo; Clay (Verified) Notes: (Chest 2 Views Frontal and Lat) Reason For Exam: Persistent Cough RESULT: Chest 2 Views Frontal and Lat Chest 2 Views Frontal and Lat INDICATION: Persistent cough. Clinical Question(s): Pneumonia COMPARISON: 08/22/2020. FINDINGS: LINES AND TUBES: None. LUNGS AND PLEURA: Clear lungs. Normal pulmonary vascularity. No pleural effusion. No pneumothorax. HEART, MEDIASTINUM AND KALA: Heart is normal in size. Normal upper mediastinal and hilar contour. BONES AND SOFT TISSUES: No acute abnormality. IMPRESSION: No acute abnormality. WSN: [id number] Ordering Physician: Tano Whipple Dictated By: Valeriano Morales MD Dictated Date/Time: 01/18/21 8:24 am Reviewed By: Valeriano Morales MD Signed By: Valeriano Morales MD Signed Date/Time: 01/18/21 8:24 am Transcribed By: CHAY Transcribed Date/Time: 01/18/21 8:23 am Vital Signs Most recent to oldest [Reference Range]: 1 2 3 Weight 51.5 kg (01/18/21 6:46 AM) 51.5 kg (01/18/21 4:52 AM) 51.5 kg (01/17/21 8:12 PM) Oxygen Saturation [94-100 %] 98 % (01/18/21 6:46 AM) 98 % (01/18/21 4:52 AM) 97 % (01/18/21 1:41 AM) Pulse Rate [55-90 bpm] 127 bpm *H* (01/18/21 6:46 AM) 121 bpm *H* (01/18/21 4:52 AM) 110 bpm *H* (01/18/21 1:41 AM) Blood Pressure [90-138/55-84 mm Hg] 127/79mm Hg (01/18/21 6:46 AM) 111/75mm Hg (01/18/21 4:52 AM) 119/75mm Hg (01/18/21 1:41 AM) Respiratory Rate [16-30 br/min] 16 br/min (01/18/21 6:46 AM) 20 br/min (01/18/21 4:52 AM) 19 br/min (01/18/21 1:41 AM) Temperature [96.8-100.4 DegF] 97.8 DegF (01/18/21 1:41 AM) 98.2 DegF (01/17/21 10:07 PM) 98.3 DegF (01/17/21 8:12 PM) Mode of Delivery (Oxygen) Room air (01/18/21 6:46 AM) Room air (01/18/21 1:41 AM) Room air (01/17/21 10:07 PM) Blood pressure sites Arm, left (01/18/21 6:46 AM) Arm, right (01/18/21 1:41 AM) Arm, left (01/17/21 10:07 PM) Temperature Route Oral (01/18/21 1:41 AM) Oral (01/17/21 10:07 PM) Oral (01/17/21 8:12 PM) Dry Weight 51.5 kg (01/18/21 6:46 AM) 51.5 kg (01/18/21 4:52 AM) 51.5 kg (01/17/21 8:12 PM)
--- OUTSIDE RECORDS SUMMARY | 2024-09-29 14:26 | XMS_ITS | Continuity of Care Document ---
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 risk, 03/17/24 14:22:00 EDT ??03/17/2024 14:24 ??Order ??Quetiapine 25 mg Tablet ??25 mg, By Mouth, 2 times a day ??03/17/2024 14:22 ??Order ??Constant Funeral Arrangement Director ??Continuously, fall risk, 03/17/24 14:22:00 EDT ??03/17/2024 13:59 ??Proposed ??Nicotine ??21 mg, Topically, Daily ??03/17/2024 13:59 ??Proposed ??Remove Patch ??1 each, Topically, Daily ??03/17/2024 13:58 ??Modify ??buprenorphine-naloxone 4 mg-1 mg Film ??1 film, Sublingual, Daily ??03/17/2024 13:53 ??Order ??buprenorphine-naloxone 4 mg-1 mg Film ??1 film, Sublingual, Daily ??03/17/2024 13:50 ??Order ??Senna Tablet ??8.6 mg, 1 tablet, By Mouth, 2 times a day ??03/17/2024 13:50 ??Order ??Propranolol 10 mg Tablet ??10 mg, tablet, By Mouth, Daily in AM ??03/17/2024 13:50 ??Order ??Melatonin 3 mg Tablet ??9 mg, tablet, By Mouth, Daily at bedtime ??03/17/2024 13:49 ??Order ??LamoTRIGINE 25 mg Tablet ??25 mg, By Mouth, Daily ??03/17/2024 13:49 ??Order ??Gabapentin 400 mg Capsule ??400 mg, capsule, By Mouth, 2 times a day ??03/17/2024 13:49 ??Order ??Famotidine 20 mg Tablet ??20 mg, By Mouth, 2 times a day ??03/17/2024 13:47 ??Order ??Doxepin 25 mg Capsule ??75 mg, By Mouth, Daily at bedtime ??03/17/2024 13:47 ??Order ??Docusate Sodium 100 mg Capsule ??100 mg, 1 capsule, By Mouth, 2 times a day ??03/17/2024 13:47 ??Order ??Clonidine 0.1 mg Tablet ??0.1 mg, tablet, By Mouth, 3 times a day ??03/17/2024 11:17 ??Order ??Level of Observation (Psych) ??Enhanced Safety Checks, Indicated for: Withdrawal, 03/17/24 11:17:00 EDT ??03/17/2024 10:17 ??Modify ??Ondansetron 4 mg ODT ??4 mg, By Mouth, 3 times a day, PRN: Nausea & Vomiting ??03/17/2024 10:14 ??Order ??Ondansetron 4 mg ODT ??4 mg, By Mouth, 3 times a day, PRN: Nausea & Vomiting ??03/17/2024 09:57 ??Modify ??Acetaminophen 325 mg Tablet ??650 mg, By Mouth, Every 4 hours, PRN: Pain , Mild ??03/17/2024 09:51 ??Order ??CIWA - AR Assessment ??NURSING: See order comment for instructions, 03/17/24 9:52:00 EDT ??03/17/2024 09:51 ??Order ??Call MD ??If CIWA AR score is greater than 13 for 3 consecutive times page MD and consider rapid response team (CHEFS) consultation., 03/17/24 9:52:00 EDT ??03/17/2024 09:51 ??Order ??Folic Acid 1 mg Tablet ??1 mg, By Mouth, Daily ??03/17/2024 09:51 ??Order ??Lorazepam 1 mg Tablet ??1 mg, By Mouth, Every 2 hours, PRN: Other ??03/17/2024 09:51 ??Order ??Lorazepam 2 mg Tablet ??2 mg, By Mouth, Every 2 hours, PRN: Other ??03/17/2024 09:51 ??Order ??Multivitamin Therapeutic / Minerals Tablet ??1 tablet, By Mouth, Daily ??03/17/2024 09:51 ??Order ??Pyridoxine 50 mg Tablet ??50 mg, By Mouth, Daily ??03/17/2024 09:51 ??Order ??Seizure Precautions ??03/17/24 9:52:00 EDT ??03/17/2024 09:51 ??Order ??Thiamine 100 mg Tablet ??100 mg, By Mouth, 2 times a day ??03/17/2024 09:51 ??Order ??VTE Prophylaxis Guidelines ??03/17/24 9:52:00 EDT, Medical ??03/17/2024 09:48 ??Order ??Acetaminophen 325 mg Tablet ??650 mg, By Mouth, Every 4 hours, PRN: Pain , Mild ??03/17/2024 09:48 ??Order ??Activity ??OOB ad Ashley, 03/17/24 9:50:00 EDT ??03/17/2024 09:48 ??Order ??Al hydroxide/Mg hydroxide/simethicone 200 mg-200 mg-20 mg/5 mL Susp UD ??30 mL, By Mouth, Every 4 hours, PRN: Dyspepsia ??03/17/2024 09:48 ??Order ??Bisacodyl 5 mg EC Tablet ??5 mg, By Mouth, 2 times a day, PRN: Constipation ??03/17/2024 09:48 ??Order ??Chloraseptic Lozenge ??1 lozenge, By Mouth, Every 3 hours, PRN: Other ??03/17/2024 09:48 ??Order ??Guaifenesin 200mg/10mL Syrup UD ??200 mg, 10 mL, By Mouth, Every 4 hours, PRN: Cough ??03/17/2024 09:48 ??Order ??HydrOXYzine Pamoate 25mg Capsule ??25 mg, By Mouth, Every 4 hours, PRN: Anxiety ??03/17/2024 09:48 ??Order ??Ibuprofen 400 mg Tablet ??400 mg, By Mouth, Every 6 hours, PRN: Pain , Mild ??03/17/2024 09:48 ??Order ??Level of Observation (Psych) ??Unit Standard Safety Checks, Indicated for: Unit/Patient Safety, 03/17/24 9:50:00 EDT ??03/17/2024 09:48 ??Order ??MD to RN Misc Instruction ??History and Physical by Nurse Practitioner, 03/17/24 9:50:00 EDT ??03/17/2024 09:48 ??Order ??Magnesium Hydroxide 8% Susp UD ??30 mL, By Mouth, 2 times a day, PRN: Constipation ??03/17/2024 09:48 ??Order ??Nicotine 2 mg Gum ??2 mg, Chew, Every 15 minutes, PRN: Other ??03/17/2024 09:48 ??Order ??Regular Diet ??Start: now, 03/17/24 9:50:00 EDT ??03/17/2024 09:48 ??Order ??Remove Patch ??1 each, Topically, Daily ??03/17/2024 09:48 ??Order ??Status Inpatient ??Level of Care: Acute, Reason for Inpt Services: Safety, Est. Hospital Stay: More than 4 nights, Posthospital Care Plans: Home, Service Line: Psych, 03/17/24 9:50:00 EDT ??03/17/2024 09:48 ??Order ??Vital Signs ??T P R BP, On Admission and then twice a day, 03/17/24 9:50:00 EDT ??03/17/2024 09:48 ??Order ??Weight ??Every week, 03/24/24 8:00:00 EDT ??03/17/2024 09:45 ??Discontinue ??Acetaminophen 325 mg Tablet ??650 mg, By Mouth, Every 8 hours, PRN: Pain , Moderate ??03/17/2024 09:45 ??Discontinue ??Activity ??OOB as Johnny, 03/16/24 23:53:00 EDT ??03/17/2024 09:45 ??Discontinue ??Al hydroxide/Mg hydroxide/simethicone 200 mg-200 mg-20 mg/5 mL Susp UD ??30 mL, By Mouth, Every 8 hours, PRN: Indigestion ??03/17/2024 09:45 ??Discontinue ??Clonidine 0.1 mg Tablet ??0.1 mg, By Mouth, Daily at bedtime ??03/17/2024 09:45 ??Discontinue ??Gabapentin 400 mg Capsule ??400 mg, By Mouth, 2 times a day ??03/17/2024 09:45 ??Discontinue ??HydrOXYzine Pamoate 25mg Capsule ??25 mg, By Mouth, Daily at bedtime, PRN: Nausea ??03/17/2024 09:45 ??Discontinue ??Ibuprofen 400 mg Tablet ??400 mg, By Mouth, Every 8 hours, PRN: Pain , Moderate ??03/17/2024 09:45 ??Discontinue ??Lorazepam 1 mg Tablet ??1 mg, By Mouth, Every 8 hours, PRN: Anxiety ??03/17/2024 09:45 ??Discontinue ??Melatonin 3 mg Tablet ??9 mg, By Mouth, Daily at bedtime, PRN: Sleep ??03/17/2024 09:45 ??Discontinue ??Nicotine 21 mg / 24 hour Patch ??21 mg, Topically, Daily ??03/17/2024 09:45 ??Discontinue ??Nicotine Gum 4mg ??4 mg, Chew, Every hour, PRN: Other ??03/17/2024 09:45 ??Discontinue ??Regular Diet ??Start: now, 03/16/24 23:49:00 EDT ??03/17/2024 09:45 ??Discontinue ??Remove Patch ??1 each, Topically, Daily ??03/17/2024 09:45 ??Cancel ??Senna Tablet ??8.6 mg, 1 tablet, By Mouth, Daily before dinner ??03/17/2024 09:45 ??Discontinue ??buprenorphine-naloxone 4 mg-1 mg Film ??1 film, Sublingual, Daily ? 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 precautions in place, pt. provided with ice water frequently and encouraged to drink. Pt. assessed for ETOH w.d. frequently and received 8 mg. of Lorazepam since admission to unit & CIWA score eun from 15 @ 12:44 to 19 @ 14:07 and Raina Garcia R.N. reported that Shona appeared to be hallucinating. Shona was asked state the current month and year and replied ''January 2025''. Pt's condition reported to Nita Isabel who alerted Dr. Morrow who spoke with Dr. Ortiz. Dr. Ortiz on the unit to examine Anjana @ 14:55. * Hollis LITTLE, Raina: PERFORM, SIGN, VERIFY, MODIFY, SIGN Event Display: Progress Note Hospital Authored Date: Patient: ANJANA DOAN Age: 33 years Sex: Female : 1990 Associated Diagnoses: None Author: Raina Shafer RN Findings Problems Problem 1 : Problem - 1 03/17/2024 10:00 EDT Problem 1 Unable to care for self - substance abuse Goals, Problem 1 To withdraw safely on the unit each shift Problem 1, Patient agrees to Attend groups, Demonstrate ability to care for self, Eat 3 meals daily, Identify 2 goals for treatment, Identify 2 strengths, Work with Psychiatrist to find acceptable medication plan, Safely detoxify from substance, Be free of withdrawal symptoms, Show motivations for recovery, Verbalize cues/situations that pose risk of drug use, Verbalize ways to prevent relapse, Develop plan for sobriety after discharge, Other: Notify staff if feeling unsafe Problem 1, Nursing Interventions Assess/observe regularly for signs of increasing agitation, Assess/observe regularly for signs of increasing anxiety, Assist with daily structure, Encourage participation in groups, Offer medication as needed, Provide information about illness and recovery, Provide information about medication, Help him/her identify feelings prior to onset of anxiety, Monitor for symptoms of withdrawal . Narrative/Incidental Anjana is a 33 yo who was brought to the [facility] after she called 911 to report SI, with a plan to buy a rope and hang herself. Anjana reported that she has been declining since October, with loss of sleep and appetite and worsening SI. Anjana reports that she has been sober for two years, but that she started binge drinking 2 weeks ago. Anjana presented with a BAL of 355. Psychiatric DX: ETOH Use DO; Bipolar 1; Opioid Use DO; CHILO Medical HX: None Reported. Covid Negative. Pharmacy: [facility], [facility], [place] Substance Abuse HX: Alcohol, opioids Anjana she admitted from [facility] on a CV. Provided with a copy of her rights; education given. Anjana ambulated to the unit at 08:45 with with unsteady gait; slight tremor. Anjana had received Ativan1 mg in ED at 08:09. Anjana was cooperative with admission assessment. Dr. Ortiz, hospitaltist, examined Anjana during the admission assessment. A skin assessment showed small, healing bruises on R FA; Anjana thinks this is from when she was arrested at a hotel, saying something about her credit card not working even though she had money. Tattoos present on L foot, L inner wrist and spine. Roseheldenied feeling suicidal at present, and she denied SH/HI or A/VH. Anjana rated anxiety/depression as 10/10, and said that she wants to get help. Valuables checked for contraband. Anjana declined orientation to the unit at present, wanting to rest in bed. Anjana is familiar with [facility] from admission in 2021. Medications verified through [facility]. Anjana was placed on a high falls risk and alcohol withdrawal protocol. Baseline CIWA 12. Dr Cloud notified of admission. CIWA orders received. Report given to team RN; Lorazepam given. Seizure precautions in place. . Consult note * Diana WINTERS, George Youngblood: PERFORM, MODIFY Event Display: Consultation Note Authored Date: Patient: ??ANJANA DOAN ? Age:??33 Years?Sex:??Female?:??1990?? Chief Complaint/Reason for Consultation Didn't want to be alive anymore ?? Asked to see by psychiatry team for??alcohol withdrawal??hypokalemia and tachycardia History of Present Illness Anjana is a 33-year-old female who is admitted to the mental health unit after having worsening depression, escalating alcohol use and??suicidal ideation.?? She had planned recently to buy a rope. ?? She is seen and examined with ANABEL Paris??who is doing her intake in the exam room Anjana denies any??chronic medical illnesses She denies any medical illnesses. ??She does struggle with anxiety and depression??and alcohol use.??She has recently relapsed and is drinking daily and most mornings as well.?? She admits to havingprior alcohol withdrawal??and being hospitalized for that and having seizures in that setting She denies any known DTs??or ICU stays but she is not sure. Her last drink was yesterday Her blood alcohol level??is around 355??around midnight.?? Her test is negative and her urine tox screen is negative. ?? She has mild hypokalemia??but the remainder of her labs??are without significant changes??except for mildly elevated??glucose and an unclear fasting state as well as a hemoglobin of 10.8??with an MCVof 88.5. ?? She is tachycardic up to 124 and regular The rest of her vitals??are unremarkable. ?? She has been on Suboxone in the past but denies any??opioid misuse??she has also been on clonidine and gabapentin??she tells me for anxiety ?? She received lorazepam??at 351 and 8:09 AM She has received a nicotine patch for tobacco use Objective Vital Signs?? Temperature: 96.9 DegF (03/17/24 08:45:00) Temperature Route: Temporal (03/17/24 08:45:00) Pulse Rate:??124 bpm??High (03/17/24 09:00:00) Respiratory Rate: 18 br/min (03/17/24 09:00:00) Systolic Blood Pressure: 117 mm Hg (03/17/24 09:00:00) Diastolic Blood Pressure: 77 mm Hg (03/17/24 09:00:00) Blood pressure sites: Arm, right (03/17/24 08:45:00) Mean Arterial Pressure: 90 mm Hg (03/17/24 08:45:00) Pulse Pressure: 40 mm Hg (03/17/24 08:45:00) Oxygen Saturation: 98 % (03/17/24 07:51:00) Mode of Delivery (Oxygen): Room air (03/17/24 07:51:00) ? Physical Exam Alert and oriented x 3 Mild to moderately anxious??but no respiratory distress Tachycardic but regular with a heart rate of 120, no JVD Lungs clear bilateral Abdomen soft nontender Lower extremities warm globally perfused Good capillary refill distally Cranial nerves II through XII are intact 5 out of 5 power in the upper and lower extremities bilateral She has bilateral hand tremors??with intention. Assessment/Plan Tachycardia (R00.0):??She does not have any signs of pain or hypovolemia.??I think this is secondary to the alcohol withdrawal and should be monitored with treatment ?? Depression with suicidal ideation (F32.A):??Care per the inpatient psych team.??She feels safe at present time??and her medications and care will be adjusted??per the team. ?? Alcohol withdrawal with inpatient treatment (F10.939):??She is starting to develop alcohol withdrawal??at a relatively high??blood alcohol level and has history of alcohol withdrawal seizures.??Psychiatry team??will be managing her alcohol withdrawal??but I suggest seizure??precautions??and close monitoring of CIWA and if she begins to escalate??consideration for fixed dose??of benzodiazepine or phenobarbital loading.??Adjunctive therapies as ordered ?? Hypokalemia (E87.6):??I have ordered a couple of doses of oral potassium??and her blood work can bechecked by the psychiatry team in a couple of days.??Usually would go with??increasing potassium containing foods but because of the tachycardia and EtOH??will go with some??direct repletion ?? Anemia, normocytic normochromic (D64.9):??She denies any overt bleeding.??Would recommend to the psychiatry team that they consider adding a B12 and folate.??Suspect some of the anemia could be EtOH related but??the psych team can follow-up labs in a few days??and make sure this is handed off to her primary care??as an outpatient workup as long as it is clinically stable ?? VTE Prophylaxis:??She is fully ambulatory ?? Discharge Planning:?[id number] Histories Allergies Allergies ?(Active and Proposed Allergies [...] 25 mg oral tablet, extended release)?1?tab(s)?25?Milligram?By Mouth?Daily [place] (lithium 150 mg oral capsule)?1?capsule?150?Milligram?By Mouth?2 times [...] Lymph 1.1 k/mm3 ()?? 03/17/2024 00:32 Abs. Stokes 0.4 k/mm3 ()?? 03/17/2024 00:32 Abs. Eo 0.0 k/mm3 ()?? 03/17/2024 00:32 Abs. Baso 0.0 k/mm3 ()?? 03/17/2024 00:32 Neut % 78.5 % (High)?? 03/17/2024 00:32 Lymph % 15.3 % ()?? 03/17/2024 00:32 Stokes % 5.2 % ()?? 03/17/2024 00:32 Eos [...] by RT-PCR NEGATIVE ()?? 03/17/2024 07:45 ? Urinalysis Est Creatinine Clearance: 86.95 mL/min (01:37) ?? Microbiology ?? COVID-19 (Novel Coronavirus), Rapid PCR?? Completed?? Source: Nasal Body Site: Nose Collected Dt/Tm: 03/17/2024 07:45 Last Updated Dt/Tm: 03/17/2024 08:22 ? Blood Gases?? No qualifying data available. ? Note * Rodrigo Steiner RN: PERFORM Event Display: Patient Education/Instruction Authored Date: [id number] Inpatient Adult Discharge Instructions. [facility] Inpatient Psychiatry [address] [place] [address] [id number] Name: ANJANA DOAN : 1990?? Visit: 03/17/2024 08:50?? Current Date: 03/17/2024 15:41 ?? Account: [id number]?? Inpatient Adult Discharge Instructions We would like [...] and their families. Surveys are administered by [employer] ?? If further treatment with your primary care physician or another doctor is recommended, it is important for you to keep the appointment. Call your primary care physician or return to the Emergency Department immediately if your condition worsens, fails to improve, or new symptoms develop. If you need to find a doctor, you can call [facility] [employer] for a referral at [phone] or toll free at [phone]) or log in to [email or web address] ?? [facility], in keeping with [facility] guidance, no longer requires face [...] a health care alison of your choosing. [employer] is a website that allows you to securely view your medical information including your hospital discharge summary, office visit summaries, medications and follow-up visits. You can also request appointments, renew medications, and request access to your medical information using a health care alison of your choosing, or just ask a question. You can enroll at [email or web address] or register during your next office visit. You have been discharged from [facility] Inpatient Psychiatry, Patient Care Unit: [facility]??. If you have any questions regarding these instructions, including results of studies pending, afteryou leave, please call us and we will be happy to assist you 26/05. [facility] Inpatient Psychiatry Nursing Unit Direct Phone Number, for 26/05 contact and results of studies pending Your Care Team Attending Physician Soumya Morrow MD?? Consulting Providers Soumya Morrow MD?? Discharging Providers Soumya Morrow MD Reason for Your Visit Didn't want to be alive anymore?? Your Diagnosis Alcohol withdrawal with inpatient treatment Anemia, normocytic normochromic Depression with suicidal ideation Hypokalemia Major depression Psychiatric Tachycardia Tests Performed Below is a partial list of the tests performed during your hospitalization. You may have had other tests and procedures not included in this list. Please discuss all test results with your provider. Amphetamine Urine Screen Barbiturate Urine Screen Basic Metabolic Panel Benzodiazepine Urine Screen Cannabinoid Urine Screen CBC w/ Differential Cocaine Urine Screen COVID-19 (Novel Coronavirus), Rapid PCR Ethanol Level HOLD BLUE TUBE Opiate Screen Urine Serum Quantitative No tests performed during this visit.?? Primary Care Provider Tammie JOSHUA, Jayla? Advance Directive Health Care Proxy on File No Patient refuses to discuss Discharge Vitals Temperature: 98.9 DegF Height: 147 cm Pulse Rate:??114 bpm??High Weight: 43.7 kg Respiratory Rate: 20 br/min Body Mass Index: 20.22 kg/m2 Systolic Blood Pressure: 134 mm Hg Body surface area: 1.34 Diastolic Blood Pressure: 81 mm Hg ?? Oxygen Saturation: 96 % ?? Studies Pending All studies ordered during this hospital stay have been completed unless listed below. Please discuss all pending results with your provider listed above in these instructions. ?? No incomplete studies found?? What to do next Instructions From Your Doctor ?? Orders?? , ??03/17/24 15:39:00 EDT?? Discharge Medications ANJANA DOAN :1990 Visit Date:03/17/2024 Medications: Please continue your medications until treatment is completed or stopped by your provider. Medications not listed below should be discontinued. Discuss any questions related to medications with your provider. What How Much When Instructions Next Dose Changed Buprenorphine-Naloxone (buprenorphine-naloxone 4 mg-1 mg sublingual film) 1 Film Sublingual Daily dissolve under the tongue ?? Tomorrow at 3:00pm Changed Melatonin (melatonin 3 mg oral tablet) 3 tab(s) Oral Daily at Bedtime Tonight at 9:00pm Unchanged Clonidine (cloNIDine 0.1 mg oral tablet) 1 tab(s) Oral 3 times a day Tonight at 9:00pm Unchanged Docusate 100 Milligram Twice a day Tonight at 9:00pm Unchanged Doxepin (doxepin 75 mg oral capsule) 1 capsule Oral Daily at Bedtime Tonight at 9:00pm Unchanged Famotidine (Pepcid AC Maximum Strength 20 mg oral tablet) 1 tab(s) Oral Twice a day Tonight at 9:00pm Unchanged Gabapentin (gabapentin 400 mg oral capsule) 1 capsule Oral Twice a day Tonight at 9:00pm Unchanged HydrOXYzine (hydrOXYzine pamoate 25 mg oral capsule) 1 capsule Oral Daily at Bedtime Tonight at 9:00pm Unchanged Lamotrigine (lamotrigine 25 mg oral tablet, extended release) 1 tab(s) Oral Daily [place] at 3:00pm Unchanged [place] (lithium 150 mg oral capsule) 1 capsule Oral Twice a day Tonight at 9:00pm Unchanged Ondansetron (ondansetron 4 mg oral tablet, disintegrating) 1 tab(s) Oral 3 times a day as needed for Nausea & Vomiting as needed Unchanged Propranolol (propranolol 10 mg oral tablet) 1 tab(s) Oral Daily in the morning Tomorrow at 9:00am Unchanged Senna 8.6 Milligram Oral Twice a day Tonight at 9:00pm Prescription Given During Visit No new medications prescribed at time of discharge.?? Laboratory Results Below is a partial list of the most recent Laboratory test results done prior to this discharge. You may have had other tests and procedures not included in this list. Please discuss all test resultswith your provider. Est Creatinine Clearance - 86.95 mL/min (03/17/2024) Amphetamine Urine Screen (03/17/2024) ???Amphetamine Screen, Urine - NONE DETECTED Barbiturate Urine Screen (03/17/2024) ???Barbiturate Screen, Urine - NONE DETECTED Basic Metabolic Panel (03/17/2024) ???Sodium - 138 mmol/L???Potassium - 3.4 mmol/L???Chloride - 96 mmol/L???Bicarbonate Level - 26 mmol/L???Anion Gap - 16???Glucose Level - 146 mg/dL???BUN - 20 mg/dL???Creatinine-Blood - 0.59 mg/dL???Estimated GFR Creatinine - 120 ML/MIN/1.73 M2???Calcium - 8.0 mg/dL Benzodiazepine Urine Screen (03/17/2024) ???Benzodiazepine Screen, Urine - NONE DETECTED Cannabinoid Urine Screen (03/17/2024) ???Cannabinoid Screen, Urine - NONE DETECTED CBC w/ Differential (03/17/2024) ???WBC - 7.3 k/mm3???RBC - 3.73 m/mm3???Hgb - 10.8 Gm/dL???Hct - 33.0 %???MCV - 88.5 femtoliters???MCH - 29.0 pg???MCHC - 32.7 g/dL???Platelet Count - 215 k/mm3???RDW-SD - 53.7 femtoliters???MPV - 9.4 femtoliters???Nucleated RBC (Automated) - 0.0 #/100 WBC'S???Abs. NRBC - 0.0 k/mm3???Abs. Neut - 5.7 k/mm3???Abs. Lymph - 1.1 k/mm3???Abs. Stokes - 0.4 k/mm3???Abs. Eo - 0.0 k/mm3???Abs. Baso - 0.0 k/mm3???Neut % - 78.5 %???Lymph % - 15.3 %???Stokes % - 5.2 %???Eos % - 0.1 %???Baso % - 0.5 %???Imm Gran- 0.4 %???Abs. Imm Gran - 0.0 k/mm3 Cocaine Urine Screen (03/17/2024) ???Cocaine Metabolite Screen, Urine - NONE DETECTED COVID-19 (Novel Coronavirus), Rapid PCR (03/17/2024) ???COVID-19 by RT-PCR - NEGATIVE Ethanol Level (03/17/2024) ???Ethanol, Serum or Plasma - 355 mg/dL HOLD BLUE TUBE (03/17/2024) ???Hold Blue Top - SPECIMEN DISCARDED AFTER 4 HOURS. Opiate Screen Urine (03/17/2024) ???Opiate Screen, Urine - NONE DETECTED Serum Quantitative (03/17/2024) ? ?Blood - <1 mIU/mL Allergies (NKA means No Known Allergies) No Known Medication Allergies Problems Active Problems??(3) Depression?? Eating disorder?? History of alcohol dependence?? Education Materials Below is the list of Educational Leaflet Providered with your Discharge Instructions. Valuables and Belongings I fully understand and agree that [facility] accepts no responsibility for all my personal [...] patient Date for Pt to Sign Valuables/Belongings: 03/17/24 08:54:00 ?? Other Discharge Information ? Pulmonary Rehab Status?? Pulmonary Rehab Discharge Status?? Respiratory Rate: 20 br/min ? Common Emergency Awareness Tips IS [...] are strongly encouraged to quit. Please call [facility] [employer] [facility] at [phone] or [phone] or log in to [email or web address] for referrals to smoking cessation programs. ?? [address] Suicide & Crisis [facility] is available 26/05 if you or someone you know needs to find a reason to keep living. By calling 237 you'll be connected to a skilled, trained counselor at a crisis center in your area. INPATIENT DISCHARGE INSTRUCTIONS SIGNATURE PAGE ANJANA DOAN Location:[facility] Inpatient Psychiatry Registration Date and Time:03/17/2024 08:50 EDT Primary Care Physician: Jayla Cho NP, Attending Physician: Soumya Morrow MD, I ANJANA DOAN, have received the above patient education materials/instructions and have verbalized understanding. If ambulance or transport services are being used I further acknowledge being givena choice of service. ?? If you need to contact me, please call me at this number: . Patient/Watch Electrician Name: Patient/Watch Electrician Signature: Relationship to Patient: Witness Name/Signature: Date: Patient Care team information Care Team Personnel Name: Jayla Cho NP Position: [facility] Physician - Hospital Medicine Member Role: PCP Address: Address: [address] [facility] [place] [address]- Care Team Related Persons Name: NONE, PT STATES
--- OUTSIDE RECORDS SUMMARY | 2024-09-29 14:26 | XMS_ITS | Continuity of Care Document ---
Author Organization [facility] Address [address] [place] [address]- Care Team Providers Care Systems Developer Name Role Phone Clubb PLASTICS SHEET FINISHING PRESS OPERATORJayla Primary Care Physician [phone] Encounter [facility] [place] Date(s): 07/11/24 - 07/12/[address] [address]- Encounter Diagnosis Depression(Final) - 07/12/24 Discharge Disposition: Transfer to Psych Facility Attending Physician: Mir Bueno MD Admitting Physician: Mir Bueno MD Referring Physician: Not on Staff, Referring [...] film, 0 Refills, Maintenance, 03/26/24 10:07:00 EDT, Desk [facility]-, Partial fill upon patient request if the prescription is for a schedule II opioid drug., 1... Start Date: 03/26/24 Stop Date: 04/02/24 Status: Ordered buprenorphine-naloxone 8 mg-2 mg sublingual film 1 film, Sublingual, Daily at bedtime, # 7 film, 0 Refills, Maintenance, 03/26/24 10:08:00 EDT, Desk [facility]-, Partial fill upon patient request if the prescription is for a schedule II opioid drug., 1 film Sublingual Daily... Start Date: 03/26/24 Stop Date: 04/02/24 Status: Ordered cloNIDine 0.1 mg oral tablet 0.1 mg, By Mouth, 3 times a day, # 42 tablet, Refills 1, Tot. Refills 1, Maintenance, 03/26/24 10:08:00 EDT, Route to Pharmacy Electronically, [facility], Partial fill upon patient request if the prescription is for a schedule... Start Date: 03/26/24 Stop Date: 04/23/24 Status: Ordered Colace sodium 100 mg oral capsule 100 mg, 1, capsule, By Mouth, 2 times a day, PRN, # 60 capsule, Refills 0, Tot. Refills 0, Maintenance, Constipation, 03/26/24 10:08:00 EDT, Route to Pharmacy Electronically, [facility], Partial fill upon patient request if th... Start Date: 03/26/24 Stop Date: 04/09/24 Status: Ordered Diflucan 150 mg oral tablet 1 tablet = 150 mg, By Mouth, Every 72 hours, # 2 tablet, 0 Refills, Maintenance, 05/11/24 14:19:00 EDT, [facility], Partial fill upon patient request if the prescription is for a schedule II opioid drug., 148, cm, 05/11/24 13:... Start Date: 05/11/24 Status: Ordered doxepin 75 mg oral capsule = 75 mg, By Mouth, Daily at bedtime, # 14 tablet, 1 Refills, Maintenance, 03/26/24 10:08:00 EDT, Capsule, [facility], Partial fill upon patient request if the prescription isfor a schedule II opioid drug., 148, cm, 03/26/24 8... Start Date: 03/26/24 Stop Date: 04/23/24 Status: Ordered famotidine 20 mg oral tablet 20 mg, By Mouth, 2 times a day, # 28 tablet, Refills 1, Tot. Refills 1, Maintenance, 03/26/24 10:08:00 EDT, Route to Pharmacy Electronically, [facility], Partial fill upon patient request if the prescription is for a schedule... Start Date: 03/26/24 Stop Date: 04/23/24 Status: Ordered gabapentin 400 mg oral capsule 400 mg, By Mouth, 2 times a day, # 28 tablet, Refills 1, Tot. Refills 1, Maintenance, 03/26/24 10:08:00 EDT, Route to Pharmacy Electronically, [facility]-, Partial fill upon patient request if the prescription is for a schedule... Start Date: 03/26/24 Stop Date: 04/23/24 Status: Ordered gabapentin 400 mg oral capsule 400 mg, Capsule, By Mouth, 07/12/24 9:00:00 EDT Start Date: 07/12/24 Stop Date: 07/12/24 Status: Completed LaMICtal 25 mg oral tablet 50 mg, By Mouth, Daily, # 28 tablet, Refills 1, Tot. Refills 1, Maintenance, 03/26/24 10:09:00 EDT,Route to Pharmacy Electronically, [facility]-, Partial fill upon patient request if the prescription is for a schedule II opioi... Start Date: 03/26/24 Stop Date: 04/23/24 Status: Ordered MiraLax oral powder for reconstitution = 17 Gm, By Mouth, Daily, for 7 days, dissolve in 4 to 8 oz of beverage, # 238 Gm, 0 Refills, Acute07/15/24 14:22:00 EDT, 07/08/24 14:22:00 EDT, REC Powder, [facility]/pharmacy #[id number], Partial fill upon patient request if the prescription is for a schedule I... Start Date: 07/08/24 Stop Date: 07/15/24 Status: Ordered nystatin topical 139067 u/gm cream 1 application, Topically, Daily at bedtime, Apply topically for no greater than 30 nights, # 30 Gm,0 Refills, Maintenance, 05/14/24 21:56:00 EDT, Cream, [facility]/pharmacy #[id number], Partial fill upon patientrequest if the prescription is for a schedule II op... Start Date: 05/14/24 Status: Ordered Preparation H Rapid Relief With Lidocaine topical cream 1 application, Topically, 4 times a day, PRN as needed to control symptoms, for 7 days, # 28 Gm, 0 Refills, Acute 07/15/24 14:20:00 EDT, 07/08/24 14:20:00 EDT, [facility]/pharmacy #[id number], Partial fillupon patient request if the prescription is for a s... Start Date: 07/08/24 Stop Date: 07/15/24 Status: Ordered propranolol 10 mg oral tablet 10 mg, By Mouth, 3 times a day, # 42 tablet, Refills 1, Tot. Refills 1, Maintenance, 03/26/24 10:09:00 EDT, Route to Pharmacy Electronically, [facility], Partial fill upon patient request if the prescription is for a schedule... Start Date: 03/26/24 Stop Date: 04/23/24 Status: Ordered propranolol 10 mg oral tablet 10 mg, Tablet, By Mouth, 07/12/24 9:00:00 EDT Start Date: 07/12/24 Stop Date: 07/12/24 Status: Completed Problem List Condition Confirmation Course Effective Dates Status Health St atus Informant Depression Confirmed Active Eating disorder Confirmed Active History of alcohol dependence Confirmed Active Vital Signs Most recent to oldest [Reference Range]: 1 2 3 Height 148 cm (07/12/24 8:22 AM) 148 cm (07/11/24 2:33 PM) 148 cm (07/11/24 2:31 PM) Weight 41.4 kg (07/12/24 8:22 AM) 41.4 kg (07/11/24 2:33 PM) 41.4 kg (07/11/24 2:31 PM) Oxygen Saturation [94-100 %] 97 % (07/12/24 4:35 PM) 98 % (07/12/24 8:22 AM) 99 % (07/12/24 4:11 AM) Pulse Rate [55-90 bpm] 64 bpm (07/12/24 4:35 PM) 96 bpm *H* (07/12/24 8:24 AM) 94 bpm *H* (07/12/24 8:22 AM) Body Mass Index [18.5-24.99 kg/m2] 18.9 kg/m2 (07/12/24 8:22 AM) 18.9 kg/m2 (07/11/24 2:31 PM) Blood Pressure [90-138/55-84 mm Hg] 101/68mm Hg (07/12/24 4:35 PM) 117/81mm Hg (07/12/24 8:24 AM) 117/81mm Hg (07/12/24 8:22 AM) Respiratory Rate [16-30 br/min] 15 br/min *L* (07/12/24 4:35 PM) 16 br/min (07/12/24 9:24 AM) 16 br/min (07/12/24 8:24 AM) Temperature [96.8-100.4 DegF] 97.9 DegF (07/12/24 4:35 PM) 98.2 DegF (07/12/24 8:22 AM) 97.4 DegF (07/12/24 4:11 AM) Mode of Delivery (Oxygen) Room air (07/12/24 8:22 AM) Room air (07/12/24 4:11 AM) Room air (07/11/24 9:00 PM) Blood pressure sites Arm, left (07/12/24 8:22 AM) Arm, right (07/12/24 4:11 AM) Arm, right (07/11/24 9:00 PM) Temperature Route Oral (07/12/24 8:22 AM) Temporal (07/12/24 4:11 AM) Temporal (07/11/24 4:00 PM) Dry Weight 41.4 kg (07/12/24 8:22 AM) 41.4 kg (07/11/24 2:33 PM) 41.4 kg (07/11/24 2:31 PM) Weight Obtained Via Patient/family state d (07/11/24 2:31 PM) Dry Weight Obtained Via Patient/family s tated (07/11/24 2:31 PM) Social History Social History Type Response Smoking Status Smoker, current stat us unknown entered on: 06/23/21 Sex Patient Care team information Care Team Personnel Name: Jayla Cho NP Position: [facility] Physician - Hospital Medicine Member Role: PCP Address: Address: [address] [place] [address]- Name: Sussy LITTLE, Edmond Position: S RN Member Role: Primary Care Nurse Name: Diamond Schreiber RN Position: [facility] RN Member Role: Primary Care Nurse Name: Michelle RN, Shola Position: [facility] RN Member Role: Primary Care Nurse Care Team Related Persons Name: NAGIRAYMONMARCUS Address: home [facility] [address] Name: NONE, PT STATES
--- OUTSIDE RECORDS SUMMARY | 2024-09-29 14:26 | XMS_ITS | Continuity of Care Document ---
Author Organization [facility] Address [address] [place] [address]- Care Team Providers Care Orchestra Teacher Name Role Phone Not on Staff, PCP Primary Care Physician Unavail able Encounter [facility] [place] Date(s): 06/11/22 - 06/18/22 [facility] [address], [place] [address] Attending Physician: Jackelin Figueroa MD Admitting Physician: Jackelin Figueroa MD Allergies, Adverse Reactions, Alerts No Known Medication Allergies Immunizations Given and Recorded Vaccine Date Status Refusal Reason SARS-CoV-2 (COVID-19) Ad26 vaccine 02/08/21 Record ed Medications citalopram 40 mg oral tablet 1 tablet = 40 mg, By Mouth, Daily, # 30 tablet, 1 Refills, Maintenance, 07/10/21 10:29:00 EDT, Tablet, [facility] #[id number], Partial fill upon patient request if the prescription is for a schedule II opioid drug., 148, cm, 07/10/21 9:08:00 EDT,... Start Date: 07/10/21 Status: Ordered cloNIDine 0.1 mg oral tablet 0.1 mg, 1, tablet, By Mouth, 3 times a day, # 90 tablet, Refills 1, Tot. Refills 1, Maintenance, 07/10/21 10:30:00 EDT, Route to Pharmacy Electronically, [facility] #[id number], Partial fill upon patient request if the prescription is for a sched... Start Date: 07/10/21 Status: Ordered cyclobenzaprine 5 mg oral tablet 1 tablet = 5 mg, By Mouth, Daily at bedtime, # 30 tablet, 1 Refills, Maintenance, 07/10/21 10:30:00EDT, Tablet, [facility] #[id number], Partial fill upon patient request if the [...] 07/10/21 10:31:00 EDT, Route to Pharmacy Electronically, [facility] #[id number], Partial fill upon patient request if the prescription is for a schedule II... Start Date: 07/10/21 Status: Ordered hydrOXYzine pamoate 25 mg oral capsule 1 capsule = 25 mg, By Mouth, Daily at bedtime, # 30 capsule, 1 Refills, Maintenance, 07/10/21 10:31:00 EDT, Capsule, [facility] #[id number], Partial fill upon patient request if the prescriptionis for a schedule II opioid drug., tiffany Bills, ... Start Date: 07/10/21 Status: Ordered lithium 150 mg oral capsule 1 capsule = 150 mg, By Mouth, 2 times a day, # 60 capsule, 1 Refills, Maintenance, 07/10/21 10:31:00 EDT, Capsule, [facility] #[id number], Partial fill upon patient request if the [...] 1 Refills, Maintenance, 07/10/21 10:31:00 EDT, Tablet, [facility] #[id number], Partial fill upon patient request if the prescription isfor a schedule II opioid drug., tiffany Bills, 07/10/21 9... Start Date: 07/10/21 Status: Ordered ondansetron 8 mg oral tablet, disintegrating 1 tablet = 8 mg, By Mouth, 3 times a day, PRN Nausea & Vomiting, # 15 tablet, 1 Refills, Maintenance, 07/10/21 10:32:00 EDT, DIS Tablet, [facility] #[id number], Partial fill upon patient request if the prescription is for a schedule II opioid makayla... Start Date: 07/10/21 Status: Ordered propranolol 10 mg oral tablet 10 mg, 1, tablet, By Mouth, Daily in AM, # 30 tablet, Refills 1, Tot. Refills 1, Maintenance, 07/10/21 10:33:00 EDT, Route to Pharmacy Electronically, [facility] #[id number], Partial fill upon patient request if the [...]
--- OUTSIDE RECORDS SUMMARY | 2024-09-29 14:26 | XMS_ITS | Continuity of Care Document ---
Author Organization [facility] Address [address] [place] [address]- Care Team Providers Care Appliance Painter And Refinisher Name Role Phone Clubb MARBLE COPER, Jayla Primary Care Physician Encounter [facility] [place] Date(s): 01/29/24 - 01/29/[address] [address]- Discharge Disposition: A-D/C Home Attending Physician: Linda [...] 1 Refills, Maintenance, 07/10/21 10:29:00 EDT, Tablet, [facility] #[id number], Partial fill upon patient request if the prescription is for a schedule II opioid drug., 148, cm, 07/10/21 9:08:00 EDT,... Start Date: 07/10/21 Status: Ordered cloNIDine 0.1 mg oral tablet 0.1 mg, 1, tablet, By Mouth, 3 times a day, # 90 tablet, Refills 1, Tot. Refills 1, Maintenance, 07/10/21 10:30:00 EDT, Route to Pharmacy Electronically, [facility] #[id number], Partial fill upon patient request if the prescription is for a sched... Start Date: 07/10/21 Status: Ordered cyclobenzaprine 5 mg oral tablet 1 tablet = 5 mg, By Mouth, Daily at bedtime, # 30 tablet, 1 Refills, Maintenance, 07/10/21 10:30:00EDT, Tablet, [facility] #[id number], Partial fill upon patient request if the [...] 07/10/21 10:31:00 EDT, Route to Pharmacy Electronically, [facility] #[id number], Partial fill upon patient request if the prescription is for a schedule II... Start Date: 07/10/21 Status: Ordered hydrOXYzine pamoate 25 mg oral capsule 1 capsule = 25 mg, By Mouth, Daily at bedtime, # 30 capsule, 1 Refills, Maintenance, 07/10/21 10:31:00 EDT, Capsule, [facility] #[id number], Partial fill upon patient request if the prescriptionis for a schedule II opioid drug., tiffany Bills, ... Start Date: 07/10/21 Status: Ordered lithium 150 mg oral capsule 1 capsule = 150 mg, By Mouth, 2 times a day, # 60 capsule, 1 Refills, Maintenance, 07/10/21 10:31:00 EDT, Capsule, [facility] #[id number], Partial fill upon patient request if the [...] 1 Refills, Maintenance, 07/10/21 10:31:00 EDT, Tablet, [facility] #[id number], Partial fill upon patient request if the prescription isfor a schedule II opioid drug., 148, cm, 07/10/21 9... Start Date: 07/10/21 Status: Ordered ondansetron 4 mg oral tablet, disintegrating 1 tablet = 4 mg, By Mouth, 3 times a day, PRN Nausea & Vomiting, # 10 tablet, 0 Refills, Maintenance, 01/29/24 4:47:00 EDT, Tablet, [facility], Partial fill upon patient request if the prescription is for a schedule II opioid... Start Date: 01/29/24 Status: Ordered ondansetron 8 mg oral tablet, disintegrating 1 tablet = 8 mg, By Mouth, 3 times a day, PRN Nausea & Vomiting, # 15 tablet, 1 Refills, Maintenance, 07/10/21 10:32:00 EDT, DIS Tablet, [facility] #[id number], Partial fill upon patient request if the prescription is for a schedule II opioid makayla... Start Date: 07/10/21 Status: Ordered Pepcid AC Maximum Strength 20 mg oral tablet 20 mg, 1, tablet, By Mouth, 2 times a day, # 60 tablet, Refills 0, Tot. Refills 0, Maintenance, 11/13/22 13:20:00 EST, Route to Pharmacy Electronically, [facility]/pharmacy #[id number], Partial fill upon patient request if the prescription is for a schedule II opi... Start Date: 11/13/22 Status: Ordered propranolol 10 mg oral tablet 10 mg, 1, tablet, By Mouth, Daily in AM, # 30 tablet, Refills 1, Tot. Refills 1, Maintenance, 07/10/21 10:33:00 EDT, Route to Pharmacy Electronically, [facility] #[id number], Partial fill upon patient request if the [...] [Reference Range]: 1 2 Height 148 cm (01/29/24 1:00 AM) Weight 50 kg (01/29/24 1:00 AM) Oxygen Saturation [94-100 %] 98 % (01/29/24 5:00 AM) 100 % (01/29/24 1:00 AM) Pulse Rate [55-90 bpm] 88 bpm (01/29/24 5:00 AM) 94 bpm *H* (01/29/24 1:00 AM) Blood Pressure [90-138/55-84 mm Hg] 114/ 64mm Hg (01/29/24 5:00 AM) 112/77mm Hg (01/29/24 1:00 AM) Respiratory Rate [16-30 br/min] 16 br/mi n (01/29/24 5:00 AM) 18 br/min (01/29/24 1:00 AM) Temperature [96.8-100.4 DegF] 98 DegF (01/29/24 1:00 AM) Mode of Delivery (Oxygen) Room air (01/29/24 5:00 AM) Room air (01/29/24 1:00 AM) Temperature Route Oral (01/29/24 1:00 AM) Dry Weight 50 kg (01/29/24 1:00 AM) Weight Obtained Via Patient/family state d (01/29/24 1:00 AM) Dry Weight Obtained Via Patient/family s tated (01/29/24 1:00 AM) Social History Social History Type Response Smoking Status Smoker, current stat us unknown entered on: 06/23/21 Sex EKG study * Event Display: ECG 12-Lead Authored Date: Please click on pdf link to open report * Event Display: ECG 12-Lead Authored Date: Ventricular Rate: 84 BPM Atrial Rate: 84 BPM P-R Interval: 136 ms QRS Duration: 70 ms Q-T Interval: 374 ms QTC Calculation(Bazett): 441 ms P [place]: 67 degrees R [place]: 67 degrees T [place]: 52 degrees Normal sinus rhythm Normal ECG When compared with ECG of 13-NOV-2022 10:31, No significant change was found Confirmed by PERICO POLLACK ([id number]) on 01/29/2024 5:22:28 PM [place]: PERICO POLLACK Note * Linda Tang MD: PERFORM Event Display: Patient Education Leaflets Authored Date: [id number] Fainting: Vagal Reaction ?? [id number] Fainting: Vagal Reaction Fainting (syncope) is a temporary loss of consciousness. It???s also called passing out. It occurs when blood flow to the brain is reduced. Your healthcare provider believes that your fainting was because of a vagal reaction. This is usually not a sign of serious disease. A vagal reaction causes your pulse to slow down or the blood vessels to expand. This causes your blood pressure to fall. Less blood to your brain if you are standing or sitting. That results in dizziness, near-fainting, or fainting. Lying down and raising (elevating) your feet often stops the reaction. Fainting can occur during sudden fear, severe pain, emotional stress, overexertion, overheating. Hunger, nausea or vomiting, prolonged standing, or standing up after sitting or lying for a long time can also cause it. Home care Follow these steps when caring for yourself at home: ??? Get plenty of rest. Go back to your normalactivities as soon as you are feeling back to normal. ??? Stay hydrated and avoid skipping meals. ??? If you feel lightheaded or dizzy, lie down right away and elevate your legs. ?? Follow-up care Follow up with your healthcare provider, or as advised. Call 911 Call 911 if any of the following occur: ??? Another fainting spell that???s not explained by the common causes listed above ??? Pain in your chest, arm, neck, jaw, back, or abdomen ??? Shortness of breath ??? Severe headache or seizure ??? Your heart beats very rapidly, very slowly, or irregularly (palpitations) ?? Last Reviewed Date: 2022 ?? 5412-4711 [employer]. All rights reserved. This information is not intended as a substitute for professional medical care. Always follow your healthcare professional's instructions. ?? Patient Care team information Care Team Personnel Name: Jayla Cho NP Position: [facility] Physician - Hospital Medicine Member Role: PCP Address: Address: [address] [facility] [place] [address]- Care Team Related Persons Name: NONE, PT STATES
--- OUTSIDE RECORDS SUMMARY | 2024-09-29 14:26 | XMS_ITS | Continuity of Care Document ---
Author Organization [facility] Address [address] [place] [address]- Care Team Providers Care Sexer Name Role Phone Not on Staff, PCP Primary Care Physician Unavail able [place] [facility] [place] 08[place] [facility] [address] [place] [address]- [facility] [phone] Encounter Diagnosis Chest pain(Final) - 08/22/20 Discharge Disposition: A-D/C Home Attending Physician: Chaparro Aly DO Admitting Physician: Chaparro Aly DO Referring Physician: Not on Staff, Referring [...] Exam Date Time Procedure Performing Provider Status 08/22/20 12:20 PM Chest 2 Views Frontal and Lat Marcie Mireles (Verified) Notes: (Chest 2 Views Frontal and Lat) Reason For Exam: Chest Pain;Other: RESULT: Chest 2 Views Frontal and Lat Chest 2 Views Frontal and Lat INDICATION/CLINICAL QUESTION: Chest pain. TECHNIQUE: Frontal and lateral views of the chest. COMPARISON: None.. FINDINGS: LINES AND TUBES: None. LUNGS AND PLEURA: RIGHT CHEST: The right lung is clear and there is no right effusion. LEFT CHEST: The left lung is clear and there is no left effusion. HEART, MEDIASTINUM AND GISSEL: The heart is of normal size. The mediastinum and gissel are normal. BONES AND SOFT TISSUES: No acute bony abnormality. IMPRESSION: 1. No active disease in chest. WSN: [id number] Ordering Physician: Chaparro Aly Dictated By: Arie Gant MD Dictated Date/Time: 08/22/20 12:25 p Reviewed By: Arie Gant MD Signed By: Arie Gant MD Signed Date/Time: 08/22/20 12:25 pm Transcribed By: CHAY Transcribed Date/Time: 08/22/20 12:25 pm Vital Signs Most recent to oldest [Reference Range]: 1 2 3 Height 148 cm (08/22/20 11:20 AM) Weight 50 kg (08/22/20 11:20 AM) Oxygen Saturation [94-100 %] 100 % (08/22/20 12:45 PM) 100 % (08/22/20 12:10 PM) 100 % (08/22/20 11:56 AM) Pulse Rate [55-90 bpm] 70 bpm (08/22/20 12:45 PM) 64 bpm (08/22/20 12:10 PM) 68 bpm (08/22/20 11:56 AM) Blood Pressure [90-138/55-84 mm Hg] 94/56mm Hg (08/22/20 12:45 PM) 91/59mm Hg (08/22/20 12:10 PM) 100/61mm Hg (08/22/20 11:56 AM) Respiratory Rate [16-30 br/min] 18 br/min (08/22/20 12:45 PM) 18 br/min (08/22/20 12:10 PM) 17 br/min (08/22/20 11:56 AM) Temperature [96.8-100.4 DegF] 97.2 DegF (08/22/20 12:45 PM) 97.5 DegF (08/22/20 12:10 PM) 97.5 DegF (08/22/20 11:20 AM) Mode of Delivery (Oxygen) Room air (08/22/20 12:45 PM) Room air (08/22/20 12:10 PM) Room air (08/22/20 11:56 AM) Blood pressure sites Arm, right (08/22/20 12:45 PM) Arm, right (08/22/20 12:10 PM) Arm, right (08/22/20 11:56 AM) Temperature Route Oral (08/22/20 12:45 PM) Oral (08/22/20 12:10 PM) Oral (08/22/20 11:20 AM) Dry Weight 50 kg (08/22/20 11:20 AM) Weight Obtained Via Patient/family state d (08/22/20 11:20 AM) Dry Weight Obtained Via Patient/family s tated (08/22/20 11:20 AM)
--- OUTSIDE RECORDS SUMMARY | 2024-09-29 14:27 | XMS_ITS | Continuity of Care Document ---
Author Organization [facility] Address [address] [place] [address]- Care Team Providers Care Rn Hemodialysis Name Role Phone Jagdish Guerrero DO W Primary Care Physician [phone] [place] [facility] [place]): [place]24 [facility] [address], [place] [address] Attending Physician: Hubert Baez Admitting Physician: AdmtrHubert Referring Physician: Admtr, ArShaunna Allergies, Adverse Reactions, Alerts No Known Medication [...] film, 0 Refills, Maintenance, 03/26/24 10:07:00 EDT, [facility]-, Partial fill upon patient request if the prescription is for a schedule II opioid drug., 1... Start Date: 03/26/24 Stop Date: 04/02/24 Status: Ordered buprenorphine-naloxone 8 mg-2 mg sublingual film 1 film, Sublingual, Daily at bedtime, # 7 film, 0 Refills, Maintenance, 03/26/24 10:08:00 EDT, [facility]-, Partial fill upon patient request if the prescription is for a schedule II opioid drug., 1 film Sublingual Daily... Start Date: 03/26/24 Stop Date: 04/02/24 Status: Ordered cloNIDine 0.1 mg oral tablet 0.1 mg, By Mouth, 3 times a day, # 42 tablet, Refills 1, Tot. Refills 1, Maintenance, 03/26/24 10:08:00 EDT, Route to Pharmacy Electronically, [facility], Partial fill upon patient request if the prescription is for a schedule... Start Date: 03/26/24 Stop Date: 04/23/24 Status: Ordered Colace sodium 100 mg oral capsule 100 mg, 1, capsule, By Mouth, 2 times a day, PRN, # 60 capsule, Refills 0, Tot. Refills 0, Maintenance, Constipation, 03/26/24 10:08:00 EDT, Route to Pharmacy Electronically, [facility], Partial fill upon patient request if th... Start Date: 03/26/24 Stop Date: 04/09/24 Status: Ordered Diflucan 150 mg oral tablet 1 tablet = 150 mg, By Mouth, Every 72 hours, # 2 tablet, 0 Refills, Maintenance, 05/11/24 14:19:00 EDT, [facility], Partial fill upon patient request if the prescription is for a schedule II opioid drug., 148, cm, 05/11/24 13:... Start Date: 05/11/24 Status: Ordered doxepin 75 mg oral capsule = 75 mg, By Mouth, Daily at bedtime, # 14 tablet, 1 Refills, Maintenance, 03/26/24 10:08:00 EDT, Capsule, [facility], Partial fill upon patient request if the prescription isfor a schedule II opioid drug., 148, cm, 03/26/24 8... Start Date: 03/26/24 Stop Date: 04/23/24 Status: Ordered famotidine 20 mg oral tablet 20 mg, By Mouth, 2 times a day, # 28 tablet, Refills 1, Tot. Refills 1, Maintenance, 03/26/24 10:08:00 EDT, Route to Pharmacy Electronically, [facility], Partial fill upon patient request if the prescription is for a schedule... Start Date: 03/26/24 Stop Date: 04/23/24 Status: Ordered gabapentin 400 mg oral capsule 400 mg, By Mouth, 2 times a day, # 28 tablet, Refills 1, Tot. Refills 1, Maintenance, 03/26/24 10:08:00 EDT, Route to Pharmacy Electronically, [facility]-, Partial fill upon patient request if the prescription is for a schedule... Start Date: 03/26/24 Stop Date: 04/23/24 Status: Ordered LaMICtal 25 mg oral tablet 50 mg, By Mouth, Daily, # 28 tablet, Refills 1, Tot. Refills 1, Maintenance, 03/26/24 10:09:00 EDT,Route to Pharmacy Electronically, [facility], Partial fill upon patient request if the prescription is for a schedule II opioi... Start Date: 03/26/24 Stop Date: 04/23/24 Status: Ordered nystatin topical 178380 u/gm cream 1 application, Topically, Daily at [...] 03/26/24 10:09:00 EDT, Route to Pharmacy Electronically, [facility], Partial fill upon patient request if [...] Team Personnel Name: Edmond Hi RN Position: [facility] RN Member Role: Primary Care Nurse Name: Jagdish Guerrero DO Position: [facility] Physician - Hospital Medicine Member Role: PCP Address: Address: [address] [place] [address]- [place] Name: Diamond Schreiber RN Position: [facility] RN Member Role: Primary Care Nurse Name: Shola Martinez RN Position: S RN Member Role: Primary Care Nurse Care Team Related Persons Name: MARCUS CALL Address: [place] [address] Name: NONE, PT STATES
--- OUTSIDE RECORDS SUMMARY | 2024-09-29 14:27 | XMS_ITS | Continuity of Care Document ---
Author Organization [facility] Address [address] [place] [address] Phone Care Team Providers Care Copy Writer Name Role Phone Ashley, Primary Primary Care Provider Samuel Stark DO Emergency Provider 255 Care Teams Patient Care Team Team Status: Active Member Role Status Dates Ashley Primary Primary Care Provider Active Patient Care Team Team Status: Inactive Member Role Status Dates , Ashley Primary Primary Care Provider Active St art: May 21, 2024 End: May 22, 2024 Samuel Ortega DO Emergency Provider Active St art: May 21, 2024 End: May 22, 2024 Chief Complaint and Reason for Visit Chief Complaint Admit Date n/v,,abd pain,headache May 21, 2024 1 0:58pm Allergies, Adverse Reactions, Alerts No known allergies Social History Smoking Status Status Start Date End Date Date of Observa tion Unknown if ever smoked May 21, 2024 11:07pm Observation Status Observation Response Date of Response Lives With Family May 21, 2024 11:07pm Is Anyone Dependent on your Care? No May 21, 2024 11:07pm Living Situation Apartment May 21, 2024 11:07pm Patient Sex Female May 22, 2024 12:54am Assigned Sex Female 1990 Problems Active Problems Medical Problem Onset Date Status Nausea & vomiting Active Abdominal pain Active Vital Signs Vital Reading Result Reference Range Collection Date/Time Height 147.32 cm May 21, 2024 11:07pm Weight 43.09 kg May 21, 2024 11:07pm Body Temperature 98.2 [degF] 97.6-99.6 May 21, 2024 11:07pm Heart Rate 98 /min 60-90 May 21, 2024 11:07pm Respiratory rate 20 /min 12-24 May 21, 2024 11:07pm Oxygen saturation by Pulse oximetry 98 % 95-100 May 21, 2024 11:0 7pm BP Systolic 122 mm[Hg] 90-140 May 21, 2024 11:07pm BP Diastolic 50 mm[Hg] 60-90 May 21, 2024 11:07pm BMI (Body Mass Index) 19.9 kg/m2 May 032023 11:07pm Advance Directives Advance Directive Response Recorded Date/ Time Advance Directives No May 21 11:02pm Health Care Proxy No May 21 11:02pm Insurance Providers Guarantor Rajwinder Riojas Address [address] [place] [address] Contact Info. Home Phone: Payer Policy Id Coverage Id Subscriber's Name Subscriber Id Effective Date Expiration Date [facility] Required [id number] Rajwinder Riojas [id number] Encounters Encounter Location(s) Arrival/Admit Date Discharge/Depart Date Provider(s) Departed Emergency [facility] May 21, 2024 10:58pm May 22, 2024 12:54am null Plan of Treatment Future Tests Future scheduled test information is unavailable Pending Tests Pending diagnostic test information is unavailable Future Visits Future appointment information is unavailable Referrals to Other Providers Reason for Referral Referral Start Date Provider Provider Contact Information Provider Address [place] Future Procedures Procedure Name Ordered Date Scheduled Date Saline Lock Insert/Manage May 21, 2024 11:10p m May 21, 2024 11:10pm Future Medications Future medication information is unavailable Patient Instructions Patient instructions are unavailable Progress Note Author Samuel Ortega [facility] Note Date/Time May 22, 2024 12:5 [address] [place] [address] Emergency Department Document Signed Patient: Rajwinder Riojas Medical Record#: [id number] : 1990 Acct:[id number] Age/Sex: 33 / F Admit/Reg Date: 05/21/24 Loc: ED. Room: Report Number: [id number]: Samuel Ortega DO Arrival - Arrival ED Triage Note: Pt. presents with c/o nausea, vomiting for the past 24 hours. Pt. also c/o abdominal pain. History of Present Illness Primary Care Provider: Ashley Primary, Chief Complaint: Abdominal Pain Stated Complaint: n/v,,abd pain,headache Allergies/Adverse Reactions: No Known Drug Allergies Allergy (Verified 05/21/24 23:07) Past Medical/Surgical History Medical History: Medical History (Last Updated 05/21/24 @ 23:09 by Kan Worley) Patient denies significant medical history (Medical) Family/Social History - Social History Living Situation: Apartment Current or Hx of Recreational Drug use: No 1. How Often Do You Have a Drink Containing Alcohol: a. Never Physical Exam Triage Vital Signs: Temperature 98.2 F 05/21/24 23:07 Temperature Source Oral 05/21/24 23:07 Pulse Rate 98 H 05/21/24 23:07 Respiratory Rate 20 05/21/24 23:07 Blood Pressure 122/50 L 05/21/24 23:07 Blood Pressure Source Automatic Cuff 05/21/24 23:07 Blood Pressure Mean 74 05/21/24 23:07 Blood Pressure Position Sitting 05/21/24 23:07 O2 Sat by Pulse Oximetry 98 05/21/24 23:07 Oxygen Delivery Method Room Air 05/21/24 23:07 Pain Intensity 4 05/21/24 23:07 [facility] Vital Signs Temperature 98.2 F 05/21/24 23:07 Pulse Rate 98 H 05/21/24 23:07 Respiratory Rate 20 05/21/24 23:07 Blood Pressure 122/50 L 05/21/24 23:07 O2 Sat by Pulse Oximetry 98 05/21/24 23:07 Temperature 98.2 F 05/21/24 23:07 Pulse Rate 98 H 05/21/24 23:07 Respiratory Rate 20 05/21/24 23:07 Blood Pressure 122/50 L 05/21/24 23:07 O2 Sat by Pulse Oximetry 98 05/21/24 23:07 - [facility] Medical decision making narrative: 05/22/24 00:51 This patient presented to the emergency department for nausea, vomiting, and abdominal pain. She ultimately left without being seen. (Samuel Ortega) Discharge Plan - Discharge Clinical Impression: Nausea & vomiting, Abdominal pain Disposition: Left without being Seen Condition: Good Referrals: [facility], [Other] Print Language: Libyan - Discharge Data Time Seen by Provider: 05/22/24 00:51 Dictated By: Samuel Ortega DO Signed By: Samuel Ortega DO 05/22/2451 DD/ TD/TT: 05/22/2450 Indirect Fire Infantryman: MICHOACANO cc: [facility],* [facility],
--- OUTSIDE RECORDS SUMMARY | 2024-09-29 14:27 | XMS_ITS | Continuity of Care Document ---
Author Organization [facility] Address [address] [place] [address]- Care Team Providers Care Retail Reset Merchandiser Name Role Phone Not on Staff, PCP Primary Care Physician Unavail able [place] [facility] [place] 11/13/22 - 11/13/[address] [address]- Encounter Diagnosis Chest discomfort(Final) - 11/13/22 Discharge Disposition: A-D/C Home Attending Physician: Lalit [...] 1 Refills, Maintenance, 07/10/21 10:29:00 EDT, Tablet, [facility] #[id number], Partial fill upon patient request if the prescription is for a schedule II opioid drug., 148, cm, 07/10/21 9:08:00 EDT,... Start Date: 07/10/21 Status: Ordered cloNIDine 0.1 mg oral tablet 0.1 mg, 1, tablet, By Mouth, 3 times a day, # 90 tablet, Refills 1, Tot. Refills 1, Maintenance, 07/10/21 10:30:00 EDT, Route to Pharmacy Electronically, [facility] #[id number], Partial fill upon patient request if the prescription is for a sched... Start Date: 07/10/21 Status: Ordered cyclobenzaprine 5 mg oral tablet 1 tablet = 5 mg, By Mouth, Daily at bedtime, # 30 tablet, 1 Refills, Maintenance, 07/10/21 10:30:00EDT, Tablet, [facility] #[id number], Partial fill upon patient request if the [...] 07/10/21 10:31:00 EDT, Route to Pharmacy Electronically, [facility] #[id number], Partial fill upon patient request if the prescription is for a schedule II... Start Date: 07/10/21 Status: Ordered hydrOXYzine pamoate 25 mg oral capsule 1 capsule = 25 mg, By Mouth, Daily at bedtime, # 30 capsule, 1 Refills, Maintenance, 07/10/21 10:31:00 EDT, Capsule, [facility] #[id number], Partial fill upon patient request if the prescriptionis for a schedule II opioid drug., tiffany Bills, ... Start Date: 07/10/21 Status: Ordered lithium 150 mg oral capsule 1 capsule = 150 mg, By Mouth, 2 times a day, # 60 capsule, 1 Refills, Maintenance, 07/10/21 10:31:00 EDT, Capsule, [facility] #[id number], Partial fill upon patient request if the [...] 1 Refills, Maintenance, 07/10/21 10:31:00 EDT, Tablet, [facility] #[id number], Partial fill upon patient request if the prescription isfor a schedule II opioid drug., 148, cm, 07/10/21 9... Start Date: 07/10/21 Status: Ordered ondansetron 8 mg oral tablet, disintegrating 1 tablet = 8 mg, By Mouth, 3 times a day, PRN Nausea & Vomiting, # 15 tablet, 1 Refills, Maintenance, 07/10/21 10:32:00 EDT, DIS Tablet, [facility] #[id number], Partial fill upon patient request if the prescription is for a schedule II opioid makayla... Start Date: 07/10/21 Status: Ordered Pepcid AC Maximum Strength 20 mg oral tablet 20 mg, 1, tablet, By Mouth, 2 times a day, # 60 tablet, Refills 0, Tot. Refills 0, Maintenance, 11/13/22 13:20:00 EST, Route to Pharmacy Electronically, [facility]/pharmacy #[id number], Partial fill upon patient request if the prescription is for a schedule II opi... Start Date: 11/13/22 Status: Ordered propranolol 10 mg oral tablet 10 mg, 1, tablet, By Mouth, Daily in AM, # 30 tablet, Refills 1, Tot. Refills 1, Maintenance, 07/10/21 10:33:00 EDT, Route to Pharmacy Electronically, [facility] #[id number], Partial fill upon patient request if the [...] Exam Date Time Procedure Performing Provider Status 11/13/22 12:51 PM Chest Portable Jovanna Flores; Clay (Verified) Notes: (Chest Portable) Reason For Exam: Shortness of Breath RESULT: Chest Portable Chest Portable Hx of Present Illness: midsternal epigastric px x1 day. pt reports vomiting x1 3 nights ago; Reason: Shortness of Breath; Clinical Question(s): CHF COMPARISON: 07/11/2021 FINDINGS: No acute cardiopulmonary process IMPRESSION: Normal exam WSN: [id number] Ordering Physician: Lalit Chen Dictated By: Zane Currie MD Dictated Date/Time: 11/13/22 12:57 p Reviewed By: Zane Currie MD Signed By: Zane Currie MD Signed Date/Time: 11/13/22 12:57 pm Transcribed By: CHAY Transcribed Date/Time: 11/13/22 12:53 pm Vital Signs Most recent to oldest [Reference Range]: 1 Height 148 cm (11/13/22 11:12 AM) Weight 55 kg (11/13/22 11:12 AM) Oxygen Saturation [94-100 %] 99 % (11/13/22 11:12 AM) Pulse Rate [55-90 bpm] 74 bpm (11/13/22 11:12 AM) Blood Pressure [90-138/55-84 mm Hg] 96/7 7mm Hg (11/13/22 11:12 AM) Respiratory Rate [16-30 br/min] 18 br/mi n (11/13/22 11:12 AM) Temperature [96.8-100.4 DegF] 97.9 DegF (11/13/22 11:12 AM) Mode of Delivery (Oxygen) Room air (11/13/22 11:12 AM) Blood pressure sites Arm, left (11/13/22 11:12 AM) Temperature Route Oral (11/13/22 11:12 AM) Dry Weight 55 kg (11/13/22 11:12 AM) Social History Social History Type Response Smoking Status Smoker, current stat us unknown entered on: 06/23/21 Sex EKG study * Event Display: ECG 12-Lead Authored Date: Please click on pdf link to open report * Event Display: ECG 12-Lead Authored Date: Ventricular Rate: 74 BPM Atrial Rate: 74 BPM P-R Interval: 140 ms QRS Duration: 68 ms Q-T Interval: 384 ms QTC Calculation(Bazett): 426 ms P Deep Run: 50 degrees R Deep Run: 46 degrees T Deep Run: 24 degrees Normal sinus rhythm Normal ECG When compared with ECG of 11-JUL-2021 17:18, Vent. rate has decreased BY 56 BPM Confirmed by YONATHAN SCHWARTZ ([id number]) on 11/13/2022 1:45:31 PM [place]: YONATHAN SCHWARTZ Note * Lalit Chen MD T: PERFORM Event Display: Patient Education Leaflets Authored Date: [id number] GERD (Adult) ?? [id number] GERD (Adult) The esophagus is a tube that carries food from the mouth to the stomach. A valve (lower esophageal sphincter) prevents stomach acid from flowing upward. Sometimes this valve doesn't work correctly. Then stomach contents may flow (reflux) into the esophagus. When it happens again and again, it's called??GERD (gastroesophageal reflux disease).??GERD can irritate the esophagus. It can cause pain. Itcan also cause problems with swallowing or breathing. In severe cases, GERD can cause pneumonia that keeps coming back. This is from breathing in particles (aspiration). Symptoms of reflux include burning, pressure, or sharp pain in the upper belly (abdomen). Symptoms may also be in the mid- to lower chest. The pain can spread to the neck, back, or shoulder. You may have: ??? Belching ??? Acid taste in the back of the throat ??? Chronic cough ??? Sore throat ??? Hoarseness GERD symptoms often occur during the day after a big meal. They can also occur at night when lying down.?? Home care Lifestyle changes can help ease symptoms. Your healthcare provider may also prescribe medicines.??Symptoms often get better with treatment. But if treatment is stopped, the symptoms often return after a few months. Most people with GERD will need to continue treatment. Or they may need treatment onand off. Lifestyle changes ??? Limit or don't eat fatty, fried, or spicy foods. Also limit coffee, chocolate, mint, and foods with high acid content. These include tomatoes and citrus fruit and juices (orange, grapefruit, and lemon). ??? Don???t eat large meals, especially at night. Frequent, smaller meals are best. Don't lie down right after eating. And don???t eat anything 3 hours before going to bed. ??? Don't drink alcohol or smoke. As much as possible, stay away from secondhand smoke. ??? If you are overweight, losing weight will reduce symptoms.? Don't wear tight clothing around your stomach area. ??? If your symptoms occur during sleep, use a foam wedge to raise your upper body not just your head. Or place 4-inch blocks under the head of your bed. Or use 2 bed risers under your bed frame. ??? Talk with your provider if you have trouble making the suggested lifestyle changes. They may be able to give you resources to help. Medicines Medicines can help ease the symptoms of GERD. They also help prevent damage to the esophagus. Discuss a medicine plan with your healthcare provider. This may include one or more of these medicines: ??? Antacids. These help neutralize the normal acids in your stomach. ??? Acid blockers (histamine or H2 blockers). These decrease how much acid your stomach makes. ??? Acid inhibitors (proton pump inhibitors PPIs). These also decrease how much acid your body makes, but in a different way from the blockers. They may work better. But they can take a little longer to do so. Take an antacid 30 to 60 minutes after eating and at bedtime, but not at the same time as an acid nanda. Try not to take medicines such as ibuprofen and aspirin. If you take aspirin for your heart or other health reasons, talk with your healthcare provider about stopping it. ?? Follow-up care Follow up with your healthcare provider as advised. ?? When to seek medical advice Call your healthcare provider if any of the following occur: ??? Stomach pain gets worse or moves to the lower right belly (appendix area) ??? Chest pain appears or gets worse, or spreads to the back, neck, shoulder, or arm ??? An [id number]-[id number]-[id number] trial of medicine doesn't relieve your symptoms ???Weight loss that can't be explained ??? Trouble or pain swallowing ??? Frequent vomiting (can???t keep down liquids) ??? Blood in the stool or vomit (red or black in color) ??? Feeling weak or dizzy ??? Fever of 100.4??F (38??C) or higher, or as directed by your healthcare provider ??? Symptoms getworse or you have new symptoms ?? Last Reviewed Date: 2021 ?? [employer]. All rights reserved. This information is not intended as a substitute for professional medical care. Always follow your healthcare professional's instructions. ?? * Gustavo BOJORQUEZ, Lalit Tellez: PERFORM Event Display: Patient Education Leaflets Authored Date: [id number] Uncertain Causes of Chest Pain ?? [id number] Uncertain Causes of Chest Pain Chest pain can happen for a number of reasons. Sometimes the cause can't be determined. If your??condition does not seem serious, and your pain does not appear to be coming from your heart, your healthcare provider may recommend watching it closely. Sometimes the signs of a serious problem take more time to appear. Many problems not related to your heart can cause chest pain. These include: ??? Musculoskeletal. Costochondritis is an inflammation of the tissues around the ribs that can occur from trauma or overuse injuries, or a strain of the muscles of the chest wall. ??? Respiratory. Pneumonia, collapsed lung (pneumothorax), or inflammation of the lining of the chest and lungs (pleurisy). ??? Gastrointestinal. Esophageal reflux, heartburn, ulcers, or gallbladder disease. ??? Anxiety and panic disorders ??? Nerve compression and inflammation ??? Rare problems such as aortic aneurysm or aortic dissection (a swelling of the large artery coming out of the heart or a tear in the wall of the artery), or pulmonary embolism (a blood clot in the lungs). Home care After your visit, follow these recommendations: ??? Rest today and avoid strenuous activity. ??? Take any prescribed medicine as directed. ??? Be aware of any recurrent chest pain and notice any changes ?? Follow-up care Follow up with your healthcare provider if you don't start to feel better within 24 hours, or as advised. ?? Call 911 Call 911 if any of these occur: ??? A change in the type of pain: if it feels different, becomes more severe, lasts longer, or begins to spread into your shoulder, arm, neck, jaw or back ??? Shortness of breath or increased pain with breathing ??? Weakness, dizziness, or fainting ??? Rapid heartbeat ??? Crushing sensation in your chest ??? Coughing up more than a small amount of blood. ?? When to seek medical advice Call your healthcare provider right away if any of the following occur: ??? Cough with dark coloredsputum (phlegm) or small amount of blood ??? Fever of 100.4??F??(38??C) or higher, or as directed by your healthcare provider ??? Swelling, pain or redness in one leg ?? Last Reviewed Date: 2021 ?? 2193-7305 [employer]. All rights reserved. This information is not intended as a substitute for professional medical care. Always follow your healthcare professional's instructions. ?? Portable XR Chest Views * FIONAowerscrinazia , BATOOL S: TRANSCRIBE Zane Currie MD: VERIFY Event Display: Result: Authored Date: [id number] Chest Portable Hx of Present Illness: midsternal epigastric px x1 day. pt reports vomiting x1 3 nights ago; Reason: Shortness of Breath; Clinical Question(s): CHF COMPARISON: 07/11/2021 FINDINGS: No acute cardiopulmonary process IMPRESSION: Normal exam WSN: [id number] Ordering Physician: Lalit Chen Dictated By: Zane Currie MD Dictated Date/Time: 11/13/22 12:57 p Reviewed By: Zane Currie MD Signed By: Zane Currie MD Signed Date/Time: 11/13/22 12:57 pm Transcribed By: CSElizabeth Transcribed Date/Time: 11/13/22 12:53 pm Patient Care team information Care Team Personnel Name: Not on Staff, PCP Position: [facility] Physician (General Medicine) Member Role: PCP Name: Teo Copeland RN Position: [facility] ED RN W/OE and Tasks Member Role: Patient Care Provider Name: Lalit Chen MD Position: [facility] ED Medicine MD Member Role: Admitting Physician Address: Address: [address] [place] [address] [place] [address]- Care Team Related Persons Name: NONE, PT STATES
--- OUTSIDE RECORDS SUMMARY | 2024-09-29 14:27 | XMS_ITS | Continuity of Care Document ---
Author Organization [facility] Address [address] [place] [address]- Care Team Providers Care Laundry Washer Name Role Phone Clubb TESTING MANAGER, Jayla Primary Care Physician Encounter [facility] Date(s): 03/21/24 - 03/22/[address] [id number] Discharge Disposition: Transferred to short-term general hospit Attending Physician: Raiza Melgoza MD Admitting Physician: Ben BOJORQUEZ, Julianne Referring Physician: Ben BOJORQUEZ, Julianne Allergies, Adverse Reactions, Alerts No Known Medication [...] 07/10/21 10:30:00 EDT, Route to Pharmacy Electronically, [facility] #[id number], Partial fill upon patient request if the [...] oral capsule 400 mg, Capsule, By Mouth, 03/22/24 9:00:00 EDT Start Date: 03/22/24 Stop Date: 03/22/24 Status: Completed hydrOXYzine pamoate 25 mg oral capsule 1 capsule = 25 mg, By Mouth, Daily at bedtime, # 30 capsule, 1 Refills, Maintenance, 07/10/21 10:31:00 EDT, Capsule, [facility] #[id number], Partial fill upon patient request if the [...] 1 Refills, Maintenance, 07/10/21 10:31:00 EDT, Capsule, [facility] #[id number], Partial fill upon patient request if the [...] 0 Refills, Maintenance, 01/29/24 4:47:00 EDT, Tablet, [facility] Partial fill upon patient request if the prescription is for a schedule II opioid... Start Date: 01/29/24 Status: Ordered Pepcid AC Maximum Strength 20 mg oral tablet 20 mg, 1, tablet, By Mouth, 2 times a day, # 60 tablet, Refills 0, Tot. Refills 0, Maintenance, 11/13/22 13:20:00 EST, Route to Pharmacy Electronically, [facility]/pharmacy #[id number], Partial fill upon patient request if the prescription is for a schedule II opi... Start Date: 11/13/22 Status: Ordered propranolol 10 mg oral tablet 10 mg, 1, tablet, By Mouth, Daily in AM, # 30 tablet, Refills 1, Tot. Refills 1, Maintenance, 07/10/21 10:33:00 EDT, Route to Pharmacy Electronically, [facility] #[id number], Partial fill upon patient request if the prescription is for a schedule... Start Date: 07/10/21 Status: Ordered Senna = 8.6 mg, By Mouth, 2 times a day, 0 Refills, Maintenance, 06/11/22 9:35:00 EDT, Partial fill upon patient request if the prescription is for a schedule II opioid drug. Start Date: 06/11/22 Status: Ordered Problem List Condition Confirmation Course Effective Dates Status [facility] Depression Confirmed Active Eating disorder Confirmed Active History of alcohol dependence Confirmed Active Results Radiology Reports * Exam Date Time Procedure Performing Provider Status 03/21/24 2:28 PM Chest Single Frontal View Marline Tello; Auth (Verified) Notes: (Chest Single Frontal View) Reason For Exam: delirium;Other: RESULT: Chest Single Frontal View Chest Single Frontal View INDICATION: Reason: Other:; delirium; Clinical Question(s): Pneumonia COMPARISON: 03/18/2024 FINDINGS: LINES AND TUBES: None. LUNGS AND PLEURA: No evidence of confluent airspace opacity, lung consolidation or pulmonary vascular redistribution. Costophrenic sulci are maintained. No evidence of pneumothorax. HEART, MEDIASTINUM AND KALA: Cardiomediastinal silhouette is within normal limits in size. BONES AND SOFT TISSUES: No acute abnormality IMPRESSION: No evidence of active cardiopulmonary process WSN: [id number] Ordering Physician: Ernie Garcia Dictated By: Reji Altamirano Jr, MD Dictated Date/Time: 03/21/24 2:39 pm Reviewed By: Reji Altamirano Jr, MD Signed By: Reji Altamirano Jr, MD Signed Date/Time: 03/21/24 2:39 pm Transcribed By: CHAY Transcribed Date/Time: 03/21/24 2:38 pm * Exam Date Time Procedure Performing Provider Status 03/21/24 2:[address] Head/Brain W/O Contrast Mike Guthrie; Auth (Verified) Notes: (CT Head/Brain W/O Contrast) Reason For Exam: Delerium;Other: RESULT: CT Head/Brain W/O Contrast CT Head/Brain W/O Contrast INDICATION: Reason: Other:; Delerium; Clinical Question(s): Tumor Primary TECHNIQUE: Noncontrast head CT using axial technique and reconstructed in axial and coronal planes.Iterative reconstruction techniques are used to optimize dose and image quality. COMPARISON: 06/25/2021 FINDINGS: Light Armored Vehicle Officer view findings, lines and tubes: None. BRAIN [...] clear. Visualized orbits and globes are intact. The extracranial soft tissues are unremarkable. IMPRESSION: No acute intracranial pathology. WSN: [id number] Ordering Physician: Ernie Garcia Dictated By: Sudhir Xiao MD Dictated Date/Time: 03/21/24 2:38 pm Reviewed By: Sudhir Xiao MD Signed By: Sudhir Xiao MD Signed Date/Time: 03/21/24 2:38 pm Transcribed By: CHAY Transcribed Date/Time: 03/21/24 2:36 pm Vital Signs Most recent to oldest [Reference Range]: 1 2 3 Height 147 cm (03/21/24 3:00 PM) Weight 43.67 kg (03/21/24 3:00 PM) Oxygen Saturation [94-100 %] 99 % (03/22/24 6:53 AM) 99 % (03/22/24 5:36 AM) 96 % (03/21/24 7:24 PM) Pulse Rate [55-90 bpm] 89 bpm (03/22/24 6:53 AM) 87 bpm (03/22/24 5:36 AM) 87 bpm (03/21/24 7:24 PM) Body Mass Index [18.5-24.99 kg/m2] 20.21 kg/m2 (03/21/24 3:00 PM) Blood Pressure [90-138/55-84 mm Hg] 90/60mm Hg (03/22/24 6:53 AM) 102/65mm Hg (03/22/24 5:36 AM) 109/91mm Hg (03/21/24 7:24 PM) Respiratory Rate [16-30 br/min] 16 br/min (03/22/24 10:07 AM) 16 br/min (03/22/24 9:07 AM) 19 br/min (03/22/24 6:53 AM) Temperature [96.8-100.4 DegF] 97.7 DegF (03/22/24 6:53 AM) 98.0 DegF (03/22/24 5:36 AM) 97.3 DegF (03/21/24 7:24 PM) Mode of Delivery (Oxygen) Room air (03/22/24 6:53 AM) Room air (03/22/24 5:36 AM) Room air (03/21/24 7:24 PM) Blood pressure sites Arm, right (03/22/24 6:53 AM) Arm, right (03/22/24 5:36 AM) Arm, right (03/21/24 7:24 PM) Temperature Route Oral (03/22/24 6:53 AM) Oral (03/22/24 5:36 AM) Oral (03/21/24 7:24 PM) Dry Weight 43.67 kg (03/21/24 3:00 PM) Social History Social History Type Response Smoking Status Smoker, current stat us unknown entered on: 06/23/21 Sex History and physical note * Ernie Garcia NP: PERFORM, MODIFY, MODIFY Event Display: History and Physical Hospital Authored Date: [id number] Patient: ??ANJANA DOAN ? Age:??33 Years?Sex:??Female?:??1990?? History of Present Illness This is a 33-year-old female with past medical history of depression, bipolar disorder, alcohol abuse who was transferred from the mental health unit to medicine for concerns of worsening alcohol withdrawal.?? Nursing states that patient has been delirious overnight, attempting to cherry picker operator objects and acting lethargic.?? They are concerned for worsening withdrawal.?? From chart review patient arrived in the emergency department on 03/16 with a GABBY of 355, this would be day 5 of no alcohol.?? Patient does not offer any history during my exam.?? When I walk into her room she is initially trying to stand up and sit in her bed, however after introduced myself patient closes her eyes and will no lo nger speak to me although does participate minimally in exam taking deep breaths and does hold her hands out to check for asterixis.?? She is not tremulous.?? Nurses are concerned that she is lethargic.?? She was transferred to medicine and on arrival to medical floor security is called as patient is agitated.?? I am able to briefly examine her in the doorway while she is standing and then withinapproximately 30 seconds of my leaving they are concerned she is overly lethargic. Labs today show no leukocytosis, TSH 5.37, ammonia 29.?? Afebrile saturating 98% on room air with stable blood pressures and mild tachycardia. On exam patient is sitting in her wheelchair.?? Heart is slightly rapid but regular rhythm.?? Lungsare clear to auscultation bilaterally.?? Abdomen is soft nontender. Review of Systems patient not participating??verbally Objective Vital Signs?? Temperature: 98.1 DegF (03/21/24 09:13:00) Temperature Route: Temporal (03/21/24 09:13:00) Pulse Rate:??113 bpm??High (03/21/24 09:13:00) Heart Rate Monitored:??103 bpm??High (03/20/24 19:00:00) Respiratory Rate: 16 br/min (03/21/24 09:13:00) Vented: No (03/20/24 19:00:00) Systolic Blood Pressure: 116 mm Hg (03/21/24 09:13:00) Diastolic Blood Pressure:??88 mm Hg??High (03/21/24 09:13:00) Blood pressure sites: Arm, left (03/21/24 09:00:00) Mean Arterial Pressure: 97 mm Hg (03/21/24 09:00:00) Pulse Pressure: 28 mm Hg (03/21/24 09:00:00) Oxygen Saturation: 98 % (03/21/24:00:00) Mode of Delivery (Oxygen): Room air (03/21/24 09:00:00) Early Warning Score: 0 (03/21/24 12:46:02) ? Physical Exam General: Sitting in wheelchair HEENT: Atraumatic, normocephalic. PERRL, EOM grossly intact, nonicteric.?? Neck: Supple, trachea midline.?? Cardiovascular: S1, S2, no MRG. No edema Pulmonary: CTAB, no wheeze, no accessory muscle use. Abdomen: Soft, NT, ND, +BS, no rebound tenderness. Extremities: Moves all extremities. Skin: Warm, dry, intact, no rash. Neurological: Alert, no asterixis Psychological: Appropriate mood and affect. Assessment/Plan Diagnoses Delirium ??(R41.0) ?? Assessment:??33-year-old female with past medical history of depression, bipolar disorder, alcohol abuse who was transferred from the mental health unit to medicine for concerns of worsening alcohol withdrawal. ?? Delirium (R41.0):? Patient initially hospitalized for??acute alcohol withdrawal and alcoholic hepatitis??on 03/17,??this??is day 5 of her hospitalization with her last alcoholic beverage on 03/16.??She was transferred from the mental health unit to medical floor for worsening alcohol withdrawal.??She was transferred back to the mental health unit??yesterday, however??this morning??was found to be??again with delirium, attempting to cherry picker operator objects without were not present??and is therefore transferred back to medicine??for concerns of worsening delirium tremens.??During my exam patient initially attempted to??stand to get back into her bed on the mental health unit, however??after I initiate??exam patient??no longer responds verbally but does respond to??physical commands minimally??during my assessment.??Shehas??no tremulousness and no asterixis??and keeps her eyes closed.??Nursing is concerned that she is too lethargic.??When she arrives in the medical floor security is called as patient is agitated.??I examined her standing in the hallway??briefly, send patient had calmed down slightly.??After I left approximately 30 seconds later nursing??states that she seems overly lethargic again.??Feels is less likely related to alcohol withdrawal at this time.??More likely??psychiatric illness. Labs today show no leukocytosis,??potassium 4.1, TSH 5.37, ammonia 29 Afebrile saturating 98% on room air with stable pressures and mild tachycardia Plan Telemetry monitoring for life-threatening arrhythmias Stop??CIWA IV fluids CT head Chest x-ray Urinalysis LFTs U tox ?? Update:??Nursing received a phone call from patient's mother,??states that she has been hallucinating??similar to today for??upwards of 6 months??and that there is a??possible family history of bipolar disorder and schizophrenia. ?? Chronic stable conditions Opiate abuse???continue Suboxone Psych???continue clonidine, hydroxyzine, gabapentin, lithium ?? VTE Prophylaxis:??Patient fully ambulatory ?? Code Status:??Presumed full code Histories Allergies Allergies ?(Active and Proposed Allergies [...] 25 mg oral tablet, extended release)?1?tab(s)?25?Milligram?By Mouth?Daily [place] (lithium 150 mg oral capsule)?1?capsule?150?Milligram?By Mouth?2 times a day Melatonin (melatonin 3 mg oral tablet)?3?tab(s)?9?Milligram?By Mouth?Daily at bedtime Ondansetron (ondansetron 4 mg oral tablet, disintegrating)?1?tab(s)?4?Milligram?By Mouth?3 times a day?as needed?Nausea & Vomiting Propranolol (propranolol 10 mg oral tablet)?10?Milligram?1?tablet?By Mouth?Daily in AM Senna?8.6?Milligram?By Mouth?2 times a day ? Results Recent Labs BACTERIOLOGY Blood Culture Results Preliminary report ()?? 03/18/2024 17:56 Blood Culture Isolate 1 Comment ()?? 03/18/2024 17:56 Blood Cult 2 Results Preliminary report ()?? 03/18/2024 17:56 Blood Culture 2 Isolate 1 Comment ()?? 03/18/2024 17:56 ?? BLOOD COUNT & DIFF WBC 4.3 k/mm3 ()?? 03/21/2024 06:46 RBC 3.97 m/mm3 (Low)?? 03/21/2024 06:46 Hgb 11.7 Gm/dL ()?? 03/21/2024 06:46 Hct 36.1 % ()?? 03/21/2024 06:46 MCV 90.9 femtoliters ()?? 03/21/2024 06:46 MCH 29.5 pg ()?? 03/21/2024 06:46 MCHC 32.4 g/dL (Low)?? 03/21/2024 06:46 Platelet Count 124 k/mm3 (Low)?? 03/21/2024 06:46 RDW-SD 54.6 femtoliters (High)?? 03/21/2024 06:46 MPV 10.5 femtoliters ()?? 03/21/2024 06:46 Nucleated RBC (Automated) 0.0 #/100 WBC'S ()?? 03/21/2024 06:46 Abs. NRBC 0.0 k/mm3 ()?? 03/21/2024 06:46 Abs. Neut 2.1 k/mm3 ()?? 03/21/2024 06:46 Abs. Lymph 1.4 k/mm3 ()?? 03/21/2024 06:46 Abs. Emanuel 0.6 k/mm3 ()?? 03/21/2024 06:46 Abs. Eo 0.1 k/mm3 ()?? 03/21/2024 06:46 Abs. Baso 0.0 k/mm3 ()?? 03/21/2024 06:46 Neut % 49.8 % ()?? 03/21/2024 06:46 Lymph % 32.9 % ()?? 03/21/2024 06:46 Emanuel % 12.9 % (High)?? 03/21/2024 06:46 Eos % 3.3 % ()?? 03/21/2024 06:46 Baso % 0.9 % ()?? 03/21/2024 06:46 Imm Gran 0.2 % ()?? 03/21/2024 06:46 Abs. Imm Gran 0.0 k/mm3 ()?? 03/21/2024 06:46 ?? CHEM GENERAL Sodium 138 mmol/L ()?? 03/21/2024 06:46 Potassium 4.1 mmol/L ()?? 03/21/2024 06:46 Chloride 102 mmol/L ()?? 03/21/2024 06:46 Bicarbonate Level 26 mmol/L ()?? 03/21/2024 06:46 Anion Gap 10 ()?? 03/21/2024 06:46 BUN 9 mg/dL ()?? 03/21/2024 06:46 Creatinine-Blood 0.64 mg/dL ()?? 03/21/2024 06:46 Estimated GFR Creatinine 117 ML/MIN/1.73 M2 ()?? 03/21/2024 06:46 Magnesium 2.1 mg/dL ()?? 03/20/2024 12:06 AST (SGOT) 67 units/L (High)?? 03/20/2024 12:06 ALT (SGPT) 98 units/L (High)?? 03/20/2024 12:06 Bilirubin, Total 0.4 mg/dL ()?? 03/20/2024 12:06 Bilirubin, Direct 0.1 mg/dL ()?? 03/20/2024 12:06 Bilirubin, Indirect 0.3 mg/dL ()?? 03/20/2024 12:06 ?? COAG INR 1.0 ()?? 03/20/2024 12:06 Protime (PT) 10.5 seconds ()?? 03/20/2024 12:06 ?? ENDOCRINE/TUMOR MARKER TSH 5.37 uIU/mL (High)?? 03/21/2024 06:46 ?? LIPID STUDIES Cholesterol 234 mg/dL (High)?? 03/21/2024 06:46 Triglycerides 54 mg/dL ()?? 03/21/2024 06:46 HDL Cholesterol 119 mg/dL ()?? 03/21/2024 06:46 LDL Cholesterol 104 mg/dL ()?? 03/21/2024 06:46 Non HDL Cholesterol 115 mg/dL ()?? 03/21/2024 06:46 ?? MISC. CHEMISTRY Ammonia, Venous 29 ??mole/L ()?? 03/21/2024 06:46 ?? URINE OTHER Est Creatinine Clearance 80.15 mL/min ()?? 03/21/2024 07:18 ? Hospital Progress note * Nemesio Ortiz RN: PERFORM, MODIFY, SIGN, VERIFY Event Display: Progress Note Hospital Authored Date: Patient: ANJANA DOAN Age: 33 years Sex: Female : 1990 Associated Diagnoses: None Author: Nemesio Ortiz RN Findings Problem Related to Alteration in Neurological : Alteration in Neurological Function/new 03/22/2024 9:00 EDT Alteration in Neuro status Related to Other: psychosis Goals & Outcomes, Neurological Lab studies/diagnostic tests within pt specific limits, Pt is safe with transfers & activities, Pt will be hemodynamically stable, Pt will be Neurologically stable, Pt will become pain free with appropriate intervention, Pt will maintain intact skin integrity,Pt will remain free from injury, Pt will resume/maintain adequate cardiac output, Pt will state importance of adhering to medication regime, Pt/caregiver will receive psychosocial support as needed, Pt/caregiver will state strategies to reduce risk factors, Pt/caregiver will state understanding of plan/goals of care Interventions, Neurological Assess/monitor for abnormal posturing, Assess/monitor for gaze pattern/extraocular movements, Assess/monitor for increased Intracranial Pressure, Assess/monitor neurologicstatus, Assess/monitor VS per unit standards & prn, Call/Report variances in assessments to provider BH Goals/Interventions, Neurological Yes Neurological, Problem Start 03/21/2024 15:41 Reviewed plan with, Neurological Patient Patient Progression, Neurological Pt progressing according to plan . Nursing Data Vital Signs : VITAL SIGNS SECTION 03/22/2024 6:53 EDT Temperature 97.7 DegF Temperature Route Oral Pulse Rate 89 bpm Respiratory Rate 19 br/min Systolic Blood Pressure 90 mm Hg Diastolic Blood Pressure 60 mm Hg Blood pressure sites Arm, right Mean Arterial Pressure 70 mm Hg Pulse Pressure 30 mm Hg Oxygen Saturation 99 % Mode of Delivery (Oxygen) Room air . Evaluation Report received from off going RN, patient condition as described by RN. Falls risk protocol maintained as per hospital policy. 1:1 constant regulator mechanic maintained as ordered, pt denied any suicidal ideations. AOx4, affect anxious, pt stated she was frustarted at the lack of ability to use her phone,pt educated on her care plan, pt seemed to calm. Pt refusing a full assesment, refused to allow a skin assessment. Pt refused PO lithium and MD Abad pop notified. FINANCIAL ANALYST ACCOUNTANT consult ordered and performed. Pt tolerated PO intake of food, fluids, and meds well. Pt ambulating well independently w/ 1:1 observance. Transfer to MHU ordered. Report given to receiving nurse. Pt transferred to MHU via ambulation accompanied by MHU personnel, pts belongings locked in spoke 4 safe removed and transferred to MHU.. * Abdoul LITTLE, Diamond: PERFORM, SIGN, VERIFY, MODIFY, SIGN Event Display: Progress Note Hospital Authored Date: [id number] Patient: ANJANA DOAN Age: 33 years Sex: Female : 1990 Associated Diagnoses: None Author: Abdoul LITTLE, Diamond Findings Problem Related to Alteration in Psychosocial : Alteration in Psychosocial Function/new 03/21/2024 20:00 EDT Alteration in Psychosocial Related to Delirium Goals & Outcomes, Psychosocial Psychosocial support will be provided to Pt/S.O. as needed, Pt will identify stressors leading up to event, Pt will state importance of adhering to medication regime, Pt/caregiver will be offered appropriate resources & support, Pt/caregiver will express feelings/needs/fears /concerns, Pt/caregiver will maintain/obtain psychological stability Interventions, Psychosocial Assess psychosocial needs, Assess readiness to learn needed lifestyle changes, Assess/monitor level of consciousness, Collaborate with provider for psychiatric consult, Evaluate resources & support system available to pt, Offer support; discuss coping strategies BH Goals/Interventions, Psychosocial Yes Psychosocial, Problem Start 03/21/2024 20:08 Reviewed Plan with, Psychosocial Patient Patient Progression, Psychosocial Plan Initiation . Nursing Data Vital Signs : VITAL SIGNS SECTION 03/21/2024 19:24 EDT Temperature 97.3 DegF Temperature Route Oral Pulse Rate 87 bpm Respiratory Rate 16 br/min Systolic Blood Pressure 109 mm Hg Diastolic Blood Pressure 91 mm Hg H Blood pressure sites Arm, right Mean Arterial Pressure 97 mm Hg Pulse Pressure 18 mm Hg Oxygen Saturation 96 % Mode of Delivery (Oxygen) Room air . Narrative/Incidental Took report at 2300 from ANABEL Stone. Pt is alert to person, place and somewhat to time, was off by a few days. Converses with eyes half open, long pauses before responding to questions. Pt rang fong and requested ativan, awake eating a cookie, pt was educated on meds available and that there was no ordered ativan, she became tearful stating shes feeling anxious she will never see her family again because they dont know where she is Reassured pt that mom called today and she is aware of her whereabouts, she stated she felt better and has been sleeping majority of the shift. 1:1 at bedside to maintain safety. Pt denied any SI/HI thoughts at time of assessment. Proper SI environment precautions remain. Was compliant with most of assessment, refused skin assessment and is wearing a sweatshirt. Remains without TATA. Showing no signs of withdrawl. Reported 4/10 stomach discomfort. Call fong within reach. Cont plan of care.. Discharge Information Case Management Discharge Plan : Case Management Discharge Plan Data 03/21/2024 13:00 EDT Discharge Level of Care at Discharge Psychiatric Facility/Unit 03/20/2024 19:02 EDT Discharge Level of Care at Discharge Psychiatric Facility/Unit 03/17/2024 16:26 EDT Discharge Level of Care at Discharge Short-term Acute Inpatient * Bertha Maddox RN: PERFORM, SIGN, VERIFY Event Display: Progress Note Hospital Authored Date: [id number] Patient: ANJANA DOAN Age: 33 years Sex: Female : 1990 Associated Diagnoses: None Author: Bertha Maddox RN Findings Problem Related to Alteration in Psychosocial : Alteration in Psychosocial Function/new 03/21/2024 20:00 EDT Alteration in Psychosocial Related to Delirium Goals & Outcomes, Psychosocial Psychosocial support will be provided to Pt/S.O. as needed, Pt will identify stressors leading up to event, Pt will state importance of adhering to medication regime, Pt/caregiver will be offered appropriate resources & support, Pt/caregiver will express feelings/needs/fears /concerns, Pt/caregiver will maintain/obtain psychological stability Interventions, Psychosocial Assess psychosocial needs, Assess readiness to learn needed lifestyle changes, Assess/monitor level of consciousness, Collaborate with provider for psychiatric consult, Evaluate resources & support system available to pt, Offer support; discuss coping strategies BH Goals/Interventions, Psychosocial Yes Psychosocial, Problem Start 03/21/2024 20:08 Reviewed Plan with, Psychosocial Patient Patient Progression, Psychosocial Plan Initiation . Nursing Data Cardiac Data. : Cardiac Data. 03/21/2024 19:15 EDT Cardiovascular WNL . Gastrointestinal Data. : Gastrointestinal Data. 03/21/2024 19:15 EDT GI WNL . Genitourinary Data. : Genitourinary Data. 03/21/2024 19:15 EDT WNL . HEENT Data. : HEENT Assessment 03/21/2024 19:15 EDT HEENT, Adult WNL . Integumentary Data. : Integumentary Data. 03/21/2024 19:17 EDT Integumentary WNL . Musculoskeletal Data. : Musculoskeletal Data. 03/21/2024 19:15 EDT Musculoskeletal WNL . Neurological Data. : Neurological Data. 03/21/2024 19:15 EDT Orientated to person, place, time Person, Place Neuro WNL except . Vital Signs : VITAL SIGNS SECTION 03/21/2024 15:17 EDT Temperature 97.2 DegF Temperature Route Oral Pulse Rate 100 bpm H Respiratory Rate 16 br/min Systolic Blood Pressure 122 mm Hg Diastolic Blood Pressure 84 mm Hg Blood pressure sites Arm, right Mean Arterial Pressure 97 mm Hg Pulse Pressure 38 mm Hg Oxygen Saturation 100 % Mode of Delivery (Oxygen) Room air . Narrative/Incidental Received bedside report from Erica LITTLE, safety checks done. Pt aox2, refused to answer any other questions during assessment. Pt refused tele monitor. Pt voiding in the bathroom. 1:1 in room. Scheduled medications admin, check MAR for further details. Safety maintained. No other issues or concernsat this time.. Discharge Information Case Management Discharge Plan : Case Management Discharge Plan Data 03/21/2024 13:00 EDT Discharge Level of Care at Discharge Psychiatric Facility/Unit 03/20/2024 19:02 EDT Discharge Level of Care at Discharge Psychiatric Facility/Unit 03/17/2024 16:26 EDT Discharge Level of Care at Discharge Short-term Acute Inpatient Note * Nemesio Ortiz RN: PERFORM Event Display: Discharge/Transfer Note Hospital Authored Date: Nursing Discharge Note Entered On: 03/22/2024 13:41 EDT Performed On: 03/22/2024 13:40 EDT by Nemesio Ortiz RN Nursing Discharge Note 2 Discharge Time : 03/22/2024 13:11 EDT Discharge Level of Care at Discharge : Psychiatric Facility/Unit Patient Left Unit Via : Ambulatory Patient Accompanied Off Unit with : Responsible adult DC Instructions Provided & Signed by Pt : No Patient Understands D/C Instructions : No Patient Instructions Discharge Signed : No Instructions for Discharge Comments : Pt transferred to MHU Did Pt have Specialty Bed or Wound Vac : No Nemesio Ortiz RN - 03/22/2024 13:40 EDT * Raiza Melgoza MD: PERFORM Event Display: Discharge/Transfer Note Hospital Authored Date: Patient: ??OLIMPIA, ANJANA ? Age:??33 Years?Sex:??Female?:??1990?? Patient Information [facility] Primary Care Physician: Jayla Cho NP Admit Date/Time: 03/21/24 12:45 Discharge Disposition Discharge Disposition: ?? Discharge Diagnosis Delirium (R41.0) _ Discharge Medications Buprenorphine-Naloxone (buprenorphine-naloxone 4 mg-1 [...] 25 mg oral tablet, extended release)?1?tab(s)?25?Milligram?By Mouth?Daily [place] (lithium 150 mg oral capsule)?1?capsule?150?Milligram?By Mouth?2 times a day Melatonin (melatonin 3 mg oral tablet)?3?tab(s)?9?Milligram?By Mouth?Daily at bedtime Ondansetron (ondansetron 4 mg oral tablet, disintegrating)?1?tab(s)?4?Milligram?By Mouth?3 times a day?as needed?Nausea & Vomiting Propranolol (propranolol 10 mg oral tablet)?10?Milligram?1?tablet?By Mouth?Daily in AM Senna?8.6?Milligram?By Mouth?2 times a day ? Allergies Allergies ?(Active and Proposed Allergies Only) No Known Medication Allergies? (Severity: Unknown severity, Onset: Unknown) ? Hospital Course 33-year-old female with??underlying mental health illness,??alcohol dependence??with??transferred from the mental health unit to medical service for concern of delirium and possible delirium tremens developing in the setting of??recent alcohol withdrawal. During her time on the??medical floor,??there was concern from staff of lethargy from this patient however??she displayed??aggression??and??profanities??during her??time.?? She did not have any scoring on the CIWA??and??had more outburst of behavior related to underlying anxiety and??likely??undiagnosed??bipolar disorder. No hallucinations.?? She was evaluated by [facility]. ??The patient is medically cleared to??discharge and??transfer back to mental health unit. Pending Results No Pending Results Follow-Up Appointments Added Follow Up ?Time Frame ?Comments Jayla Cho NP Post Discharge Care Diet: ??Regular Diet ?? Discharge ?03/22/24 10:03:00 EDT Home Health Face to Face ^HomeHealthFTF Results Discharge Labs BLOOD COUNT & DIFF WBC 4.0 [...] ALT (SGPT) 60 units/L (High)?? 03/22/2024 08:20 ? TOXICOLOGY/TDM Barbiturate Screen, Urine POSITIVE (Abnormal)?? 03/21/2024 13:17 Cannabinoid Screen, Urine NONE DETECTED ()?? 03/21/2024 13:17 Cocaine Metabolite Screen, Urine NONE DETECTED ()?? 03/21/2024 13:17 Methadone Screen, Urine NONE DETECTED ()?? 03/21/2024 13:17 Benzodiazepine Screen, Urine POSITIVE (Abnormal)?? 03/21/2024 13:17 Amphetamine Screen, Urine NONE DETECTED ()?? 03/21/2024 13:17 Opiate Screen, Urine NONE DETECTED ()?? 03/21/2024 13:17 Fentanyl Screen, Urine Result NONE DETECTED ()?? 03/21/2024 13:17 ?? UA/URINALYSIS Appear/Color, Urine YELLOW ()?? 03/21/2024 13:17 Clarity CLEAR (N)?? 03/21/2024 13:17 Specific [place], Urine 1.010 ()?? 03/21/2024 13:17 pH, Urine 6.5 ()?? 03/21/2024 13:17 Albumin, Urine NEGATIVE (N)?? 03/21/2024 13:17 Glucose, Urine NEGATIVE (N)?? 03/21/2024 13:17 Ketones, Urine NEGATIVE (N)?? 03/21/2024 13:17 Bilirubin, Urine NEGATIVE (N)?? 03/21/2024 13:17 Hemoglobin, Urine NEGATIVE (N)?? 03/21/2024 13:17 Nitrite, Urine NEGATIVE (N)?? 03/21/2024 13:17 Leukocyte, Urine NEGATIVE (N)?? 03/21/2024 13:17 Urobilinogen NORMAL mg/dL (N)?? 03/21/2024 13:17 ? 35 minutes spent on discharge Patient Care team information Care Team Personnel Name: Jayla Cho NP Position: [facility] Physician - Hospital Medicine Member Role: PCP Address: Address: [address] [place] [address]- Name: Sussy LITTLE, Edmond Position: S RN Member Role: Primary Care Nurse Name: Diamond Schreiber RN Position: S RN Member Role: Primary Care Nurse Care Team Related Persons Name: NONE, PT STATES
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
[2024-09-29] MEDS: Nicotine Polacrilex 2 MG GUM 4 MG BUCCAL ×2 (17:23→21:42)
[2024-09-29 17:33] VITALS: BP 122/90; PULSE 76; RESP 16; TEMP 37.4; O2SAT 98
--- NOTE | 2024-09-29 17:48 | PC.ADMIT ---
Rajwinder is a 33 y/o luxembourgish speaking female who was admitted to at time from [facility] on a CV with a dx of MDD with psychosis. Pt was not feeling stable on her medications and was having increased paranoia. Pt is A&O x4, calm and cooperative. Mood is depressed with a congruent affect. Pt denies AH/VH, but does report delusional thoughts that ?make me paranoid that people are after me?. Pt reports that in the morning and evenings she feels good , but in the afternoons she feels paranoid. The thought process is linear. Pt denies ideation, plan or intent to harm self or others. Appetite has been poor, reporting an unwanted weight loss of 10lbs over the past 6 months. She reports sleep as poor, only sleeping in short naps. Pt is on suboxone and reports ?stopping heroin 5 years ago. She reports using ETOH in short binges, the last one a couple of months ago. She denies any medical issues of note. Rajwinder?s goal is to get her medications ?straightened out and get used to them.?Pt was placed on 15 minute safety checks and refused the flu vaccine.
[2024-09-29] MEDS: Buprenorphine/Naloxone 4/1 mg FILM 1 FILM SUBLINGUAL (21:27)
[2024-09-29 21:41] VITALS: BP 105/58; PULSE 70; RESP 16; TEMP 37.1; O2SAT 96
[2024-09-29] MEDS: Propranolol HCL 10 MG TABLET PO (21:43)
[2024-09-29] MEDS: clonazePAM 1 MG TABLET PO (21:43)
[2024-09-29] MEDS: Gabapentin 400 MG CAPSULE PO (21:43)
[2024-09-29] MEDS: Cariprazine HCl 3 MG CAPSULE PO (21:44)
--- NOTE | 2024-09-29 22:40 | PC.NURSE ---
clarification-patient is on 15 minute checks.
[2024-09-30] MEDS: hydrOXYzine HCL 25 MG TABLET PO (03:01)
[2024-09-30] MEDS: Nicotine Polacrilex 2 MG GUM 4 MG BUCCAL ×4 (03:01→21:10)
[2024-09-30 08:00] VITALS: BP 106/71; PULSE 75; RESP 16; TEMP 37.8; O2SAT 98
--- NOTE | 2024-09-30 08:02 | P.PNPSI_ITS ---
Subjective Subjective Date of Service: 09/30/24 Reason For Visit: Major Depressive DO Single Episode w/Psychotic Etc Subjective Notes: 3 Day Interim History: Active on unit, attending groups. Signed 3 day notice. Patient reports feeling okay today; pt stated, I'm not having any side effects from the medications. I slept pretty well . Pt reports having some paranoia yesterday evening. denies SI/HI/VH/AH. Medication Compliance: Yes Side effects from medications: No Attending Groups: Yes Review of Systems Constitutional: Reports as per HPI Eyes: Reports as per HPI Reports as per HPI Cardiovascular: Reports as per HPI Respiratory: Reports as per HPI Gastrointestinal: Reports as per HPI Musculoskeletal: Reports as per HPI Skin/Breast: Reports as per HPI Reports as per HPI Psychiatric: Reports as per HPI Endocrine: Reports as per HPI Hematologic/Lymphatic: Reports as per HPI Allergic/Immunologic: Reports as per HPI Mental Status Exam Mental Status Exam Narrative: Pt is alert and oriented; behavior is cooperative, calm; dressed in casual attire; mood is described as okay ; eye contact appropriate; Speech is normal rate, volume and not pressured; thought process is organized and goal directed; Thought content is on tx; denies SI/HI/VH/AH. Diagnostics Vital Signs (24Hr): Vital Signs - 24 hr 09/29/24 17:33 09/29/24 21:41 Temperature 99.3 F 98.7 F Pulse Rate 76 70 Respiratory Rate 16 16 Blood Pressure 122/90 H 105/58 L Pulse Oximetry 98 96 Oxygen Delivery Method Room Air Room Air Labs 09/30/24 07:40 Medications Medications Current Medications Acetaminophen (Acetaminophen 325 Mg Tablet) 650 mg PO Q6H PRN PRN Reason: Headache/Pain Mild Scale (1-3) Al Hydroxide/Mg Hydroxide (Magnesium Hydrox/Alum Hydrox 30 Ml Oral.Susp) 30 ml PO Q6H PRN PRN Reason: Heartburn/Nausea Buprenorphine/Naloxone (Buprenorphine/Naloxone 4/1 Mg Film) 1 film SUBLINGUAL BID [facility] Last Admin: 09/29/24 21:27 Dose: 1 film Cariprazine (Cariprazine Hcl 3 Mg Capsule) 3 mg PO BEDTIME ARNEL Last Admin: 09/29/24 21:44 Dose: 3 mg Clonazepam (Clonazepam 1 Mg Tablet) 1 mg PO BID [facility] Last Admin: 09/29/24 21:43 Dose: 1 mg Clonidine HCl (Clonidine Hcl 0.1 Mg Tablet) 0.1 mg PO BID PRN; Protocol PRN Reason: Anxiety Gabapentin (Gabapentin 400 Mg Capsule) 400 mg PO BID [facility] Last Admin: 09/29/24 21:43 Dose: 400 mg Hydroxyzine HCl (Hydroxyzine Hcl 25 Mg Tablet) 25 mg PO Q6H PRN PRN Reason: Anxiety Last Admin: 09/30/24 03:01 Dose: 25 mg Magnesium Hydroxide (Milk Of Magnesia 30 Ml Oral.Susp) 30 ml PO DAILY PRN PRN Reason: Constipation Nicotine (Nicotine 21 Mg Patch.Td24) 21 mg TRANSDERMA DAILY [facility] Nicotine Polacrilex (Nicotine Polacrilex 2 Mg Gum) 4 mg BUCCAL Q2H PRN PRN Reason: Nicotine Cravings Last Admin: 09/30/24 03:01 Dose: 4 mg Propranolol HCl (Propranolol Hcl 10 Mg Tablet) 10 mg PO BID [facility] Last Admin: 09/29/24 21:43 Dose: 10 mg Trazodone HCl (Trazodone Hcl 50 Mg Tablet) 50 mg PO BEDTIME MRX1 PRN PRN Reason: Insomnia Allergies Allergies Allergy/AdvReac Type Severity Reaction Status Date / Time No Known Allergies Allergy Verified 11/30/20 08:16 Assessment & Plan Assessment & Plan (1) MDD (major depressive disorder), recurrent, severe, with psychosis: Status: Acute Code(s): F33.3 - Major depressive disorder, recurrent, severe with psychotic symptoms (2) PTSD (post-traumatic stress disorder): Status: Acute Code(s): F43.10 - Post-traumatic stress disorder, unspecified (3) Alcohol use disorder, severe, dependence: Status: Acute Code(s): F10.20 - Alcohol dependence, uncomplicated (4) Opioid use disorder, severe, in sustained remission: Status: Acute Code(s): F11.21 - Opioid dependence, in remission Plan Patient is a 33-year-old female with history of MDD with psychotic features, PTSD, alcohol use disorder and opiate use disorder who self presented to ER after leaving [facility] respite due to suicidal ideation secondary to feeling paranoid. Plan: CV 15 minute safety checks Continue home medications Increase Vraylar to 3 mg p.o. bedtime Encourage groups Discharge planning 09/30: Active on unit, attending groups. Signed 3 day notice. Patient reports feeling okay today; pt stated, I'm not having any side effects from the medications. I slept pretty well . Pt reports having some paranoia yesterday evening. denies SI/HI/VH/AH. Continue current tx plan. Patient educated on: diagnosis, medication risk/benefits and therapeutic strategies Reason for continued inpatient stay Substantial Risk for: med/psych decompensation Time Spent With Patient Time: Total time managing care of this patient today _20___ minutes.
[2024-09-30] MEDS: Nicotine 21 MG PATCH.TD24 TRANSDERMA (08:19)
[2024-09-30 08:20] VITALS: BP 106/71; PULSE 75
[2024-09-30] MEDS: clonazePAM 1 MG TABLET PO ×2 (08:20→21:10)
[2024-09-30] MEDS: Acetaminophen 325 MG TABLET 650 MG PO (08:20)
[2024-09-30] MEDS: Propranolol HCL 10 MG TABLET PO ×2 (08:20→21:10)
[2024-09-30] MEDS: Gabapentin 400 MG CAPSULE PO ×2 (08:20→21:10)
[2024-09-30 08:30] LABS: Alanine Aminotransferase 18 U/L (0-31); Albumin Level 3.7 g/dL (3.5-5.0); Alkaline Phosphatase 26 U/L (39-117); Anion Gap 10 (12-20); Aspartate Amino Transferase 26 U/L (5-31); Bilirubin Total 0.2 mg/dL (0.0-1.0); Blood Urea Nitrogen 10 mg/dL (9-16); Calcium 8.4 mg/dL (8.4-10.2); Carbon Dioxide 24 mmol/L (22-29); Chloride 112 mmol/L (96-108); Cholesterol 160 mg/dL (<200); Estimated Glomerular Filt Rate > 60; Glucose Fasting 88 mg/dL (60-99); HDL Cholesterol 44 mg/dL (>40); LDL Cholesterol Calculated 103 mg/dL (<100); Potassium 4.3 mmol/L (3.3-5.1); Sodium 142 mmol/L (135-145); Total Protein 6.4 g/dL (6.5-8.0); Triglycerides 66 mg/dL (<150)
[2024-09-30] MEDS: Buprenorphine/Naloxone 4/1 mg FILM 1 FILM SUBLINGUAL ×2 (08:49→21:10)
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
[2024-09-30 20:22] VITALS: BP 120/74; PULSE 88; RESP 16; TEMP 36.9; O2SAT 97
[2024-09-30] MEDS: Cariprazine HCl 3 MG CAPSULE PO (21:10)
[2024-10-01 07:25] VITALS: BP 115/72; PULSE 67; RESP 16; TEMP 36.8; O2SAT 100
[2024-10-01] MEDS: Propranolol HCL 10 MG TABLET PO ×2 (08:31→20:56)
[2024-10-01] MEDS: Nicotine 21 MG PATCH.TD24 TRANSDERMA (08:31)
[2024-10-01] MEDS: clonazePAM 1 MG TABLET PO ×2 (08:32→20:56)
[2024-10-01] MEDS: Gabapentin 400 MG CAPSULE PO ×2 (08:32→20:56)
[2024-10-01] MEDS: Buprenorphine/Naloxone 4/1 mg FILM 1 FILM SUBLINGUAL ×2 (08:32→20:55)
[2024-10-01] MEDS: Nicotine Polacrilex 2 MG GUM 4 MG BUCCAL ×4 (08:32→21:18)
--- NOTE | 2024-10-01 13:40 | HO.PSYCHPN ---
Subjective Subjective Date of Service: 10/01/24 Reason For Visit: Major Depressive DO Single Episode w/Psychotic Etc Subjective Notes: 3 Day Interim History: Active on unit, attending groups. Patient reports having a good day yesterday and was able to relax with meditation. She reports less paranoia, however increased anxiety in the afternoon. Requesting increase in klonopin. Klonopin 0.5mg PO daily at 1500 ordered. denies SI/HI/VH/AH. Medication Compliance: Yes Side effects from medications: No Attending Groups: Yes Review of Systems Constitutional: Reports as per HPI Eyes: Reports as per HPI Reports as per HPI Cardiovascular: Reports as per HPI Respiratory: Reports as per HPI Gastrointestinal: Reports as per HPI Musculoskeletal: Reports as per HPI Skin/Breast: Reports as per HPI Reports as per HPI Psychiatric: Reports as per HPI Endocrine: Reports as per HPI Hematologic/Lymphatic: Reports as per HPI Allergic/Immunologic: Reports as per HPI Mental Status Exam Mental Status Exam Narrative: Pt is alert and oriented; behavior is cooperative, calm; dressed in casual attire; mood is described as anxious ; eye contact appropriate; Speech is normal rate, volume and not pressured; thought process is organized and goal directed; Thought content is on tx; denies SI/HI/VH/AH. Diagnostics Vital Signs (24Hr): Vital Signs - 24 hr 09/30/24 20:22 10/01/24 07:25 Temperature 98.4 F 98.2 F Pulse Rate 88 67 Respiratory Rate 16 16 Blood Pressure 120/74 115/72 Pulse Oximetry 97 100 Oxygen Delivery Method Room Air Room Air Labs 09/30/24 07:40 Labs: Laboratory Results - last 48 hr 09/30/24 07:40 Sodium 142 Potassium 4.3 Chloride 112 H Carbon Dioxide 24 Anion Gap 10 L BUN 10 Creatinine 0.80 Estim Creat Clear Calc TNP Estimated GFR > 60 Fasting Glucose 88 Calcium 8.4 Total Bilirubin 0.2 AST 26 ALT 18 Alkaline Phosphatase 26 L Total Protein 6.4 L Albumin 3.7 Triglycerides 66 Cholesterol 160 LDL Cholesterol, Calc 103 H HDL Cholesterol 44 Medications Medications Current Medications Acetaminophen (Acetaminophen 325 Mg Tablet) 650 mg PO Q6H PRN PRN Reason: Headache/Pain Mild Scale (1-3) Last Admin: 09/30/24 08:20 Dose: 650 mg Al Hydroxide/Mg Hydroxide (Magnesium Hydrox/Alum Hydrox 30 Ml Oral.Susp) 30 ml PO Q6H PRN PRN Reason: Heartburn/Nausea Buprenorphine/Naloxone (Buprenorphine/Naloxone 4/1 Mg Film) 1 film SUBLINGUAL BID [facility] Last Admin: 10/01/24 08:32 Dose: 1 film Cariprazine (Cariprazine Hcl 3 Mg Capsule) 3 mg PO BEDTIME [facility] Last Admin: 09/30/24 21:10 Dose: 3 mg Clonazepam (Clonazepam 1 Mg Tablet) 1 mg PO BID [facility] Last Admin: 10/01/24 08:32 Dose: 1 mg Clonazepam (Clonazepam 0.5 Mg Tablet) 0.5 mg PO DAILY@1500 [facility] Clonidine HCl (Clonidine Hcl 0.1 Mg Tablet) 0.1 mg PO BID PRN; Protocol PRN Reason: Anxiety Gabapentin (Gabapentin 400 Mg Capsule) 400 mg PO BID [facility] Last Admin: 10/01/24 08:32 Dose: 400 mg Hydroxyzine HCl (Hydroxyzine Hcl 25 Mg Tablet) 25 mg PO Q6H PRN PRN Reason: Anxiety Last Admin: 09/30/24 03:01 Dose: 25 mg Magnesium Hydroxide (Milk Of Magnesia 30 Ml Oral.Susp) 30 ml PO DAILY PRN PRN Reason: Constipation Nicotine (Nicotine 21 Mg Patch.Td24) 21 mg TRANSDERMA DAILY [facility] Last Admin: 10/01/24 08:31 Dose: 21 mg Nicotine Polacrilex (Nicotine Polacrilex 2 Mg Gum) 4 mg BUCCAL Q2H PRN PRN Reason: Nicotine Cravings Last Admin: 10/01/24 08:32 Dose: 4 mg Propranolol HCl (Propranolol Hcl 10 Mg Tablet) 10 mg PO BID [facility] Last Admin: 10/01/24 08:31 Dose: 10 mg Trazodone HCl (Trazodone Hcl 50 Mg Tablet) 50 mg PO BEDTIME MRX1 PRN PRN Reason: Insomnia Allergies Allergies Allergy/AdvReac Type Severity Reaction Status Date / Time No Known Allergies Allergy Verified 11/30/20 08:16 Assessment & Plan Assessment & Plan (1) MDD (major depressive disorder), recurrent, severe, with psychosis: Status: Acute Code(s): F33.3 - Major depressive disorder, recurrent, severe with psychotic symptoms (2) PTSD (post-traumatic stress disorder): Status: Acute Code(s): F43.10 - Post-traumatic stress disorder, unspecified (3) Alcohol use disorder, severe, in sustained remission: Status: Acute Code(s): F10.21 - Alcohol dependence, in remission (4) Opioid use disorder, severe, in sustained remission: Status: Acute Code(s): F11.21 - Opioid dependence, in remission Plan Patient is a 33-year-old female with history of MDD with psychotic features, PTSD, alcohol use disorder and opiate use disorder who self presented to ER after leaving [employer] respite due to suicidal ideation secondary to feeling paranoid. Plan: CV 15 minute safety checks Continue home medications Increase Vraylar to 3 mg p.o. bedtime Encourage groups Discharge planning 09/30: Active on unit, attending groups. Signed 3 day notice. Patient reports feeling okay today; pt stated, I'm not having any side effects from the medications. I slept pretty well . Pt reports having some paranoia yesterday evening. denies SI/HI/VH/AH. Continue current tx plan. 10/01: Active on unit, attending groups. Patient reports having a good day yesterday and was able to relax with meditation. She reports less paranoia, however increased anxiety in the afternoon. Requesting increase in klonopin. Klonopin 0.5mg PO daily at 1500 ordered. denies SI/HI/VH/AH. Patient educated on: diagnosis, medication risk/benefits and therapeutic strategies Reason for continued inpatient stay Substantial Risk for: med/psych decompensation Time Spent With Patient Time: Total time managing care of this patient today _20___ minutes.
[2024-10-01] MEDS: Acetaminophen 325 MG TABLET 650 MG PO (14:26)
[2024-10-01] MEDS: clonazePAM 0.5 MG TABLET PO (14:27)
[2024-10-01 20:00] VITALS: BP 113/77; PULSE 78; RESP 18; TEMP 36.8; O2SAT 98
[2024-10-01] MEDS: Cariprazine HCl 3 MG CAPSULE PO (20:56)
[2024-10-02 07:35] VITALS: BP 100/55; PULSE 65; RESP 14; TEMP 37; O2SAT 100
--- NOTE | 2024-10-02 08:59 | HO.PSYCHPN ---
Subjective Subjective Date of Service: 10/02/24 Reason For Visit: Major Depressive DO Single Episode w/Psychotic Etc Subjective Notes: 3 Day Interim History: Active on unit, attending groups. keeping to self. Pt reports feeling tired all day because of the increase in klonopin ; discussed decreasing morning dosage. Dose decreased to Klonopin 0.5mg PO BID@0800, 1500 and 1mg PO bedtime. Patient reports she did not experience any paranoia yesterday. per nursing, slept 8 hours last night. denies SI/HI/VH/AH. Medication Compliance: Yes Side effects from medications: No Attending Groups: Yes Review of Systems Constitutional: Reports as per HPI Eyes: Reports as per HPI Reports as per HPI Cardiovascular: Reports as per HPI Respiratory: Reports as per HPI Gastrointestinal: Reports as per HPI Musculoskeletal: Reports as per HPI Skin/Breast: Reports as per HPI Reports as per HPI Psychiatric: Reports as per HPI Endocrine: Reports as per HPI Hematologic/Lymphatic: Reports as per HPI Allergic/Immunologic: Reports as per HPI Mental Status Exam Mental Status Exam Narrative: Pt is alert and oriented; behavior is cooperative, calm; dressed in casual attire; mood is described as anxious ; eye contact appropriate; Speech is normal rate, volume and not pressured; thought process is organized and goal directed; Thought content is on tx; denies SI/HI/VH/AH. Diagnostics Vital Signs (24Hr): Vital Signs - 24 hr 10/01/24 20:00 10/02/24 07:35 Temperature 98.2 F 98.6 F Pulse Rate 78 65 Respiratory Rate 18 14 Blood Pressure 113/77 100/55 L Pulse Oximetry 98 100 Oxygen Delivery Method Room Air Room Air Labs 09/30/24 07:40 Medications Medications Current Medications Acetaminophen (Acetaminophen 325 Mg Tablet) 650 mg PO Q6H PRN PRN Reason: Headache/Pain Mild Scale (1-3) Last Admin: 10/01/24 14:26 Dose: 650 mg Al Hydroxide/Mg Hydroxide (Magnesium Hydrox/Alum Hydrox 30 Ml Oral.Susp) 30 ml PO Q6H PRN PRN Reason: Heartburn/Nausea Buprenorphine/Naloxone (Buprenorphine/Naloxone 4/1 Mg Film) 1 film SUBLINGUAL BID [facility] Last Admin: 10/01/24 20:55 Dose: 1 film Cariprazine (Cariprazine Hcl 3 Mg Capsule) 3 mg PO BEDTIME [facility] Last Admin: 10/01/24 20:56 Dose: 3 mg Clonazepam (Clonazepam 1 Mg Tablet) 1 mg PO BID [facility] Last Admin: 10/01/24 20:56 Dose: 1 mg Clonazepam (Clonazepam 0.5 Mg Tablet) 0.5 mg PO DAILY@1500 [facility] Last Admin: 10/01/24 14:27 Dose: 0.5 mg Clonidine HCl (Clonidine Hcl 0.1 Mg Tablet) 0.1 mg PO BID PRN; Protocol PRN Reason: Anxiety Gabapentin (Gabapentin 400 Mg Capsule) 400 mg PO BID [facility] Last Admin: 10/01/24 20:56 Dose: 400 mg Hydroxyzine HCl (Hydroxyzine Hcl 25 Mg Tablet) 25 mg PO Q6H PRN PRN Reason: Anxiety Last Admin: 09/30/24 03:01 Dose: 25 mg Magnesium Hydroxide (Milk Of Magnesia 30 Ml Oral.Susp) 30 ml PO DAILY PRN PRN Reason: Constipation Nicotine (Nicotine 21 Mg Patch.Td24) 21 mg TRANSDERMA DAILY [facility] Last Admin: 10/01/24 08:31 Dose: 21 mg Nicotine Polacrilex (Nicotine Polacrilex 2 Mg Gum) 4 mg BUCCAL Q2H PRN PRN Reason: Nicotine Cravings Last Admin: 10/01/24 21:18 Dose: 4 mg Propranolol HCl (Propranolol Hcl 10 Mg Tablet) 10 mg PO BID [facility] Last Admin: 10/01/24 20:56 Dose: 10 mg Trazodone HCl (Trazodone Hcl 50 Mg Tablet) 50 mg PO BEDTIME MRX1 PRN PRN Reason: Insomnia Allergies Allergies Allergy/AdvReac Type Severity Reaction Status Date / Time No Known Allergies Allergy Verified 11/30/20 08:16 Assessment & Plan Assessment & Plan (1) MDD (major depressive disorder), recurrent, severe, with psychosis: Status: Acute Code(s): F33.3 - Major depressive disorder, recurrent, severe with psychotic symptoms (2) PTSD (post-traumatic stress disorder): Status: Acute Code(s): F43.10 - Post-traumatic stress disorder, unspecified (3) Alcohol use disorder, severe, in sustained remission: Status: Acute Code(s): F10.21 - Alcohol dependence, in remission (4) Opioid use disorder, severe, in sustained remission: Status: Acute Code(s): F11.21 - Opioid dependence, in remission Plan Patient is a 33-year-old female with history of MDD with psychotic features, PTSD, alcohol use disorder and opiate use disorder who self presented to ER after leaving [employer] respite due to suicidal ideation secondary to feeling paranoid. Plan: CV 15 minute safety checks Continue home medications Increase Vraylar to 3 mg p.o. bedtime Encourage groups Discharge planning 09/30: Active on unit, attending groups. Signed 3 day notice. Patient reports feeling okay today; pt stated, I'm not having any side effects from the medications. I slept pretty well . Pt reports having some paranoia yesterday evening. denies SI/HI/VH/AH. Continue current tx plan. 10/01: Active on unit, attending groups. Patient reports having a good day yesterday and was able to relax with meditation. She reports less paranoia, however increased anxiety in the afternoon. Requesting increase in klonopin. Klonopin 0.5mg PO daily at 1500 ordered. denies SI/HI/VH/AH. 10/02: Active on unit, attending groups. keeping to self. Pt reports feeling tired all day because of the increase in klonopin ; discussed decreasing morning dosage. Dose decreased to Klonopin 0.5mg PO BID@0800, 1500 and 1mg PO bedtime. Patient reports she did not experience any paranoia yesterday. per nursing, slept 8 hours last night. denies SI/HI/VH/AH. Patient educated on: diagnosis, medication risk/benefits and therapeutic strategies Reason for continued inpatient stay Substantial Risk for: med/psych decompensation Time Spent With Patient Time: Total time managing care of this patient today _20___ minutes.
[2024-10-02] MEDS: Propranolol HCL 10 MG TABLET PO ×2 (09:14→20:27)
[2024-10-02] MEDS: Nicotine 21 MG PATCH.TD24 TRANSDERMA (09:14)
[2024-10-02] MEDS: clonazePAM 1 MG TABLET PO ×2 (09:14→20:28)
[2024-10-02] MEDS: Gabapentin 400 MG CAPSULE PO ×2 (09:15→20:26)
[2024-10-02] MEDS: Buprenorphine/Naloxone 4/1 mg FILM 1 FILM SUBLINGUAL ×2 (09:15→20:35)
[2024-10-02] MEDS: Nicotine Polacrilex 2 MG GUM 4 MG BUCCAL ×3 (09:41→20:28)
[2024-10-02] MEDS: clonazePAM 0.5 MG TABLET PO (15:39)
[2024-10-02] MEDS: Acetaminophen 325 MG TABLET 650 MG PO (18:55)
[2024-10-02] MEDS: Ondansetron ODT 4 MG TAB.RAPDIS TRANSLINGU (19:12)
[2024-10-02] MEDS: Omeprazole 20 MG CAPSULE.DR PO (19:14)
[2024-10-02] MEDS: Cariprazine HCl 3 MG CAPSULE PO (20:26)
[2024-10-02] MEDS: hydrOXYzine HCL 25 MG TABLET PO (20:26)
[2024-10-02 20:27] VITALS: BP 111/65; PULSE 69
[2024-10-02 20:30] VITALS: RESP 16; TEMP 37.1; O2SAT 99
--- NOTE | 2024-10-02 23:58 | PC.NURSE ---
HS suboxone given at 2029. end of shift review did not show medication as scanned but medication was administered. MAR updated at this time.
--- NOTE | 2024-10-03 06:47 | PC.NURSE ---
decline AM prilosec. reports will take later.
[2024-10-03 07:30] VITALS: BP 83/48; PULSE 63; RESP 12; TEMP 36.9; O2SAT 96
[2024-10-03 08:16] VITALS: BP 101/56; PULSE 77
--- NOTE | 2024-10-03 09:15 | HO.PSYCHPN ---
Subjective Subjective Date of Service: 10/03/24 Reason For Visit: Major Depressive DO Single Episode w/Psychotic Etc Subjective Notes: 3 Day Interim History: Pt reports feeling good today; pt stated, I'm feeling better with the medication changes . 3 day up on 10/05/24. attending groups. she reports sleeping well. denies SI/HI/VH/AH. Medication Compliance: Yes Side effects from medications: No Attending Groups: Yes Review of Systems Constitutional: Reports as per HPI Eyes: Reports as per HPI Reports as per HPI Cardiovascular: Reports as per HPI Respiratory: Reports as per HPI Gastrointestinal: Reports as per HPI Musculoskeletal: Reports as per HPI Skin/Breast: Reports as per HPI Reports as per HPI Psychiatric: Reports as per HPI Endocrine: Reports as per HPI Hematologic/Lymphatic: Reports as per HPI Allergic/Immunologic: Reports as per HPI Mental Status Exam Mental Status Exam Narrative: Pt is alert and oriented; behavior is cooperative, calm; dressed in casual attire; mood is described as good ; eye contact appropriate; Speech is normal rate, volume and not pressured; thought process is organized and goal directed; Thought content is on tx; denies SI/HI/VH/AH. Diagnostics Vital Signs (24Hr): Vital Signs - 24 hr 10/02/24 20:27 10/02/24 20:30 10/03/24 07:30 Temperature 98.7 F 98.4 F Pulse Rate 69 63 Respiratory Rate 16 12 Blood Pressure 111/65 83/48 L Pulse Oximetry 99 96 Oxygen Delivery Method Room Air Room Air 10/03/24 08:16 Temperature Pulse Rate 77 Respiratory Rate Blood Pressure 101/56 L Pulse Oximetry Oxygen Delivery Method Labs 09/30/24 07:40 Medications Medications Current Medications Acetaminophen (Acetaminophen 325 Mg Tablet) 650 mg PO Q6H PRN PRN Reason: Headache/Pain Mild Scale (1-3) Last Admin: 10/02/24 18:55 Dose: 650 mg Al Hydroxide/Mg Hydroxide (Magnesium Hydrox/Alum Hydrox 30 Ml Oral.Susp) 30 ml PO Q6H PRN PRN Reason: Heartburn/Nausea Buprenorphine/Naloxone (Buprenorphine/Naloxone 4/1 Mg Film) 1 film SUBLINGUAL BID [facility] Last Admin: 10/02/24 20:35 Dose: 1 film Cariprazine (Cariprazine Hcl 3 Mg Capsule) 3 mg PO BEDTIME [facility] Last Admin: 10/02/24 20:26 Dose: 3 mg Clonazepam (Clonazepam 1 Mg Tablet) 1 mg PO BEDTIME [facility] Last Admin: 10/02/24 20:28 Dose: 1 mg Clonazepam (Clonazepam 0.5 Mg Tablet) 0.5 mg PO DAILY@0800,1500 [facility] Last Admin: 10/02/24 15:39 Dose: 0.5 mg Clonidine HCl (Clonidine Hcl 0.1 Mg Tablet) 0.1 mg PO BID PRN; Protocol PRN Reason: Anxiety Gabapentin (Gabapentin 400 Mg Capsule) 400 mg PO BID [facility] Last Admin: 10/02/24 20:26 Dose: 400 mg Hydroxyzine HCl (Hydroxyzine Hcl 25 Mg Tablet) 25 mg PO Q6H PRN PRN Reason: Anxiety Last Admin: 10/02/24 20:26 Dose: 25 mg Magnesium Hydroxide (Milk Of Magnesia 30 Ml Oral.Susp) 30 ml PO DAILY PRN PRN Reason: Constipation Nicotine (Nicotine 21 Mg Patch.Td24) 21 mg TRANSDERMA DAILY [facility] Last Admin: 10/02/24 09:14 Dose: 21 mg Nicotine Polacrilex (Nicotine Polacrilex 2 Mg Gum) 4 mg BUCCAL Q2H PRN PRN Reason: Nicotine Cravings Last Admin: 10/02/24 20:28 Dose: 4 mg Omeprazole (Omeprazole 20 Mg Capsule.Dr) 20 mg PO BID@0630,1630 [facility] Last Admin: 10/02/24 19:14 Dose: 20 mg Ondansetron HCl (Ondansetron Odt 4 Mg Tab.Rapdis) 4 mg TRANSLINGU Q8H PRN PRN Reason: Nausea and Vomiting Last Admin: 10/02/24 19:12 Dose: 4 mg Propranolol HCl (Propranolol Hcl 10 Mg Tablet) 10 mg PO BID [facility] Last Admin: 10/02/24 20:27 Dose: 10 mg Trazodone HCl (Trazodone Hcl 50 Mg Tablet) 50 mg PO BEDTIME MRX1 PRN PRN Reason: Insomnia Allergies Allergies Allergy/AdvReac Type Severity Reaction Status Date / Time No Known Allergies Allergy Verified 11/30/20 08:16 Assessment & Plan Assessment & Plan (1) MDD (major depressive disorder), recurrent, severe, with psychosis: Status: Acute Code(s): F33.3 - Major depressive disorder, recurrent, severe with psychotic symptoms (2) PTSD (post-traumatic stress disorder): Status: Acute Code(s): F43.10 - Post-traumatic stress disorder, unspecified (3) Alcohol use disorder, severe, in sustained remission: Status: Acute Code(s): F10.21 - Alcohol dependence, in remission (4) Opioid use disorder, severe, in sustained remission: Status: Acute Code(s): F11.21 - Opioid dependence, in remission Plan Patient is a 33-year-old female with history of MDD with psychotic features, PTSD, alcohol use disorder and opiate use disorder who self presented to ER after leaving [employer] respite due to suicidal ideation secondary to feeling paranoid. Plan: CV 15 minute safety checks Continue home medications Increase Vraylar to 3 mg p.o. bedtime Encourage groups Discharge planning 09/30: Active on unit, attending groups. Signed 3 day notice. Patient reports feeling okay today; pt stated, I'm not having any side effects from the medications. I slept pretty well . Pt reports having some paranoia yesterday evening. denies SI/HI/VH/AH. Continue current tx plan. 10/01: Active on unit, attending groups. Patient reports having a good day yesterday and was able to relax with meditation. She reports less paranoia, however increased anxiety in the afternoon. Requesting increase in klonopin. Klonopin 0.5mg PO daily at 1500 ordered. denies SI/HI/VH/AH. 10/02: Active on unit, attending groups. keeping to self. Pt reports feeling tired all day because of the increase in klonopin ; discussed decreasing morning dosage. Dose decreased to Klonopin 0.5mg PO BID@0800, 1500 and 1mg PO bedtime. Patient reports she did not experience any paranoia yesterday. per nursing, slept 8 hours last night. denies SI/HI/VH/AH. 10/03: pt reports feeling better with medication changes. denies SI/HI/VH/AH. attending groups. Patient educated on: diagnosis, medication risk/benefits and therapeutic strategies Reason for continued inpatient stay Substantial Risk for: med/psych decompensation Time Spent With Patient Time: Total time managing care of this patient today _20___ minutes.
[2024-10-03] MEDS: Gabapentin 400 MG CAPSULE PO ×2 (09:22→21:28)
[2024-10-03] MEDS: Nicotine Polacrilex 2 MG GUM 4 MG BUCCAL ×2 (09:22→21:42)
[2024-10-03] MEDS: Propranolol HCL 10 MG TABLET PO ×2 (09:22→21:28)
[2024-10-03] MEDS: Buprenorphine/Naloxone 4/1 mg FILM 1 FILM SUBLINGUAL ×2 (09:22→21:28)
[2024-10-03] MEDS: clonazePAM 0.5 MG TABLET PO ×2 (09:24→14:38)
[2024-10-03] MEDS: Nicotine 21 MG PATCH.TD24 TRANSDERMA (10:11)
[2024-10-03 19:40] VITALS: BP 108/64; PULSE 70; TEMP 36.8; O2SAT 99
[2024-10-03 21:28] VITALS: BP 105/63; PULSE 69
[2024-10-03] MEDS: clonazePAM 1 MG TABLET PO (21:28)
[2024-10-03] MEDS: Cariprazine HCl 3 MG CAPSULE PO (21:28)
[2024-10-04] MEDS: Nicotine Polacrilex 2 MG GUM 4 MG BUCCAL ×5 (05:18→20:51)
[2024-10-04 08:52] VITALS: BP 114/71; PULSE 69; RESP 16; TEMP 36.4; O2SAT 100
[2024-10-04] MEDS: Nicotine 14 MG PATCH.TD24 TRANSDERMA (08:53)
[2024-10-04] MEDS: Gabapentin 400 MG CAPSULE PO ×2 (08:55→20:51)
[2024-10-04] MEDS: Propranolol HCL 10 MG TABLET PO ×2 (08:55→20:54)
[2024-10-04] MEDS: Omeprazole 20 MG CAPSULE.DR PO (08:55)
[2024-10-04] MEDS: Buprenorphine/Naloxone 4/1 mg FILM 1 FILM SUBLINGUAL ×2 (08:55→20:50)
[2024-10-04] MEDS: clonazePAM 0.5 MG TABLET PO ×2 (09:10→15:09)
[2024-10-04] MEDS: hydrOXYzine HCL 25 MG TABLET PO (12:51)
--- NOTE | 2024-10-04 16:24 | P.PNPSI_ITS ---
Subjective Subjective Date of Service: 10/04/24 Reason For Visit: Major Depressive DO Single Episode w/Psychotic Etc Interim History: reports some anxiety, planning to discharge home tomorrow. denies safety concerns. per staff, 3-day up tomorrow. taking meds. pacing. increased anxiety. klonopin helpful. sleeping in side room bcse roommate is disruptive. Mental Status Exam Mental Status Exam Narrative: Pt is alert and oriented; behavior is cooperative, calm; dressed in casual attire; mood is described as anxious; eye contact appropriate; Speech is normal rate, volume and not pressured; thought process is organized and goal directed; Thought content is on tx; denies SI/SIBI/HI/AVH. Diagnostics Vital Signs (24Hr): Vital Signs - 24 hr 10/03/24 19:40 10/03/24 21:28 10/04/24 08:52 Temperature 98.3 F 97.6 F Pulse Rate 70 69 69 Respiratory Rate 16 Blood Pressure 108/64 105/63 114/71 Pulse Oximetry 99 100 Oxygen Delivery Method Room Air Room Air Labs 09/30/24 07:40 Medications Medications Current Medications Acetaminophen (Acetaminophen 325 Mg Tablet) 650 mg PO Q6H PRN PRN Reason: Headache/Pain Mild Scale (1-3) Last Admin: 10/02/24 18:55 Dose: 650 mg Al Hydroxide/Mg Hydroxide (Magnesium Hydrox/Alum Hydrox 30 Ml Oral.Susp) 30 ml PO Q6H PRN PRN Reason: Heartburn/Nausea Buprenorphine/Naloxone (Buprenorphine/Naloxone 4/1 Mg Film) 1 film SUBLINGUAL BID [facility] Last Admin: 10/04/24 08:55 Dose: 1 film Cariprazine (Cariprazine Hcl 3 Mg Capsule) 3 mg PO BEDTIME [facility] Last Admin: 10/03/24 21:28 Dose: 3 mg Clonazepam (Clonazepam 1 Mg Tablet) 1 mg PO BEDTIME [facility] Last Admin: 10/03/24 21:28 Dose: 1 mg Clonazepam (Clonazepam 0.5 Mg Tablet) 0.5 mg PO DAILY@0800,1500 [facility] Last Admin: 10/04/24 15:09 Dose: 0.5 mg Clonidine HCl (Clonidine Hcl 0.1 Mg Tablet) 0.1 mg PO BID PRN; Protocol PRN Reason: Anxiety Gabapentin (Gabapentin 400 Mg Capsule) 400 mg PO BID [facility] Last Admin: 10/04/24 08:55 Dose: 400 mg Hydroxyzine HCl (Hydroxyzine Hcl 25 Mg Tablet) 25 mg PO Q6H PRN PRN Reason: Anxiety Last Admin: 10/04/24 12:51 Dose: 25 mg Magnesium Hydroxide (Milk Of Magnesia 30 Ml Oral.Susp) 30 ml PO DAILY PRN PRN Reason: Constipation Nicotine (Nicotine 14 Mg Patch.Td24) 14 mg TRANSDERMA DAILY [facility] Last Admin: 10/04/24 08:53 Dose: 14 mg Nicotine Polacrilex (Nicotine Polacrilex 2 Mg Gum) 4 mg BUCCAL Q2H PRN PRN Reason: Nicotine Cravings Last Admin: 10/04/24 15:13 Dose: 4 mg Omeprazole (Omeprazole 20 Mg Capsule.Dr) 20 mg PO BID@0630,1630 [facility] Last Admin: 10/04/24 16:11 Dose: Not Given Ondansetron HCl (Ondansetron Odt 4 Mg Tab.Rapdis) 4 mg TRANSLINGU Q8H PRN PRN Reason: Nausea and Vomiting Last Admin: 10/02/24 19:12 Dose: 4 mg Propranolol HCl (Propranolol Hcl 10 Mg Tablet) 10 mg PO BID [facility] Last Admin: 10/04/24 08:55 Dose: 10 mg Trazodone HCl (Trazodone Hcl 50 Mg Tablet) 50 mg PO BEDTIME MRX1 PRN PRN Reason: Insomnia Allergies Allergies Allergy/AdvReac Type Severity Reaction Status Date / Time No Known Allergies Allergy Verified 11/30/20 08:16 Assessment & Plan Assessment & Plan (1) MDD (major depressive disorder), recurrent, severe, with psychosis: Status: Acute Code(s): F33.3 - Major depressive disorder, recurrent, severe with psychotic symptoms (2) PTSD (post-traumatic stress disorder): Status: Acute Code(s): F43.10 - Post-traumatic stress disorder, unspecified (3) Alcohol use disorder, severe, in sustained remission: Status: Acute Code(s): F10.21 - Alcohol dependence, in remission (4) Opioid use disorder, severe, in sustained remission: Status: Acute Code(s): F11.21 - Opioid dependence, in remission Plan Patient is a 33-year-old female with history of MDD with psychotic features, PTSD, alcohol use disorder and opiate use disorder who self presented to ER after leaving [employer] respite due to suicidal ideation secondary to feeling paranoid. Plan: CV 15 minute safety checks Continue home medications Increase Vraylar to 3 mg p.o. bedtime Encourage groups Discharge planning 09/30: Active on unit, attending groups. Signed 3 day notice. Patient reports feeling okay today; pt stated, I'm not having any side effects from the medications. I slept pretty well . Pt reports having some paranoia yesterday evening. denies SI/HI/VH/AH. Continue current tx plan. 10/01: Active on unit, attending groups. Patient reports having a good day yesterday and was able to relax with meditation. She reports less paranoia, however increased anxiety in the afternoon. Requesting increase in klonopin. Klonopin 0.5mg PO daily at 1500 ordered. denies SI/HI/VH/AH. 10/02: Active on unit, attending groups. keeping to self. Pt reports feeling tired all day because of the increase in klonopin ; discussed decreasing morning dosage. Dose decreased to Klonopin 0.5mg PO BID@0800, 1500 and 1mg PO bedtime. Patient reports she did not experience any paranoia yesterday. per nursing, slept 8 hours last night. denies SI/HI/VH/AH. 10/03: pt reports feeling better with medication changes. denies SI/HI/VH/AH. attending groups. 10/04: anxious, safe. discharging tomorrow. meds reviewed, reconciled, prescribed. Reason for continued inpatient stay Substantial Risk for: inability to function and rapid decompensation Time Spent With Patient Time: Total time managing care of this patient today __35__ minutes.
[2024-10-04] MEDS: clonazePAM 1 MG TABLET PO (20:51)
[2024-10-04] MEDS: Cariprazine HCl 3 MG CAPSULE PO (20:51)
[2024-10-04 20:52] VITALS: BP 100/59; PULSE 77; RESP 16; TEMP 37.1; O2SAT 98
[2024-10-04] MEDS: Acetaminophen 325 MG TABLET 650 MG PO (21:04)
[2024-10-05 08:29] VITALS: BP 110/71; PULSE 68; RESP 14; O2SAT 100
[2024-10-05] MEDS: Acetaminophen 325 MG TABLET 650 MG PO (08:35)
[2024-10-05] MEDS: Gabapentin 400 MG CAPSULE PO (08:36)
[2024-10-05] MEDS: Propranolol HCL 10 MG TABLET PO (08:37)
[2024-10-05] MEDS: Nicotine Polacrilex 2 MG GUM 4 MG BUCCAL (08:37)
[2024-10-05] MEDS: Buprenorphine/Naloxone 4/1 mg FILM 1 FILM SUBLINGUAL (08:38)
[2024-10-05] MEDS: Nicotine 14 MG PATCH.TD24 TRANSDERMA (08:39)
[2024-10-05] MEDS: clonazePAM 0.5 MG TABLET PO (08:43)
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
== END 2024-10-05 11:10 | disposition home or self-care (01) | DRG 751 ==
PROVIDERS: Admitting Provider Psychiatry & Neurology Psychiatry; PCP Nurse Practitioner Family; Responsible Provider Registered Nurse; Visit Provider Psychiatry & Neurology Psychiatry
DX: F33.3 Major depressive disorder, recurrent, severe with psychotic symptoms (principal); F43.10 Post-traumatic stress disorder, unspecified; F10.20 Alcohol dependence, uncomplicated; F11.20 Opioid dependence, uncomplicated; F17.210 Nicotine dependence, cigarettes, uncomplicated; Z71.6 Tobacco abuse counseling; Z79.899 Other long term (current) drug therapy
CPT/HCPCS: 36415; 80053; 80061

== ENCOUNTER → 2024-09-29 14:21 | Outpatient (BNV) | payer MEDICAID, SELFPAY | PROVIDERS: Admitting Provider Psychiatry & Neurology Psychiatry; PCP Nurse Practitioner Family; Responsible Provider Registered Nurse; Visit Provider Student in an Organized Health Care Education/Training Program | DX: Z00.8 Encounter for other general examination (principal) | CPT/HCPCS: 99222 ==

== ENCOUNTER → 2024-09-29 14:21 | Outpatient (BNV) | payer OTHER, SELFPAY | PROVIDERS: Admitting Provider Psychiatry & Neurology Psychiatry; PCP Nurse Practitioner Family; Responsible Provider Registered Nurse; Visit Provider Registered Nurse | DX: F33.3 Major depressive disorder, recurrent, severe with psychotic symptoms (principal); F10.21 Alcohol dependence, in remission; F11.21 Opioid dependence, in remission; F43.11 Post-traumatic stress disorder, acute | CPT/HCPCS: 99231; 99232; 99233 ==